=== PATIENT | female | born 1945 | race Caucasian/White ===

== ENCOUNTER 2018-07-24 09:25 | Inpatient (IN) | payer MEDICARE ==
[~2018-07-24] VITALS: Ht 160 cm; Wt 76.2 kg
[~2018-07-24 09:25] MED LIST: ATOR10TA PO; BRIM5DRO2 OP; CYCL5TAB PO; DULO60CA6 PO; ESTR0.5T PO; POLY17PO29 PO; PSYL1CAP4 PO; QUIN40TA PO; QUIN5TAB13 PO; SIMV40TA3 PO; TRAM50TA PO; TRAV5DRO EACHEYE; TRIA1TAB3 PO; ZOLP10TA4 PO
[2018-07-24] MEDS ORDERED: IV NORMAL SALINE 1000ML BAG 1,000 ML IV SCH ×2 (09:31→10:55)
[2018-07-24] MEDS ORDERED: ONDANSETRON PF 4 MG/2 ML VIAL. IV ONE (09:45)
[2018-07-24 10:12] LABS: BASO # 0.1 x10^3/uL (0.0-0.2); BASO % 0 % (0-3); EOS % 0 % (0-3); HEMATOCRIT 38.9 % (36.0-47.0); LYMPH # 1.2 x10^3/uL (1.0-4.8); LYMPH % 3 % (24-48); MEAN CORPUSCULAR HEMOGLOBIN 29 pg (25-35); MEAN CORPUSCULAR HGB CONC 34 g/dL (31-37); MEAN CORPUSCULAR VOLUME 87 fL (79-100); MONO # 1.9 x10^3/uL (0.0-1.1); MONO % 5 % (0-9); NEUT # 36.6 x10^3uL (1.8-7.7); NEUT % 92 % (31-73); PLATELET COUNT 469 x10^3/uL (140-400); RED BLOOD COUNT 4.45 x10^6/uL (3.50-5.40); WHITE BLOOD COUNT 39.7 x10^3/uL (4.0-11.0)
[2018-07-24 10:27] LABS: BILIRUBIN,URINE MODERATE (NEG); CLARITY,URINE CLOUDY; NITRITE,URINE NEGATIVE (NEG); PH,URINE 5.5; PROTEIN,URINE 100 mg/dL (NEG-TRACE)
[2018-07-24 10:29] LABS: AMORPHOUS SEDIMENT,UR PRESENT /HPF; BACTERIA,URINE FEW /HPF (0-FEW); COLOR,URINE AMBER; RBC,URINE OCC /HPF (0-2); SQUAMOUS EPITHELIAL CELL,UR FEW /LPF
[2018-07-24] MEDS ORDERED: IV NORMAL SALINE 1000ML BAG 1,000 ML IV ONE (10:30)
[2018-07-24 10:31] LABS: CALCIUM 9.5 mg/dL (8.5-10.1); CREATININE 1.6 mg/dL (0.6-1.0); GFR 31.7; POTASSIUM 3.1 mmol/L (3.5-5.1)
[2018-07-24 10:42] LABS: ALBUMIN 2.3 g/dL (3.4-5.0); ALBUMIN/GLOBULIN RATIO 0.5 (1.0-1.7); TOTAL BILIRUBIN 0.7 mg/dL (0.2-1.0)
--- NOTE | 2018-07-24 10:49 | PDOC1 ---
History and Physical Date of Admission Date of Admission DATE: 07/24/18 TIME: 10:45 Identification/Chief Complaint Chief Complaint Diarrhea Source Source: Patient History of Present Illness History of Present Illness Ms Iverson is a 73yo F w/ PMHx Arthritis, High Cholesterol, Hypertension, INSOMNIA, SPINA BIFIDA OCCULTA, OSTEOPENIA, prior lumbar laminectomy, chronic back pain who comes in with multiple days of diarrhea, found soiling herself in the ED. She is a poor historian, her sister states this is not her baseline. She was on antibiotics perioperatively for tooth extraction of multiple upper teeth, now is adentulous in her maxilla. She was tachycardic with large leukocytosis 39.7 with left shift, Cr 1.6, K 3.1, lactate 3.5, CK 473 with mild AST and Alk phos elevation. Occult stool positive and sent for c. difficile in ED with large loose watery BM. Was given empiric metronidazole and IV vancomycin by ED. Ct abdomen showed non-specific descending and sigmoid colitis, admitted for further care. Past Medical History Cardiovascular: HTN, Hyperlipidemia Pulmonary: No pertinent hx GI: No pertinent hx Heme/Onc: No pertinent hx Hepatobiliary: No pertinent hx Psych: No pertinent hx Musculoskeletal: low back pain, Osteoarthritis Rheumatologic: No pertinent hx Infectious disease: No pertinent hx ENT: No pertinent hx Renal/: No pertinent hx Endocrine: No pertinent hx Dermatology: No pertinent hx Past Surgical History Past Surgical History: Tonsillectomy, Hysterectomy, Other (Lumbar laminectomy) Current Medications Current Medications Current Medications Sodium Chloride 1,000 ml @ 1,000 mls/hr Q1H IV Last administered on 07/24/18at 10:15; Start 07/24/18 at 09:31; Stop 07/24/18 at 10:30; Status DC Ondansetron HCl (Zofran) 4 mg 1X ONCE IV Last administered on 07/24/18at 10:15; Start 07/24/18 at 09:45; Stop 07/24/18 at 09:46; Status DC Sodium Chloride 1,000 ml @ 1,000 mls/hr 1X ONCE IV ; Start 07/24/18 at 10:30; Stop 07/24/18 at 11:29 Active Scripts Active Reported Cyclobenzaprine Hcl 5 Mg Tablet 1 Tab PO TID Lipitor (Atorvastatin Calcium) 10 Mg Tablet Unknown Dose PO HS Triamterene-Hctz 37.5-25 Mg Tb (Triamterene/Hydrochlorothiazid) 1 Each Tablet 1 Tab PO DAILY Accupril (Quinapril Hcl) 40 Mg Tablet 1 Tab PO DAILY Tramadol Hcl 50 Mg Tablet 2 Tab PO PRN Q6HRS Travatan Z (Travoprost) 5 Ml Drops 1 Drop EACHEYE QHS Zolpidem Tartrate 10 Mg Tablet 1 Tab PO QHS Combigan Eye Drops (Brimonidine Tartrate/Timolol) 5 Ml Drops 5 Ml OP Metamucil Plus Calcium Capsule (Psyllium Husk/Ca Carbonate) 1 Each Capsule 2 Each PO HS Miralax (Polyethylene Glycol 3350) 17 Gm Powd.pack 1 Pkt PO DAILY Cymbalta (Duloxetine Hcl) 60 Mg Capsule.dr 1 Cap PO DAILY Estradiol 0.5 Mg Tablet 0.5 Mg PO Allergies Allergies: Coded Allergies: No Known Drug Allergies (Unverified , 05/27/13) ROS Review of System Unable to obtain 11 point ROS 2/2 confused state. She only c/o LBP Physical Exam General: Alert, Cooperative, mild distress HEENT: Atraumatic, PERRLA, EOMI, Mucous membr. moist/pink Lungs: Clear to auscultation, Normal air movement Heart: S1S2, RRR, no gallops, no murmurs Abdomen: Normal bowel sounds, Soft, No hepatosplenomegaly, No masses, Other (LLQ tender) Rectal Exam: not examined Extremities: No clubbing, No cyanosis, No edema, Normal pulses, No tenderness/swelling Skin: No rashes, No breakdown, No significant lesion Neuro: Normal speech, Strength at 5/5 X4 ext, Normal tone, Sensation intact, Cranial nerves 3-12 NL, Reflexes 2+ Psych/Mental Status: Mood NL Vitals Vitals Vital Signs Date Time Temp Pulse Resp B/P (MAP) Pulse Ox O2 Delivery O2 Flow Rate FiO2 07/24/18 09:40 98.4 104 18 113/55 (74) 96 Room Air 98.4 Labs Labs Laboratory Tests Test 07/24/18 09:45 07/24/18 09:58 Urine Collection Type U cath Urine Color [place] Urine Clarity Cloudy Urine pH 5.5 Urine Specific [place] 1.015 Urine Protein 100 mg/dL (NEG-TRACE) Urine Glucose (UA) Negative mg/dL (NEG) Urine Ketones (Stick) Trace mg/dL (NEG) Urine Blood Moderate (NEG) Urine Nitrite Negative (NEG) Urine Bilirubin Moderate (NEG) Urine Urobilinogen Dipstick 2.0 mg/dL (0.2 mg/dL) Urine Leukocyte Esterase Small (NEG) Urine RBC Occ /HPF (0-2) Urine WBC 1-4 /HPF (0-4) Urine Squamous Epithelial Cells Few /LPF Urine Amorphous Sediment Present /HPF Urine Bacteria Few /HPF (0-FEW) White Blood Count 39.7 x10^3/uL (4.0-11.0) Red Blood Count 4.45 x10^6/uL (3.50-5.40) Hemoglobin 13.0 g/dL (12.0-15.5) Hematocrit 38.9 % (36.0-47.0) Mean Corpuscular Volume 87 fL (79-100) Mean Corpuscular Hemoglobin 29 pg (25-35) Mean Corpuscular Hemoglobin Concent 34 g/dL (31-37) Red Cell Distribution Width 14.0 % (11.5-14.5) Platelet Count 469 x10^3/uL (140-400) Neutrophils (%) (Auto) 92 % (31-73) Lymphocytes (%) (Auto) 3 % (24-48) Monocytes (%) (Auto) 5 % (0-9) Eosinophils (%) (Auto) 0 % (0-3) Basophils (%) (Auto) 0 % (0-3) Neutrophils # (Auto) 36.6 x10^3uL (1.8-7.7) Lymphocytes # (Auto) 1.2 x10^3/uL (1.0-4.8) Monocytes # (Auto) 1.9 x10^3/uL (0.0-1.1) Eosinophils # (Auto) 0.0 x10^3/uL (0.0-0.7) Basophils # (Auto) 0.1 x10^3/uL (0.0-0.2) Prothrombin Time 14.0 SEC (11.7-14.0) Prothromb Time International Ratio 1.1 (0.8-1.1) Sodium Level 138 mmol/L (136-145) Potassium Level 3.1 mmol/L (3.5-5.1) Chloride Level 97 mmol/L (98-107) Carbon Dioxide Level 29 mmol/L (21-32) Anion Gap 12 (6-14) Blood Urea Nitrogen 24 mg/dL (7-20) Creatinine 1.6 mg/dL (0.6-1.0) Estimated GFR (Cockcroft-Gault) 31.7 BUN/Creatinine Ratio 15 (6-20) Glucose Level 165 mg/dL (70-99) Lactic Acid Level 3.5 mmol/L (0.4-2.0) Calcium Level 9.5 mg/dL (8.5-10.1) Troponin I Quantitative < 0.017 ng/mL (0.000-0.055) CI-Kta-T-Type Natriuretic Peptide 1604 pg/mL (0-124) Laboratory Tests Test 07/24/18 09:45 07/24/18 09:58 Urine Collection Type U cath Urine Color [place] Urine Clarity Cloudy Urine pH 5.5 Urine Specific [place] 1.015 Urine Protein 100 mg/dL (NEG-TRACE) Urine Glucose (UA) Negative mg/dL (NEG) Urine Ketones (Stick) Trace mg/dL (NEG) Urine Blood Moderate (NEG) Urine Nitrite Negative (NEG) Urine Bilirubin Moderate (NEG) Urine Urobilinogen Dipstick 2.0 mg/dL (0.2 mg/dL) Urine Leukocyte Esterase Small (NEG) Urine RBC Occ /HPF (0-2) Urine WBC 1-4 /HPF (0-4) Urine Squamous Epithelial Cells Few /LPF Urine Amorphous Sediment Present /HPF Urine Bacteria Few /HPF (0-FEW) White Blood Count 39.7 x10^3/uL (4.0-11.0) Red Blood Count 4.45 x10^6/uL (3.50-5.40) Hemoglobin 13.0 g/dL (12.0-15.5) Hematocrit 38.9 % (36.0-47.0) Mean Corpuscular Volume 87 fL (79-100) Mean Corpuscular Hemoglobin 29 pg (25-35) Mean Corpuscular Hemoglobin Concent 34 g/dL (31-37) Red Cell Distribution Width 14.0 % (11.5-14.5) Platelet Count 469 x10^3/uL (140-400) Neutrophils (%) (Auto) 92 % (31-73) Lymphocytes (%) (Auto) 3 % (24-48) Monocytes (%) (Auto) 5 % (0-9) Eosinophils (%) (Auto) 0 % (0-3) Basophils (%) (Auto) 0 % (0-3) Neutrophils # (Auto) 36.6 x10^3uL (1.8-7.7) Lymphocytes # (Auto) 1.2 x10^3/uL (1.0-4.8) Monocytes # (Auto) 1.9 x10^3/uL (0.0-1.1) Eosinophils # (Auto) 0.0 x10^3/uL (0.0-0.7) Basophils # (Auto) 0.1 x10^3/uL (0.0-0.2) Prothrombin Time 14.0 SEC (11.7-14.0) Prothromb Time International Ratio 1.1 (0.8-1.1) Sodium Level 138 mmol/L (136-145) Potassium Level 3.1 mmol/L (3.5-5.1) Chloride Level 97 mmol/L (98-107) Carbon Dioxide Level 29 mmol/L (21-32) Anion Gap 12 (6-14) Blood Urea Nitrogen 24 mg/dL (7-20) Creatinine 1.6 mg/dL (0.6-1.0) Estimated GFR (Cockcroft-Gault) 31.7 BUN/Creatinine Ratio 15 (6-20) Glucose Level 165 mg/dL (70-99) Lactic Acid Level 3.5 mmol/L (0.4-2.0) Calcium Level 9.5 mg/dL (8.5-10.1) Troponin I Quantitative < 0.017 ng/mL (0.000-0.055) DN-Xcu-X-Type Natriuretic Peptide 1604 pg/mL (0-124) Images Images CT abdomen/pelvis - 1. Findings are compatible with a mild nonspecific colitis of the distal descending colon and sigmoid colon. Likely acute diverticulitis. Otherwise other infectious, inflammatory or ischemic etiology could be considered. 2. Aortic ectasia. Proximal right common iliac artery calcified aneurysm measures 2.5 cm. 3. Degenerative lumbar spondylosis with stenosis. VTE Prophylaxis Ordered VTE Prophylaxis Devices: Yes VTE Pharmacological Prophylaxi: No Assessment/Plan Assessment/Plan A/P: Diarrhea - concerning for colitis on CT, with leukocytosis likely c. difficile, stool sample pending. Will start oral vancomycin Acute encephalopathy - likely toxic from sepsis and metabolic from her lab derangements, will try to avoid sedating meds, treat the cause Sepsis - likely 2/2 colitis, uncertain what the etiology is, but with recent antibiotic exposure and large leukocytosis this is likely c. difficile. Will consult ID and GI, stool samples obtained, early antibiotics already given by ED and fluids for elevated lactate Arthritis - with chronic lower back pain, will avoid NSAIDs with her elevated CR High Cholesterol - will confirm if she is on statin Hypertension - low BP now, hold BP meds INSOMNIA - will hold sleeping meds for her confusion Thrombocytosis - likely reactive due to leukocytosis ZAN - likely vasomotor from diarrhea, will hydrate Hypokalemia - likely 2/2 diarrhea, will replace, check mag level Mild rhabdo - likely from not moving due to diarrhea Lactic acidosis - hydrate, this is likely 2/2 sepsis Occult blood positive - will consult GI, Monitor Hb FEN - Clear liquid diet PPX - SCDs with fecal occult positive, will check for further bleeding FULL CODE Inpatient for sepsis with likely colitis, will be here at least 2 midnights SANDY JONES MD July 24, 2018 10:49
--- NOTE | 2018-07-24 10:55 | PHYS DOC ---
Past Medical History Past Medical History: Arthritis, High Cholesterol, Hypertension, Other Additional Past Medical Histor: INSOMNIA, SPINA BIFIDA OCCULTA, OSTEOPENIA Past Surgical History: Hysterectomy, Tonsillectomy, Other Additional Past Surgical Histo: A&P REPAIR, LUMBAR LAMINECTOMY Alcohol Use: None Drug Use: None Adult General Chief Complaint Chief Complaint: DIARRHEA HPI HPI Patient is a 73 year old female who brought in by EMS because of diarrhea. Patient states she has had nonbloody diarrhea for the last 3 days and usually has one or 2 episodes of nonbloody stool every day. Patient denies nausea and vomiting and abdominal pain and sick contact. Patient treated with antibiotic recently for tooth infection. Patient had 1 episode of diarrhea at arrival to ER because of very foul smelling without blood. Patient complaining of generalized weakness and anorexia and decrease of urine output. Review of Systems Review of Systems Constitutional: Denies fever or chills [] Eyes: Denies change in visual acuity, redness, or eye pain [] HENT: Denies nasal congestion or sore throat [] Respiratory: Denies cough or shortness of breath [] Cardiovascular: No additional information not addressed in HPI [] GI: Denies abdominal pain, nausea, vomiting, bloody stools, reports diarrhea [] : Denies dysuria or hematuria [] Musculoskeletal: Denies back pain or joint pain [] Integument: Denies rash or skin lesions [] Neurologic: Denies headache, focal weakness or sensory changes [] Endocrine: Denies polyuria or polydipsia [] All other systems were reviewed and found to be within normal limits, except as documented in this note. Current Medications Current Medications Current Medications Medications (Trade) Dose Ordered Sig/Mark Start Time Stop Time Status Last Admin Dose Admin Ondansetron HCl (Zofran) 4 mg 1X ONCE 07/24/18 09:45 07/24/18 09:46 DC 07/24/18 10:15 4 MG Sodium Chloride 1,000 ml @ 1,000 mls/hr 1X ONCE 07/24/18 10:30 07/24/18 11:29 DC 07/24/18 10:30 1,000 MLS/HR Allergies Allergies Allergies Coded Allergies Type Severity Reaction Last Updated Verified No Known Drug Allergies 05/27/13 No Physical Exam Physical Exam Constitutional: Well nourished, moderate distress, non-toxic appearance. [] HENT: Normocephalic, atraumatic, oropharynx dry. Eyes: PERRLA, EOMI, conjunctiva normal, no discharge. [] Neck: Normal range of motion, no tenderness, supple, no stridor. [] Cardiovascular:Heart rate regular rhythm, no murmur [] Lungs & Thorax: Bilateral breath sounds clear to auscultation [] Abdomen: Bowel sounds normal, soft, no tenderness, no masses, no pulsatile masses. [] Skin: Warm, dry, no erythema, no rash. [] Back: No tenderness, no CVA tenderness. [] Extremities: No tenderness, no cyanosis, no clubbing, ROM intact, no edema. [] Neurologic: Alert and oriented X 3, normal motor function, normal sensory function, no focal deficits noted. [] Psychologic: Affect normal, judgement normal, mood normal. [] Current Patient Data Vital Signs Vital Signs Date Time Temp Pulse Resp B/P (MAP) Pulse Ox O2 Delivery O2 Flow Rate FiO2 07/24/18 10:15 96 126/59 (81) 93 Room Air 07/24/18 09:40 98.4 18 98.4 Lab Values Laboratory Tests Test 07/24/18 09:45 07/24/18 09:58 Urine Collection Type U cath Urine Color [place] Urine Clarity Cloudy Urine pH 5.5 Urine Specific [place] 1.015 Urine Protein 100 mg/dL (NEG-TRACE) Urine Glucose (UA) Negative mg/dL (NEG) Urine Ketones (Stick) Trace mg/dL (NEG) Urine Blood Moderate (NEG) Urine Nitrite Negative (NEG) Urine Bilirubin Moderate (NEG) Urine Urobilinogen Dipstick 2.0 mg/dL (0.2 mg/dL) Urine Leukocyte Esterase Small (NEG) Urine RBC Occ /HPF (0-2) Urine WBC 1-4 /HPF (0-4) Urine Squamous Epithelial Cells Few /LPF Urine Amorphous Sediment Present /HPF Urine Bacteria Few /HPF (0-FEW) White Blood Count 39.7 x10^3/uL (4.0-11.0) H Red Blood Count 4.45 x10^6/uL (3.50-5.40) Hemoglobin 13.0 g/dL (12.0-15.5) Hematocrit 38.9 % (36.0-47.0) Mean Corpuscular Volume 87 fL (79-100) Mean Corpuscular Hemoglobin 29 pg (25-35) Mean Corpuscular Hemoglobin Concent 34 g/dL (31-37) Red Cell Distribution Width 14.0 % (11.5-14.5) Platelet Count 469 x10^3/uL (140-400) H Neutrophils (%) (Auto) 92 % (31-73) H Lymphocytes (%) (Auto) 3 % (24-48) L Monocytes (%) (Auto) 5 % (0-9) Eosinophils (%) (Auto) 0 % (0-3) Basophils (%) (Auto) 0 % (0-3) Neutrophils # (Auto) 36.6 x10^3uL (1.8-7.7) H Lymphocytes # (Auto) 1.2 x10^3/uL (1.0-4.8) Monocytes # (Auto) 1.9 x10^3/uL (0.0-1.1) H Eosinophils # (Auto) 0.0 x10^3/uL (0.0-0.7) Basophils # (Auto) 0.1 x10^3/uL (0.0-0.2) Segmented Neutrophils % 56 % (35-66) Band Neutrophils % 36 % (0-9) H Lymphocytes % 4 % (24-48) L Monocytes % 3 % (0-10) Metamyelocytes % 1 % (0-0) H Toxic Vacuolation Slight Platelet Estimate Increased (ADEQUATE) Prothrombin Time 14.0 SEC (11.7-14.0) Prothrombin Time INR 1.1 (0.8-1.1) Sodium Level 138 mmol/L (136-145) Potassium Level 3.1 mmol/L (3.5-5.1) L Chloride Level 97 mmol/L (98-107) L Carbon Dioxide Level 29 mmol/L (21-32) Anion Gap 12 (6-14) Blood Urea Nitrogen 24 mg/dL (7-20) H Creatinine 1.6 mg/dL (0.6-1.0) H Estimated GFR (Cockcroft-Gault) 31.7 BUN/Creatinine Ratio 15 (6-20) Glucose Level 165 mg/dL (70-99) H Lactic Acid Level 3.5 mmol/L (0.4-2.0) H Calcium Level 9.5 mg/dL (8.5-10.1) Magnesium Level 2.9 mg/dL (1.8-2.4) H Total Bilirubin 0.7 mg/dL (0.2-1.0) Aspartate Amino Transferase (AST) 39 U/L (15-37) H Alanine Aminotransferase (ALT) 22 U/L (14-59) Alkaline Phosphatase 156 U/L (46-116) H Creatine Kinase 473 U/L (26-192) H Troponin I Quantitative < 0.017 ng/mL (0.000-0.055) AR-Sqb-C-Type Natriuretic Peptide 1604 pg/mL (0-124) H Total Protein 7.0 g/dL (6.4-8.2) Albumin 2.3 g/dL (3.4-5.0) L Albumin/Globulin Ratio 0.5 (1.0-1.7) L Lipase 45 U/L (73-393) L Laboratory Tests 07/24/18 09:58 Laboratory Tests 07/24/18 09:58 EKG EKG [] Radiology/Procedures Radiology/Procedures IMAGING REPORT Signed PATIENT: [place] ROSS ACCOUNT: [id number] : 1945 LOCATION: [address] [place] [address] AGE: 73 SEX: F EXAM STATUS: ADM IN ORD. PHYSICIAN: NOMRA HOBSON MD REASON: diarrhea and abdominal pain PROCEDURE: CT ABD PEL W/ORAL CONTRST ONLY CT ABD PEL W/ORAL CONTRST ONLY Indication: Diarrhea and abdominal pain. Hysterectomy. Spina bifida occulta. Exposure: One or more of the following individualized dose reduction techniques were utilized for this examination: 1. Automated exposure control 2. Adjustment of the mA and/or kV according to patient size 3. Use of iterative reconstruction technique. Comparison: None are available. Technique: No intravenous contrast given. Oral contrast was given. Findings: Evaluation of solid viscera, bowel and vasculature is compromised by the noncontrast technique. Mild linear fibrosis or atelectasis in the lung bases. Coronary calcification. Liver and spleen are not enlarged. Pancreas unremarkable. No evidence of adrenal mass. No evidence of hydronephrosis or urolithiasis. Gallbladder surgically absent. Aorta calcified and tortuous. The infrarenal abdominal aorta measures up to 2.5 cm diameter. 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 No significant lymph node enlargement. No significant small bowel distention. Oral contrast is identified within the proximal small bowel loops. Colonic diverticulosis. There is mild wall thickening of the sigmoid colon and distal descending colon with mild paracolonic fatty stranding. No evidence of pneumoperitoneum no evidence of ascites. Urinary bladder is mildly distended. Degenerative changes of the spine with stenosis. Postsurgical changes of lower spine. Mild spondylolisthesis at L4/L5. Mild degenerative changes at the hips. IMPRESSION: 1. Findings are compatible with a mild nonspecific colitis of the distal descending colon and sigmoid colon. Likely acute diverticulitis. Otherwise other infectious, inflammatory or ischemic etiology could be considered. 2. Aortic ectasia. Proximal right common iliac artery calcified aneurysm measures 2.5 cm. 3. Degenerative lumbar spondylosis with stenosis. Electronically signed by: Johann Duarte MD (07/24/2018 12:49 PM) [facility] DICTATED and SIGNED BY: JOHANN DUARTE MD DATE: 07/24/18 1249 Course & Med Decision Making Course & Med Decision Making Pertinent Labs and Imaging studies reviewed. (See chart for details) Evaluation of patient in ER showed 73-year-old male patient with complaining of episodes of diarrhea and recent antibiotic use. Patient had mild tachycardia without hypertension and fever in ER. Patient treated with IV fluid. Patient had blood count of 39,000 with bandemia. Patient had elevation of lactic acid and IV Flagyl and vancomycin and IV fluid was given. CT of abdomen and pelvis showed colitis or possible diverticulitis.Patient requiring admission for further evaluation and treatment. Discussed with Dr. Cardoso who is in agreement with admission. Discussed findings and plan with patient and family, who acknowledge understanding and agreement. Dragon Disclaimer Dragon Disclaimer This electronic medical record was generated, in whole or in part, using a voice recognition dictation system. Departure Departure Impression: Primary Impression: Sepsis Additional Impressions: Leukocytosis Diarrhea Renal insufficiency Hypokalemia Colitis Diverticulitis Disposition: ADMITTED INPATIENT (at 1048) Admitting Physician: CRISTIN (Dr. Cardoso accepted admission at 1047) Condition: GUARDED Referrals: JULIUS CURRY MD (PCP) Critical Care Time Critical care time was 80 minutes exclusive of procedures. Problem Qualifiers Primary Impression: Sepsis Sepsis type: sepsis due to unspecified organism Qualified Codes: A41.9 - Sepsis, unspecified organism Additional Impressions: Leukocytosis Leukocytosis type: unspecified Qualified Codes: D72.829 - Elevated white blood cell count, unspecified Diarrhea Diarrhea type: unspecified type Qualified Codes: R19.7 - Diarrhea, unspecified NORMA HOBSON MD July 24, 2018 10:55
[2018-07-24] MEDS ORDERED: VANCOMYCIN 1GM IVPB FOR OMNI 250 ML IV ONE (11:00)
[2018-07-24] MEDS ORDERED: IOHEXOL 240 MG/ML 50ML VIAL. PO ONE (12:15)
[2018-07-24] MEDS ORDERED: CONTRAST GIVEN. MC PRN (12:15)
[2018-07-24 12:40] LABS: % BANDS 36 % (0-9); % LYMPHS 4 % (24-48); % METAS 1 % (0-0); % MONOS 3 % (0-10); % SEGS 56 % (35-66); PLT ESTIMATE INCREASED (ADEQUATE); TOXIC VACUOLATION SLIGHT
--- NOTE | 2018-07-24 12:52 | RAD ---
CT ABD PEL W/ORAL CONTRST ONLY Indication: Diarrhea and abdominal pain. Hysterectomy. Spina bifida occulta. Exposure: One or more of the following individualized dose reduction techniques were utilized for this examination: 1. Automated exposure control 2. Adjustment of the mA and/or kV according to patient size 3. Use of iterative reconstruction technique. Comparison: None are available. Technique: No intravenous contrast given. Oral contrast was given. Findings: Evaluation of solid viscera, bowel and vasculature is compromised by the noncontrast technique. Mild linear fibrosis or atelectasis in the lung bases. Coronary calcification. Liver and spleen are not enlarged. Pancreas unremarkable. No evidence of adrenal mass. No evidence of hydronephrosis or urolithiasis. Gallbladder surgically absent. Aorta calcified and tortuous. The infrarenal abdominal aorta measures up to 2.5 cm diameter. 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 No significant lymph node enlargement. No significant small bowel distention. Oral contrast is identified within the proximal small bowel loops. Colonic diverticulosis. There is mild wall thickening of the sigmoid colon and distal descending colon with mild paracolonic fatty stranding. No evidence of pneumoperitoneum no evidence of ascites. Urinary bladder is mildly distended. Degenerative changes of the spine with stenosis. Postsurgical changes of lower spine. Mild spondylolisthesis at L4/L5. Mild degenerative changes at the hips. IMPRESSION: 1. Findings are compatible with a mild nonspecific colitis of the distal descending colon and sigmoid colon. Likely acute diverticulitis. Otherwise other infectious, inflammatory or ischemic etiology could be considered. 2. Aortic ectasia. Proximal right common iliac artery calcified aneurysm measures 2.5 cm. 3. Degenerative lumbar spondylosis with stenosis. Electronically signed by: Johann Duarte MD (07/24/2018 12:49 PM) [facility]
[2018-07-24 13:15] LABS: FECAL OB PT POSITIVE (NEG)
[2018-07-24 15:00] VITALS: BP 132/55
[2018-07-24] MEDS: VANCOMYCIN 125 MG/2.5 ML ORAL SOLUTION. PO SCH ×3 (15:12→21:13)
[2018-07-24] MEDS: POTASSIUM CL 20MEQ D5-0.45NACL 1,000 ML IV SCH ×2 (15:15→21:15)
--- NOTE | 2018-07-24 15:47 | PDOC2 ---
GI CONSULT Reason For Consult: Diarrhea, leukocytosis, concern for C Diff HPI: HPI: 73 y/o female. Much of history from chart and sister. Pt didn't call sister last night like she usually does so she went to check on her this morning - was lethargic and "not making sense." Brought to ER - reports of diarrhea in the ER. Unclear if she has had significant diarrhea at home - sister says she "always has one or the other." Had recent dental extraction for dentures and was given an antibiotic. Has also had some LLQ pain for a couple days. Noted w/ labs abnormalities as below. On CT: mild nonspecific colitis of the distal descending colon and sigmoid colon. Occasional indigestion improved w/ Tums. No n/v or dysphagia. No hematemesis, hematochezia, or melena. Probably has lost a couple pounds. Diet has consisted mostly of soups considering recent dental issues. Says has a good appetite. No previous EGD. Reports normal colonoscopy probably >10 years ago. S/p cholecystectomy. No liver, pancreas, or PUD history. Past notes indicate use of Miralax and Metamucil. Long h/o back problems - on Tramadol and ibuprofen. Sister says she "has a lot of tremors" and they have an appointment with a la rologist next week. PMH: PMH: HTN, HLD, OA, osteoporosis, tremors, spina bifida, depression, DDD, diverticulosis cholecystectomy, back surgery x 3, hysterectomy, tonsillectomy FH: Family History: No pertinent hx Social History: Smoke: 1 pack per day ALCOHOL: none Drugs: None ROS: GEN: +fever +lethargy HEENT: Denies blurred vision, sore throat CV: Denies chest pain RESP: Denies shortness of air, cough GI: Per HPI : Denies hematuria, dysuria ENDO: +weight loss NEURO: +confusion MSK: +back pain SKIN: Denies jaundice, pruritus Vitals: Vitals: Vital Signs Date Time Temp Pulse Resp B/P (MAP) Pulse Ox O2 Delivery O2 Flow Rate FiO2 07/24/18 11:45 92 120/59 (79) 94 Room Air 07/24/18 09:40 98.4 18 98.4 Labs: Labs: Laboratory Tests Test 07/24/18 09:45 07/24/18 09:58 5/31/19 12:53 Urine Collection Type U cath Urine Color [place]ka Urine Clarity Cloudy Urine pH 5.5 Urine Specific [place] 1.015 Urine Protein 100 mg/dL (NEG-TRACE) Urine Glucose (UA) Negative mg/dL (NEG) Urine Ketones (Stick) Trace mg/dL (NEG) Urine Blood Moderate (NEG) Urine Nitrite Negative (NEG) Urine Bilirubin Moderate (NEG) Urine Urobilinogen Dipstick 2.0 mg/dL (0.2 mg/dL) Urine Leukocyte Esterase Small (NEG) Urine RBC Occ /HPF (0-2) Urine WBC 1-4 /HPF (0-4) Urine Squamous Epithelial Cells Few /LPF Urine Amorphous Sediment Present /HPF Urine Bacteria Few /HPF (0-FEW) White Blood Count 39.7 x10^3/uL (4.0-11.0) Red Blood Count 4.45 x10^6/uL (3.50-5.40) Hemoglobin 13.0 g/dL (12.0-15.5) Hematocrit 38.9 % (36.0-47.0) Mean Corpuscular Volume 87 fL (79-100) Mean Corpuscular Hemoglobin 29 pg (25-35) Mean Corpuscular Hemoglobin Concent 34 g/dL (31-37) Red Cell Distribution Width 14.0 % (11.5-14.5) Platelet Count 469 x10^3/uL (140-400) Neutrophils (%) (Auto) 92 % (31-73) Lymphocytes (%) (Auto) 3 % (24-48) Monocytes (%) (Auto) 5 % (0-9) Eosinophils (%) (Auto) 0 % (0-3) Basophils (%) (Auto) 0 % (0-3) Neutrophils # (Auto) 36.6 x10^3uL (1.8-7.7) Lymphocytes # (Auto) 1.2 x10^3/uL (1.0-4.8) Monocytes # (Auto) 1.9 x10^3/uL (0.0-1.1) Eosinophils # (Auto) 0.0 x10^3/uL (0.0-0.7) Basophils # (Auto) 0.1 x10^3/uL (0.0-0.2) Segmented Neutrophils % 56 % (35-66) Band Neutrophils % 36 % (0-9) Lymphocytes % 4 % (24-48) Monocytes % 3 % (0-10) Metamyelocytes % 1 % (0-0) Toxic Vacuolation Slight Platelet Estimate Increased (ADEQUATE) Prothrombin Time 14.0 SEC (11.7-14.0) Prothromb Time International Ratio 1.1 (0.8-1.1) Sodium Level 138 mmol/L (136-145) Potassium Level 3.1 mmol/L (3.5-5.1) Chloride Level 97 mmol/L (98-107) Carbon Dioxide Level 29 mmol/L (21-32) Anion Gap 12 (6-14) Blood Urea Nitrogen 24 mg/dL (7-20) Creatinine 1.6 mg/dL (0.6-1.0) Estimated GFR (Cockcroft-Gault) 31.7 BUN/Creatinine Ratio 15 (6-20) Glucose Level 165 mg/dL (70-99) Lactic Acid Level 3.5 mmol/L (0.4-2.0) Calcium Level 9.5 mg/dL (8.5-10.1) Magnesium Level 2.9 mg/dL (1.8-2.4) Total Bilirubin 0.7 mg/dL (0.2-1.0) Aspartate Amino Transf (AST/SGOT) 39 U/L (15-37) Alanine Aminotransferase (ALT/SGPT) 22 U/L (14-59) Alkaline Phosphatase 156 U/L (46-116) Creatine Kinase 473 U/L (26-192) Troponin I Quantitative < 0.017 ng/mL (0.000-0.055) FO-Aio-Z-Type Natriuretic Peptide 1604 pg/mL (0-124) Total Protein 7.0 g/dL (6.4-8.2) Albumin 2.3 g/dL (3.4-5.0) Albumin/Globulin Ratio 0.5 (1.0-1.7) Lipase 45 U/L (73-393) Stool Occult Blood Positive (NEG) Allergies: Coded Allergies: No Known Drug Allergies (Unverified , 05/27/13) Medications: Current Medications Medications (Trade) Dose Ordered Sig/Mark Route PRN Reason Start Time Stop Time Status Last Admin Dose Admin Sodium Chloride 1,000 ml @ 1,000 mls/hr Q1H IV 5/31/19 09:31 07/24/18 10:30 DC 07/24/18 10:15 Ondansetron HCl (Zofran) 4 mg 1X ONCE IV 07/24/18 09:45 07/24/18 09:46 DC 07/24/18 10:15 Sodium Chloride 1,000 ml @ 1,000 mls/hr 1X ONCE IV 07/24/18 10:30 07/24/18 11:29 DC 07/24/18 10:30 Metronidazole 100 ml @ 100 mls/hr 1X ONCE IV 07/24/18 11:00 07/24/18 11:59 DC 07/24/18 11:45 Vancomycin HCl 250 ml @ 250 mls/hr 1X ONCE IV 07/24/18 11:00 07/24/18 11:59 DC 07/24/18 11:30 Iohexol (Omnipaque 240 Mg/ml) 30 ml 1X ONCE PO 07/24/18 12:15 07/24/18 12:16 DC 07/24/18 12:14 Vancomycin HCl (Vancomycin Oral Solution) 125 mg [id number] PO 07/24/18 14:30 07/24/18 15:12 Potassium Chloride/Dextrose/ Sod Cl 1,000 ml @ 125 mls/hr Q8H IV 07/24/18 14:15 07/24/18 15:15 Imaging: Imaging: CT A/P IMPRESSION: 1. Findings are compatible with a mild nonspecific colitis of the distal descending colon and sigmoid colon. Likely acute diverticulitis. Otherwise other infectious, inflammatory or ischemic etiology could be considered. 2. Aortic ectasia. Proximal right common iliac artery calcified aneurysm measures 2.5 cm. 3. Degenerative lumbar spondylosis with stenosis. PE: GEN: NAD HEENT: Atraumatic, keeps eyes closed LUNGS: CTAB HEART: RRR ABD: quiet BS, soft, ?some distention, LLQ TTP EXTREMITY: No edema SKIN: No rashes, no jaundice NEURO/PSYCH: some confusion A/P: A/P: AMS, diarrhea, LLQ pain Leukocytosis, lactic acidosis, ZAN, elevated CK, +fecal occult Abnormal CT - mild nonspecific colitis of distal descending and sigmoid colon CRC screen - reports normal colonoscopy >10 years ago H/o alternating bowel habits Diverticulosis S/p cholecystectomy NSAID use -- Will review CT w/ Dr. Vazquez. Await C Diff and other cultures. Already on vanco. Unclear significance of +fecal occult w/o reports of bleeding and normal Hgb. AMADA RICHARDSON July 24, 2018 15:47
[2018-07-24] MEDS: ACETAMINOPHEN 325 MG TABLET. PO PRN (16:03)
[2018-07-24 19:00] VITALS: BP 128/50
[2018-07-24] MEDS: LATANOPROST 0.005% OPHTH SOLUTION 2.5ML BOTTLE. OU SCH (21:13)
[2018-07-24] MEDS: ATORVASTATIN CALCIUM 10 MG TABLET. PO SCH (21:13)
[2018-07-24 23:35] VITALS: BP 118/54
[2018-07-25] MEDS: traMADol 50 MG TABLET PO PRN ×4 (01:46→20:58)
[2018-07-25 03:50] VITALS: BP 120/43
[2018-07-25 05:04] LABS: BASO % 0 % (0-3); EOS % 0 % (0-3); HEMATOCRIT 33.6 % (36.0-47.0); HEMOGLOBIN 10.9 g/dL (12.0-15.5); LYMPH # 1.4 x10^3/uL (1.0-4.8); LYMPH % 4 % (24-48); MEAN CORPUSCULAR HEMOGLOBIN 29 pg (25-35); MEAN CORPUSCULAR HGB CONC 33 g/dL (31-37); MEAN CORPUSCULAR VOLUME 88 fL (79-100); MONO # 1.6 x10^3/uL (0.0-1.1); MONO % 4 % (0-9); NEUT # 33.2 x10^3uL (1.8-7.7); NEUT % 92 % (31-73); PLATELET COUNT 376 x10^3/uL (140-400); RED BLOOD COUNT 3.82 x10^6/uL (3.50-5.40); RED CELL DISTRIBUTION WIDTH 14.2 % (11.5-14.5); WHITE BLOOD COUNT 36.2 x10^3/uL (4.0-11.0)
[2018-07-25] MEDS: POTASSIUM CL 20MEQ D5-0.45NACL 1,000 ML IV SCH ×4 (05:36→23:31)
[2018-07-25 06:11] LABS: ALBUMIN 1.8 g/dL (3.4-5.0); ALBUMIN/GLOBULIN RATIO 0.5 (1.0-1.7); CREATININE 1.5 mg/dL (0.6-1.0); GFR 34.1; TOTAL BILIRUBIN 0.4 mg/dL (0.2-1.0); TOTAL PROTEIN 5.1 g/dL (6.4-8.2)
[2018-07-25] MEDS: PIPERACILLIN/TAZOBACTAM 2.25 GM in IV NORMAL SALINE 50ML 50 ML IV SCH ×4 (06:30→23:31)
[2018-07-25 07:00] VITALS: BP 114/36
[2018-07-25] MEDS: DULoxetine HCL 30 MG CAPSULE.DR PO SCH (08:06)
[2018-07-25] MEDS: VANCOMYCIN 125 MG/2.5 ML ORAL SOLUTION. PO SCH (08:10)
--- NOTE | 2018-07-25 10:59 | PDOC ---
[employer] PROGRESS NOTE Chief Complaint Chief Complaint Possible C. 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 chart Vitals Vitals Vital Signs Date Time Temp Pulse Resp B/P (MAP) Pulse Ox O2 Delivery O2 Flow Rate FiO2 07/25/18 09:06 18 Nasal Cannula 2.0 07/25/18 07:00 98.5 80 114/36 (62) 93 98.5 Physical Exam General: mild distress, Other (pleasantly confused) Heart: Regular rate, Normal S1, Normal S2 Lungs: Clear Abdomen: Normal bowel sounds, Soft, No hepatosplenomegaly, No masses, Other (LLQ tender) Extremities: No clubbing, No cyanosis, No edema, Normal pulses, No tenderness/swelling Skin: No rashes, No breakdown, No significant lesion Labs Labs: Laboratory Tests Test 07/24/18 12:53 07/24/18 15:05 07/25/18 03:40 Stool Occult Blood Positive (NEG) Clostridium difficile Toxin B Gene Negative (Negative) Lactic Acid Level 2.2 mmol/L (0.4-2.0) White Blood Count 36.2 x10^3/uL (4.0-11.0) Red Blood Count 3.82 x10^6/uL (3.50-5.40) Hemoglobin 10.9 g/dL (12.0-15.5) Hematocrit 33.6 % (36.0-47.0) Mean Corpuscular Volume 88 fL (79-100) Mean Corpuscular Hemoglobin 29 pg (25-35) Mean Corpuscular Hemoglobin Concent 33 g/dL (31-37) Red Cell Distribution Width 14.2 % (11.5-14.5) Platelet Count 376 x10^3/uL (140-400) Neutrophils (%) (Auto) 92 % (31-73) Lymphocytes (%) (Auto) 4 % (24-48) Monocytes (%) (Auto) 4 % (0-9) Eosinophils (%) (Auto) 0 % (0-3) Basophils (%) (Auto) 0 % (0-3) Neutrophils # (Auto) 33.2 x10^3uL (1.8-7.7) Lymphocytes # (Auto) 1.4 x10^3/uL (1.0-4.8) Monocytes # (Auto) 1.6 x10^3/uL (0.0-1.1) Eosinophils # (Auto) 0.0 x10^3/uL (0.0-0.7) Basophils # (Auto) 0.0 x10^3/uL (0.0-0.2) Sodium Level 141 mmol/L (136-145) Potassium Level 3.0 mmol/L (3.5-5.1) Chloride Level 101 mmol/L (98-107) Carbon Dioxide Level 26 mmol/L (21-32) Anion Gap 14 (6-14) Blood Urea Nitrogen 30 mg/dL (7-20) Creatinine 1.5 mg/dL (0.6-1.0) Estimated GFR (Cockcroft-Gault) 34.1 BUN/Creatinine Ratio 20 (6-20) Glucose Level 143 mg/dL (70-99) Calcium Level 8.0 mg/dL (8.5-10.1) Total Bilirubin 0.4 mg/dL (0.2-1.0) Aspartate Amino Transf (AST/SGOT) 49 U/L (15-37) Alanine Aminotransferase (ALT/SGPT) 22 U/L (14-59) Alkaline Phosphatase 145 U/L (46-116) Total Protein 5.1 g/dL (6.4-8.2) Albumin 1.8 g/dL (3.4-5.0) Albumin/Globulin Ratio 0.5 (1.0-1.7) Review of Systems Review of Systems Complains of weakness Complains of diarrhea Assessment and Plan Assessmemt and Plan Problems Medical Problems: (1) Colitis Status: Acute (2) Diarrhea Status: Acute (3) Diverticulitis Status: Acute (4) Hypokalemia Status: Acute (5) Leukocytosis Status: Acute (6) Renal insufficiency Status: Acute (7) Sepsis Status: Acute A/P: Diarrhea - Acute encephalopathy - likely toxic from sepsis Sepsis - likely 2/2 colitis, Arthritis - High Cholesterol Hypertension - INSOMNIA - will hold sleeping meds for her confusion Thrombocytosis ZAN Hypokalemia Mild rhabdo - Lactic acidosis Occult blood positive Plan Consult ID nephrology and GI IV metronidazole and fluids Home meds but hold antibiotics Frequent labs DVT prophylaxis Full code Comment Review of Relevant I have reviewed the following items grace (where applicable) has been applied. Labs Laboratory Tests Test 07/24/18 09:45 07/24/18 09:58 07/24/18 12:53 07/24/18 15:05 Urine Collection Type U cath Urine Color [place] Urine Clarity Cloudy Urine pH 5.5 Urine Specific [place] 1.015 Urine Protein 100 mg/dL (NEG-TRACE) Urine Glucose (UA) Negative mg/dL (NEG) Urine Ketones (Stick) Trace mg/dL (NEG) Urine Blood Moderate (NEG) Urine Nitrite Negative (NEG) Urine Bilirubin Moderate (NEG) Urine Urobilinogen Dipstick 2.0 mg/dL (0.2 mg/dL) Urine Leukocyte Esterase Small (NEG) Urine RBC Occ /HPF (0-2) Urine WBC 1-4 /HPF (0-4) Urine Squamous Epithelial Cells Few /LPF Urine Amorphous Sediment Present /HPF Urine Bacteria Few /HPF (0-FEW) White Blood Count 39.7 x10^3/uL (4.0-11.0) Red Blood Count 4.45 x10^6/uL (3.50-5.40) Hemoglobin 13.0 g/dL (12.0-15.5) Hematocrit 38.9 % (36.0-47.0) Mean Corpuscular Volume 87 fL (79-100) Mean Corpuscular Hemoglobin 29 pg (25-35) Mean Corpuscular Hemoglobin Concent 34 g/dL (31-37) Red Cell Distribution Width 14.0 % (11.5-14.5) Platelet Count 469 x10^3/uL (140-400) Neutrophils (%) (Auto) 92 % (31-73) Lymphocytes (%) (Auto) 3 % (24-48) Monocytes (%) (Auto) 5 % (0-9) Eosinophils (%) (Auto) 0 % (0-3) Basophils (%) (Auto) 0 % (0-3) Neutrophils # (Auto) 36.6 x10^3uL (1.8-7.7) Lymphocytes # (Auto) 1.2 x10^3/uL (1.0-4.8) Monocytes # (Auto) 1.9 x10^3/uL (0.0-1.1) Eosinophils # (Auto) 0.0 x10^3/uL (0.0-0.7) Basophils # (Auto) 0.1 x10^3/uL (0.0-0.2) Segmented Neutrophils % 56 % (35-66) Band Neutrophils % 36 % (0-9) Lymphocytes % 4 % (24-48) Monocytes % 3 % (0-10) Metamyelocytes % 1 % (0-0) Toxic Vacuolation Slight Platelet Estimate Increased (ADEQUATE) Prothrombin Time 14.0 SEC (11.7-14.0) Prothromb Time International Ratio 1.1 (0.8-1.1) Sodium Level 138 mmol/L (136-145) Potassium Level 3.1 mmol/L (3.5-5.1) Chloride Level 97 mmol/L (98-107) Carbon Dioxide Level 29 mmol/L (21-32) Anion Gap 12 (6-14) Blood Urea Nitrogen 24 mg/dL (7-20) Creatinine 1.6 mg/dL (0.6-1.0) Estimated GFR (Cockcroft-Gault) 31.7 BUN/Creatinine Ratio 15 (6-20) Glucose Level 165 mg/dL (70-99) Lactic Acid Level 3.5 mmol/L (0.4-2.0) 2.2 mmol/L (0.4-2.0) Calcium Level 9.5 mg/dL (8.5-10.1) Magnesium Level 2.9 mg/dL (1.8-2.4) Total Bilirubin 0.7 mg/dL (0.2-1.0) Aspartate Amino Transf (AST/SGOT) 39 U/L (15-37) Alanine Aminotransferase (ALT/SGPT) 22 U/L (14-59) Alkaline Phosphatase 156 U/L (46-116) Creatine Kinase 473 U/L (26-192) Troponin I Quantitative < 0.017 ng/mL (0.000-0.055) LS-Gdj-C-Type Natriuretic Peptide 1604 pg/mL (0-124) Total Protein 7.0 g/dL (6.4-8.2) Albumin 2.3 g/dL (3.4-5.0) Albumin/Globulin Ratio 0.5 (1.0-1.7) Lipase 45 U/L (73-393) Stool Occult Blood Positive (NEG) Clostridium difficile Toxin B Gene Negative (Negative) Test 07/25/18 03:40 White Blood Count 36.2 x10^3/uL (4.0-11.0) Red Blood Count 3.82 x10^6/uL (3.50-5.40) Hemoglobin 10.9 g/dL (12.0-15.5) Hematocrit 33.6 % (36.0-47.0) Mean Corpuscular Volume 88 fL (79-100) Mean Corpuscular Hemoglobin 29 pg (25-35) Mean Corpuscular Hemoglobin Concent 33 g/dL (31-37) Red Cell Distribution Width 14.2 % (11.5-14.5) Platelet Count 376 x10^3/uL (140-400) Neutrophils (%) (Auto) 92 % (31-73) Lymphocytes (%) (Auto) 4 % (24-48) Monocytes (%) (Auto) 4 % (0-9) Eosinophils (%) (Auto) 0 % (0-3) Basophils (%) (Auto) 0 % (0-3) Neutrophils # (Auto) 33.2 x10^3uL (1.8-7.7) Lymphocytes # (Auto) 1.4 x10^3/uL (1.0-4.8) Monocytes # (Auto) 1.6 x10^3/uL (0.0-1.1) Eosinophils # (Auto) 0.0 x10^3/uL (0.0-0.7) Basophils # (Auto) 0.0 x10^3/uL (0.0-0.2) Sodium Level 141 mmol/L (136-145) Potassium Level 3.0 mmol/L (3.5-5.1) Chloride Level 101 mmol/L (98-107) Carbon Dioxide Level 26 mmol/L (21-32) Anion Gap 14 (6-14) Blood Urea Nitrogen 30 mg/dL (7-20) Creatinine 1.5 mg/dL (0.6-1.0) Estimated GFR (Cockcroft-Gault) 34.1 BUN/Creatinine Ratio 20 (6-20) Glucose Level 143 mg/dL (70-99) Calcium Level 8.0 mg/dL (8.5-10.1) Total Bilirubin 0.4 mg/dL (0.2-1.0) Aspartate Amino Transf (AST/SGOT) 49 U/L (15-37) Alanine Aminotransferase (ALT/SGPT) 22 U/L (14-59) Alkaline Phosphatase 145 U/L (46-116) Total Protein 5.1 g/dL (6.4-8.2) Albumin 1.8 g/dL (3.4-5.0) Albumin/Globulin Ratio 0.5 (1.0-1.7) Laboratory Tests Test 07/24/18 12:53 07/24/18 15:05 07/25/18 03:40 Stool Occult Blood Positive (NEG) Clostridium difficile Toxin B Gene Negative (Negative) Lactic Acid Level 2.2 mmol/L (0.4-2.0) White Blood Count 36.2 x10^3/uL (4.0-11.0) Red Blood Count 3.82 x10^6/uL (3.50-5.40) Hemoglobin 10.9 g/dL (12.0-15.5) Hematocrit 33.6 % (36.0-47.0) Mean Corpuscular Volume 88 fL (79-100) Mean Corpuscular Hemoglobin 29 pg (25-35) Mean Corpuscular Hemoglobin Concent 33 g/dL (31-37) Red Cell Distribution Width 14.2 % (11.5-14.5) Platelet Count 376 x10^3/uL (140-400) Neutrophils (%) (Auto) 92 % (31-73) Lymphocytes (%) (Auto) 4 % (24-48) Monocytes (%) (Auto) 4 % (0-9) Eosinophils (%) (Auto) 0 % (0-3) Basophils (%) (Auto) 0 % (0-3) Neutrophils # (Auto) 33.2 x10^3uL (1.8-7.7) Lymphocytes # (Auto) 1.4 x10^3/uL (1.0-4.8) Monocytes # (Auto) 1.6 x10^3/uL (0.0-1.1) Eosinophils # (Auto) 0.0 x10^3/uL (0.0-0.7) Basophils # (Auto) 0.0 x10^3/uL (0.0-0.2) Sodium Level 141 mmol/L (136-145) Potassium Level 3.0 mmol/L (3.5-5.1) Chloride Level 101 mmol/L (98-107) Carbon Dioxide Level 26 mmol/L (21-32) Anion Gap 14 (6-14) Blood Urea Nitrogen 30 mg/dL (7-20) Creatinine 1.5 mg/dL (0.6-1.0) Estimated GFR (Cockcroft-Gault) 34.1 BUN/Creatinine Ratio 20 (6-20) Glucose Level 143 mg/dL (70-99) Calcium Level 8.0 mg/dL (8.5-10.1) Total Bilirubin 0.4 mg/dL (0.2-1.0) Aspartate Amino Transf (AST/SGOT) 49 U/L (15-37) Alanine Aminotransferase (ALT/SGPT) 22 U/L (14-59) Alkaline Phosphatase 145 U/L (46-116) Total Protein 5.1 g/dL (6.4-8.2) Albumin 1.8 g/dL (3.4-5.0) Albumin/Globulin Ratio 0.5 (1.0-1.7) Microbiology 07/24/18 Blood Culture - Preliminary, Resulted NO GROWTH AFTER 1 DAY 07/24/18 Fecal Leukocyte Stain - Final, Complete Medications Current Medications Sodium Chloride 1,000 ml @ 1,000 mls/hr Q1H IV Last administered on 07/24/18at 10:15; Start 07/24/18 at 09:31; Stop 07/24/18 at 10:30; Status DC Ondansetron HCl (Zofran) 4 mg 1X ONCE IV Last administered on 07/24/18at 10:15; Start 07/24/18 at 09:45; Stop 07/24/18 at 09:46; Status DC Sodium Chloride 1,000 ml @ 1,000 mls/hr 1X ONCE IV Last administered on 07/24/18at 10:30; Start 07/24/18 at 10:30; Stop 07/24/18 at 11:29; Status DC Metronidazole 100 ml @ 100 mls/hr 1X ONCE IV Last administered on 07/24/18at 11:45; Start 07/24/18 at 11:00; Stop 07/24/18 at 11:59; Status DC Vancomycin HCl 250 ml @ 250 mls/hr 1X ONCE IV Last administered on 07/24/18at 11:30; Start 07/24/18 at 11:00; Stop 07/24/18 at 11:59; Status DC Sodium Chloride 1,000 ml @ 150 mls/hr Q6H40M IV ; Start 07/24/18 at 10:55; Stop 07/24/18 at 14:13; Status DC Iohexol (Omnipaque 240 Mg/ml) 30 ml 1X ONCE PO Last administered on 07/24/18at 12:14; Start 07/24/18 at 12:15; Stop 07/24/18 at 12:16; Status DC Info (CONTRAST GIVEN -- Rx MONITORING) 1 each PRN DAILY PRN MC SEE COMMENTS; Start 07/24/18 at 12:15; Stop 07/26/18 at 12:14 Vancomycin HCl (Vancomycin Oral Solution) 125 mg [id number] PO Last administered on 07/25/18at 08:10; Start 07/24/18 at 14:30 Potassium Chloride/Dextrose/ Sod Cl 1,000 ml @ 125 mls/hr Q8H IV Last administered on 07/25/18at 05:36; Start 07/24/18 at 14:15 Atorvastatin Calcium (Lipitor) 10 mg HS PO Last administered on 07/24/18at 21:13; Start 07/24/18 at 21:00 Tramadol HCl (Ultram) 100 mg PRN Q6HRS PRN PO PAIN Last administered on 07/25/18at 08:06; Start 07/24/18 at 14:15 Duloxetine HCl (Cymbalta) 60 mg DAILY PO Last administered on 07/25/18at 08:06; Start 07/25/18 at 09:00 Latanoprost (Xalatan) 1 drop QHS OU Last administered on 07/24/18at 21:13; Start 07/24/18 at 21:00 Acetaminophen (Tylenol) 650 mg PRN Q6HRS PRN PO Fever Last administered on 07/24/18 16:03; Start 07/24/18 at 16:00 Piperacillin Sod/ Tazobactam Sod 2.25 gm/Sodium Chloride 50 ml @ 100 mls/hr Q6HRS IV Last administered on 07/25/18at 06:30; Start 07/25/18 at 06:15 Metronidazole 100 ml @ 100 mls/hr Q12HR IV Last administered on 07/25/18at 08:07; Start 07/25/18 at 09:00 Active Scripts Active Reported Cyclobenzaprine Hcl 5 Mg Tablet 1 Tab PO TID Lipitor (Atorvastatin Calcium) 10 Mg Tablet Unknown Dose PO HS Triamterene-Hctz 37.5-25 Mg Tb (Triamterene/Hydrochlorothiazid) 1 Each Tablet 1 Tab PO DAILY Accupril (Quinapril Hcl) 40 Mg Tablet 1 Tab PO DAILY Tramadol Hcl 50 Mg Tablet 2 Tab PO PRN Q6HRS Travatan Z (Travoprost) 5 Ml Drops 1 Drop EACHEYE QHS Zolpidem Tartrate 10 Mg Tablet 1 Tab PO QHS Combigan Eye Drops (Brimonidine Tartrate/Timolol) 5 Ml Drops 5 Ml OP Metamucil Plus Calcium Capsule (Psyllium Husk/Ca Carbonate) 1 Each Capsule 2 Each PO HS Miralax (Polyethylene Glycol 3350) 17 Gm Powd.pack 1 Pkt PO DAILY Cymbalta (Duloxetine Hcl) 60 Mg Capsule.dr 1 Cap PO DAILY Estradiol 0.5 Mg Tablet 0.5 Mg PO Vitals/I & O Vital Sign - Last 24 Hours 07/24/18 07/24/18 07/24/18 07/24/18 11:15 11:45 15:00 17:58 Temp 101.6 101.6 Pulse 94 92 101 Resp 20 B/P (MAP) 144/64 (90) 120/59 (79) 132/55 (80) Pulse Ox 94 94 94 O2 Delivery Room Air Room Air Nasal Cannula Nasal Cannula O2 Flow Rate 2.0 2.0 07/24/18 07/24/18 07/24/18 07/24/18 18:00 19:00 19:30 23:35 Temp 100.5 98.3 99.4 100.5 98.3 99.4 Pulse 86 90 Resp 18 20 B/P (MAP) 128/50 (76) 118/54 (75) Pulse Ox 93 91 O2 Delivery Nasal Cannula Nasal Cannula Nasal Cannula O2 Flow Rate 2.0 2.0 2.0 07/25/18 07/25/18 07/25/18 07/25/18 01:46 03:50 07:00 08:00 Temp 99.0 98.5 99.0 98.5 Pulse 90 80 Resp 16 16 24 B/P (MAP) 120/43 (68) 114/36 (62) Pulse Ox 91 93 93 O2 Delivery Nasal Cannula Nasal Cannula Nasal Cannula Nasal Cannula O2 Flow Rate 2.0 2.0 2.0 2.0 07/25/18 07/25/18 08:06 09:06 Resp 18 18 O2 Delivery Nasal Cannula Nasal Cannula O2 Flow Rate 2.0 2.0 Intake and Output 07/24/18 07/24/18 07/25/18 15:00 23:00 07:00 Intake Total 150 ml 400 ml Balance 150 ml 400 ml URIEL VUONG III DO Jul 25, 2018 10:59
--- NOTE | 2018-07-25 11:21 | NUR ---
C.diff. negative, isolation dc'd. Patient sleeping, will notify her when she wakes. Yancy COREA APRN making rounds to see notified.
[2018-07-25 11:23] VITALS: BP 116/53
--- NOTE | 2018-07-25 11:52 | NUR ---
Addendum: Yancy CONTEH ALFALFA DEHYDRATOR OPERATOR correction previous note.
--- NOTE | 2018-07-25 12:51 | PDOC ---
Infectious Disease Note Vital Sign Vital Signs Vital Signs Date Time Temp Pulse Resp B/P (MAP) Pulse Ox O2 Delivery O2 Flow Rate FiO2 07/25/18 11:23 97.8 92 30 116/53 (74) 96 Nasal Cannula 2.0 97.8 Labs Lab Laboratory Tests Test 07/24/18 12:53 07/24/18 15:05 07/25/18 03:40 Stool Occult Blood Positive (NEG) Clostridium difficile Toxin B Gene Negative (Negative) Lactic Acid Level 2.2 mmol/L (0.4-2.0) White Blood Count 36.2 x10^3/uL (4.0-11.0) Red Blood Count 3.82 x10^6/uL (3.50-5.40) Hemoglobin 10.9 g/dL (12.0-15.5) Hematocrit 33.6 % (36.0-47.0) Mean Corpuscular Volume 88 fL (79-100) Mean Corpuscular Hemoglobin 29 pg (25-35) Mean Corpuscular Hemoglobin Concent 33 g/dL (31-37) Red Cell Distribution Width 14.2 % (11.5-14.5) Platelet Count 376 x10^3/uL (140-400) Neutrophils (%) (Auto) 92 % (31-73) Lymphocytes (%) (Auto) 4 % (24-48) Monocytes (%) (Auto) 4 % (0-9) Eosinophils (%) (Auto) 0 % (0-3) Basophils (%) (Auto) 0 % (0-3) Neutrophils # (Auto) 33.2 x10^3uL (1.8-7.7) Lymphocytes # (Auto) 1.4 x10^3/uL (1.0-4.8) Monocytes # (Auto) 1.6 x10^3/uL (0.0-1.1) Eosinophils # (Auto) 0.0 x10^3/uL (0.0-0.7) Basophils # (Auto) 0.0 x10^3/uL (0.0-0.2) Sodium Level 141 mmol/L (136-145) Potassium Level 3.0 mmol/L (3.5-5.1) Chloride Level 101 mmol/L (98-107) Carbon Dioxide Level 26 mmol/L (21-32) Anion Gap 14 (6-14) Blood Urea Nitrogen 30 mg/dL (7-20) Creatinine 1.5 mg/dL (0.6-1.0) Estimated GFR (Cockcroft-Gault) 34.1 BUN/Creatinine Ratio 20 (6-20) Glucose Level 143 mg/dL (70-99) Calcium Level 8.0 mg/dL (8.5-10.1) Total Bilirubin 0.4 mg/dL (0.2-1.0) Aspartate Amino Transf (AST/SGOT) 49 U/L (15-37) Alanine Aminotransferase (ALT/SGPT) 22 U/L (14-59) Alkaline Phosphatase 145 U/L (46-116) Total Protein 5.1 g/dL (6.4-8.2) Albumin 1.8 g/dL (3.4-5.0) Albumin/Globulin Ratio 0.5 (1.0-1.7) Micro Microbiology 07/24/18 Blood Culture - Preliminary, Resulted NO GROWTH AFTER 1 DAY 07/24/18 Fecal Leukocyte Stain - Final, Complete Objective Assessment Sepsis with fever, leukocytosis, tachycardia Abnormal CT - mild nonspecific colitis of distal descending and sigmoid colon, likely acute diverticulitis Lactic acidosis Encephalopathy, improving ZAN Diarrhea, c. diff PCR neg Recent dental extraction/abx Plan Plan of Care d/c po vanc and Flagyl Continue Zosyn Repeat CK and Lactic in am f/u cultures Monitor WBC/temp Maintain hydration D/w nursing Thank you [id number] D/w sister Monitor ? ischemia. May need repeat imaging. May need vascular/Gen surg eval - clinically better currently Attending Co-Sign Attending Co-Sign The patient was seen and interviewed as well as examined at the bedside. The chart was reviewed. The case was discussed. Agree with the plan of care. TONY HADLEY APRN Jul 25, 2018 12:51 TADEO CHERY MD Jul 25, 2018 18:13
--- NOTE | 2018-07-25 13:26 | PDOC ---
G I PROGRESS NOTE Reason for Follow-up Diarrhea/abd pain Subjective Feeling better Physical Exam Lungs decreased BS CV S1 S2 ABD +BS, soft, mild LLQ tenderness Review of Relevant I have reviewed the following items grace (where applicable) has been applied. Labs Laboratory Tests Test 07/24/18 09:45 07/24/18 09:58 07/24/18 12:53 07/24/18 15:05 Urine Collection Type U cath Urine Color [place] Urine Clarity Cloudy Urine pH 5.5 Urine Specific [place] 1.015 Urine Protein 100 mg/dL (NEG-TRACE) Urine Glucose (UA) Negative mg/dL (NEG) Urine Ketones (Stick) Trace mg/dL (NEG) Urine Blood Moderate (NEG) Urine Nitrite Negative (NEG) Urine Bilirubin Moderate (NEG) Urine Urobilinogen Dipstick 2.0 mg/dL (0.2 mg/dL) Urine Leukocyte Esterase Small (NEG) Urine RBC Occ /HPF (0-2) Urine WBC 1-4 /HPF (0-4) Urine Squamous Epithelial Cells Few /LPF Urine Amorphous Sediment Present /HPF Urine Bacteria Few /HPF (0-FEW) White Blood Count 39.7 x10^3/uL (4.0-11.0) Red Blood Count 4.45 x10^6/uL (3.50-5.40) Hemoglobin 13.0 g/dL (12.0-15.5) Hematocrit 38.9 % (36.0-47.0) Mean Corpuscular Volume 87 fL (79-100) Mean Corpuscular Hemoglobin 29 pg (25-35) Mean Corpuscular Hemoglobin Concent 34 g/dL (31-37) Red Cell Distribution Width 14.0 % (11.5-14.5) Platelet Count 469 x10^3/uL (140-400) Neutrophils (%) (Auto) 92 % (31-73) Lymphocytes (%) (Auto) 3 % (24-48) Monocytes (%) (Auto) 5 % (0-9) Eosinophils (%) (Auto) 0 % (0-3) Basophils (%) (Auto) 0 % (0-3) Neutrophils # (Auto) 36.6 x10^3uL (1.8-7.7) Lymphocytes # (Auto) 1.2 x10^3/uL (1.0-4.8) Monocytes # (Auto) 1.9 x10^3/uL (0.0-1.1) Eosinophils # (Auto) 0.0 x10^3/uL (0.0-0.7) Basophils # (Auto) 0.1 x10^3/uL (0.0-0.2) Segmented Neutrophils % 56 % (35-66) Band Neutrophils % 36 % (0-9) Lymphocytes % 4 % (24-48) Monocytes % 3 % (0-10) Metamyelocytes % 1 % (0-0) Toxic Vacuolation Slight Platelet Estimate Increased (ADEQUATE) Prothrombin Time 14.0 SEC (11.7-14.0) Prothromb Time International Ratio 1.1 (0.8-1.1) Sodium Level 138 mmol/L (136-145) Potassium Level 3.1 mmol/L (3.5-5.1) Chloride Level 97 mmol/L (98-107) Carbon Dioxide Level 29 mmol/L (21-32) Anion Gap 12 (6-14) Blood Urea Nitrogen 24 mg/dL (7-20) Creatinine 1.6 mg/dL (0.6-1.0) Estimated GFR (Cockcroft-Gault) 31.7 BUN/Creatinine Ratio 15 (6-20) Glucose Level 165 mg/dL (70-99) Lactic Acid Level 3.5 mmol/L (0.4-2.0) 2.2 mmol/L (0.4-2.0) Calcium Level 9.5 mg/dL (8.5-10.1) Magnesium Level 2.9 mg/dL (1.8-2.4) Total Bilirubin 0.7 mg/dL (0.2-1.0) Aspartate Amino Transf (AST/SGOT) 39 U/L (15-37) Alanine Aminotransferase (ALT/SGPT) 22 U/L (14-59) Alkaline Phosphatase 156 U/L (46-116) Creatine Kinase 473 U/L (26-192) Troponin I Quantitative < 0.017 ng/mL (0.000-0.055) HZ-Fff-E-Type Natriuretic Peptide 1604 pg/mL (0-124) Total Protein 7.0 g/dL (6.4-8.2) Albumin 2.3 g/dL (3.4-5.0) Albumin/Globulin Ratio 0.5 (1.0-1.7) Lipase 45 U/L (73-393) Stool Occult Blood Positive (NEG) Clostridium difficile Toxin B Gene Negative (Negative) Test 07/25/18 03:40 White Blood Count 36.2 x10^3/uL (4.0-11.0) Red Blood Count 3.82 x10^6/uL (3.50-5.40) Hemoglobin 10.9 g/dL (12.0-15.5) Hematocrit 33.6 % (36.0-47.0) Mean Corpuscular Volume 88 fL (79-100) Mean Corpuscular Hemoglobin 29 pg (25-35) Mean Corpuscular Hemoglobin Concent 33 g/dL (31-37) Red Cell Distribution Width 14.2 % (11.5-14.5) Platelet Count 376 x10^3/uL (140-400) Neutrophils (%) (Auto) 92 % (31-73) Lymphocytes (%) (Auto) 4 % (24-48) Monocytes (%) (Auto) 4 % (0-9) Eosinophils (%) (Auto) 0 % (0-3) Basophils (%) (Auto) 0 % (0-3) Neutrophils # (Auto) 33.2 x10^3uL (1.8-7.7) Lymphocytes # (Auto) 1.4 x10^3/uL (1.0-4.8) Monocytes # (Auto) 1.6 x10^3/uL (0.0-1.1) Eosinophils # (Auto) 0.0 x10^3/uL (0.0-0.7) Basophils # (Auto) 0.0 x10^3/uL (0.0-0.2) Sodium Level 141 mmol/L (136-145) Potassium Level 3.0 mmol/L (3.5-5.1) Chloride Level 101 mmol/L (98-107) Carbon Dioxide Level 26 mmol/L (21-32) Anion Gap 14 (6-14) Blood Urea Nitrogen 30 mg/dL (7-20) Creatinine 1.5 mg/dL (0.6-1.0) Estimated GFR (Cockcroft-Gault) 34.1 BUN/Creatinine Ratio 20 (6-20) Glucose Level 143 mg/dL (70-99) Calcium Level 8.0 mg/dL (8.5-10.1) Total Bilirubin 0.4 mg/dL (0.2-1.0) Aspartate Amino Transf (AST/SGOT) 49 U/L (15-37) Alanine Aminotransferase (ALT/SGPT) 22 U/L (14-59) Alkaline Phosphatase 145 U/L (46-116) Total Protein 5.1 g/dL (6.4-8.2) Albumin 1.8 g/dL (3.4-5.0) Albumin/Globulin Ratio 0.5 (1.0-1.7) Laboratory Tests Test 07/24/18 15:05 07/25/18 03:40 Lactic Acid Level 2.2 mmol/L (0.4-2.0) White Blood Count 36.2 x10^3/uL (4.0-11.0) Red Blood Count 3.82 x10^6/uL (3.50-5.40) Hemoglobin 10.9 g/dL (12.0-15.5) Hematocrit 33.6 % (36.0-47.0) Mean Corpuscular Volume 88 fL (79-100) Mean Corpuscular Hemoglobin 29 pg (25-35) Mean Corpuscular Hemoglobin Concent 33 g/dL (31-37) Red Cell Distribution Width 14.2 % (11.5-14.5) Platelet Count 376 x10^3/uL (140-400) Neutrophils (%) (Auto) 92 % (31-73) Lymphocytes (%) (Auto) 4 % (24-48) Monocytes (%) (Auto) 4 % (0-9) Eosinophils (%) (Auto) 0 % (0-3) Basophils (%) (Auto) 0 % (0-3) Neutrophils # (Auto) 33.2 x10^3uL (1.8-7.7) Lymphocytes # (Auto) 1.4 x10^3/uL (1.0-4.8) Monocytes # (Auto) 1.6 x10^3/uL (0.0-1.1) Eosinophils # (Auto) 0.0 x10^3/uL (0.0-0.7) Basophils # (Auto) 0.0 x10^3/uL (0.0-0.2) Sodium Level 141 mmol/L (136-145) Potassium Level 3.0 mmol/L (3.5-5.1) Chloride Level 101 mmol/L (98-107) Carbon Dioxide Level 26 mmol/L (21-32) Anion Gap 14 (6-14) Blood Urea Nitrogen 30 mg/dL (7-20) Creatinine 1.5 mg/dL (0.6-1.0) Estimated GFR (Cockcroft-Gault) 34.1 BUN/Creatinine Ratio 20 (6-20) Glucose Level 143 mg/dL (70-99) Calcium Level 8.0 mg/dL (8.5-10.1) Total Bilirubin 0.4 mg/dL (0.2-1.0) Aspartate Amino Transf (AST/SGOT) 49 U/L (15-37) Alanine Aminotransferase (ALT/SGPT) 22 U/L (14-59) Alkaline Phosphatase 145 U/L (46-116) Total Protein 5.1 g/dL (6.4-8.2) Albumin 1.8 g/dL (3.4-5.0) Albumin/Globulin Ratio 0.5 (1.0-1.7) Microbiology 07/24/18 Blood Culture - Preliminary, Resulted NO GROWTH AFTER 1 DAY 07/24/18 Fecal Leukocyte Stain - Final, Complete Medications Current Medications Sodium Chloride 1,000 ml @ 1,000 mls/hr Q1H IV Last administered on 07/24/18at 10:15; Start 07/24/18 at 09:31; Stop 07/24/18 at 10:30; Status DC Ondansetron HCl (Zofran) 4 mg 1X ONCE IV Last administered on 07/24/18at 10:15; Start 07/24/18 at 09:45; Stop 07/24/18 at 09:46; Status DC Sodium Chloride 1,000 ml @ 1,000 mls/hr 1X ONCE IV Last administered on 07/24/18at 10:30; Start 07/24/18 at 10:30; Stop 07/24/18 at 11:29; Status DC Metronidazole 100 ml @ 100 mls/hr 1X ONCE IV Last administered on 07/24/18at 11:45; Start 07/24/18 at 11:00; Stop 07/24/18 at 11:59; Status DC Vancomycin HCl 250 ml @ 250 mls/hr 1X ONCE IV Last administered on 07/24/18at 11:30; Start 07/24/18 at 11:00; Stop 07/24/18 at 11:59; Status DC Sodium Chloride 1,000 ml @ 150 mls/hr Q6H40M IV ; Start 07/24/18 at 10:55; Stop 07/24/18 at 14:13; Status DC Iohexol (Omnipaque 240 Mg/ml) 30 ml 1X ONCE PO Last administered on 07/24/18at 12:14; Start 07/24/18 at 12:15; Stop 07/24/18 at 12:16; Status DC Info (CONTRAST GIVEN -- Rx MONITORING) 1 each PRN DAILY PRN MC SEE COMMENTS; Start 07/24/18 at 12:15; Stop 07/26/18 at 12:14 Vancomycin HCl (Vancomycin Oral Solution) 125 mg [id number] PO Last administered on 07/25/18at 08:10; Start 07/24/18 at 14:30; Stop 07/25/18 at 12:38; Status DC Potassium Chloride/Dextrose/ Sod Cl 1,000 ml @ 125 mls/hr Q8H IV Last administered on 07/25/18at 05:36; Start 07/24/18 at 14:15 Atorvastatin Calcium (Lipitor) 10 mg HS PO Last administered on 07/24/18at 21:13; Start 07/24/18 at 21:00 Tramadol HCl (Ultram) 100 mg PRN Q6HRS PRN PO PAIN Last administered on 07/25/18at 08:06; Start 07/24/18 at 14:15 Duloxetine HCl (Cymbalta) 60 mg DAILY PO Last administered on 07/25/18at 08:06; Start 07/25/18 at 09:00 Latanoprost (Xalatan) 1 drop QHS OU Last administered on 07/24/18at 21:13; Start 07/24/18 at 21:00 Acetaminophen (Tylenol) 650 mg PRN Q6HRS PRN PO Fever Last administered on 07/24/18at 16:03; Start 07/24/18 at 16:00 Piperacillin Sod/ Tazobactam Sod 2.25 gm/Sodium Chloride 50 ml @ 100 mls/hr Q6HRS IV Last administered on 07/25/18at 11:40; Start 07/25/18 at 06:15 Metronidazole 100 ml @ 100 mls/hr Q12HR IV Last administered on 07/25/18at 08:07; Start 07/25/18 at 09:00; Stop 07/25/18 at 12:38; Status DC Active Scripts Active Reported Cyclobenzaprine Hcl 5 Mg Tablet 1 Tab PO TID Lipitor (Atorvastatin Calcium) 10 Mg Tablet Unknown Dose PO HS Triamterene-Hctz 37.5-25 Mg Tb (Triamterene/Hydrochlorothiazid) 1 Each Tablet 1 Tab PO DAILY Accupril (Quinapril Hcl) 40 Mg Tablet 1 Tab PO DAILY Tramadol Hcl 50 Mg Tablet 2 Tab PO PRN Q6HRS Travatan Z (Travoprost) 5 Ml Drops 1 Drop EACHEYE QHS Zolpidem Tartrate 10 Mg Tablet 1 Tab PO QHS Combigan Eye Drops (Brimonidine Tartrate/Timolol) 5 Ml Drops 5 Ml OP Metamucil Plus Calcium Capsule (Psyllium Husk/Ca Carbonate) 1 Each Capsule 2 Each PO HS Miralax (Polyethylene Glycol 3350) 17 Gm Powd.pack 1 Pkt PO DAILY Cymbalta (Duloxetine Hcl) 60 Mg Capsule.dr 1 Cap PO DAILY Estradiol 0.5 Mg Tablet 0.5 Mg PO Vitals/I & O Vital Sign - Last 24 Hours 07/24/18 07/24/18 07/24/18 07/24/18 15:00 17:58 18:00 19:00 Temp 101.6 100.5 98.3 101.6 100.5 98.3 Pulse 101 86 Resp 20 18 B/P (MAP) 132/55 (80) 128/50 (76) Pulse Ox 94 93 O2 Delivery Nasal Cannula Nasal Cannula Nasal Cannula O2 Flow Rate 2.0 2.0 2.0 07/24/18 07/24/18 07/25/18 07/25/18 19:30 23:35 01:46 03:50 Temp 99.4 99.0 99.4 99.0 Pulse 90 90 Resp 20 16 16 B/P (MAP) 118/54 (75) 120/43 (68) Pulse Ox 91 91 93 O2 Delivery Nasal Cannula Nasal Cannula Nasal Cannula Nasal Cannula O2 Flow Rate 2.0 2.0 2.0 2.0 07/25/18 07/25/18 07/25/181/19 07:00 08:00 08:06 09:06 Temp 98.5 98.5 Pulse 80 Resp 24 18 18 B/P (MAP) 114/36 (62) Pulse Ox 93 O2 Delivery Nasal Cannula Nasal Cannula Nasal Cannula Nasal Cannula O2 Flow Rate 2.0 2.0 2.0 2.0 07/25/18 11:23 Temp 97.8 97.8 Pulse 92 Resp 30 B/P (MAP) 116/53 (74) Pulse Ox 96 O2 Delivery Nasal Cannula O2 Flow Rate 2.0 Intake and Output 07/24/18 07/24/18 07/25/18 15:00 23:00 07:00 Intake Total 150 ml 400 ml Balance 150 ml 400 ml Problem List Problems Medical Problems: (1) Colitis Status: Acute (2) Diarrhea Status: Acute (3) Diverticulitis Status: Acute (4) Hypokalemia Status: Acute (5) Leukocytosis Status: Acute (6) Renal insufficiency Status: Acute (7) Sepsis Status: Acute Assessment LLQ abd pain- with resolving symptoms, diarrhea with enteritis and/or diverticulitis in differential. CPM ELADIO ROSADO MD Jul 25, 2018 13:26
--- NOTE | 2018-07-25 13:26 | CONS ---
DATE OF CONSULTATION: 07/25/2018 REQUESTING PHYSICIAN: Dr. Cardoso. REASON FOR CONSULTATION: Leukocytosis, diarrhea, concerning for Clostridium difficile. HISTORY OF PRESENT ILLNESS: This patient is a 73-year-old female who about a week or so ago underwent a tooth extraction. She had been on antibiotics twice a day beforehand. Since then, she had developed diarrhea with some incontinence, abdominal pain and bloating. She became confused, prompting the ER visit. On arrival, she was found to have elevated white blood cell count of 39,700 with segs 56%, bands 36% and lactic acid 3.5. Urinalysis is unremarkable for infection and blood cultures are negative so far. A C. diff PCR returned negative. An abdominal/pelvis CT with oral contrast only showed findings compatible with mild nonspecific colitis of the distal descending colon and sigmoid colon, likely acute diverticulitis. She was given a dose of IV vancomycin and metronidazole in the ER and Zosyn and p.o. vancomycin have since been added. PAST MEDICAL HISTORY: Hypertension, hyperlipidemia, osteoarthritis, osteoporosis, tremors, spina bifida, depression, degenerative disk disease, diverticulosis. PAST SURGICAL HISTORY: Cholecystectomy, back surgery x 3, hysterectomy and tonsillectomy. FAMILY HISTORY: Noncontributory. SOCIAL HISTORY: The patient lives at home. She smokes 1 pack of cigarettes per day. ALLERGIES: No known drug allergies. MEDICATIONS: Zosyn, metronidazole, oral vancomycin, one-time dose of vancomycin, Tylenol, Lipitor, Cymbalta, tramadol, Xalatan. REVIEW OF SYSTEMS: The patient says that she is feeling better. She says she realizes that she was confused, but is thinking more clear now. She says her stools are solid and soft. She has been having about one bowel movement a day on average. Her appetite is diminished. She denies nausea or vomiting. She had a fever yesterday. She complains of chronic back pain. Denies shortness of air, cough, or chest discomfort. PHYSICAL EXAMINATION: VITAL SIGNS: Temperature is 97.8, T-max 101.6, blood pressure 116/53, heart rate 92, respiratory rate 30, pulse oximetry 96% on 2 liters oxygen. GENERAL: The patient is resting quietly, arouses easily to name. HEENT: Pupils equally round. Oropharynx pink and moist. NECK: Supple. LUNGS: Clear to auscultation. HEART: S1, S2. ABDOMEN: Obese, mildly distended, soft and tender LLQ with bowel sounds present. EXTREMITIES: No gross edema or cyanosis. SKIN: Warm without generalized rash. NEUROLOGIC: Alert and responding appropriately, oriented to time, place and person. LABORATORY DATA: Today's WBC 36.2 from 39.7 on admission, hemoglobin 10.9, platelets 376,000. Sodium 141, potassium 3.0, creatinine 1.5, BUN 30. Lactic acid 2.2 from 3.5 on admission. Total bilirubin 0.4, AST 49, ALT 22. Troponin less than 0.017, albumin 1.8, lipase 45. BNP 1604. Clostridium difficile PCR on 07/24/2018 negative. Stool occult blood positive. Urinalysis unremarkable for infection. Blood cultures pending. CT abdomen/pelvis per HPI. Stool cultures pending. IMPRESSION: 1. Sepsis present on admission. 2. Abnormal CT showing mild nonspecific colitis of distal descending and sigmoid colon, likely acute diverticulitis. 3. Lactic acidosis. 4. Encephalopathy, improving. 5. Acute kidney injury. 6. Diarrhea with negative Clostridium difficile. 7. Recent dental extraction and antibiotic use. PLAN: Continue the Zosyn. We will stop the oral vancomycin and metronidazole. We will follow up on culture results. Monitor for possible ischemia. She may need repeat imaging and vascular or general surgery evaluation. Clinically she is better. Continue to monitor WBC count and temperature. Maintain hydration, supportive care. Thank you, Dr. Cardoso, for asking us to participate in this patient's care. Should you have further questions or concerns, please call. Patient seen, examined and plan of care implemented by Dr. Taedo Chery. TADEO CHERY MD DR: CHASIDY/cory JOB#: [id number] / [id number] FRANCESCO
[2018-07-25 15:00] VITALS: BP 119/50
--- NOTE | 2018-07-25 16:39 | PDOC2 ---
CONSULT Date of Consult Date of Consult DATE: 07/25/18 TIME: 16:27 Reason for Consult Reason for Consult: IVORY Jessica Source Source: Chart review, Patient History of Present Illness Reason for Visit: Pt is a 73yo C F w/ PMHx Arthritis, Hypertension, prior lumbar laminectomy, chronic back pain who comes in with multiple days of diarrhea. She was on antibiotics perioperatively for tooth extraction of multiple upper teeth, She was tachycardic with leukocytosis 39, Cr 1.6,. Ct abdomen showed non- specific descending and sigmoid colitis She denies any Dx of CKD. Denies any urinary complaints. Denies use of NSAID's, takes tramadol Reports has been on HCTZ for many years, No recent med changes Past Medical History Cardiovascular: HTN, Hyperlipidemia Pulmonary: No pertinent hx GI: No pertinent hx Heme/Onc: No pertinent hx Hepatobiliary: No pertinent hx Psych: No pertinent hx Musculoskeletal: low back pain, Osteoarthritis Rheumatologic: No pertinent hx Infectious disease: No pertinent hx ENT: No pertinent hx Renal/: No pertinent hx Endocrine: No pertinent hx Dermatology: No pertinent hx Past Surgical History Past Surgical History: Tonsillectomy, Hysterectomy, Other (Lumbar laminectomy) Social History 1 pack per day ALCOHOL: none Drugs: None Current Problem List Problem List Problems Medical Problems: (1) Colitis Status: Acute (2) Diarrhea Status: Acute (3) Diverticulitis Status: Acute (4) Hypokalemia Status: Acute (5) Leukocytosis Status: Acute (6) Renal insufficiency Status: Acute (7) Sepsis Status: Acute Current Medications Current Medications Current Medications Sodium Chloride 1,000 ml @ 1,000 mls/hr Q1H IV Last administered on 07/24/18at 10:15; Start 07/24/18 at 09:31; Stop 07/24/18 at 10:30; Status DC Ondansetron HCl (Zofran) 4 mg 1X ONCE IV Last administered on 07/24/18at 10:15; Start 07/24/18 at 09:45; Stop 07/24/18 at 09:46; Status DC Sodium Chloride 1,000 ml @ 1,000 mls/hr 1X ONCE IV Last administered on 07/24/18at 10:30; Start 07/24/18 at 10:30; Stop 07/24/18 at 11:29; Status DC Metronidazole 100 ml @ 100 mls/hr 1X ONCE IV Last administered on 07/24/18at 11:45; Start 07/24/18 at 11:00; Stop 07/24/18 at 11:59; Status DC Vancomycin HCl 250 ml @ 250 mls/hr 1X ONCE IV Last administered on 07/24/18at 11:30; Start 07/24/18 at 11:00; Stop 07/24/18 at 11:59; Status DC Sodium Chloride 1,000 ml @ 150 mls/hr Q6H40M IV ; Start 07/24/18 at 10:55; Stop 07/24/18 at 14:13; Status DC Iohexol (Omnipaque 240 Mg/ml) 30 ml 1X ONCE PO Last administered on 07/24/18at 12:14; Start 07/24/18 at 12:15; Stop 07/24/18 at 12:16; Status DC Info (CONTRAST GIVEN -- Rx MONITORING) 1 each PRN DAILY PRN MC SEE COMMENTS; Start 07/24/18 at 12:15; Stop 07/26/18 at 12:14 Vancomycin HCl (Vancomycin Oral Solution) 125 mg [id number] PO Last administered on 07/25/18 08:10; Start 07/24/18 at 14:30; Stop 07/25/18 at 12:38; Status DC Potassium Chloride/Dextrose/ Sod Cl 1,000 ml @ 125 mls/hr Q8H IV Last administered on 07/25/18at 13:49; Start 07/24/18 at 14:15 Atorvastatin Calcium (Lipitor) 10 mg HS PO Last administered on 07/24/18 21:13; Start 07/24/18 at 21:00 Tramadol HCl (Ultram) 100 mg PRN Q6HRS PRN PO PAIN Last administered on 07/25/18 13:48; Start 07/24/18 at 14:15 Duloxetine HCl (Cymbalta) 60 mg DAILY PO Last administered on 07/25/18 08:06; Start 07/25/18 at 09:00 Latanoprost (Xalatan) 1 drop QHS OU Last administered on 07/24/18 21:13; Start 07/24/18 at 21:00 Acetaminophen (Tylenol) 650 mg PRN Q6HRS PRN PO Fever Last administered on 5/31/19at 16:03; Start 07/24/18 at 16:00 Piperacillin Sod/ Tazobactam Sod 2.25 gm/Sodium Chloride 50 ml @ 100 mls/hr Q6HRS IV Last administered on 07/25/18at 11:40; Start 07/25/18 at 06:15 Metronidazole 100 ml @ 100 mls/hr Q12HR IV Last administered on 07/25/18at 08:07; Start 07/25/18 at 09:00; Stop 07/25/18 at 12:38; Status DC Lactobacillus Rhamnosus (Culturelle) 1 cap BID PO ; Start 07/25/18 at 21:00 Active Scripts Active Reported Cyclobenzaprine Hcl 5 Mg Tablet 1 Tab PO TID Lipitor (Atorvastatin Calcium) 10 Mg Tablet Unknown Dose PO HS Triamterene-Hctz 37.5-25 Mg Tb (Triamterene/Hydrochlorothiazid) 1 Each Tablet 1 Tab PO DAILY Accupril (Quinapril Hcl) 40 Mg Tablet 1 Tab PO DAILY Tramadol Hcl 50 Mg Tablet 2 Tab PO PRN Q6HRS Travatan Z (Travoprost) 5 Ml Drops 1 Drop EACHEYE QHS Zolpidem Tartrate 10 Mg Tablet 1 Tab PO QHS Combigan Eye Drops (Brimonidine Tartrate/Timolol) 5 Ml Drops 5 Ml OP Metamucil Plus Calcium Capsule (Psyllium Husk/Ca Carbonate) 1 Each Capsule 2 Each PO HS Miralax (Polyethylene Glycol 3350) 17 Gm Powd.pack 1 Pkt PO DAILY Cymbalta (Duloxetine Hcl) 60 Mg Capsule. 1 Cap PO DAILY Estradiol 0.5 Mg Tablet 0.5 Mg PO Allergies Allergies: Coded Allergies: No Known Drug Allergies (Unverified , 05/27/13) ROS Review of System Per HPI Physical Exam Physical Exam GENERAL: Sleeping on side, NAD , arouses easily to name. HEENT: OM mildly dry NECK: Supple. LUNGS: Clear to auscultation. HEART: S1, S2. ABDOMEN: Obese, soft and nontender with bowel sounds present. EXTREMITIES: No gross edema SKIN: Warm without generalized rash. NEUROLOGIC: Grossly normal - No Jimenez, No CVA or SP tenderness Vital Signs Vital Signs Date Time Temp Pulse Resp B/P (MAP) Pulse Ox O2 Delivery O2 Flow Rate FiO2 6/1/19 15:00 98.1 80 28 119/50 (73) 95 Nasal Cannula 2.0 98.1 Assessment & Plan ZAN/? CKD - Suspect vasomotor baseline unknown Ct scan- Kidneys and bladder unremarkable IVF, strict I/O ,supportive care Hold Maxzide and NEIDA-I for now Hypokalemia- Takes PO KCL at home per Pt(not listed in Med list in emr) Replace as indicated Sepsis present on admission ID following Abnormal CT showing mild nonspecific colitis of distal descending and sigmoid colon, likely acute diverticulitis. Diarrhea with negative Clostridium difficile Discussed with Pt Labs Labs Laboratory Tests Test 07/24/18 09:45 07/24/18 09:58 07/24/18 12:53 07/24/18 15:05 Urine Collection Type U cath Urine Color [place]ka Urine Clarity Cloudy Urine pH 5.5 Urine Specific [place] 1.015 Urine Protein 100 mg/dL (NEG-TRACE) Urine Glucose (UA) Negative mg/dL (NEG) Urine Ketones (Stick) Trace mg/dL (NEG) Urine Blood Moderate (NEG) Urine Nitrite Negative (NEG) Urine Bilirubin Moderate (NEG) Urine Urobilinogen Dipstick 2.0 mg/dL (0.2 mg/dL) Urine Leukocyte Esterase Small (NEG) Urine RBC Occ /HPF (0-2) Urine WBC 1-4 /HPF (0-4) Urine Squamous Epithelial Cells Few /LPF Urine Amorphous Sediment Present /HPF Urine Bacteria Few /HPF (0-FEW) White Blood Count 39.7 x10^3/uL (4.0-11.0) Red Blood Count 4.45 x10^6/uL (3.50-5.40) Hemoglobin 13.0 g/dL (12.0-15.5) Hematocrit 38.9 % (36.0-47.0) Mean Corpuscular Volume 87 fL (79-100) Mean Corpuscular Hemoglobin 29 pg (25-35) Mean Corpuscular Hemoglobin Concent 34 g/dL (31-37) Red Cell Distribution Width 14.0 % (11.5-14.5) Platelet Count 469 x10^3/uL (140-400) Neutrophils (%) (Auto) 92 % (31-73) Lymphocytes (%) (Auto) 3 % (24-48) Monocytes (%) (Auto) 5 % (0-9) Eosinophils (%) (Auto) 0 % (0-3) Basophils (%) (Auto) 0 % (0-3) Neutrophils # (Auto) 36.6 x10^3uL (1.8-7.7) Lymphocytes # (Auto) 1.2 x10^3/uL (1.0-4.8) Monocytes # (Auto) 1.9 x10^3/uL (0.0-1.1) Eosinophils # (Auto) 0.0 x10^3/uL (0.0-0.7) Basophils # (Auto) 0.1 x10^3/uL (0.0-0.2) Segmented Neutrophils % 56 % (35-66) Band Neutrophils % 36 % (0-9) Lymphocytes % 4 % (24-48) Monocytes % 3 % (0-10) Metamyelocytes % 1 % (0-0) Toxic Vacuolation Slight Platelet Estimate Increased (ADEQUATE) Prothrombin Time 14.0 SEC (11.7-14.0) Prothromb Time International Ratio 1.1 (0.8-1.1) Sodium Level 138 mmol/L (136-145) Potassium Level 3.1 mmol/L (3.5-5.1) Chloride Level 97 mmol/L (98-107) Carbon Dioxide Level 29 mmol/L (21-32) Anion Gap 12 (6-14) Blood Urea Nitrogen 24 mg/dL (7-20) Creatinine 1.6 mg/dL (0.6-1.0) Estimated GFR (Cockcroft-Gault) 31.7 BUN/Creatinine Ratio 15 (6-20) Glucose Level 165 mg/dL (70-99) Lactic Acid Level 3.5 mmol/L (0.4-2.0) 2.2 mmol/L (0.4-2.0) Calcium Level 9.5 mg/dL (8.5-10.1) Magnesium Level 2.9 mg/dL (1.8-2.4) Total Bilirubin 0.7 mg/dL (0.2-1.0) Aspartate Amino Transf (AST/SGOT) 39 U/L (15-37) Alanine Aminotransferase (ALT/SGPT) 22 U/L (14-59) Alkaline Phosphatase 156 U/L (46-116) Creatine Kinase 473 U/L (26-192) Troponin I Quantitative < 0.017 ng/mL (0.000-0.055) DV-Bpb-Q-Type Natriuretic Peptide 1604 pg/mL (0-124) Total Protein 7.0 g/dL (6.4-8.2) Albumin 2.3 g/dL (3.4-5.0) Albumin/Globulin Ratio 0.5 (1.0-1.7) Lipase 45 U/L (73-393) Stool Occult Blood Positive (NEG) Clostridium difficile Toxin B Gene Negative (Negative) Test 07/25/18 03:40 White Blood Count 36.2 x10^3/uL (4.0-11.0) Red Blood Count 3.82 x10^6/uL (3.50-5.40) Hemoglobin 10.9 g/dL (12.0-15.5) Hematocrit 33.6 % (36.0-47.0) Mean Corpuscular Volume 88 fL (79-100) Mean Corpuscular Hemoglobin 29 pg (25-35) Mean Corpuscular Hemoglobin Concent 33 g/dL (31-37) Red Cell Distribution Width 14.2 % (11.5-14.5) Platelet Count 376 x10^3/uL (140-400) Neutrophils (%) (Auto) 92 % (31-73) Lymphocytes (%) (Auto) 4 % (24-48) Monocytes (%) (Auto) 4 % (0-9) Eosinophils (%) (Auto) 0 % (0-3) Basophils (%) (Auto) 0 % (0-3) Neutrophils # (Auto) 33.2 x10^3uL (1.8-7.7) Lymphocytes # (Auto) 1.4 x10^3/uL (1.0-4.8) Monocytes # (Auto) 1.6 x10^3/uL (0.0-1.1) Eosinophils # (Auto) 0.0 x10^3/uL (0.0-0.7) Basophils # (Auto) 0.0 x10^3/uL (0.0-0.2) Sodium Level 141 mmol/L (136-145) Potassium Level 3.0 mmol/L (3.5-5.1) Chloride Level 101 mmol/L (98-107) Carbon Dioxide Level 26 mmol/L (21-32) Anion Gap 14 (6-14) Blood Urea Nitrogen 30 mg/dL (7-20) Creatinine 1.5 mg/dL (0.6-1.0) Estimated GFR (Cockcroft-Gault) 34.1 BUN/Creatinine Ratio 20 (6-20) Glucose Level 143 mg/dL (70-99) Calcium Level 8.0 mg/dL (8.5-10.1) Total Bilirubin 0.4 mg/dL (0.2-1.0) Aspartate Amino Transf (AST/SGOT) 49 U/L (15-37) Alanine Aminotransferase (ALT/SGPT) 22 U/L (14-59) Alkaline Phosphatase 145 U/L (46-116) Total Protein 5.1 g/dL (6.4-8.2) Albumin 1.8 g/dL (3.4-5.0) Albumin/Globulin Ratio 0.5 (1.0-1.7) Laboratory Tests Test 07/25/18 03:40 White Blood Count 36.2 x10^3/uL (4.0-11.0) Red Blood Count 3.82 x10^6/uL (3.50-5.40) Hemoglobin 10.9 g/dL (12.0-15.5) Hematocrit 33.6 % (36.0-47.0) Mean Corpuscular Volume 88 fL (79-100) Mean Corpuscular Hemoglobin 29 pg (25-35) Mean Corpuscular Hemoglobin Concent 33 g/dL (31-37) Red Cell Distribution Width 14.2 % (11.5-14.5) Platelet Count 376 x10^3/uL (140-400) Neutrophils (%) (Auto) 92 % (31-73) Lymphocytes (%) (Auto) 4 % (24-48) Monocytes (%) (Auto) 4 % (0-9) Eosinophils (%) (Auto) 0 % (0-3) Basophils (%) (Auto) 0 % (0-3) Neutrophils # (Auto) 33.2 x10^3uL (1.8-7.7) Lymphocytes # (Auto) 1.4 x10^3/uL (1.0-4.8) Monocytes # (Auto) 1.6 x10^3/uL (0.0-1.1) Eosinophils # (Auto) 0.0 x10^3/uL (0.0-0.7) Basophils # (Auto) 0.0 x10^3/uL (0.0-0.2) Sodium Level 141 mmol/L (136-145) Potassium Level 3.0 mmol/L (3.5-5.1) Chloride Level 101 mmol/L (98-107) Carbon Dioxide Level 26 mmol/L (21-32) Anion Gap 14 (6-14) Blood Urea Nitrogen 30 mg/dL (7-20) Creatinine 1.5 mg/dL (0.6-1.0) Estimated GFR (Cockcroft-Gault) 34.1 BUN/Creatinine Ratio 20 (6-20) Glucose Level 143 mg/dL (70-99) Calcium Level 8.0 mg/dL (8.5-10.1) Total Bilirubin 0.4 mg/dL (0.2-1.0) Aspartate Amino Transf (AST/SGOT) 49 U/L (15-37) Alanine Aminotransferase (ALT/SGPT) 22 U/L (14-59) Alkaline Phosphatase 145 U/L (46-116) Total Protein 5.1 g/dL (6.4-8.2) Albumin 1.8 g/dL (3.4-5.0) Albumin/Globulin Ratio 0.5 (1.0-1.7) Review All relevant outside records, renal labs, imaging studies, telemetry/EKG's were reviewed. Images Images CT scan- Liver and spleen are not enlarged. Pancreas unremarkable. No evidence of adrenal mass. No evidence of hydronephrosis or urolithiasis. KWADWO ALDRICH MD Jul 25, 2018 16:39
[2018-07-25] MEDS: ACETAMINOPHEN 325 MG TABLET. PO PRN (17:46)
[2018-07-25 19:40] VITALS: BP 117/42
[2018-07-25] MEDS: ATORVASTATIN CALCIUM 10 MG TABLET. PO SCH (20:58)
[2018-07-25] MEDS: LACTOBACILLUS RHAMNOSUS GG 1 CAPSULE. PO SCH (20:58)
[2018-07-25] MEDS: LATANOPROST 0.005% OPHTH SOLUTION 2.5ML BOTTLE. OU SCH (21:05)
[2018-07-25 23:55] VITALS: BP 120/58
[2018-07-26 03:30] VITALS: BP 149/59
[2018-07-26] MEDS: traMADol 50 MG TABLET PO PRN ×3 (03:38→22:30)
[2018-07-26] MEDS: PIPERACILLIN/TAZOBACTAM 2.25 GM in IV NORMAL SALINE 50ML 50 ML IV SCH ×3 (05:16→17:18)
[2018-07-26 05:22] LABS: BASO % 0 % (0-3); EOS % 0 % (0-3); HEMATOCRIT 33.1 % (36.0-47.0); HEMOGLOBIN 11.1 g/dL (12.0-15.5); LYMPH # 1.2 x10^3/uL (1.0-4.8); LYMPH % 4 % (24-48); MEAN CORPUSCULAR HEMOGLOBIN 30 pg (25-35); MEAN CORPUSCULAR HGB CONC 34 g/dL (31-37); MEAN CORPUSCULAR VOLUME 88 fL (79-100); MONO # 0.8 x10^3/uL (0.0-1.1); MONO % 3 % (0-9); NEUT % 93 % (31-73); PLATELET COUNT 300 x10^3/uL (140-400); RED BLOOD COUNT 3.78 x10^6/uL (3.50-5.40)
[2018-07-26 06:04] LABS: ALBUMIN 1.6 g/dL (3.4-5.0); ALBUMIN/GLOBULIN RATIO 0.4 (1.0-1.7); CALCIUM 8.6 mg/dL (8.5-10.1); CREATININE 1.8 mg/dL (0.6-1.0); GFR 27.7; TOTAL BILIRUBIN 0.4 mg/dL (0.2-1.0); TOTAL PROTEIN 5.6 g/dL (6.4-8.2)
[2018-07-26 06:07] LABS: POTASSIUM 2.6 mmol/L (3.5-5.1)
[2018-07-26] MEDS ORDERED: POTASSIUM CHLORIDE 20 MEQ TABLET.ER. PO ONE (06:45)
[2018-07-26 07:00] VITALS: BP 134/68
[2018-07-26] MEDS: POTASSIUM CHLORIDE 10MEQ 100 ML IV SCH ×4 (08:02→10:00)
[2018-07-26] MEDS: DULoxetine HCL 30 MG CAPSULE.DR PO SCH (09:08)
[2018-07-26] MEDS: LACTOBACILLUS RHAMNOSUS GG 1 CAPSULE. PO SCH ×2 (09:08→21:25)
--- NOTE | 2018-07-26 09:19 | PDOC ---
SUBJECTIVE ROS Stable OBJECTIVE Vital Signs Vital Signs Date Time Temp Pulse Resp B/P (MAP) Pulse Ox O2 Delivery O2 Flow Rate FiO2 07/26/18 07:00 98.3 94 16 134/68 (90) 97 Nasal Cannula 2.0 98.3 I & 0 Intake and Output 07/26/18 06:59 Intake Total 1670 ml Balance 1670 ml Intake Oral 520 ml IV Total 1150 ml # Voids 10 # Bowel Movements 11 PHYSICAL EXAM Physical Exam GENERAL: NAD HEENT: OM Moist NECK: Supple. LUNGS: Clear to auscultation. HEART: S1, S2. ABDOMEN: Obese, soft and nontender with bowel sounds present. EXTREMITIES: No gross edema SKIN: Warm without generalized rash. NEUROLOGIC: Grossly normal - No Jimenez, No CVA or SP tenderness DIAGNOSIS/ASSESSMENT Assessment & Plan ZAN - ATN baseline unknown Ct scan- Kidneys and bladder unremarkable IVF, strict I/O ,supportive care Holding Maxzide and NEIDA-I for now Hypokalemia- Replace Sepsis present on admission ID following Abnormal CT showing mild nonspecific colitis of distal descending and sigmoid colon, likely acute diverticulitis. Diarrhea with negative Clostridium difficile Discussed with Pt COMMENT/RELEVANT DATA Meds Current Medications Medications (Trade) Dose Ordered Sig/Mark Start Time Stop Time Status Last Admin Dose Admin Acetaminophen (Tylenol) 650 mg PRN Q6HRS PRN 07/24/18 16:00 07/25/18 17:46 650 MG Atorvastatin Calcium (Lipitor) 10 mg HS 07/24/18 21:00 07/25/18 20:58 10 MG Duloxetine HCl (Cymbalta) 60 mg DAILY 07/25/18 09:00 07/26/18 09:08 60 MG Heparin Sodium (Porcine) (Heparin Sodium) 5,000 unit Q8HRS 07/26/18 14:00 Info (CONTRAST GIVEN -- Rx MONITORING) 1 each PRN DAILY PRN 07/24/18 12:15 07/26/18 12:14 Iohexol (Omnipaque 240 Mg/ml) 30 ml 1X ONCE 07/24/18 12:15 07/24/18 12:16 DC 07/24/18 12:14 30 ML Lactobacillus Rhamnosus (Culturelle) 1 cap BID 07/25/18 21:00 07/26/18 09:08 1 CAP Latanoprost (Xalatan) 1 drop QHS 07/24/18 21:00 07/25/18 21:05 1 DROP Metronidazole 100 ml @ 100 mls/hr Q12HR 07/25/18 09:00 07/25/18 12:38 DC 07/25/18 08:07 100 MLS/HR Ondansetron HCl (Zofran) 4 mg 1X ONCE 07/24/18 09:45 07/24/18 09:46 DC 07/24/18 10:15 4 MG Piperacillin Sod/ Tazobactam Sod 2.25 gm/Sodium Chloride 50 ml @ 100 mls/hr Q6HRS 07/25/18 06:15 07/26/18 05:16 100 MLS/HR Potassium Chloride/Dextrose/ Sod Cl 1,000 ml @ 125 mls/hr Q8H 07/24/18 14:15 07/25/18 23:31 125 MLS/HR Potassium Chloride/Water 100 ml @ 100 mls/hr Q1H 07/26/18 07:00 07/26/18 10:59 07/26/18 09:04 100 MLS/HR Potassium Chloride (Klor-Con) 40 meq 1X ONCE 07/26/18 06:45 07/26/18 06:47 DC 07/26/18 08:02 40 MEQ Sodium Chloride 1,000 ml @ 150 mls/hr Q6H40M 07/24/18 10:55 07/24/18 14:13 DC Tramadol HCl (Ultram) 100 mg PRN Q6HRS PRN 07/24/18 14:15 07/26/18 03:38 100 MG Vancomycin HCl (Vancomycin Oral Solution) 125 mg [id number] 07/24/18 14:30 07/25/18 12:38 DC 07/25/18 08:10 125 MG Lab Laboratory Tests Test 07/26/18 04:40 07/26/18 04:45 White Blood Count 30.0 x10^3/uL (4.0-11.0) Red Blood Count 3.78 x10^6/uL (3.50-5.40) Hemoglobin 11.1 g/dL (12.0-15.5) Hematocrit 33.1 % (36.0-47.0) Mean Corpuscular Volume 88 fL (79-100) Mean Corpuscular Hemoglobin 30 pg (25-35) Mean Corpuscular Hemoglobin Concent 34 g/dL (31-37) Red Cell Distribution Width 14.0 % (11.5-14.5) Platelet Count 300 x10^3/uL (140-400) Neutrophils (%) (Auto) 93 % (31-73) Lymphocytes (%) (Auto) 4 % (24-48) Monocytes (%) (Auto) 3 % (0-9) Eosinophils (%) (Auto) 0 % (0-3) Basophils (%) (Auto) 0 % (0-3) Neutrophils # (Auto) 28.0 x10^3uL (1.8-7.7) Lymphocytes # (Auto) 1.2 x10^3/uL (1.0-4.8) Monocytes # (Auto) 0.8 x10^3/uL (0.0-1.1) Eosinophils # (Auto) 0.0 x10^3/uL (0.0-0.7) Basophils # (Auto) 0.0 x10^3/uL (0.0-0.2) Sodium Level 139 mmol/L (136-145) Potassium Level 2.6 mmol/L (3.5-5.1) Chloride Level 100 mmol/L (98-107) Carbon Dioxide Level 27 mmol/L (21-32) Anion Gap 12 (6-14) Blood Urea Nitrogen 28 mg/dL (7-20) Creatinine 1.8 mg/dL (0.6-1.0) Estimated GFR (Cockcroft-Gault) 27.7 BUN/Creatinine Ratio 16 (6-20) Glucose Level 130 mg/dL (70-99) Calcium Level 8.6 mg/dL (8.5-10.1) Total Bilirubin 0.4 mg/dL (0.2-1.0) Aspartate Amino Transf (AST/SGOT) 58 U/L (15-37) Alanine Aminotransferase (ALT/SGPT) 26 U/L (14-59) Alkaline Phosphatase 139 U/L (46-116) Creatine Kinase 353 U/L (26-192) Total Protein 5.6 g/dL (6.4-8.2) Albumin 1.6 g/dL (3.4-5.0) Albumin/Globulin Ratio 0.4 (1.0-1.7) Lactic Acid Level 1.6 mmol/L (0.4-2.0) Magnesium Level 2.5 mg/dL (1.8-2.4) Results All relevant outside records, renal labs, imaging studies, telemetry/EKG's were reviewed. KWADWO ALDRICH MD Jul 26, 2018 09:19
[2018-07-26 11:35] VITALS: BP 146/73
--- NOTE | 2018-07-26 11:36 | PDOC ---
[employer] PROGRESS NOTE Chief Complaint Chief Complaint Colitis Diarrhea - Acute encephalopathy - likely toxic from sepsis Sepsis - likely 2/2 colitis, Arthritis - High Cholesterol Hypertension - INSOMNIA - will hold sleeping meds for her confusion Thrombocytosis ZAN Hypokalemia Mild rhabdo - Lactic acidosis Occult blood positive History of Present Illness History of Present Illness Patient seen and examined She is lying in the bed seems confused On IV metronidazole and fluids Discussed with chief of internal medicine chart Vitals Vitals Vital Signs Date Time Temp Pulse Resp B/P (MAP) Pulse Ox O2 Delivery O2 Flow Rate FiO2 07/26/18 08:00 Nasal Cannula 2.0 07/26/18 07:00 98.3 94 16 134/68 (90) 97 98.3 Physical Exam General: mild distress, Other (pleasantly confused) Heart: Regular rate, Normal S1, Normal S2 Lungs: Clear Abdomen: Normal bowel sounds, Soft, No hepatosplenomegaly, No masses, Other (LLQ tender) Extremities: No clubbing, No cyanosis, No edema, Normal pulses, No tenderness/swelling Skin: No rashes, No breakdown, No significant lesion Labs Labs: Laboratory Tests Test 07/26/18 04:40 07/26/18 04:45 White Blood Count 30.0 x10^3/uL (4.0-11.0) Red Blood Count 3.78 x10^6/uL (3.50-5.40) Hemoglobin 11.1 g/dL (12.0-15.5) Hematocrit 33.1 % (36.0-47.0) Mean Corpuscular Volume 88 fL (79-100) Mean Corpuscular Hemoglobin 30 pg (25-35) Mean Corpuscular Hemoglobin Concent 34 g/dL (31-37) Red Cell Distribution Width 14.0 % (11.5-14.5) Platelet Count 300 x10^3/uL (140-400) Neutrophils (%) (Auto) 93 % (31-73) Lymphocytes (%) (Auto) 4 % (24-48) Monocytes (%) (Auto) 3 % (0-9) Eosinophils (%) (Auto) 0 % (0-3) Basophils (%) (Auto) 0 % (0-3) Neutrophils # (Auto) 28.0 x10^3uL (1.8-7.7) Lymphocytes # (Auto) 1.2 x10^3/uL (1.0-4.8) Monocytes # (Auto) 0.8 x10^3/uL (0.0-1.1) Eosinophils # (Auto) 0.0 x10^3/uL (0.0-0.7) Basophils # (Auto) 0.0 x10^3/uL (0.0-0.2) Sodium Level 139 mmol/L (136-145) Potassium Level 2.6 mmol/L (3.5-5.1) Chloride Level 100 mmol/L (98-107) Carbon Dioxide Level 27 mmol/L (21-32) Anion Gap 12 (6-14) Blood Urea Nitrogen 28 mg/dL (7-20) Creatinine 1.8 mg/dL (0.6-1.0) Estimated GFR (Cockcroft-Gault) 27.7 BUN/Creatinine Ratio 16 (6-20) Glucose Level 130 mg/dL (70-99) Calcium Level 8.6 mg/dL (8.5-10.1) Total Bilirubin 0.4 mg/dL (0.2-1.0) Aspartate Amino Transf (AST/SGOT) 58 U/L (15-37) Alanine Aminotransferase (ALT/SGPT) 26 U/L (14-59) Alkaline Phosphatase 139 U/L (46-116) Creatine Kinase 353 U/L (26-192) Total Protein 5.6 g/dL (6.4-8.2) Albumin 1.6 g/dL (3.4-5.0) Albumin/Globulin Ratio 0.4 (1.0-1.7) Lactic Acid Level 1.6 mmol/L (0.4-2.0) Magnesium Level 2.5 mg/dL (1.8-2.4) Review of Systems Review of Systems Complains of weakness and hunger Assessment and Plan Assessmemt and Plan Problems Medical Problems: (1) Colitis Status: Acute (2) Diarrhea Status: Acute (3) Diverticulitis Status: Acute (4) Hypokalemia Status: Acute (5) Leukocytosis Status: Acute (6) Renal insufficiency Status: Acute Colitis Diarrhea - Acute encephalopathy - likely toxic from sepsis Sepsis - likely 2/2 colitis, Arthritis - High Cholesterol Hypertension - INSOMNIA - will hold sleeping meds for her confusion Thrombocytosis ZAN Hypokalemia Mild rhabdo - Lactic acidosis Occult blood positive Plan ID nephrology and GI all following IV fluids plus minus antibiotics Home meds Frequent labs DVT prophylaxis Full code Appreciate subspecialist input (7) Sepsis Status: Acute Comment Review of Relevant I have reviewed the following items grace (where applicable) has been applied. Labs Laboratory Tests Test 07/24/18 12:53 07/24/18 15:05 07/25/18 03:40 07/26/18 04:40 Stool Occult Blood Positive (NEG) Clostridium difficile Toxin B Gene Negative (Negative) Lactic Acid Level 2.2 mmol/L (0.4-2.0) White Blood Count 36.2 x10^3/uL (4.0-11.0) 30.0 x10^3/uL (4.0-11.0) Red Blood Count 3.82 x10^6/uL (3.50-5.40) 3.78 x10^6/uL (3.50-5.40) Hemoglobin 10.9 g/dL (12.0-15.5) 11.1 g/dL (12.0-15.5) Hematocrit 33.6 % (36.0-47.0) 33.1 % (36.0-47.0) Mean Corpuscular Volume 88 fL (79-100) 88 fL (79-100) Mean Corpuscular Hemoglobin 29 pg (25-35) 30 pg (25-35) Mean Corpuscular Hemoglobin Concent 33 g/dL (31-37) 34 g/dL (31-37) Red Cell Distribution Width 14.2 % (11.5-14.5) 14.0 % (11.5-14.5) Platelet Count 376 x10^3/uL (140-400) 300 x10^3/uL (140-400) Neutrophils (%) (Auto) 92 % (31-73) 93 % (31-73) Lymphocytes (%) (Auto) 4 % (24-48) 4 % (24-48) Monocytes (%) (Auto) 4 % (0-9) 3 % (0-9) Eosinophils (%) (Auto) 0 % (0-3) 0 % (0-3) Basophils (%) (Auto) 0 % (0-3) 0 % (0-3) Neutrophils # (Auto) 33.2 x10^3uL (1.8-7.7) 28.0 x10^3uL (1.8-7.7) Lymphocytes # (Auto) 1.4 x10^3/uL (1.0-4.8) 1.2 x10^3/uL (1.0-4.8) Monocytes # (Auto) 1.6 x10^3/uL (0.0-1.1) 0.8 x10^3/uL (0.0-1.1) Eosinophils # (Auto) 0.0 x10^3/uL (0.0-0.7) 0.0 x10^3/uL (0.0-0.7) Basophils # (Auto) 0.0 x10^3/uL (0.0-0.2) 0.0 x10^3/uL (0.0-0.2) Sodium Level 141 mmol/L (136-145) 139 mmol/L (136-145) Potassium Level 3.0 mmol/L (3.5-5.1) 2.6 mmol/L (3.5-5.1) Chloride Level 101 mmol/L (98-107) 100 mmol/L (98-107) Carbon Dioxide Level 26 mmol/L (21-32) 27 mmol/L (21-32) Anion Gap 14 (6-14) 12 (6-14) Blood Urea Nitrogen 30 mg/dL (7-20) 28 mg/dL (7-20) Creatinine 1.5 mg/dL (0.6-1.0) 1.8 mg/dL (0.6-1.0) Estimated GFR (Cockcroft-Gault) 34.1 27.7 BUN/Creatinine Ratio 20 (6-20) 16 (6-20) Glucose Level 143 mg/dL (70-99) 130 mg/dL (70-99) Calcium Level 8.0 mg/dL (8.5-10.1) 8.6 mg/dL (8.5-10.1) Total Bilirubin 0.4 mg/dL (0.2-1.0) 0.4 mg/dL (0.2-1.0) Aspartate Amino Transf (AST/SGOT) 49 U/L (15-37) 58 U/L (15-37) Alanine Aminotransferase (ALT/SGPT) 22 U/L (14-59) 26 U/L (14-59) Alkaline Phosphatase 145 U/L (46-116) 139 U/L (46-116) Total Protein 5.1 g/dL (6.4-8.2) 5.6 g/dL (6.4-8.2) Albumin 1.8 g/dL (3.4-5.0) 1.6 g/dL (3.4-5.0) Albumin/Globulin Ratio 0.5 (1.0-1.7) 0.4 (1.0-1.7) Creatine Kinase 353 U/L (26-192) Test 07/26/18 04:45 Lactic Acid Level 1.6 mmol/L (0.4-2.0) Magnesium Level 2.5 mg/dL (1.8-2.4) Laboratory Tests Test 07/26/18 04:40 07/26/18 04:45 White Blood Count 30.0 x10^3/uL (4.0-11.0) Red Blood Count 3.78 x10^6/uL (3.50-5.40) Hemoglobin 11.1 g/dL (12.0-15.5) Hematocrit 33.1 % (36.0-47.0) Mean Corpuscular Volume 88 fL (79-100) Mean Corpuscular Hemoglobin 30 pg (25-35) Mean Corpuscular Hemoglobin Concent 34 g/dL (31-37) Red Cell Distribution Width 14.0 % (11.5-14.5) Platelet Count 300 x10^3/uL (140-400) Neutrophils (%) (Auto) 93 % (31-73) Lymphocytes (%) (Auto) 4 % (24-48) Monocytes (%) (Auto) 3 % (0-9) Eosinophils (%) (Auto) 0 % (0-3) Basophils (%) (Auto) 0 % (0-3) Neutrophils # (Auto) 28.0 x10^3uL (1.8-7.7) Lymphocytes # (Auto) 1.2 x10^3/uL (1.0-4.8) Monocytes # (Auto) 0.8 x10^3/uL (0.0-1.1) Eosinophils # (Auto) 0.0 x10^3/uL (0.0-0.7) Basophils # (Auto) 0.0 x10^3/uL (0.0-0.2) Sodium Level 139 mmol/L (136-145) Potassium Level 2.6 mmol/L (3.5-5.1) Chloride Level 100 mmol/L (98-107) Carbon Dioxide Level 27 mmol/L (21-32) Anion Gap 12 (6-14) Blood Urea Nitrogen 28 mg/dL (7-20) Creatinine 1.8 mg/dL (0.6-1.0) Estimated GFR (Cockcroft-Gault) 27.7 BUN/Creatinine Ratio 16 (6-20) Glucose Level 130 mg/dL (70-99) Calcium Level 8.6 mg/dL (8.5-10.1) Total Bilirubin 0.4 mg/dL (0.2-1.0) Aspartate Amino Transf (AST/SGOT) 58 U/L (15-37) Alanine Aminotransferase (ALT/SGPT) 26 U/L (14-59) Alkaline Phosphatase 139 U/L (46-116) Creatine Kinase 353 U/L (26-192) Total Protein 5.6 g/dL (6.4-8.2) Albumin 1.6 g/dL (3.4-5.0) Albumin/Globulin Ratio 0.4 (1.0-1.7) Lactic Acid Level 1.6 mmol/L (0.4-2.0) Magnesium Level 2.5 mg/dL (1.8-2.4) Microbiology 07/24/18 Blood Culture - Preliminary, Resulted NO GROWTH AFTER 1 DAY 07/24/18 Stool Culture - Final, Resulted 07/24/18 Stool Culture Result 1 (HERNAN) - Final, Resulted 07/24/18 Campylobacter Antigen Assay - Preliminary, Resulted 07/24/18 Campylobactor Result 1 - Preliminary, Resulted 07/24/18 Shiga Toxin Test, Resulted Pending 07/24/18 Urine Culture - Final, Complete 07/24/18 Urine Culture Result 1 (HERNAN) - Final, Complete Medications Current Medications Sodium Chloride 1,000 ml @ 1,000 mls/hr Q1H IV Last administered on 07/24/18at 10:15; Start 07/24/18 at 09:31; Stop 07/24/18 at 10:30; Status DC Ondansetron HCl (Zofran) 4 mg 1X ONCE IV Last administered on 07/24/18at 10:15; Start 07/24/18 at 09:45; Stop 07/24/18 at 09:46; Status DC Sodium Chloride 1,000 ml @ 1,000 mls/hr 1X ONCE IV Last administered on at 10:30; Start 07/24/18 at 10:30; Stop 07/24/18 at 11:29; Status DC Metronidazole 100 ml @ 100 mls/hr 1X ONCE IV Last administered on 07/24/18at 11:45; Start 07/24/18 at 11:00; Stop 07/24/18 at 11:59; Status DC Vancomycin HCl 250 ml @ 250 mls/hr 1X ONCE IV Last administered on 07/24/18at 11:30; Start 07/24/18 at 11:00; Stop 07/24/18 at 11:59; Status DC Sodium Chloride 1,000 ml @ 150 mls/hr Q6H40M IV ; Start 07/24/18 at 10:55; Stop 07/24/18 at 14:13; Status DC Iohexol (Omnipaque 240 Mg/ml) 30 ml 1X ONCE PO Last administered on 07/24/18at 12:14; Start 07/24/18 at 12:15; Stop 07/24/18 at 12:16; Status DC Info (CONTRAST GIVEN -- Rx MONITORING) 1 each PRN DAILY PRN MC SEE COMMENTS; Start 07/24/18 at 12:15; Stop 07/26/18 at 12:14 Vancomycin HCl (Vancomycin Oral Solution) 125 mg [id number] PO Last administered on 07/25/18at 08:10; Start 07/24/18 at 14:30; Stop 07/25/18 at 12:38; Status DC Potassium Chloride/Dextrose/ Sod Cl 1,000 ml @ 125 mls/hr Q8H IV Last administered on 07/25/18at 23:31; Start 07/24/18 at 14:15 Atorvastatin Calcium (Lipitor) 10 mg HS PO Last administered on 07/25/18at 20:58; Start 07/24/18 at 21:00 Tramadol HCl (Ultram) 100 mg PRN Q6HRS PRN PO PAIN Last administered on 07/26/18at 03:38; Start 07/24/18 at 14:15 Duloxetine HCl (Cymbalta) 60 mg DAILY PO Last administered on 07/26/18at 09:08; Start 07/25/18 at 09:00 Latanoprost (Xalatan) 1 drop QHS OU Last administered on 07/25/18at 21:05; Start 07/24/18 at 21:00 Acetaminophen (Tylenol) 650 mg PRN Q6HRS PRN PO Fever Last administered on 07/25/18at 17:46; Start 07/24/18 at 16:00 Piperacillin Sod/ Tazobactam Sod 2.25 gm/Sodium Chloride 50 ml @ 100 mls/hr Q6HRS IV Last administered on 07/26/18at 05:16; Start 07/25/18 at 06:15 Metronidazole 100 ml @ 100 mls/hr Q12HR IV Last administered on 07/25/18at 08:07; Start 07/25/18 at 09:00; Stop 07/25/18 at 12:38; Status DC Lactobacillus Rhamnosus (Culturelle) 1 cap BID PO Last administered on 07/26/18at 09:08; Start 07/25/18 at 21:00 Potassium Chloride/Water 100 ml @ 100 mls/hr Q1H IV Last administered on 9at 10:00; Start 07/26/18 at 07:00; Stop 07/26/18 at 10:59; Status DC Potassium Chloride (Klor-Con) 40 meq 1X ONCE PO Last administered on 07/26/18at 08:02; Start 07/26/18 at 06:45; Stop 07/26/18 at 06:47; Status DC Heparin Sodium (Porcine) (Heparin Sodium) 5,000 unit Q8HRS SQ ; Start 07/26/18 at 14:00 Active Scripts Active Reported Cyclobenzaprine Hcl 5 Mg Tablet 1 Tab PO TID Lipitor (Atorvastatin Calcium) 10 Mg Tablet Unknown Dose PO HS Triamterene-Hctz 37.5-25 Mg Tb (Triamterene/Hydrochlorothiazid) 1 Each Tablet 1 Tab PO DAILY Accupril (Quinapril Hcl) 40 Mg Tablet 1 Tab PO DAILY Tramadol Hcl 50 Mg Tablet 2 Tab PO PRN Q6HRS Travatan Z (Travoprost) 5 Ml Drops 1 Drop EACHEYE QHS Zolpidem Tartrate 10 Mg Tablet 1 Tab PO QHS Combigan Eye Drops (Brimonidine Tartrate/Timolol) 5 Ml Drops 5 Ml OP Metamucil Plus Calcium Capsule (Psyllium Husk/Ca Carbonate) 1 Each Capsule 2 Each PO HS Miralax (Polyethylene Glycol 3350) 17 Gm Powd.pack 1 Pkt PO DAILY Cymbalta (Duloxetine Hcl) 60 Mg Capsule.dr 1 Cap PO DAILY Estradiol 0.5 Mg Tablet 0.5 Mg PO Vitals/I & O Vital Sign - Last 24 Hours 07/25/18 07/25/18 07/25/18 07/25/18 13:48 14:55 15:00 19:40 Temp 98.1 98.4 98.1 98.4 Pulse 80 84 Resp 18 18 28 20 B/P (MAP) 119/50 (73) 117/42 (67) Pulse Ox 95 97 O2 Delivery Nasal Cannula Nasal Cannula Nasal Cannula O2 Flow Rate 2.0 2.0 2.0 07/25/18 07/25/18 07/25/18 07/26/18 20:00 20:58 23:55 03:30 Temp 98.3 98.3 98.3 98.3 Pulse 86 85 Resp 20 18 B/P (MAP) 120/58 (78) 149/59 (89) Pulse Ox 97 96 95 O2 Delivery Nasal Cannula Nasal Cannula Nasal Cannula Nasal Cannula O2 Flow Rate 2.0 2.0 2.0 2.0 07/26/18 07/26/18 07/26/18 07/26/18 03:38 04:45 07:00 08:00 Temp 98.3 98.3 Pulse 94 Resp 16 B/P (MAP) 134/68 (90) Pulse Ox 96 96 97 O2 Delivery Nasal Cannula Nasal Cannula Nasal Cannula Nasal Cannula O2 Flow Rate 2.0 2.0 2.0 2.0 Intake and Output 07/25/18 07/25/18 07/26/18 15:00 23:00 07:00 Intake Total 1370 ml 300 ml 0 ml Balance 1370 ml 300 ml 0 ml ZACKERY VUONGL K III DO Jul 26, 2018 11:36
--- NOTE | 2018-07-26 11:41 | PDOC ---
Infectious Disease Note Subjective Subjective Some ongoing LLQ abdominal pain, localized + BM O2 2L Denies N/V/D/F/C/SOA ROS ROS per HPI Vital Sign Vital Signs Vital Signs Date Time Temp Pulse Resp B/P (MAP) Pulse Ox O2 Delivery O2 Flow Rate FiO2 07/26/18 08:00 Nasal Cannula 2.0 07/26/18 07:00 98.3 94 16 134/68 (90) 97 98.3 Physical Exam PHYSICAL EXAM GENERAL: Resting quietly, arouses to name HEENT: Pupils equally round. Oropharynx pink and moist. NECK: Supple. LUNGS: Clear to auscultation. HEART: S1, S2. ABDOMEN: Obese, mildly distended, soft, LLQ tender with bowel sounds present. EXTREMITIES: No gross edema or cyanosis. SKIN: Warm without generalized rash. NEUROLOGIC: Responding appropriately, oriented to time, place and person. Labs Lab Laboratory Tests Test 07/26/18 04:40 07/26/18 04:45 White Blood Count 30.0 x10^3/uL (4.0-11.0) Red Blood Count 3.78 x10^6/uL (3.50-5.40) Hemoglobin 11.1 g/dL (12.0-15.5) Hematocrit 33.1 % (36.0-47.0) Mean Corpuscular Volume 88 fL (79-100) Mean Corpuscular Hemoglobin 30 pg (25-35) Mean Corpuscular Hemoglobin Concent 34 g/dL (31-37) Red Cell Distribution Width 14.0 % (11.5-14.5) Platelet Count 300 x10^3/uL (140-400) Neutrophils (%) (Auto) 93 % (31-73) Lymphocytes (%) (Auto) 4 % (24-48) Monocytes (%) (Auto) 3 % (0-9) Eosinophils (%) (Auto) 0 % (0-3) Basophils (%) (Auto) 0 % (0-3) Neutrophils # (Auto) 28.0 x10^3uL (1.8-7.7) Lymphocytes # (Auto) 1.2 x10^3/uL (1.0-4.8) Monocytes # (Auto) 0.8 x10^3/uL (0.0-1.1) Eosinophils # (Auto) 0.0 x10^3/uL (0.0-0.7) Basophils # (Auto) 0.0 x10^3/uL (0.0-0.2) Sodium Level 139 mmol/L (136-145) Potassium Level 2.6 mmol/L (3.5-5.1) Chloride Level 100 mmol/L (98-107) Carbon Dioxide Level 27 mmol/L (21-32) Anion Gap 12 (6-14) Blood Urea Nitrogen 28 mg/dL (7-20) Creatinine 1.8 mg/dL (0.6-1.0) Estimated GFR (Cockcroft-Gault) 27.7 BUN/Creatinine Ratio 16 (6-20) Glucose Level 130 mg/dL (70-99) Calcium Level 8.6 mg/dL (8.5-10.1) Total Bilirubin 0.4 mg/dL (0.2-1.0) Aspartate Amino Transf (AST/SGOT) 58 U/L (15-37) Alanine Aminotransferase (ALT/SGPT) 26 U/L (14-59) Alkaline Phosphatase 139 U/L (46-116) Creatine Kinase 353 U/L (26-192) Total Protein 5.6 g/dL (6.4-8.2) Albumin 1.6 g/dL (3.4-5.0) Albumin/Globulin Ratio 0.4 (1.0-1.7) Lactic Acid Level 1.6 mmol/L (0.4-2.0) Magnesium Level 2.5 mg/dL (1.8-2.4) Micro Microbiology 07/24/18 Blood Culture - Preliminary, Resulted NO GROWTH AFTER 1 DAY STOOL CULTURE Final Final report STOOL CULT RES 1 Final Comment No Salmonella or Shigella recovered. CAMPY Preliminary Preliminary report CAMPY RES 1 Preliminary Comment No Campylobacter species isolated. Performed at: DA - [facility] [address], [place], [place] [id number] Cushion Cover Inspector: MICHELA Calderon MD, Phone: [phone] SHIGA TOXIN PENDING Objective Assessment Sepsis with fever, leukocytosis, tachycardia, improving Abnormal CT - mild nonspecific colitis of distal descending and sigmoid colon, likely acute diverticulitis; ? ischemia - better with less pain. Hungry today Lactic acidosis, improved Encephalopathy, improving ZAN Diarrhea, c. diff PCR neg 07/24; stool cultures neg so far Recent dental extraction/abx Plan Plan of Care Continue Zosyn Repeat CK 353 Cultures neg so far Monitor WBC/temp Maintain hydration May need repeat imaging. May need vascular/Gen surg eval Attending Co-Sign Attending Co-Sign The patient was seen and interviewed as well as examined at the bedside. The chart was reviewed. The case was discussed. Agree with the plan of care. TONY HADLEY APRN Jul 26, 2018 11:41 TADEO CHERY MD Jul 26, 2018 15:17
--- NOTE | 2018-07-26 12:00 | NUR ---
Per Dr. Malone: Hold 14:00 dose of Heparin; apply SCD's instead; Done--SCD's BLE ON.
[2018-07-26] MEDS: HEPARIN for SUB-Q USE 5,000 UNIT/ML VIAL. SQ SCH ×2 (13:28→22:40)
[2018-07-26] MEDS: POTASSIUM CL 20MEQ D5-0.45NACL 1,000 ML IV SCH ×2 (13:34→22:30)
--- NOTE | 2018-07-26 14:45 | PDOC ---
G I PROGRESS NOTE Reason for Follow-up Diarrhea/llq abd pain Subjective Hungry Physical Exam Lungs clear CV S1 S2 ABD +BS, soft, nontender Review of Relevant I have reviewed the following items grace (where applicable) has been applied. Labs Laboratory Tests Test 07/24/18 15:05 07/25/18 03:40 07/26/18 04:40 07/26/18 04:45 Lactic Acid Level 2.2 mmol/L (0.4-2.0) 1.6 mmol/L (0.4-2.0) White Blood Count 36.2 x10^3/uL (4.0-11.0) 30.0 x10^3/uL (4.0-11.0) Red Blood Count 3.82 x10^6/uL (3.50-5.40) 3.78 x10^6/uL (3.50-5.40) Hemoglobin 10.9 g/dL (12.0-15.5) 11.1 g/dL (12.0-15.5) Hematocrit 33.6 % (36.0-47.0) 33.1 % (36.0-47.0) Mean Corpuscular Volume 88 fL (79-100) 88 fL (79-100) Mean Corpuscular Hemoglobin 29 pg (25-35) 30 pg (25-35) Mean Corpuscular Hemoglobin Concent 33 g/dL (31-37) 34 g/dL (31-37) Red Cell Distribution Width 14.2 % (11.5-14.5) 14.0 % (11.5-14.5) Platelet Count 376 x10^3/uL (140-400) 300 x10^3/uL (140-400) Neutrophils (%) (Auto) 92 % (31-73) 93 % (31-73) Lymphocytes (%) (Auto) 4 % (24-48) 4 % (24-48) Monocytes (%) (Auto) 4 % (0-9) 3 % (0-9) Eosinophils (%) (Auto) 0 % (0-3) 0 % (0-3) Basophils (%) (Auto) 0 % (0-3) 0 % (0-3) Neutrophils # (Auto) 33.2 x10^3uL (1.8-7.7) 28.0 x10^3uL (1.8-7.7) Lymphocytes # (Auto) 1.4 x10^3/uL (1.0-4.8) 1.2 x10^3/uL (1.0-4.8) Monocytes # (Auto) 1.6 x10^3/uL (0.0-1.1) 0.8 x10^3/uL (0.0-1.1) Eosinophils # (Auto) 0.0 x10^3/uL (0.0-0.7) 0.0 x10^3/uL (0.0-0.7) Basophils # (Auto) 0.0 x10^3/uL (0.0-0.2) 0.0 x10^3/uL (0.0-0.2) Sodium Level 141 mmol/L (136-145) 139 mmol/L (136-145) Potassium Level 3.0 mmol/L (3.5-5.1) 2.6 mmol/L (3.5-5.1) Chloride Level 101 mmol/L (98-107) 100 mmol/L (98-107) Carbon Dioxide Level 26 mmol/L (21-32) 27 mmol/L (21-32) Anion Gap 14 (6-14) 12 (6-14) Blood Urea Nitrogen 30 mg/dL (7-20) 28 mg/dL (7-20) Creatinine 1.5 mg/dL (0.6-1.0) 1.8 mg/dL (0.6-1.0) Estimated GFR (Cockcroft-Gault) 34.1 27.7 BUN/Creatinine Ratio 20 (6-20) 16 (6-20) Glucose Level 143 mg/dL (70-99) 130 mg/dL (70-99) Calcium Level 8.0 mg/dL (8.5-10.1) 8.6 mg/dL (8.5-10.1) Total Bilirubin 0.4 mg/dL (0.2-1.0) 0.4 mg/dL (0.2-1.0) Aspartate Amino Transf (AST/SGOT) 49 U/L (15-37) 58 U/L (15-37) Alanine Aminotransferase (ALT/SGPT) 22 U/L (14-59) 26 U/L (14-59) Alkaline Phosphatase 145 U/L (46-116) 139 U/L (46-116) Total Protein 5.1 g/dL (6.4-8.2) 5.6 g/dL (6.4-8.2) Albumin 1.8 g/dL (3.4-5.0) 1.6 g/dL (3.4-5.0) Albumin/Globulin Ratio 0.5 (1.0-1.7) 0.4 (1.0-1.7) Creatine Kinase 353 U/L (26-192) Magnesium Level 2.5 mg/dL (1.8-2.4) Laboratory Tests Test 07/26/18 04:40 07/26/18 04:45 White Blood Count 30.0 x10^3/uL (4.0-11.0) Red Blood Count 3.78 x10^6/uL (3.50-5.40) Hemoglobin 11.1 g/dL (12.0-15.5) Hematocrit 33.1 % (36.0-47.0) Mean Corpuscular Volume 88 fL (79-100) Mean Corpuscular Hemoglobin 30 pg (25-35) Mean Corpuscular Hemoglobin Concent 34 g/dL (31-37) Red Cell Distribution Width 14.0 % (11.5-14.5) Platelet Count 300 x10^3/uL (140-400) Neutrophils (%) (Auto) 93 % (31-73) Lymphocytes (%) (Auto) 4 % (24-48) Monocytes (%) (Auto) 3 % (0-9) Eosinophils (%) (Auto) 0 % (0-3) Basophils (%) (Auto) 0 % (0-3) Neutrophils # (Auto) 28.0 x10^3uL (1.8-7.7) Lymphocytes # (Auto) 1.2 x10^3/uL (1.0-4.8) Monocytes # (Auto) 0.8 x10^3/uL (0.0-1.1) Eosinophils # (Auto) 0.0 x10^3/uL (0.0-0.7) Basophils # (Auto) 0.0 x10^3/uL (0.0-0.2) Sodium Level 139 mmol/L (136-145) Potassium Level 2.6 mmol/L (3.5-5.1) Chloride Level 100 mmol/L (98-107) Carbon Dioxide Level 27 mmol/L (21-32) Anion Gap 12 (6-14) Blood Urea Nitrogen 28 mg/dL (7-20) Creatinine 1.8 mg/dL (0.6-1.0) Estimated GFR (Cockcroft-Gault) 27.7 BUN/Creatinine Ratio 16 (6-20) Glucose Level 130 mg/dL (70-99) Calcium Level 8.6 mg/dL (8.5-10.1) Total Bilirubin 0.4 mg/dL (0.2-1.0) Aspartate Amino Transf (AST/SGOT) 58 U/L (15-37) Alanine Aminotransferase (ALT/SGPT) 26 U/L (14-59) Alkaline Phosphatase 139 U/L (46-116) Creatine Kinase 353 U/L (26-192) Total Protein 5.6 g/dL (6.4-8.2) Albumin 1.6 g/dL (3.4-5.0) Albumin/Globulin Ratio 0.4 (1.0-1.7) Lactic Acid Level 1.6 mmol/L (0.4-2.0) Magnesium Level 2.5 mg/dL (1.8-2.4) Microbiology 07/24/18 Blood Culture - Preliminary, Resulted NO GROWTH AFTER 1 DAY 07/24/18 Stool Culture - Final, Resulted 07/24/18 Stool Culture Result 1 (HERNAN) - Final, Resulted 07/24/18 Campylobacter Antigen Assay - Preliminary, Resulted 07/24/18 Campylobactor Result 1 - Preliminary, Resulted 07/24/18 Shiga Toxin Test, Resulted Pending 07/24/18 Urine Culture - Final, Complete 07/24/18 Urine Culture Result 1 (HERNAN) - Final, Complete Medications Current Medications Sodium Chloride 1,000 ml @ 1,000 mls/hr Q1H IV Last administered on 07/24/18at 10:15; Start 07/24/18 at 09:31; Stop 07/24/18 at 10:30; Status DC Ondansetron HCl (Zofran) 4 mg 1X ONCE IV Last administered on 07/24/18at 10:15; Start 07/24/18 at 09:45; Stop 07/24/18 at 09:46; Status DC Sodium Chloride 1,000 ml @ 1,000 mls/hr 1X ONCE IV Last administered on 07/24/18at 10:30; Start 07/24/18 at 10:30; Stop 07/24/18 at 11:29; Status DC Metronidazole 100 ml @ 100 mls/hr 1X ONCE IV Last administered on 07/24/18at 11:45; Start 07/24/18 at 11:00; Stop 07/24/18 at 11:59; Status DC Vancomycin HCl 250 ml @ 250 mls/hr 1X ONCE IV Last administered on 07/24/18at 11:30; Start 07/24/18 at 11:00; Stop 07/24/18 at 11:59; Status DC Sodium Chloride 1,000 ml @ 150 mls/hr Q6H40M IV ; Start 07/24/18 at 10:55; Stop 07/24/18 at 14:13; Status DC Iohexol (Omnipaque 240 Mg/ml) 30 ml 1X ONCE PO Last administered on 07/24/18at 12:14; Start 07/24/18 at 12:15; Stop 07/24/18 at 12:16; Status DC Info (CONTRAST GIVEN -- Rx MONITORING) 1 each PRN DAILY PRN MC SEE COMMENTS; Start 07/24/18 at 12:15; Stop 07/26/18 at 12:14; Status DC Vancomycin HCl (Vancomycin Oral Solution) 125 mg [id number] PO Last administered on 07/25/18at 08:10; Start 07/24/18 at 14:30; Stop 07/25/18 at 12:38; Status DC Potassium Chloride/Dextrose/ Sod Cl 1,000 ml @ 125 mls/hr Q8H IV Last administered on 07/26/18at 13:34; Start 07/24/18 at 14:15 Atorvastatin Calcium (Lipitor) 10 mg HS PO Last administered on 07/25/18at 20:58; Start 07/24/18 at 21:00 Tramadol HCl (Ultram) 100 mg PRN Q6HRS PRN PO PAIN Last administered on 07/26/18at 03:38; Start 07/24/18 at 14:15 Duloxetine HCl (Cymbalta) 60 mg DAILY PO Last administered on 07/26/18at 09:08; Start 07/25/18 at 09:00 Latanoprost (Xalatan) 1 drop QHS OU Last administered on 07/25/18at 21:05; Start 07/24/18 at 21:00 Acetaminophen (Tylenol) 650 mg PRN Q6HRS PRN PO Fever Last administered on 07/25/18at 17:46; Start 07/24/18 at 16:00 Piperacillin Sod/ Tazobactam Sod 2.25 gm/Sodium Chloride 50 ml @ 100 mls/hr Q6HRS IV Last administered on 07/26/18at 12:19; Start 07/25/18 at 06:15 Metronidazole 100 ml @ 100 mls/hr Q12HR IV Last administered on 07/25/18at 08:07; Start 07/25/18 at 09:00; Stop 07/25/18 at 12:38; Status DC Lactobacillus Rhamnosus (Culturelle) 1 cap BID PO Last administered on 07/26/18at 09:08; Start 07/25/18 at 21:00 Potassium Chloride/Water 100 ml @ 100 mls/hr Q1H IV Last administered on 07/26/18at 10:00; Start 07/26/18 at 07:00; Stop 07/26/18 at 10:59; Status DC Potassium Chloride (Klor-Con) 40 meq 1X ONCE PO Last administered on 07/26/18at 08:02; Start 07/26/18 at 06:45; Stop 07/26/18 at 06:47; Status DC Heparin Sodium (Porcine) (Heparin Sodium) 5,000 unit Q8HRS SQ ; Start 07/26/18 at 14:00 Active Scripts Active Reported Cyclobenzaprine Hcl 5 Mg Tablet 1 Tab PO TID Lipitor (Atorvastatin Calcium) 10 Mg Tablet Unknown Dose PO HS Triamterene-Hctz 37.5-25 Mg Tb (Triamterene/Hydrochlorothiazid) 1 Each Tablet 1 Tab PO DAILY Accupril (Quinapril Hcl) 40 Mg Tablet 1 Tab PO DAILY Tramadol Hcl 50 Mg Tablet 2 Tab PO PRN Q6HRS Travatan Z (Travoprost) 5 Ml Drops 1 Drop EACHEYE QHS Zolpidem Tartrate 10 Mg Tablet 1 Tab PO QHS Combigan Eye Drops (Brimonidine Tartrate/Timolol) 5 Ml Drops 5 Ml OP Metamucil Plus Calcium Capsule (Psyllium Husk/Ca Carbonate) 1 Each Capsule 2 Each PO HS Miralax (Polyethylene Glycol 3350) 17 Gm Powd.pack 1 Pkt PO DAILY Cymbalta (Duloxetine Hcl) 60 Mg Capsule.dr 1 Cap PO DAILY Estradiol 0.5 Mg Tablet 0.5 Mg PO Vitals/I & O Vital Sign - Last 24 Hours 07/25/18 07/25/18 07/25/18 07/25/18 14:55 15:00 19:40 20:00 Temp 98.1 98.4 98.1 98.4 Pulse 80 84 Resp 18 28 20 B/P (MAP) 119/50 (73) 117/42 (67) Pulse Ox 95 97 O2 Delivery Nasal Cannula Nasal Cannula Nasal Cannula O2 Flow Rate 2.0 2.0 2.0 07/25/18 07/25/18 07/26/18 07/26/18 20:58 23:55 03:30 03:38 Temp 98.3 98.3 98.3 98.3 Pulse 86 85 Resp 20 18 B/P (MAP) 120/58 (78) 149/59 (89) Pulse Ox 97 96 95 96 O2 Delivery Nasal Cannula Nasal Cannula Nasal Cannula Nasal Cannula O2 Flow Rate 2.0 2.0 2.0 2.0 07/26/18 07/26/18 07/26/18 07/26/18 04:45 07:00 08:00 11:35 Temp 98.3 98.0 98.3 98.0 Pulse 94 92 Resp 16 18 B/P (MAP) 134/68 (90) 146/73 (97) Pulse Ox 96 97 96 O2 Delivery Nasal Cannula Nasal Cannula Nasal Cannula Nasal Cannula O2 Flow Rate 2.0 2.0 2.0 2.0 Intake and Output 07/25/18 07/25/18 07/26/18 15:00 23:00 07:00 Intake Total 1370 ml 300 ml 0 ml Balance 1370 ml 300 ml 0 ml Problem List Problems Medical Problems: (1) Colitis Status: Acute (2) Diarrhea Status: Acute (3) Diverticulitis Status: Acute (4) Hypokalemia Status: Acute (5) Leukocytosis Status: Acute (6) Renal insufficiency Status: Acute (7) Sepsis Status: Acute Assessment LLQ abd pain- with colitis, improving, cpm PROPECK,ELADIO S MD Jul 26, 2018 14:45
[2018-07-26 15:40] VITALS: BP 157/75
[2018-07-26 19:50] VITALS: BP 141/61
[2018-07-26] MEDS: LATANOPROST 0.005% OPHTH SOLUTION 2.5ML BOTTLE. OU SCH (21:00)
[2018-07-26] MEDS: ATORVASTATIN CALCIUM 10 MG TABLET. PO SCH (21:25)
[2018-07-26 23:05] VITALS: BP 122/55
[2018-07-27] MEDS: PIPERACILLIN/TAZOBACTAM 2.25 GM in IV NORMAL SALINE 50ML 50 ML IV SCH ×4 (00:08→17:29)
[2018-07-27 03:24] LABS: BASO % 0 % (0-3); EOS % 0 % (0-3); HEMATOCRIT 33.7 % (36.0-47.0); LYMPH # 1.3 x10^3/uL (1.0-4.8); LYMPH % 6 % (24-48); MEAN CORPUSCULAR HEMOGLOBIN 29 pg (25-35); MEAN CORPUSCULAR HGB CONC 33 g/dL (31-37); MEAN CORPUSCULAR VOLUME 88 fL (79-100); MONO # 0.8 x10^3/uL (0.0-1.1); MONO % 4 % (0-9); NEUT # 21.3 x10^3uL (1.8-7.7); NEUT % 91 % (31-73); PLATELET COUNT 350 x10^3/uL (140-400); RED BLOOD COUNT 3.86 x10^6/uL (3.50-5.40); RED CELL DISTRIBUTION WIDTH 14.3 % (11.5-14.5); WHITE BLOOD COUNT 23.5 x10^3/uL (4.0-11.0)
[2018-07-27 03:47] VITALS: BP 150/78
[2018-07-27 04:12] LABS: ALBUMIN 1.5 g/dL (3.4-5.0); ALBUMIN/GLOBULIN RATIO 0.4 (1.0-1.7); CALCIUM 8.7 mg/dL (8.5-10.1); CREATININE 2.1 mg/dL (0.6-1.0); GFR 23.2; POTASSIUM 3.1 mmol/L (3.5-5.1); TOTAL BILIRUBIN 0.3 mg/dL (0.2-1.0); TOTAL PROTEIN 5.4 g/dL (6.4-8.2)
[2018-07-27] MEDS: POTASSIUM CL 20MEQ D5-0.45NACL 1,000 ML IV SCH ×2 (06:18→14:15)
[2018-07-27] MEDS: traMADol 50 MG TABLET PO PRN ×3 (06:23→21:17)
[2018-07-27] MEDS: HEPARIN for SUB-Q USE 5,000 UNIT/ML VIAL. SQ SCH ×3 (06:28→21:19)
[2018-07-27 07:00] VITALS: BP 139/58
[2018-07-27] MEDS: DULoxetine HCL 30 MG CAPSULE.DR PO SCH (08:37)
[2018-07-27] MEDS: LACTOBACILLUS RHAMNOSUS GG 1 CAPSULE. PO SCH ×2 (08:37→21:15)
--- NOTE | 2018-07-27 09:37 | PDOC ---
Infectious Disease Note Subjective Subjective improving LLQ abdominal pain, localized + BM O2 2L Denies N/V/D/F/C/SOA Hungry ROS ROS o/w neg Vital Sign Vital Signs Vital Signs Date Time Temp Pulse Resp B/P (MAP) Pulse Ox O2 Delivery O2 Flow Rate FiO2 07/27/18 07:00 98.6 83 18 139/58 (85) 98 Nasal Cannula 2.0 98.6 Physical Exam PHYSICAL EXAM GENERAL: Sitting on side of bed. Alert and coop HEENT: Pupils equally round. Oropharynx pink and moist.- thrush NECK: Supple. LUNGS: Clear to auscultation. HEART: S1, S2. ABDOMEN: Obese, mildly distended, soft, LLQ tenderness has improved with bowel sounds present. EXTREMITIES: No gross edema or cyanosis. SKIN: Warm without generalized rash. NEUROLOGIC: Responding appropriately, oriented to time, place and person. Labs Lab Laboratory Tests Test 07/27/18 02:50 White Blood Count 23.5 x10^3/uL (4.0-11.0) Red Blood Count 3.86 x10^6/uL (3.50-5.40) Hemoglobin 11.0 g/dL (12.0-15.5) Hematocrit 33.7 % (36.0-47.0) Mean Corpuscular Volume 88 fL (79-100) Mean Corpuscular Hemoglobin 29 pg (25-35) Mean Corpuscular Hemoglobin Concent 33 g/dL (31-37) Red Cell Distribution Width 14.3 % (11.5-14.5) Platelet Count 350 x10^3/uL (140-400) Neutrophils (%) (Auto) 91 % (31-73) Lymphocytes (%) (Auto) 6 % (24-48) Monocytes (%) (Auto) 4 % (0-9) Eosinophils (%) (Auto) 0 % (0-3) Basophils (%) (Auto) 0 % (0-3) Neutrophils # (Auto) 21.3 x10^3uL (1.8-7.7) Lymphocytes # (Auto) 1.3 x10^3/uL (1.0-4.8) Monocytes # (Auto) 0.8 x10^3/uL (0.0-1.1) Eosinophils # (Auto) 0.0 x10^3/uL (0.0-0.7) Basophils # (Auto) 0.0 x10^3/uL (0.0-0.2) Sodium Level 140 mmol/L (136-145) Potassium Level 3.1 mmol/L (3.5-5.1) Chloride Level 103 mmol/L (98-107) Carbon Dioxide Level 26 mmol/L (21-32) Anion Gap 11 (6-14) Blood Urea Nitrogen 25 mg/dL (7-20) Creatinine 2.1 mg/dL (0.6-1.0) Estimated GFR (Cockcroft-Gault) 23.2 BUN/Creatinine Ratio 12 (6-20) Glucose Level 111 mg/dL (70-99) Calcium Level 8.7 mg/dL (8.5-10.1) Total Bilirubin 0.3 mg/dL (0.2-1.0) Aspartate Amino Transf (AST/SGOT) 66 U/L (15-37) Alanine Aminotransferase (ALT/SGPT) 35 U/L (14-59) Alkaline Phosphatase 138 U/L (46-116) Total Protein 5.4 g/dL (6.4-8.2) Albumin 1.5 g/dL (3.4-5.0) Albumin/Globulin Ratio 0.4 (1.0-1.7) Micro Microbiology 07/24/18 Blood Culture - Preliminary, Resulted NO GROWTH AFTER 2 DAYS 07/24/18 Stool Culture - Final, Resulted 07/24/18 Stool Culture Result 1 (HERNAN) - Final, Resulted 07/24/18 Campylobacter Antigen Assay - Preliminary, Resulted 07/24/18 Campylobactor Result 1 - Preliminary, Resulted 07/24/18 Shiga Toxin Test, Resulted Pending 07/24/18 Urine Culture - Final, Complete 07/24/18 Urine Culture Result 1 (HERNAN) - Final, Complete Objective Assessment Sepsis with fever, leukocytosis - better, tachycardia, improving Abnormal CT - mild nonspecific colitis of distal descending and sigmoid colon, likely acute diverticulitis; ? ischemia - better with less pain. Hungry today Lactic acidosis, improved Encephalopathy, improving ZAN- worse today - ? previous dehydration Diarrhea, c. diff PCR neg 07/24; stool cultures neg so far Recent dental extraction/abx Plan Plan of Care Continue Zosyn F/u labs in am Mycelex/Flucon times one Cultures neg so far Monitor WBC/temp Maintain hydration May need repeat imaging. TADEO CHERY MD Jul 27, 2018 09:36
[2018-07-27] MEDS ORDERED: FLUCONAZOLE 100 MG TABLET. PO ONE (10:00)
--- NOTE | 2018-07-27 10:42 | PDOC ---
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 Oropharynx pink and moist.- thrush NECK: Supple. LUNGS: Clear to auscultation. HEART: S1, S2. ABDOMEN: Obese, mildly distended, soft, LLQ tenderness has improved with bowel sounds present. EXTREMITIES: No gross edema or cyanosis. SKIN: Warm without generalized rash. NEUROLOGIC: Responding appropriately, oriented to time, place and person. General: mild distress, Other (pleasantly confused) Heart: Regular rate, Normal S1, Normal S2 Lungs: Clear Abdomen: Normal bowel sounds, Soft, No hepatosplenomegaly, No masses, Other (LLQ tender) Extremities: No clubbing, No cyanosis, No edema, Normal pulses, No tenderness/swelling Skin: No rashes, No breakdown, No significant lesion Labs Labs: Laboratory Tests Test 07/27/18 02:50 White Blood Count 23.5 x10^3/uL (4.0-11.0) Red Blood Count 3.86 x10^6/uL (3.50-5.40) Hemoglobin 11.0 g/dL (12.0-15.5) Hematocrit 33.7 % (36.0-47.0) Mean Corpuscular Volume 88 fL (79-100) Mean Corpuscular Hemoglobin 29 pg (25-35) Mean Corpuscular Hemoglobin Concent 33 g/dL (31-37) Red Cell Distribution Width 14.3 % (11.5-14.5) Platelet Count 350 x10^3/uL (140-400) Neutrophils (%) (Auto) 91 % (31-73) Lymphocytes (%) (Auto) 6 % (24-48) Monocytes (%) (Auto) 4 % (0-9) Eosinophils (%) (Auto) 0 % (0-3) Basophils (%) (Auto) 0 % (0-3) Neutrophils # (Auto) 21.3 x10^3uL (1.8-7.7) Lymphocytes # (Auto) 1.3 x10^3/uL (1.0-4.8) Monocytes # (Auto) 0.8 x10^3/uL (0.0-1.1) Eosinophils # (Auto) 0.0 x10^3/uL (0.0-0.7) Basophils # (Auto) 0.0 x10^3/uL (0.0-0.2) Sodium Level 140 mmol/L (136-145) Potassium Level 3.1 mmol/L (3.5-5.1) Chloride Level 103 mmol/L (98-107) Carbon Dioxide Level 26 mmol/L (21-32) Anion Gap 11 (6-14) Blood Urea Nitrogen 25 mg/dL (7-20) Creatinine 2.1 mg/dL (0.6-1.0) Estimated GFR (Cockcroft-Gault) 23.2 BUN/Creatinine Ratio 12 (6-20) Glucose Level 111 mg/dL (70-99) Calcium Level 8.7 mg/dL (8.5-10.1) Total Bilirubin 0.3 mg/dL (0.2-1.0) Aspartate Amino Transf (AST/SGOT) 66 U/L (15-37) Alanine Aminotransferase (ALT/SGPT) 35 U/L (14-59) Alkaline Phosphatase 138 U/L (46-116) Total Protein 5.4 g/dL (6.4-8.2) Albumin 1.5 g/dL (3.4-5.0) Albumin/Globulin Ratio 0.4 (1.0-1.7) Assessment and Plan Assessmemt and Plan Problems Medical Problems: (1) Colitis Status: Acute (2) Diarrhea Status: Acute (3) Diverticulitis Status: Acute Diarrhea - Acute encephalopathy - likely toxic from sepsis Sepsis - likely 2/2 colitis, Arthritis - High Cholesterol Hypertension - INSOMNIA - will hold sleeping meds for her confusion Thrombocytosis ZAN Hypokalemia Mild rhabdo - Lactic acidosis Occult blood positive Plan ID nephrology and GI all following IV fluids plus minus antibiotics Home meds Frequent labs DVT prophylaxis Full code Appreciate subspecialist input Comment Review of Relevant I have reviewed the following items grace (where applicable) has been applied. Labs Laboratory Tests Test 07/26/18 04:40 07/26/18 04:45 07/27/18 02:50 White Blood Count 30.0 x10^3/uL (4.0-11.0) 23.5 x10^3/uL (4.0-11.0) Red Blood Count 3.78 x10^6/uL (3.50-5.40) 3.86 x10^6/uL (3.50-5.40) Hemoglobin 11.1 g/dL (12.0-15.5) 11.0 g/dL (12.0-15.5) Hematocrit 33.1 % (36.0-47.0) 33.7 % (36.0-47.0) Mean Corpuscular Volume 88 fL (79-100) 88 fL (79-100) Mean Corpuscular Hemoglobin 30 pg (25-35) 29 pg (25-35) Mean Corpuscular Hemoglobin Concent 34 g/dL (31-37) 33 g/dL (31-37) Red Cell Distribution Width 14.0 % (11.5-14.5) 14.3 % (11.5-14.5) Platelet Count 300 x10^3/uL (140-400) 350 x10^3/uL (140-400) Neutrophils (%) (Auto) 93 % (31-73) 91 % (31-73) Lymphocytes (%) (Auto) 4 % (24-48) 6 % (24-48) Monocytes (%) (Auto) 3 % (0-9) 4 % (0-9) Eosinophils (%) (Auto) 0 % (0-3) 0 % (0-3) Basophils (%) (Auto) 0 % (0-3) 0 % (0-3) Neutrophils # (Auto) 28.0 x10^3uL (1.8-7.7) 21.3 x10^3uL (1.8-7.7) Lymphocytes # (Auto) 1.2 x10^3/uL (1.0-4.8) 1.3 x10^3/uL (1.0-4.8) Monocytes # (Auto) 0.8 x10^3/uL (0.0-1.1) 0.8 x10^3/uL (0.0-1.1) Eosinophils # (Auto) 0.0 x10^3/uL (0.0-0.7) 0.0 x10^3/uL (0.0-0.7) Basophils # (Auto) 0.0 x10^3/uL (0.0-0.2) 0.0 x10^3/uL (0.0-0.2) Sodium Level 139 mmol/L (136-145) 140 mmol/L (136-145) Potassium Level 2.6 mmol/L (3.5-5.1) 3.1 mmol/L (3.5-5.1) Chloride Level 100 mmol/L (98-107) 103 mmol/L (98-107) Carbon Dioxide Level 27 mmol/L (21-32) 26 mmol/L (21-32) Anion Gap 12 (6-14) 11 (6-14) Blood Urea Nitrogen 28 mg/dL (7-20) 25 mg/dL (7-20) Creatinine 1.8 mg/dL (0.6-1.0) 2.1 mg/dL (0.6-1.0) Estimated GFR (Cockcroft-Gault) 27.7 23.2 BUN/Creatinine Ratio 16 (6-20) 12 (6-20) Glucose Level 130 mg/dL (70-99) 111 mg/dL (70-99) Calcium Level 8.6 mg/dL (8.5-10.1) 8.7 mg/dL (8.5-10.1) Total Bilirubin 0.4 mg/dL (0.2-1.0) 0.3 mg/dL (0.2-1.0) Aspartate Amino Transf (AST/SGOT) 58 U/L (15-37) 66 U/L (15-37) Alanine Aminotransferase (ALT/SGPT) 26 U/L (14-59) 35 U/L (14-59) Alkaline Phosphatase 139 U/L (46-116) 138 U/L (46-116) Creatine Kinase 353 U/L (26-192) Total Protein 5.6 g/dL (6.4-8.2) 5.4 g/dL (6.4-8.2) Albumin 1.6 g/dL (3.4-5.0) 1.5 g/dL (3.4-5.0) Albumin/Globulin Ratio 0.4 (1.0-1.7) 0.4 (1.0-1.7) Lactic Acid Level 1.6 mmol/L (0.4-2.0) Magnesium Level 2.5 mg/dL (1.8-2.4) Laboratory Tests Test 07/27/18 02:50 White Blood Count 23.5 x10^3/uL (4.0-11.0) Red Blood Count 3.86 x10^6/uL (3.50-5.40) Hemoglobin 11.0 g/dL (12.0-15.5) Hematocrit 33.7 % (36.0-47.0) Mean Corpuscular Volume 88 fL (79-100) Mean Corpuscular Hemoglobin 29 pg (25-35) Mean Corpuscular Hemoglobin Concent 33 g/dL (31-37) Red Cell Distribution Width 14.3 % (11.5-14.5) Platelet Count 350 x10^3/uL (140-400) Neutrophils (%) (Auto) 91 % (31-73) Lymphocytes (%) (Auto) 6 % (24-48) Monocytes (%) (Auto) 4 % (0-9) Eosinophils (%) (Auto) 0 % (0-3) Basophils (%) (Auto) 0 % (0-3) Neutrophils # (Auto) 21.3 x10^3uL (1.8-7.7) Lymphocytes # (Auto) 1.3 x10^3/uL (1.0-4.8) Monocytes # (Auto) 0.8 x10^3/uL (0.0-1.1) Eosinophils # (Auto) 0.0 x10^3/uL (0.0-0.7) Basophils # (Auto) 0.0 x10^3/uL (0.0-0.2) Sodium Level 140 mmol/L (136-145) Potassium Level 3.1 mmol/L (3.5-5.1) Chloride Level 103 mmol/L (98-107) Carbon Dioxide Level 26 mmol/L (21-32) Anion Gap 11 (6-14) Blood Urea Nitrogen 25 mg/dL (7-20) Creatinine 2.1 mg/dL (0.6-1.0) Estimated GFR (Cockcroft-Gault) 23.2 BUN/Creatinine Ratio 12 (6-20) Glucose Level 111 mg/dL (70-99) Calcium Level 8.7 mg/dL (8.5-10.1) Total Bilirubin 0.3 mg/dL (0.2-1.0) Aspartate Amino Transf (AST/SGOT) 66 U/L (15-37) Alanine Aminotransferase (ALT/SGPT) 35 U/L (14-59) Alkaline Phosphatase 138 U/L (46-116) Total Protein 5.4 g/dL (6.4-8.2) Albumin 1.5 g/dL (3.4-5.0) Albumin/Globulin Ratio 0.4 (1.0-1.7) Microbiology 07/24/18 Blood Culture - Preliminary, Resulted NO GROWTH AFTER 2 DAYS 07/24/18 Stool Culture - Final, Resulted 07/24/18 Stool Culture Result 1 (HERNAN) - Final, Resulted 07/24/18 Campylobacter Antigen Assay - Preliminary, Resulted 07/24/18 Campylobactor Result 1 - Preliminary, Resulted 07/24/18 Shiga Toxin Test, Resulted Pending 07/24/18 Urine Culture - Final, Complete 07/24/18 Urine Culture Result 1 (HERNAN) - Final, Complete Medications Current Medications Sodium Chloride 1,000 ml @ 1,000 mls/hr Q1H IV Last administered on 07/24/18at 10:15; Start 07/24/18 at 09:31; Stop 07/24/18 at 10:30; Status DC Ondansetron HCl (Zofran) 4 mg 1X ONCE IV Last administered on 07/24/18at 10:15; Start 07/24/18 at 09:45; Stop 07/24/18 at 09:46; Status DC Sodium Chloride 1,000 ml @ 1,000 mls/hr 1X ONCE IV Last administered on 07/24/18at 10:30; Start 07/24/18 at 10:30; Stop 07/24/18 at 11:29; Status DC Metronidazole 100 ml @ 100 mls/hr 1X ONCE IV Last administered on 07/24/18at 11:45; Start 07/24/18 at 11:00; Stop 07/24/18 at 11:59; Status DC Vancomycin HCl 250 ml @ 250 mls/hr 1X ONCE IV Last administered on 07/24/18at 11:30; Start 07/24/18 at 11:00; Stop 07/24/18 at 11:59; Status DC Sodium Chloride 1,000 ml @ 150 mls/hr Q6H40M IV ; Start 07/24/18 at 10:55; Stop 07/24/18 at 14:13; Status DC Iohexol (Omnipaque 240 Mg/ml) 30 ml 1X ONCE PO Last administered on 07/24/18at 12:14; Start 07/24/18 at 12:15; Stop 07/24/18 at 12:16; Status DC Info (CONTRAST GIVEN -- Rx MONITORING) 1 each PRN DAILY PRN MC SEE COMMENTS; Start 07/24/18 at 12:15; Stop 07/26/18 at 12:14; Status DC Vancomycin HCl (Vancomycin Oral Solution) 125 mg [id number] PO Last administered on 07/25/18at 08:10; Start 07/24/18 at 14:30; Stop 07/25/18 at 12:38; Status DC Potassium Chloride/Dextrose/ Sod Cl 1,000 ml @ 125 mls/hr Q8H IV Last administered on 07/27/18at 06:18; Start 07/24/18 at 14:15 Atorvastatin Calcium (Lipitor) 10 mg HS PO Last administered on 07/26/18at 21:25; Start 07/24/18 at 21:00 Tramadol HCl (Ultram) 100 mg PRN Q6HRS PRN PO PAIN Last administered on 07/27/18at 06:23; Start 07/24/18 at 14:15 Duloxetine HCl (Cymbalta) 60 mg DAILY PO Last administered on 07/27/18at 08:37; Start 07/25/18 at 09:00 Latanoprost (Xalatan) 1 drop QHS OU Last administered on 07/25/18at 21:05; Start 07/24/18 at 21:00 Acetaminophen (Tylenol) 650 mg PRN Q6HRS PRN PO Fever Last administered on 07/25/18at 17:46; Start 07/24/18 at 16:00 Piperacillin Sod/ Tazobactam Sod 2.25 gm/Sodium Chloride 50 ml @ 100 mls/hr Q6HRS IV Last administered on 07/27/18at 06:17; Start 07/25/18 at 06:15 Metronidazole 100 ml @ 100 mls/hr Q12HR IV Last administered on 07/25/18at 08:07; Start 07/25/18 at 09:00; Stop 07/25/18 at 12:38; Status DC Lactobacillus Rhamnosus (Culturelle) 1 cap BID PO Last administered on 07/27/18at 08:37; Start 07/25/18 at 21:00 Potassium Chloride/Water 100 ml @ 100 mls/hr Q1H IV Last administered on 07/26/18at 10:00; Start 07/26/18 at 07:00; Stop 07/26/18 at 10:59; Status DC Potassium Chloride (Klor-Con) 40 meq 1X ONCE PO Last administered on 07/26/18at 08:02; Start 07/26/18 at 06:45; Stop 07/26/18 at 06:47; Status DC Heparin Sodium (Porcine) (Heparin Sodium) 5,000 unit Q8HRS SQ Last administered on 07/27/18at 06:28; Start 07/26/18 at 14:00 Clotrimazole (Mycelex) 10 mg 5XDAY MM ; Start 07/27/18 at 10:00 Fluconazole (Diflucan) 200 mg ONCE ONCE PO ; Start 07/27/18 at 10:00; Stop 07/27/18 at 10:01; Status DC Active Scripts Active Reported Cyclobenzaprine Hcl 5 Mg Tablet 1 Tab PO TID Lipitor (Atorvastatin Calcium) 10 Mg Tablet Unknown Dose PO HS Triamterene-Hctz 37.5-25 Mg Tb (Triamterene/Hydrochlorothiazid) 1 Each Tablet 1 Tab PO DAILY Accupril (Quinapril Hcl) 40 Mg Tablet 1 Tab PO DAILY Tramadol Hcl 50 Mg Tablet 2 Tab PO PRN Q6HRS Travatan Z (Travoprost) 5 Ml Drops 1 Drop EACHEYE QHS Zolpidem Tartrate 10 Mg Tablet 1 Tab PO QHS Combigan Eye Drops (Brimonidine Tartrate/Timolol) 5 Ml Drops 5 Ml OP Metamucil Plus Calcium Capsule (Psyllium Husk/Ca Carbonate) 1 Each Capsule 2 Each PO HS Miralax (Polyethylene Glycol 3350) 17 Gm Powd.pack 1 Pkt PO DAILY Cymbalta (Duloxetine Hcl) 60 Mg Capsule.dr 1 Cap PO DAILY Estradiol 0.5 Mg Tablet 0.5 Mg PO Vitals/I & O Vital Sign - Last 24 Hours 07/26/18 07/26/18 07/26/18 07/26/18 11:35 15:40 19:50 20:30 Temp 98.0 98.3 98.2 98.0 98.3 98.2 Pulse 92 91 86 Resp 18 18 18 B/P (MAP) 146/73 (97) 157/75 (102) 141/61 (87) Pulse Ox 96 96 98 O2 Delivery Nasal Cannula Nasal Cannula Nasal Cannula Nasal Cannula O2 Flow Rate 2.0 2.0 2.0 2.0 07/26/18 07/26/18 07/26/18 07/27/18 22:30 23:05 23:30 03:47 Temp 98.1 98.1 98.1 98.1 Pulse 91 93 Resp 16 18 20 B/P (MAP) 122/55 (77) 150/78 (102) Pulse Ox 92 92 94 O2 Delivery Nasal Cannula Nasal Cannula Nasal Cannula O2 Flow Rate 2.0 2.0 07/27/18 07/27/18 07/27/18 07/27/18 06:23 07:00 07:23 08:00 Temp 98.6 98.6 Pulse 83 Resp 18 17 B/P (MAP) 139/58 (85) Pulse Ox 94 98 O2 Delivery Nasal Cannula Nasal Cannula Nasal Cannula Nasal Cannula O2 Flow Rate 2.0 2.0 2.0 2.0 Intake and Output 0 07/26/18 07/26/18 07/27/18 14:59 22:59 06:59 Intake Total 120 ml 270 ml 250 ml Balance 120 ml 270 ml 250 ml URIEL VUONG III DO Jul 27, 2018 10:42
--- NOTE | 2018-07-27 10:58 | NUR ---
SW following for discharge planning. Discussed with RN, pt is from home alone. PT/OT ordered, SW will continue to follow for discharge recommendations.
[2018-07-27 11:09] VITALS: BP 115/61
--- NOTE | 2018-07-27 11:27 | PDOC ---
Subjective: Subjective: "A little" diarrhea. Tolerating clears, would like applesauce. LLQ pain persists. Objective: Objective: No significant diarrhea per RN. Per chart - 9 stools charted 07/27. Vital Signs: Vital Signs Date Time Temp Pulse Resp B/P (MAP) Pulse Ox O2 Delivery O2 Flow Rate FiO2 07/27/18 11:09 97.4 61 18 115/61 (79) 99 Nasal Cannula 2.0 97.4 Labs: Laboratory Tests Test 07/27/18 02:50 White Blood Count 23.5 x10^3/uL Red Blood Count 3.86 x10^6/uL Hemoglobin 11.0 g/dL Hematocrit 33.7 % Mean Corpuscular Volume 88 fL Mean Corpuscular Hemoglobin 29 pg Mean Corpuscular Hemoglobin Concent 33 g/dL Red Cell Distribution Width 14.3 % Platelet Count 350 x10^3/uL Neutrophils (%) (Auto) 91 % Lymphocytes (%) (Auto) 6 % Monocytes (%) (Auto) 4 % Eosinophils (%) (Auto) 0 % Basophils (%) (Auto) 0 % Neutrophils # (Auto) 21.3 x10^3uL Lymphocytes # (Auto) 1.3 x10^3/uL Monocytes # (Auto) 0.8 x10^3/uL Eosinophils # (Auto) 0.0 x10^3/uL Basophils # (Auto) 0.0 x10^3/uL Sodium Level 140 mmol/L Potassium Level 3.1 mmol/L Chloride Level 103 mmol/L Carbon Dioxide Level 26 mmol/L Anion Gap 11 Blood Urea Nitrogen 25 mg/dL Creatinine 2.1 mg/dL Estimated GFR (Cockcroft-Gault) 23.2 BUN/Creatinine Ratio 12 Glucose Level 111 mg/dL Calcium Level 8.7 mg/dL Total Bilirubin 0.3 mg/dL Aspartate Amino Transf (AST/SGOT) 66 U/L Alanine Aminotransferase (ALT/SGPT) 35 U/L Alkaline Phosphatase 138 U/L Total Protein 5.4 g/dL Albumin 1.5 g/dL Albumin/Globulin Ratio 0.4 STOOL CULTURE Final Final report STOOL CULT RES 1 Final Comment No Salmonella or Shigella recovered. CAMPY Preliminary Preliminary report CAMPY RES 1 Preliminary Comment No Campylobacter species isolated. Performed at: - [facility] [address], [place], [place] [id number] Bridge Carpenter: MICHELA Calderon MD, Phone: [phone] SHIGA TOXIN PENDING FECAL WBC,GRAM STAIN Final WBCS NONE PRESENT URINE CULTURE Final Final report URINE CULTURE RES 1 Final No growth BLOOD CULTURE Preliminary NO GROWTH AFTER 3 DAYS PE: GEN: NAD, was asleep LUNGS: NC HEART: RRR ABD: BS+, soft, LLQ discomfort NEURO/PSYCH: A & O x 3 A/P: LLQ pain, diarrhea, abnormal CT - ?diverticulitis, C Diff neg Leukocytosis (better), ZAN (worse), hypokalemia (better) Mild anemia (stable), +fecal occult w/o obvious bleeding Elevated Alk Phos (improved), mildly elevated AST -- Try full liquids. AMADA RICHARDSON Jul 27, 2018 11:27
--- NOTE | 2018-07-27 11:32 | PDOC ---
SUBJECTIVE ROS Stable OBJECTIVE Vital Signs Vital Signs Date Time Temp Pulse Resp B/P (MAP) Pulse Ox O2 Delivery O2 Flow Rate FiO2 07/27/18 11:09 97.4 61 18 115/61 (79) 99 Nasal Cannula 2.0 97.4 I & 0 Intake and Output 07/27/18 07:00 Intake Total 640 ml Balance 640 ml Intake Oral 640 ml # Voids 5 # Bowel Movements 9 PHYSICAL EXAM Physical Exam GENERAL: NAD HEENT: OM Moist NECK: Supple. LUNGS: Clear to auscultation. HEART: S1, S2. ABDOMEN: Obese, soft and nontender with bowel sounds present. EXTREMITIES: No gross edema SKIN: Warm without generalized rash. NEUROLOGIC: Grossly normal - No Jimenez, No CVA or SP tenderness DIAGNOSIS/ASSESSMENT Assessment & Plan ZAN - ATN baseline unknown Ct scan- Kidneys and bladder unremarkable IVF, Urine Not recorded Holding Maxzide and NEIDA-I for now Hypokalemia- Replace Sepsis present on admission ID following Abnormal CT showing mild nonspecific colitis of distal descending and sigmoid colon, likely acute diverticulitis. Diarrhea with negative Clostridium difficile Discussed with Pt and RN COMMENT/RELEVANT DATA Meds Current Medications Medications (Trade) Dose Ordered Sig/Mark Start Time Stop Time Status Last Admin Dose Admin Acetaminophen (Tylenol) 650 mg PRN Q6HRS PRN 07/24/18 16:00 07/25/18 17:46 650 MG Atorvastatin Calcium (Lipitor) 10 mg HS 07/24/18 21:00 07/26/18 21:25 10 MG Clotrimazole (Mycelex) 10 mg 5XDAY 07/27/18 10:00 Duloxetine HCl (Cymbalta) 60 mg DAILY 07/25/18 09:00 07/27/18 08:37 60 MG Fluconazole (Diflucan) 200 mg ONCE ONCE 07/27/18 10:00 07/27/18 10:01 DC Heparin Sodium (Porcine) (Heparin Sodium) 5,000 unit Q8HRS 07/26/18 14:00 07/27/18 06:28 5,000 UNIT Info (CONTRAST GIVEN -- Rx MONITORING) 1 each PRN DAILY PRN 07/24/18 12:15 07/26/18 12:14 DC Iohexol (Omnipaque 240 Mg/ml) 30 ml 1X ONCE 07/24/18 12:15 07/24/18 12:16 DC 07/24/18 12:14 30 ML Lactobacillus Rhamnosus (Culturelle) 1 cap BID 07/25/18 21:00 07/27/18 08:37 1 CAP Latanoprost (Xalatan) 1 drop QHS 07/24/18 21:00 07/25/18 21:05 1 DROP Metronidazole 100 ml @ 100 mls/hr Q12HR 07/25/18 09:00 07/25/18 12:38 DC 07/25/18 08:07 100 MLS/HR Ondansetron HCl (Zofran) 4 mg 1X ONCE 07/24/18 09:45 07/24/18 09:46 DC 07/24/18 10:15 4 MG Piperacillin Sod/ Tazobactam Sod 2.25 gm/Sodium Chloride 50 ml @ 100 mls/hr Q6HRS 07/25/18 06:15 07/27/18 06:17 100 MLS/HR Potassium Chloride/Dextrose/ Sod Cl 1,000 ml @ 125 mls/hr Q8H 07/24/18 14:15 07/27/18 06:18 125 MLS/HR Potassium Chloride/Water 100 ml @ 100 mls/hr Q1H 07/26/18 07:00 07/26/18 10:59 DC 07/26/18 10:00 100 MLS/HR Potassium Chloride (Klor-Con) 40 meq 1X ONCE 07/26/18 06:45 07/26/18 06:47 DC 07/26/18 08:02 40 MEQ Sodium Chloride 1,000 ml @ 150 mls/hr Q6H40M 07/24/18 10:55 07/24/18 14:13 DC Tramadol HCl (Ultram) 100 mg PRN Q6HRS PRN 07/24/18 14:15 07/27/18 06:23 100 MG Vancomycin HCl (Vancomycin Oral Solution) 125 mg [id number] 07/24/18 14:30 07/25/18 12:38 DC 07/25/18 08:10 125 MG Lab Laboratory Tests Test 07/27/18 02:50 White Blood Count 23.5 x10^3/uL (4.0-11.0) Red Blood Count 3.86 x10^6/uL (3.50-5.40) Hemoglobin 11.0 g/dL (12.0-15.5) Hematocrit 33.7 % (36.0-47.0) Mean Corpuscular Volume 88 fL (79-100) Mean Corpuscular Hemoglobin 29 pg (25-35) Mean Corpuscular Hemoglobin Concent 33 g/dL (31-37) Red Cell Distribution Width 14.3 % (11.5-14.5) Platelet Count 350 x10^3/uL (140-400) Neutrophils (%) (Auto) 91 % (31-73) Lymphocytes (%) (Auto) 6 % (24-48) Monocytes (%) (Auto) 4 % (0-9) Eosinophils (%) (Auto) 0 % (0-3) Basophils (%) (Auto) 0 % (0-3) Neutrophils # (Auto) 21.3 x10^3uL (1.8-7.7) Lymphocytes # (Auto) 1.3 x10^3/uL (1.0-4.8) Monocytes # (Auto) 0.8 x10^3/uL (0.0-1.1) Eosinophils # (Auto) 0.0 x10^3/uL (0.0-0.7) Basophils # (Auto) 0.0 x10^3/uL (0.0-0.2) Sodium Level 140 mmol/L (136-145) Potassium Level 3.1 mmol/L (3.5-5.1) Chloride Level 103 mmol/L (98-107) Carbon Dioxide Level 26 mmol/L (21-32) Anion Gap 11 (6-14) Blood Urea Nitrogen 25 mg/dL (7-20) Creatinine 2.1 mg/dL (0.6-1.0) Estimated GFR (Cockcroft-Gault) 23.2 BUN/Creatinine Ratio 12 (6-20) Glucose Level 111 mg/dL (70-99) Calcium Level 8.7 mg/dL (8.5-10.1) Total Bilirubin 0.3 mg/dL (0.2-1.0) Aspartate Amino Transf (AST/SGOT) 66 U/L (15-37) Alanine Aminotransferase (ALT/SGPT) 35 U/L (14-59) Alkaline Phosphatase 138 U/L (46-116) Total Protein 5.4 g/dL (6.4-8.2) Albumin 1.5 g/dL (3.4-5.0) Albumin/Globulin Ratio 0.4 (1.0-1.7) Results All relevant outside records, renal labs, imaging studies, telemetry/EKG's were reviewed. KWADWO ALDRICH MD Jul 27, 2018 11:32
[2018-07-27] MEDS: CLOTRIMAZOLE 10 MG TROCHE. MM SCH ×4 (12:42→21:17)
[2018-07-27] MEDS: POTASSIUM CHLORIDE 10 MEQ TABLET.ER. PO SCH ×2 (12:46→21:16)
[2018-07-27 15:00] VITALS: BP 152/75
--- NOTE | 2018-07-27 16:23 | NUR ---
SW met with pt to discuss PT/OT recommendation of SNU, pt in agreement and would like referral sent to [facility]. SW faxed referral to [facility]. RN anticipates discharge mid to late week this week.
[2018-07-27 19:35] VITALS: BP 129/66
[2018-07-27] MEDS: ATORVASTATIN CALCIUM 10 MG TABLET. PO SCH (21:16)
[2018-07-27] MEDS: LATANOPROST 0.005% OPHTH SOLUTION 2.5ML BOTTLE. OU SCH (21:18)
[2018-07-27 23:58] VITALS: BP 124/45
[2018-07-28] MEDS: POTASSIUM CL 20MEQ D5-0.45NACL 1,000 ML IV SCH ×4 (00:24→22:15)
[2018-07-28] MEDS: PIPERACILLIN/TAZOBACTAM 2.25 GM in IV NORMAL SALINE 50ML 50 ML IV SCH ×4 (00:24→17:03)
[2018-07-28 03:41] VITALS: BP 136/66
[2018-07-28] MEDS: traMADol 50 MG TABLET PO PRN ×3 (04:10→18:42)
[2018-07-28 04:18] LABS: BASO % 0 % (0-3); EOS # 0.1 x10^3/uL (0.0-0.7); EOS % 0 % (0-3); HEMATOCRIT 30.6 % (36.0-47.0); HEMOGLOBIN 10.1 g/dL (12.0-15.5); LYMPH # 1.7 x10^3/uL (1.0-4.8); LYMPH % 9 % (24-48); MEAN CORPUSCULAR HEMOGLOBIN 29 pg (25-35); MEAN CORPUSCULAR HGB CONC 33 g/dL (31-37); MEAN CORPUSCULAR VOLUME 88 fL (79-100); MONO % 5 % (0-9); NEUT # 16.1 x10^3uL (1.8-7.7); NEUT % 85 % (31-73); PLATELET COUNT 342 x10^3/uL (140-400); RED BLOOD COUNT 3.49 x10^6/uL (3.50-5.40); RED CELL DISTRIBUTION WIDTH 14.3 % (11.5-14.5); WHITE BLOOD COUNT 18.9 x10^3/uL (4.0-11.0)
[2018-07-28 04:42] LABS: CALCIUM 8.4 mg/dL (8.5-10.1); CREATININE 2.1 mg/dL (0.6-1.0); GFR 23.2; POTASSIUM 3.2 mmol/L (3.5-5.1)
[2018-07-28] MEDS: CLOTRIMAZOLE 10 MG TROCHE. MM SCH ×5 (06:32→21:50)
[2018-07-28] MEDS: HEPARIN for SUB-Q USE 5,000 UNIT/ML VIAL. SQ SCH ×3 (06:33→21:59)
[2018-07-28 07:39] VITALS: BP 148/66
--- NOTE | 2018-07-28 08:45 | PDOC ---
Infectious Disease Note Subjective Subjective Tolerating diet advance improving LLQ abdominal pain, localized + BM O2 2L Denies N/V/D/F/C/SOA ROS ROS o/w neg Vital Sign Vital Signs Vital Signs Date Time Temp Pulse Resp B/P (MAP) Pulse Ox O2 Delivery O2 Flow Rate FiO2 07/28/18 07:39 98.2 75 18 148/66 (93) 95 Nasal Cannula 2.0 98.2 Physical Exam PHYSICAL EXAM GENERAL: Sitting up in bed - looks better HEENT: Pupils equally round. Oropharynx pink and moist.- thrush - better NECK: Supple. LUNGS: Clear to auscultation. HEART: S1, S2. ABDOMEN: Obese, mildly- mod distended, soft, LLQ tenderness has improved with bowel sounds present. EXTREMITIES: No gross edema or cyanosis. SKIN: Warm without generalized rash. NEUROLOGIC: Responding appropriately, oriented to time, place and person. Labs Lab Laboratory Tests Test 07/28/18 03:40 White Blood Count 18.9 x10^3/uL (4.0-11.0) Red Blood Count 3.49 x10^6/uL (3.50-5.40) Hemoglobin 10.1 g/dL (12.0-15.5) Hematocrit 30.6 % (36.0-47.0) Mean Corpuscular Volume 88 fL (79-100) Mean Corpuscular Hemoglobin 29 pg (25-35) Mean Corpuscular Hemoglobin Concent 33 g/dL (31-37) Red Cell Distribution Width 14.3 % (11.5-14.5) Platelet Count 342 x10^3/uL (140-400) Neutrophils (%) (Auto) 85 % (31-73) Lymphocytes (%) (Auto) 9 % (24-48) Monocytes (%) (Auto) 5 % (0-9) Eosinophils (%) (Auto) 0 % (0-3) Basophils (%) (Auto) 0 % (0-3) Neutrophils # (Auto) 16.1 x10^3uL (1.8-7.7) Lymphocytes # (Auto) 1.7 x10^3/uL (1.0-4.8) Monocytes # (Auto) 1.0 x10^3/uL (0.0-1.1) Eosinophils # (Auto) 0.1 x10^3/uL (0.0-0.7) Basophils # (Auto) 0.0 x10^3/uL (0.0-0.2) Sodium Level 140 mmol/L (136-145) Potassium Level 3.2 mmol/L (3.5-5.1) Chloride Level 105 mmol/L (98-107) Carbon Dioxide Level 26 mmol/L (21-32) Anion Gap 9 (6-14) Blood Urea Nitrogen 18 mg/dL (7-20) Creatinine 2.1 mg/dL (0.6-1.0) Estimated GFR (Cockcroft-Gault) 23.2 Glucose Level 101 mg/dL (70-99) Calcium Level 8.4 mg/dL (8.5-10.1) Micro Microbiology 07/24/18 Blood Culture - Preliminary, Resulted NO GROWTH AFTER 2 DAYS 07/24/18 Stool Culture - Final, Resulted 07/24/18 Stool Culture Result 1 (HERNAN) - Final, Resulted 07/24/18 Campylobacter Antigen Assay - Preliminary, Resulted 07/24/18 Campylobactor Result 1 - Preliminary, Resulted 07/24/18 Shiga Toxin Test, Resulted Pending 07/24/18 Urine Culture - Final, Complete 07/24/18 Urine Culture Result 1 (HERNAN) - Final, Complete Objective Assessment Sepsis with fever, leukocytosis - better, tachycardia, improving Abnormal CT - mild nonspecific colitis of distal descending and sigmoid colon, likely acute diverticulitis; ? ischemia - better with less pain. Lactic acidosis, improved Encephalopathy, improving ZAN- worse stable Diarrhea, c. diff PCR neg 07/24; stool cultures neg so far Recent dental extraction/abx Plan Plan of Care Continue Zosyn F/u labs in am Mycelex/Flucon times one Monitor WBC/temp Maintain hydration May need repeat imaging. TADEO CHERY MD Jul 28, 2018 08:45
[2018-07-28] MEDS: LACTOBACILLUS RHAMNOSUS GG 1 CAPSULE. PO SCH ×2 (08:47→21:50)
[2018-07-28] MEDS: DULoxetine HCL 30 MG CAPSULE.DR PO SCH (08:47)
[2018-07-28] MEDS: POTASSIUM CHLORIDE 10 MEQ TABLET.ER. PO SCH ×2 (08:49→21:50)
--- NOTE | 2018-07-28 09:25 | PDOC ---
Subjective: Subjective: Hasn't eaten breakfast yet. Says she's going to get a catheter because she can't make it to the toilet to urinate. Less abd pain. Has stooled "a lot." Objective: Objective: D/w RN yesterday afternoon - at that time she had a normal formed stool. 4 stools charted today. Vital Signs: Vital Signs Date Time Temp Pulse Resp B/P (MAP) Pulse Ox O2 Delivery O2 Flow Rate FiO2 07/28/18 07:39 98.2 75 18 148/66 (93) 95 Nasal Cannula 2.0 98.2 Labs: Laboratory Tests Test 07/28/18 03:40 White Blood Count 18.9 x10^3/uL Red Blood Count 3.49 x10^6/uL Hemoglobin 10.1 g/dL Hematocrit 30.6 % Mean Corpuscular Volume 88 fL Mean Corpuscular Hemoglobin 29 pg Mean Corpuscular Hemoglobin Concent 33 g/dL Red Cell Distribution Width 14.3 % Platelet Count 342 x10^3/uL Neutrophils (%) (Auto) 85 % Lymphocytes (%) (Auto) 9 % Monocytes (%) (Auto) 5 % Eosinophils (%) (Auto) 0 % Basophils (%) (Auto) 0 % Neutrophils # (Auto) 16.1 x10^3uL Lymphocytes # (Auto) 1.7 x10^3/uL Monocytes # (Auto) 1.0 x10^3/uL Eosinophils # (Auto) 0.1 x10^3/uL Basophils # (Auto) 0.0 x10^3/uL Sodium Level 140 mmol/L Potassium Level 3.2 mmol/L Chloride Level 105 mmol/L Carbon Dioxide Level 26 mmol/L Anion Gap 9 Blood Urea Nitrogen 18 mg/dL Creatinine 2.1 mg/dL Estimated GFR (Cockcroft-Gault) 23.2 Glucose Level 101 mg/dL Calcium Level 8.4 mg/dL PE: GEN: NAD LUNGS: NC HEART: RRR ABD: quiet BS, ?more distended, less LLQ discomfort NEURO/PSYCH: A & O 3 though a little fuzzy today A/P: LLQ pain, abnormal CT - ?diverticulitis Leukocytosis (better), ZAN (Cr 2.1 - was 1.6 on admit) Normocytic anemia, +fecal occult -- Less tender today - ?advance diet. GINA-BRANINE,AMADA PA Jul 28, 2018 09:25
--- NOTE | 2018-07-28 10:39 | SNU/HH DC ---
DISCHARGE ORDERS DISCHARGE INFORMATION: FINAL DIAGNOSIS Problems Medical Problems: (1) Colitis Status: Acute (2) Diarrhea Status: Acute (3) Diverticulitis Status: Acute (4) Hypokalemia Status: Acute (5) Leukocytosis Status: Acute (6) Renal insufficiency Status: Acute (7) Sepsis Status: Acute CONDITION ON DISCHARGE: Stable CODE STATUS: Code Status: Full [facility]: SNF STAY <30 DAYS: Yes HOSPICE: HOSPICE: No HOSPICE EVAL & TREAT: No LTAC: ADMIT TO LTAC: No POST DISCHARGE ORDERS: ACTIVITY ORDERS: Bedrest today TREATMENT/EQUIPMENT ORDERS: Physical Therapy For: Evalulation/Treatment Occupational Therapy For: Evaluation/Treatment Speech Language Pathology For: Evaluation/Treatment DISCHARGE MEDICATIONS: Home Meds Reported Medications Cyclobenzaprine Hcl (CYCLOBENZAPRINE HCL) 5 Mg Tablet, 1 TAB PO TID, #30 TAB 12/14/14 Atorvastatin Calcium (LIPITOR) 10 Mg Tablet, PO HS for FOR CHOLESTEROL, #30 TAB 0 Refills 12/14/14 Triamterene/Hydrochlorothiazid (TRIAMTERENE-HCTZ 37.5-25 MG TB) 1 Each Tablet, 1 TAB PO DAILY, #30 TAB 5 Refills 06/01/14 Quinapril Hcl (ACCUPRIL) 40 Mg Tablet, 1 TAB PO DAILY, #30 TAB 5 Refills 06/01/14 Tramadol Hcl (TRAMADOL HCL) 50 Mg Tablet, 2 TAB PO PRN Q6HRS, #30 TAB 06/01/14 Travoprost (TRAVATAN Z) 5 Ml Drops, 1 DROP EACHEYE QHS, #2.5 ML 2 Refills 06/01/14 Zolpidem Tartrate (ZOLPIDEM TARTRATE) 10 Mg Tablet, 1 TAB PO QHS, #30 TAB 2 Refills 06/01/14 Brimonidine Tartrate/Timolol (COMBIGAN EYE DROPS) 5 Ml Drops, 5 ML OP 06/01/14 Psyllium Husk/Ca Carbonate (METAMUCIL PLUS CALCIUM CAPSULE) 1 Each Capsule, 2 EACH PO HS 06/01/14 Polyethylene Glycol 3350 (MIRALAX) 17 Gm Powd.pack, 1 PKT PO DAILY, PKT 06/01/14 Duloxetine Hcl (CYMBALTA) 60 Mg Capsule.dr, 1 CAP PO DAILY, #90 CAP 3 Refills 06/01/14 Estradiol (ESTRADIOL) 0.5 Mg Tablet, 0.5 MG PO 05/27/13 URIEL VUONG III DO Jul 28, 2018 10:39
--- NOTE | 2018-07-28 10:41 | PDOC ---
[facility] PROGRESS NOTE Chief Complaint Chief Complaint Colitis Diarrhea - Acute encephalopathy - likely toxic from sepsis Sepsis - likely 2/2 colitis, Arthritis - High Cholesterol Hypertension - INSOMNIA - will hold sleeping meds for her confusion Thrombocytosis ZAN Hypokalemia Mild rhabdo - Lactic acidosis Occult blood positive History of Present Illness History of Present Illness Patient seen and examined She is lying in the bed and is still quite weak On IV metronidazole and fluids Discussed with RN Discussed with case management She is now been [facility] we plan to discharge later today Review chart Vitals Vitals Vital Signs Date Time Temp Pulse Resp B/P (MAP) Pulse Ox O2 Delivery O2 Flow Rate FiO2 07/28/18 07:39 98.2 75 18 148/66 (93) 95 Nasal Cannula 2.0 98.2 Physical Exam Physical Exam GENERAL: Very weak HEENT: Pupils equally round. Oropharynx pink and moist.- thrush - better NECK: Supple. LUNGS: Clear to auscultation. HEART: S1, S2. ABDOMEN: Obese, mildly- mod distended, soft, LLQ tenderness has improved with bowel sounds present. EXTREMITIES: No gross edema or cyanosis. SKIN: Warm without generalized rash. NEUROLOGIC: Responding appropriately, oriented to time, place and person. General: mild distress, Other (pleasantly confused) Heart: Regular rate, Normal S1, Normal S2 Lungs: Clear Abdomen: Normal bowel sounds, Soft, No hepatosplenomegaly, No masses, Other (LLQ tender) Extremities: No clubbing, No cyanosis, No edema, Normal pulses, No tenderness/swelling Skin: No rashes, No breakdown, No significant lesion Labs Labs: Laboratory Tests Test 07/28/18 03:40 White Blood Count 18.9 x10^3/uL (4.0-11.0) Red Blood Count 3.49 x10^6/uL (3.50-5.40) Hemoglobin 10.1 g/dL (12.0-15.5) Hematocrit 30.6 % (36.0-47.0) Mean Corpuscular Volume 88 fL (79-100) Mean Corpuscular Hemoglobin 29 pg (25-35) Mean Corpuscular Hemoglobin Concent 33 g/dL (31-37) Red Cell Distribution Width 14.3 % (11.5-14.5) Platelet Count 342 x10^3/uL (140-400) Neutrophils (%) (Auto) 85 % (31-73) Lymphocytes (%) (Auto) 9 % (24-48) Monocytes (%) (Auto) 5 % (0-9) Eosinophils (%) (Auto) 0 % (0-3) Basophils (%) (Auto) 0 % (0-3) Neutrophils # (Auto) 16.1 x10^3uL (1.8-7.7) Lymphocytes # (Auto) 1.7 x10^3/uL (1.0-4.8) Monocytes # (Auto) 1.0 x10^3/uL (0.0-1.1) Eosinophils # (Auto) 0.1 x10^3/uL (0.0-0.7) Basophils # (Auto) 0.0 x10^3/uL (0.0-0.2) Sodium Level 140 mmol/L (136-145) Potassium Level 3.2 mmol/L (3.5-5.1) Chloride Level 105 mmol/L (98-107) Carbon Dioxide Level 26 mmol/L (21-32) Anion Gap 9 (6-14) Blood Urea Nitrogen 18 mg/dL (7-20) Creatinine 2.1 mg/dL (0.6-1.0) Estimated GFR (Cockcroft-Gault) 23.2 Glucose Level 101 mg/dL (70-99) Calcium Level 8.4 mg/dL (8.5-10.1) Assessment and Plan Assessmemt and Plan Problems Medical Problems: (1) Colitis Status: Acute (2) Diarrhea Status: Acute (3) Diverticulitis Status: Acute (4) Hypokalemia Status: Acute (5) Leukocytosis Status: Acute (6) Renal insufficiency Status: Acute (7) Sepsis Status: Acute Colitis Diarrhea - Acute encephalopathy - likely toxic from sepsis Sepsis - likely 2/2 colitis, Arthritis - High Cholesterol Hypertension - INSOMNIA - will hold sleeping meds for her confusion Thrombocytosis ZAN Hypokalemia Mild rhabdo - Lactic acidosis Occult blood positive Plan Discharge to senior living today see discharge dictation Comment Review of Relevant I have reviewed the following items grace (where applicable) has been applied. Labs Laboratory Tests Test 07/27/18 02:50 07/28/18 03:40 White Blood Count 23.5 x10^3/uL (4.0-11.0) 18.9 x10^3/uL (4.0-11.0) Red Blood Count 3.86 x10^6/uL (3.50-5.40) 3.49 x10^6/uL (3.50-5.40) Hemoglobin 11.0 g/dL (12.0-15.5) 10.1 g/dL (12.0-15.5) Hematocrit 33.7 % (36.0-47.0) 30.6 % (36.0-47.0) Mean Corpuscular Volume 88 fL (79-100) 88 fL (79-100) Mean Corpuscular Hemoglobin 29 pg (25-35) 29 pg (25-35) Mean Corpuscular Hemoglobin Concent 33 g/dL (31-37) 33 g/dL (31-37) Red Cell Distribution Width 14.3 % (11.5-14.5) 14.3 % (11.5-14.5) Platelet Count 350 x10^3/uL (140-400) 342 x10^3/uL (140-400) Neutrophils (%) (Auto) 91 % (31-73) 85 % (31-73) Lymphocytes (%) (Auto) 6 % (24-48) 9 % (24-48) Monocytes (%) (Auto) 4 % (0-9) 5 % (0-9) Eosinophils (%) (Auto) 0 % (0-3) 0 % (0-3) Basophils (%) (Auto) 0 % (0-3) 0 % (0-3) Neutrophils # (Auto) 21.3 x10^3uL (1.8-7.7) 16.1 x10^3uL (1.8-7.7) Lymphocytes # (Auto) 1.3 x10^3/uL (1.0-4.8) 1.7 x10^3/uL (1.0-4.8) Monocytes # (Auto) 0.8 x10^3/uL (0.0-1.1) 1.0 x10^3/uL (0.0-1.1) Eosinophils # (Auto) 0.0 x10^3/uL (0.0-0.7) 0.1 x10^3/uL (0.0-0.7) Basophils # (Auto) 0.0 x10^3/uL (0.0-0.2) 0.0 x10^3/uL (0.0-0.2) Sodium Level 140 mmol/L (136-145) 140 mmol/L (136-145) Potassium Level 3.1 mmol/L (3.5-5.1) 3.2 mmol/L (3.5-5.1) Chloride Level 103 mmol/L (98-107) 105 mmol/L (98-107) Carbon Dioxide Level 26 mmol/L (21-32) 26 mmol/L (21-32) Anion Gap 11 (6-14) 9 (6-14) Blood Urea Nitrogen 25 mg/dL (7-20) 18 mg/dL (7-20) Creatinine 2.1 mg/dL (0.6-1.0) 2.1 mg/dL (0.6-1.0) Estimated GFR (Cockcroft-Gault) 23.2 23.2 BUN/Creatinine Ratio 12 (6-20) Glucose Level 111 mg/dL (70-99) 101 mg/dL (70-99) Calcium Level 8.7 mg/dL (8.5-10.1) 8.4 mg/dL (8.5-10.1) Total Bilirubin 0.3 mg/dL (0.2-1.0) Aspartate Amino Transf (AST/SGOT) 66 U/L (15-37) Alanine Aminotransferase (ALT/SGPT) 35 U/L (14-59) Alkaline Phosphatase 138 U/L (46-116) Total Protein 5.4 g/dL (6.4-8.2) Albumin 1.5 g/dL (3.4-5.0) Albumin/Globulin Ratio 0.4 (1.0-1.7) Laboratory Tests Test 07/28/18 03:40 White Blood Count 18.9 x10^3/uL (4.0-11.0) Red Blood Count 3.49 x10^6/uL (3.50-5.40) Hemoglobin 10.1 g/dL (12.0-15.5) Hematocrit 30.6 % (36.0-47.0) Mean Corpuscular Volume 88 fL (79-100) Mean Corpuscular Hemoglobin 29 pg (25-35) Mean Corpuscular Hemoglobin Concent 33 g/dL (31-37) Red Cell Distribution Width 14.3 % (11.5-14.5) Platelet Count 342 x10^3/uL (140-400) Neutrophils (%) (Auto) 85 % (31-73) Lymphocytes (%) (Auto) 9 % (24-48) Monocytes (%) (Auto) 5 % (0-9) Eosinophils (%) (Auto) 0 % (0-3) Basophils (%) (Auto) 0 % (0-3) Neutrophils # (Auto) 16.1 x10^3uL (1.8-7.7) Lymphocytes # (Auto) 1.7 x10^3/uL (1.0-4.8) Monocytes # (Auto) 1.0 x10^3/uL (0.0-1.1) Eosinophils # (Auto) 0.1 x10^3/uL (0.0-0.7) Basophils # (Auto) 0.0 x10^3/uL (0.0-0.2) Sodium Level 140 mmol/L (136-145) Potassium Level 3.2 mmol/L (3.5-5.1) Chloride Level 105 mmol/L (98-107) Carbon Dioxide Level 26 mmol/L (21-32) Anion Gap 9 (6-14) Blood Urea Nitrogen 18 mg/dL (7-20) Creatinine 2.1 mg/dL (0.6-1.0) Estimated GFR (Cockcroft-Gault) 23.2 Glucose Level 101 mg/dL (70-99) Calcium Level 8.4 mg/dL (8.5-10.1) Microbiology 07/24/18 Blood Culture - Preliminary, Resulted NO GROWTH AFTER 3 DAYS 07/24/18 Stool Culture - Final, Resulted 07/24/18 Stool Culture Result 1 (HERNAN) - Final, Resulted 07/24/18 Campylobacter Antigen Assay - Preliminary, Resulted 07/24/18 Campylobactor Result 1 - Preliminary, Resulted 07/24/18 Shiga Toxin Test - Final, Resulted 07/24/18 Urine Culture - Final, Complete 07/24/18 Urine Culture Result 1 (HERNAN) - Final, Complete Medications Current Medications Sodium Chloride 1,000 ml @ 1,000 mls/hr Q1H IV Last administered on 07/24/18at 10:15; Start 07/24/18 at 09:31; Stop 07/24/18 at 10:30; Status DC Ondansetron HCl (Zofran) 4 mg 1X ONCE IV Last administered on 07/24/18at 10:15; Start 07/24/18 at 09:45; Stop 07/24/18 at 09:46; Status DC Sodium Chloride 1,000 ml @ 1,000 mls/hr 1X ONCE IV Last administered on 07/24/18at 10:30; Start 07/24/18 at 10:30; Stop 07/24/18 at 11:29; Status DC Metronidazole 100 ml @ 100 mls/hr 1X ONCE IV Last administered on 07/24/18at 11:45; Start 07/24/18 at 11:00; Stop 07/24/18 at 11:59; Status DC Vancomycin HCl 250 ml @ 250 mls/hr 1X ONCE IV Last administered on 07/24/18 11:30; Start 07/24/18 at 11:00; Stop 07/24/18 at 11:59; Status DC Sodium Chloride 1,000 ml @ 150 mls/hr Q6H40M IV ; Start 07/24/18 at 10:55; Stop 07/24/18 at 14:13; Status DC Iohexol (Omnipaque 240 Mg/ml) 30 ml 1X ONCE PO Last administered on 07/24/18at 12:14; Start 07/24/18 at 12:15; Stop 07/24/18 at 12:16; Status DC Info (CONTRAST GIVEN -- Rx MONITORING) 1 each PRN DAILY PRN MC SEE COMMENTS; Start 07/24/18 at 12:15; Stop 07/26/18 at 12:14; Status DC Vancomycin HCl (Vancomycin Oral Solution) 125 mg [id number] PO Last administered on 07/25/18at 08:10; Start 07/24/18 at 14:30; Stop 07/25/18 at 12:38; Status DC Potassium Chloride/Dextrose/ Sod Cl 1,000 ml @ 125 mls/hr Q8H IV Last administered on 07/28/18at 08:46; Start 07/24/18 at 14:15 Atorvastatin Calcium (Lipitor) 10 mg HS PO Last administered on 07/27/18at 21:16; Start 07/24/18 at 21:00 Tramadol HCl (Ultram) 100 mg PRN Q6HRS PRN PO PAIN Last administered on 07/28/18 04:10; Start 07/24/18 at 14:15 Duloxetine HCl (Cymbalta) 60 mg DAILY PO Last administered on 07/28/18 08:47; Start 07/25/18 at 09:00 Latanoprost (Xalatan) 1 drop QHS OU Last administered on 07/27/18 21:18; Start 07/24/18 at 21:00 Acetaminophen (Tylenol) 650 mg PRN Q6HRS PRN PO Fever Last administered on 07/25/18 17:46; Start 07/24/18 at 16:00 Piperacillin Sod/ Tazobactam Sod 2.25 gm/Sodium Chloride 50 ml @ 100 mls/hr Q6HRS IV Last administered on 07/28/18 06:34; Start 07/25/18 at 06:15 Metronidazole 100 ml @ 100 mls/hr Q12HR IV Last administered on 07/25/18 08:07; Start 07/25/18 at 09:00; Stop 07/25/18 at 12:38; Status DC Lactobacillus Rhamnosus (Culturelle) 1 cap BID PO Last administered on 07/28/18 08:47; Start 07/25/18 at 21:00 Potassium Chloride/Water 100 ml @ 100 mls/hr Q1H IV Last administered on 07/26/18 10:00; Start 07/26/18 at 07:00; Stop 07/26/18 at 10:59; Status DC Potassium Chloride (Klor-Con) 40 meq 1X ONCE PO Last administered on 07/26/18 08:02; Start 07/26/18 at 06:45; Stop 07/26/18 at 06:47; Status DC Heparin Sodium (Porcine) (Heparin Sodium) 5,000 unit Q8HRS SQ Last administered on 07/28/18 06:33; Start 07/26/18 at 14:00 Clotrimazole (Mycelex) 10 mg 5XDAY MM Last administered on 07/28/18 08:47; Start 07/27/18 at 10:00 Fluconazole (Diflucan) 200 mg ONCE ONCE PO Last administered on 07/27/18 12:43; Start 07/27/18 at 10:00; Stop 07/27/18 at 10:01; Status DC Potassium Chloride (Klor-Con) 10 meq BID PO Last administered on 07/28/18at 08:49; Start 07/27/18 at 12:00 Active Scripts Active Reported Cyclobenzaprine Hcl 5 Mg Tablet 1 Tab PO TID Lipitor (Atorvastatin Calcium) 10 Mg Tablet Unknown Dose PO HS Triamterene-Hctz 37.5-25 Mg Tb (Triamterene/Hydrochlorothiazid) 1 Each Tablet 1 Tab PO DAILY Accupril (Quinapril Hcl) 40 Mg Tablet 1 Tab PO DAILY Tramadol Hcl 50 Mg Tablet 2 Tab PO PRN Q6HRS Travatan Z (Travoprost) 5 Ml Drops 1 Drop EACHEYE QHS Zolpidem Tartrate 10 Mg Tablet 1 Tab PO QHS Combigan Eye Drops (Brimonidine Tartrate/Timolol) 5 Ml Drops 5 Ml OP Metamucil Plus Calcium Capsule (Psyllium Husk/Ca Carbonate) 1 Each Capsule 2 Each PO HS Miralax (Polyethylene Glycol 3350) 17 Gm Powd.pack 1 Pkt PO DAILY Cymbalta (Duloxetine Hcl) 60 Mg Capsule.dr 1 Cap PO DAILY Estradiol 0.5 Mg Tablet 0.5 Mg PO Vitals/I & O Vital Sign - Last 24 Hours 07/27/18 07/27/18 07/27/18 07/27/18 11:09 12:46 13:46 15:00 Temp 97.4 98.8 97.4 98.8 Pulse 61 92 Resp 18 18 18 20 B/P (MAP) 115/61 (79) 152/75 (100) Pulse Ox 99 99 O2 Delivery Nasal Cannula Nasal Cannula Nasal Cannula O2 Flow Rate 2.0 2.0 2.0 07/27/18 07/27/18 07/27/18 07/27/18 19:35 20:06 21:17 23:58 Temp 98.5 98.6 98.5 98.6 Pulse 67 95 Resp 16 16 B/P (MAP) 129/66 (87) 124/45 (71) Pulse Ox 94 99 O2 Delivery Nasal Cannula Nasal Cannula Nasal Cannula Nasal Cannula O2 Flow Rate 2.0 2.0 2.0 2.0 07/28/18 07/28/18 07/28/18 07/28/18 03:41 04:10 05:11 07:39 Temp 98.4 98.2 98.4 98.2 Pulse 84 75 Resp 16 18 B/P (MAP) 136/66 (89) 148/66 (93) Pulse Ox 94 95 O2 Delivery Nasal Cannula Nasal Cannula Nasal Cannula Nasal Cannula O2 Flow Rate 2.0 2.0 2.0 2.0 Intake and Output 07/27/18 07/27/18 07/28/18 15:00 23:00 07:00 Intake Total 250 ml 100 ml Output Total 200 ml Balance 250 ml 100 ml -200 ml URIEL VUONG III DO Jul 28, 2018 10:41
--- NOTE | 2018-07-28 10:43 | PDOC3 ---
[facility]-Dis[facility] Summary Date of Admission: Date of Admission: July 24, 2018 Date of Discharge: Date of Discharge: Jul 28, 2018 Admission Diagnosis: Admitting Diagnosis: Colitis Diarrhea - Acute encephalopathy - likely toxic from sepsis Sepsis - likely 2/2 colitis, Arthritis - High Cholesterol Hypertension - INSOMNIA - will hold sleeping meds for her confusion Thrombocytosis ZAN Hypokalemia Mild rhabdo - Lactic acidosis Occult blood positive Discharge Diagnosis: Discharge Diagnosis: Resolving colitis Colitis Diarrhea - Acute encephalopathy - likely toxic from sepsis Sepsis - likely 2/2 colitis, Arthritis - High Cholesterol Hypertension - INSOMNIA - will hold sleeping meds for her confusion Thrombocytosis ZAN Hypokalemia Mild rhabdo - Lactic acidosis Occult blood positive Consults: Consults: GI and infectious disease Procedures: Procedures: None Hospital Course: Hospital Course: Patient is a pleasant elderly female who presented with diarrhea She was very weak we consult GI and infectious disease C. difficile testing was negative Her diarrhea seemed to resolve nicely but she is extremely weak and debilitated I saw her and examined her this morning her heart tones were normal her lungs were clear abdomen soft we plan to discharge [facility] correction Activity: Activity: Resume previous activity Diet: Diet: Soft Medications: Home Meds Reported Medications Cyclobenzaprine Hcl (CYCLOBENZAPRINE HCL) 5 Mg Tablet, 1 TAB PO TID, #30 TAB 12/14/14 Atorvastatin Calcium (LIPITOR) 10 Mg Tablet, PO HS for FOR CHOLESTEROL, #30 TAB 0 Refills 12/14/14 Triamterene/Hydrochlorothiazid (TRIAMTERENE-HCTZ 37.5-25 MG TB) 1 Each Tablet, 1 TAB PO DAILY, #30 TAB 5 Refills 06/01/14 Quinapril Hcl (ACCUPRIL) 40 Mg Tablet, 1 TAB PO DAILY, #30 TAB 5 Refills 06/01/14 Tramadol Hcl (TRAMADOL HCL) 50 Mg Tablet, 2 TAB PO PRN Q6HRS, #30 TAB 06/01/14 Travoprost (TRAVATAN Z) 5 Ml Drops, 1 DROP EACHEYE QHS, #2.5 ML 2 Refills 06/01/14 Zolpidem Tartrate (ZOLPIDEM TARTRATE) 10 Mg Tablet, 1 TAB PO QHS, #30 TAB 2 Refills 06/01/14 Brimonidine Tartrate/Timolol (COMBIGAN EYE DROPS) 5 Ml Drops, 5 ML OP 06/01/14 Psyllium Husk/Ca Carbonate (METAMUCIL PLUS CALCIUM CAPSULE) 1 Each Capsule, 2 EACH PO HS 06/01/14 Polyethylene Glycol 3350 (MIRALAX) 17 Gm Powd.pack, 1 PKT PO DAILY, PKT 06/01/14 Duloxetine Hcl (CYMBALTA) 60 Mg Capsule.dr, 1 CAP PO DAILY, #90 CAP 3 Refills 06/01/14 Estradiol (ESTRADIOL) 0.5 Mg Tablet, 0.5 MG PO 05/27/13 Scheduled Atorvastatin Calcium (Lipitor), Unknown Dose PO HS, (Reported) Cyclobenzaprine Hcl (Cyclobenzaprine Hcl), 1 TAB PO TID, (Reported) Duloxetine Hcl (Cymbalta), 1 CAP PO DAILY, (Reported) Polyethylene Glycol 3350 (Miralax), 1 PKT PO DAILY, (Reported) Psyllium Husk/Ca Carbonate (Metamucil Plus Calcium Capsule), 2 EACH PO HS, (Reported) Quinapril Hcl (Accupril), 1 TAB PO DAILY, (Reported) Tramadol Hcl (Tramadol Hcl), 2 TAB PO PRN Q6HRS, (Reported) Travoprost (Travatan Z), 1 DROP EACHEYE QHS, (Reported) Triamterene/Hydrochlorothiazid (Triamterene-Hctz 37.5-25 Mg Tb), 1 TAB PO DAILY, (Reported) Zolpidem Tartrate (Zolpidem Tartrate), 1 TAB PO QHS, (Reported) Miscellaneous Medications Brimonidine Tartrate/Timolol (Combigan Eye Drops), 5 ML OP, (Reported) Estradiol (Estradiol), 0.5 MG PO, (Reported) Total Time: Total Time: 33 minutes URIEL VUONG III DO Jul 28, 2018 10:43
[2018-07-28 11:03] VITALS: BP 183/86
--- NOTE | 2018-07-28 11:03 | NUR ---
This RN paged Dr. Diaz to confirm that he is ready for patient to discharge to SNF. stated patient cannot discharge today, but will be ready for discharge possibly or Friday. Dr. Malone notified. Will continue to monitor.
--- NOTE | 2018-07-28 11:10 | NUR ---
RACHEL following pt. Pt has been accepted at [facility] and facility will have a bed available upon dc. Discussed with RN.
--- NOTE | 2018-07-28 11:42 | PDOC ---
SUBJECTIVE ROS Sitting up in chair better today OBJECTIVE Vital Signs Vital Signs Date Time Temp Pulse Resp B/P (MAP) Pulse Ox O2 Delivery O2 Flow Rate FiO2 07/28/18 11:03 99.0 96 20 183/86 (118) 98 Nasal Cannula 2.0 99.0 I & 0 Intake and Output 07/28/18 07:00 Intake Total 350 ml Output Total 200 ml Balance 150 ml Intake Oral 350 ml Output Urine Total 200 ml # Voids 9 # Bowel Movements 4 PHYSICAL EXAM Physical Exam GENERAL: NAD HEENT: OM Moist NECK: Supple. LUNGS: Clear to auscultation. HEART: S1, S2. ABDOMEN: Obese, soft and nontender with bowel sounds present. EXTREMITIES: No gross edema SKIN: Warm without generalized rash. NEUROLOGIC: Grossly normal - No Jimenez, No CVA or SP tenderness DIAGNOSIS/ASSESSMENT Assessment & Plan ZAN - ATN baseline unknown , appears to have Plateaued Ct scan- Kidneys and bladder unremarkable Holding Maxzide and NEIDA-I Monitor, Supportive care Hypokalemia- On scheduled PO replacement Sepsis present on admission ID following Abnormal CT showing mild nonspecific colitis of distal descending and sigmoid colon, likely acute diverticulitis. Diarrhea with negative Clostridium difficile COMMENT/RELEVANT DATA Meds Current Medications Medications (Trade) Dose Ordered Sig/Mark Start Time Stop Time Status Last Admin Dose Admin Acetaminophen (Tylenol) 650 mg PRN Q6HRS PRN 07/24/18 16:00 07/25/18 17:46 650 MG Atorvastatin Calcium (Lipitor) 10 mg HS 07/24/18 21:00 07/27/18 21:16 10 MG Clotrimazole (Mycelex) 10 mg 5XDAY 07/27/18 10:00 07/28/18 08:47 10 MG Duloxetine HCl (Cymbalta) 60 mg DAILY 07/25/18 09:00 07/28/18 08:47 60 MG Fluconazole (Diflucan) 200 mg ONCE ONCE 07/27/18 10:00 07/27/18 10:01 DC 07/27/18 12:43 200 MG Heparin Sodium (Porcine) (Heparin Sodium) 5,000 unit Q8HRS 07/26/18 14:00 07/28/18 06:33 5,000 UNIT Info (CONTRAST GIVEN -- Rx MONITORING) 1 each PRN DAILY PRN 07/24/18 12:15 07/26/18 12:14 DC Iohexol (Omnipaque 240 Mg/ml) 30 ml 1X ONCE 07/24/18 12:15 07/24/18 12:16 DC 07/24/18 12:14 30 ML Lactobacillus Rhamnosus (Culturelle) 1 cap BID 07/25/18 21:00 07/28/18 08:47 1 CAP Latanoprost (Xalatan) 1 drop QHS 07/24/18 21:00 07/27/18 21:18 1 DROP Metronidazole 100 ml @ 100 mls/hr Q12HR 07/25/18 09:00 07/25/18 12:38 DC 07/25/18 08:07 100 MLS/HR Ondansetron HCl (Zofran) 4 mg 1X ONCE 07/24/18 09:45 07/24/18 09:46 DC 07/24/18 10:15 4 MG Piperacillin Sod/ Tazobactam Sod 2.25 gm/Sodium Chloride 50 ml @ 100 mls/hr Q6HRS 07/25/18 06:15 07/28/18 06:34 100 MLS/HR Potassium Chloride/Dextrose/ Sod Cl 1,000 ml @ 125 mls/hr Q8H 07/24/18 14:15 07/28/18 08:46 125 MLS/HR Potassium Chloride/Water 100 ml @ 100 mls/hr Q1H 07/26/18 07:00 07/26/18 10:59 DC 07/26/18 10:00 100 MLS/HR Potassium Chloride (Klor-Con) 10 meq BID 07/27/18 12:00 07/28/18 08:49 10 MEQ Sodium Chloride 1,000 ml @ 150 mls/hr [id number] 07/24/18 10:55 07/24/18 14:13 DC Tramadol HCl (Ultram) 100 mg PRN Q6HRS PRN 07/24/18 14:15 07/28/18 04:10 100 MG Vancomycin HCl (Vancomycin Oral Solution) 125 mg [id number] 07/24/18 14:30 07/25/18 12:38 DC 07/25/18 08:10 125 MG Lab Laboratory Tests Test 07/28/18 03:40 White Blood Count 18.9 x10^3/uL (4.0-11.0) Red Blood Count 3.49 x10^6/uL (3.50-5.40) Hemoglobin 10.1 g/dL (12.0-15.5) Hematocrit 30.6 % (36.0-47.0) Mean Corpuscular Volume 88 fL (79-100) Mean Corpuscular Hemoglobin 29 pg (25-35) Mean Corpuscular Hemoglobin Concent 33 g/dL (31-37) Red Cell Distribution Width 14.3 % (11.5-14.5) Platelet Count 342 x10^3/uL (140-400) Neutrophils (%) (Auto) 85 % (31-73) Lymphocytes (%) (Auto) 9 % (24-48) Monocytes (%) (Auto) 5 % (0-9) Eosinophils (%) (Auto) 0 % (0-3) Basophils (%) (Auto) 0 % (0-3) Neutrophils # (Auto) 16.1 x10^3uL (1.8-7.7) Lymphocytes # (Auto) 1.7 x10^3/uL (1.0-4.8) Monocytes # (Auto) 1.0 x10^3/uL (0.0-1.1) Eosinophils # (Auto) 0.1 x10^3/uL (0.0-0.7) Basophils # (Auto) 0.0 x10^3/uL (0.0-0.2) Sodium Level 140 mmol/L (136-145) Potassium Level 3.2 mmol/L (3.5-5.1) Chloride Level 105 mmol/L (98-107) Carbon Dioxide Level 26 mmol/L (21-32) Anion Gap 9 (6-14) Blood Urea Nitrogen 18 mg/dL (7-20) Creatinine 2.1 mg/dL (0.6-1.0) Estimated GFR (Cockcroft-Gault) 23.2 Glucose Level 101 mg/dL (70-99) Calcium Level 8.4 mg/dL (8.5-10.1) Results All relevant outside records, renal labs, imaging studies, telemetry/EKG's were reviewed. KWADWO ALDRICH MD Jul 28, 2018 11:42
[2018-07-28 15:23] VITALS: BP 155/76
--- NOTE | 2018-07-28 15:58 | NUR ---
SW following pt. Pt completed AD form and is provided with Original/copies to take home. A copy placed on pt's chart. Pt's sister also in room and agreeable with dc plans to [facility].
[2018-07-28 19:38] VITALS: BP 162/77
[2018-07-28] MEDS: LATANOPROST 0.005% OPHTH SOLUTION 2.5ML BOTTLE. OU SCH (21:00)
[2018-07-28] MEDS: ATORVASTATIN CALCIUM 10 MG TABLET. PO SCH (21:50)
[2018-07-28 23:05] VITALS: BP 138/75
[2018-07-29 03:57] VITALS: BP 143/76
[2018-07-29] MEDS: CLOTRIMAZOLE 10 MG TROCHE. MM SCH ×5 (06:00→21:34)
[2018-07-29] MEDS: HEPARIN for SUB-Q USE 5,000 UNIT/ML VIAL. SQ SCH ×3 (06:00→21:35)
[2018-07-29] MEDS: PIPERACILLIN/TAZOBACTAM 2.25 GM in IV NORMAL SALINE 50ML 50 ML IV SCH ×3 (06:16)
[2018-07-29] MEDS: POTASSIUM CL 20MEQ D5-0.45NACL 1,000 ML IV SCH ×3 (06:16→16:40)
[2018-07-29 07:00] VITALS: BP 144/67
--- NOTE | 2018-07-29 09:04 | PDOC ---
Infectious Disease Note Subjective Subjective Tolerating diet advance still on fulls Still weak but some better improving LLQ abdominal pain, localized - better + BM O2 2L Denies N/V/D/F/C/SOA Vital Sign Vital Signs Vital Signs Date Time Temp Pulse Resp B/P (MAP) Pulse Ox O2 Delivery O2 Flow Rate FiO2 07/29/18 07:00 98.1 89 18 144/67 (92) 95 Nasal Cannula 2.0 98.1 Physical Exam PHYSICAL EXAM GENERAL: NAD , not toxic. better HEENT: Pupils equally round. Oropharynx pink and moist.- thrush - better NECK: Supple. LUNGS: Clear to auscultation. HEART: S1, S2. ABDOMEN: Obese, mildly- mod distended, soft, LLQ tenderness has improved with bowel sounds present.- still some discomfort EXTREMITIES: No gross edema or cyanosis. SKIN: Warm without generalized rash. NEUROLOGIC: Responding appropriately, oriented to time, place and person. Labs Micro Microbiology 07/24/18 Blood Culture - Preliminary, Resulted NO GROWTH AFTER 2 DAYS 07/24/18 Stool Culture - Final, Resulted 07/24/18 Stool Culture Result 1 (HERANN) - Final, Resulted 07/24/18 Campylobacter Antigen Assay - Preliminary, Resulted 07/24/18 Campylobactor Result 1 - Preliminary, Resulted 07/24/18 Shiga Toxin Test, Resulted Pending 07/24/18 Urine Culture - Final, Complete 07/24/18 Urine Culture Result 1 (HERNAN) - Final, Complete Objective Assessment Thrush is better Sepsis with fever, leukocytosis - better, tachycardia, improving Abnormal CT - mild nonspecific colitis of distal descending and sigmoid colon, likely acute diverticulitis; ? ischemia - better with less pain. Lactic acidosis, improved Encephalopathy, improving ZAN- - stable Diarrhea, c. diff PCR neg 07/24; stool cultures neg so far Recent dental extraction/abx Plan Plan of Care Discontinue Zosyn begin Augmentin Would consider Renal eval F/u labs in am Mycelex/Flucon times one Diet still advancing Maintain hydration May need repeat imaging. TADEO CHERY MD Jul 29, 2018 09:04
[2018-07-29] MEDS: DULoxetine HCL 30 MG CAPSULE.DR PO SCH (09:06)
[2018-07-29] MEDS: POTASSIUM CHLORIDE 10 MEQ TABLET.ER. PO SCH ×2 (09:06→20:09)
[2018-07-29] MEDS: traMADol 50 MG TABLET PO PRN ×3 (09:06→22:59)
[2018-07-29] MEDS: LACTOBACILLUS RHAMNOSUS GG 1 CAPSULE. PO SCH ×2 (09:06→20:08)
--- NOTE | 2018-07-29 10:38 | NUR ---
RACHEL faxed updates to [facility]. Discussed with RN and advancing diet today but pt is switched to PO abx. Will continue to follow.
--- NOTE | 2018-07-29 10:45 | PDOC ---
Objective: Objective: Reviewed w/ RN - diarrhea x 3 today, asking to eat more, changed to PO atbx. Vital Signs: Vital Signs Date Time Temp Pulse Resp B/P (MAP) Pulse Ox O2 Delivery O2 Flow Rate FiO2 07/29/18 08:00 Nasal Cannula 2.0 07/29/18 07:00 98.1 89 18 144/67 (92) 95 98.1 Labs: BLOOD CULTURE Final NO GROWTH AFTER 5 DAYS PE: GEN: NAD - on commode, therapy present A/P: ?diverticulitis, diarrhea Leukocytosis (better), ZAN Normocytic anemia, +fecal occult -- Okay to advance to GI soft. Monitor on PO atbx. Plan for outpt colonoscopy. Will return when off commode and done w/ therapy. AMADA RICHARDSON Jul 29, 2018 10:45
[2018-07-29 11:00] VITALS: BP 154/78
[2018-07-29] MEDS: AMOXICILLIN/K CLAV 500/125MG TABLET. PO SCH ×2 (11:06→20:08)
--- NOTE | 2018-07-29 11:07 | PDOC ---
SUBJECTIVE ROS Stable OBJECTIVE Vital Signs Vital Signs Date Time Temp Pulse Resp B/P (MAP) Pulse Ox O2 Delivery O2 Flow Rate FiO2 07/29/18 08:00 Nasal Cannula 2.0 07/29/18 07:00 98.1 89 18 144/67 (92) 95 98.1 I & 0 Intake and Output 07/29/18 07:00 Intake Total 1440 ml Balance 1440 ml Intake Oral 1440 ml # Voids 7 PHYSICAL EXAM Physical Exam GENERAL: NAD HEENT: OM Moist NECK: Supple. LUNGS: Clear to auscultation. HEART: S1, S2. ABDOMEN: Obese, soft and nontender with bowel sounds present. EXTREMITIES: No gross edema SKIN: Warm without generalized rash. NEUROLOGIC: Grossly normal - No Jimenez, No CVA or SP tenderness DIAGNOSIS/ASSESSMENT Assessment & Plan ZAN - ATN baseline unknown , appears to have Plateaued No labs done this am, Ordered will follow Ct scan- Kidneys and bladder unremarkable Holding Maxzide and NEIDA-I Monitor, Supportive care Hypokalemia- Labs Ordered Sepsis present on admission ID following Abnormal CT showing mild nonspecific colitis of distal descending and sigmoid colon, likely acute diverticulitis. Diarrhea with negative Clostridium difficile COMMENT/RELEVANT DATA Meds Current Medications Medications (Trade) Dose Ordered Sig/Mark Start Time Stop Time Status Last Admin Dose Admin Acetaminophen (Tylenol) 650 mg PRN Q6HRS PRN 07/24/18 16:00 07/25/18 17:46 650 MG Amoxicillin/ Clavulanate Potassium (Augmentin 500/ 125mg) 1 tab BID 07/29/18 09:45 Atorvastatin Calcium (Lipitor) 10 mg HS 07/24/18 21:00 07/28/18 21:50 10 MG Clotrimazole (Mycelex) 10 mg 5XDAY 07/27/18 10:00 07/29/18 09:06 10 MG Duloxetine HCl (Cymbalta) 60 mg DAILY 07/25/18 09:00 07/29/18 09:06 60 MG Fluconazole (Diflucan) 200 mg ONCE ONCE 07/27/18 10:00 07/27/18 10:01 DC 07/27/18 12:43 200 MG Heparin Sodium (Porcine) (Heparin Sodium) 5,000 unit Q8HRS 07/26/18 14:00 07/29/18 06:00 5,000 UNIT Info (CONTRAST GIVEN -- Rx MONITORING) 1 each PRN DAILY PRN 07/24/18 12:15 07/26/18 12:14 DC Iohexol (Omnipaque 240 Mg/ml) 30 ml 1X ONCE 07/24/18 12:15 07/24/18 12:16 DC 07/24/18 12:14 30 ML Lactobacillus Rhamnosus (Culturelle) 1 cap BID 07/25/18 21:00 07/29/18 09:06 1 CAP Latanoprost (Xalatan) 1 drop QHS 07/24/18 21:00 07/28/18 21:00 1 DROP Metronidazole 100 ml @ 100 mls/hr Q12HR 07/25/18 09:00 07/25/18 12:38 DC 07/25/18 08:07 100 MLS/HR Ondansetron HCl (Zofran) 4 mg 1X ONCE 07/24/18 09:45 07/24/18 09:46 DC 07/24/18 10:15 4 MG Piperacillin Sod/ Tazobactam Sod 2.25 gm/Sodium Chloride 50 ml @ 100 mls/hr Q6HRS 07/25/18 06:15 07/29/18 09:43 DC 07/29/18 06:16 100 MLS/HR Potassium Chloride/Dextrose/ Sod Cl 1,000 ml @ 125 mls/hr Q8H 07/24/18 14:15 07/29/18 06:16 125 MLS/HR Potassium Chloride/Water 100 ml @ 100 mls/hr Q1H 07/26/18 07:00 07/26/18 10:59 DC 07/26/18 10:00 100 MLS/HR Potassium Chloride (Klor-Con) 10 meq BID 07/27/18 12:00 07/29/18 09:06 10 MEQ Sodium Chloride 1,000 ml @ 150 mls/hr Q6H40M 07/24/18 10:55 07/24/18 14:13 DC Tramadol HCl (Ultram) 100 mg PRN Q6HRS PRN 07/24/18 14:15 07/29/18 09:06 100 MG Vancomycin HCl (Vancomycin Oral Solution) 125 mg [id number] 07/24/18 14:30 07/25/18 12:38 DC 07/25/18 08:10 125 MG Results All relevant outside records, renal labs, imaging studies, telemetry/EKG's were reviewed. KWADWO ALDRICH MD Jul 29, 2018 11:07
[2018-07-29 11:51] LABS: CALCIUM 8.6 mg/dL (8.5-10.1); CREATININE 2.1 mg/dL (0.6-1.0); GFR 23.2; POTASSIUM 3.4 mmol/L (3.5-5.1)
--- NOTE | 2018-07-29 12:37 | PDOC ---
[employer] PROGRESS NOTE Chief Complaint Chief Complaint Colitis Diarrhea - Acute encephalopathy - likely toxic from sepsis Sepsis - likely 2/2 colitis, Arthritis - High Cholesterol Hypertension - INSOMNIA - will hold sleeping meds for her confusion Thrombocytosis ZAN Hypokalemia Mild rhabdo - Lactic acidosis Occult blood positive History of Present Illness History of Present Illness Patient seen and examined She is lying in the bed and is still quite weak Notes reviewed Discussed with RN Vitals Vitals Vital Signs Date Time Temp Pulse Resp B/P (MAP) Pulse Ox O2 Delivery O2 Flow Rate FiO2 07/29/18 11:00 98.9 84 18 154/78 (103) 97 Nasal Cannula 1.0 98.9 Physical Exam Physical Exam GENERAL: NAD , not toxic. better HEENT: Pupils equally round. Oropharynx pink and moist.- thrush - better NECK: Supple. LUNGS: Clear to auscultation. HEART: S1, S2. ABDOMEN: Obese, mildly- mod distended, soft, LLQ tenderness has improved with bowel sounds present.- still some discomfort EXTREMITIES: No gross edema or cyanosis. SKIN: Warm without generalized rash. NEUROLOGIC: Responding appropriately, oriented to time, place and person. General: mild distress, Other (pleasantly confused) Heart: Regular rate, Normal S1, Normal S2 Lungs: Clear Abdomen: Normal bowel sounds, Soft, No hepatosplenomegaly, No masses, Other (LLQ tender) Extremities: No clubbing, No cyanosis, No edema, Normal pulses, No tenderness/swelling Skin: No rashes, No breakdown, No significant lesion Labs Labs: Laboratory Tests Test 07/29/18 11:15 Sodium Level 139 mmol/L (136-145) Potassium Level 3.4 mmol/L (3.5-5.1) Chloride Level 104 mmol/L (98-107) Carbon Dioxide Level 24 mmol/L (21-32) Anion Gap 11 (6-14) Blood Urea Nitrogen 16 mg/dL (7-20) Creatinine 2.1 mg/dL (0.6-1.0) Estimated GFR (Cockcroft-Gault) 23.2 Glucose Level 130 mg/dL (70-99) Calcium Level 8.6 mg/dL (8.5-10.1) Assessment and Plan Assessmemt and Plan Problems Medical Problems: (1) Colitis Status: Acute (2) Diarrhea Status: Acute (3) Diverticulitis Status: Acute (4) Hypokalemia Status: Acute (5) Leukocytosis Status: Acute (6) Renal insufficiency Colitis Diarrhea - Acute encephalopathy - likely toxic from sepsis Sepsis - likely 2/2 colitis, Arthritis - High Cholesterol Hypertension - INSOMNIA - will hold sleeping meds for her confusion Thrombocytosis ZAN Hypokalemia Mild rhabdo - Lactic acidosis Occult blood positive Thrush Sepsis with fever, leukocytosis - better, tachycardia, improving Abnormal CT - mild nonspecific colitis of distal descending and sigmoid colon, likely acute diverticulitis; ? ischemia - better with less pain. Lactic acidosis, improved Encephalopathy, improving AZN- - stable Diarrhea, c. diff PCR neg 07/24; stool cultures neg so far Recent dental extraction/abx Plan Plan of Care Antibiotics per infectious disease they have recommended discontinuing Zosyn beginning Augmentin I agree Nephrology following F/u labs in am Mycelex/Flucon times one Diet still advancing Maintain hydration DVT prophylaxis Full code Home meds Hope to discharge to the longterm unit at [facility] tomorrow (7) Sepsis Status: Acute Comment Review of Relevant I have reviewed the following items grace (where applicable) has been applied. Labs Laboratory Tests Test 07/28/18 03:40 07/29/18 11:15 White Blood Count 18.9 x10^3/uL (4.0-11.0) Red Blood Count 3.49 x10^6/uL (3.50-5.40) Hemoglobin 10.1 g/dL (12.0-15.5) Hematocrit 30.6 % (36.0-47.0) Mean Corpuscular Volume 88 fL (79-100) Mean Corpuscular Hemoglobin 29 pg (25-35) Mean Corpuscular Hemoglobin Concent 33 g/dL (31-37) Red Cell Distribution Width 14.3 % (11.5-14.5) Platelet Count 342 x10^3/uL (140-400) Neutrophils (%) (Auto) 85 % (31-73) Lymphocytes (%) (Auto) 9 % (24-48) Monocytes (%) (Auto) 5 % (0-9) Eosinophils (%) (Auto) 0 % (0-3) Basophils (%) (Auto) 0 % (0-3) Neutrophils # (Auto) 16.1 x10^3uL (1.8-7.7) Lymphocytes # (Auto) 1.7 x10^3/uL (1.0-4.8) Monocytes # (Auto) 1.0 x10^3/uL (0.0-1.1) Eosinophils # (Auto) 0.1 x10^3/uL (0.0-0.7) Basophils # (Auto) 0.0 x10^3/uL (0.0-0.2) Sodium Level 140 mmol/L (136-145) 139 mmol/L (136-145) Potassium Level 3.2 mmol/L (3.5-5.1) 3.4 mmol/L (3.5-5.1) Chloride Level 105 mmol/L (98-107) 104 mmol/L (98-107) Carbon Dioxide Level 26 mmol/L (21-32) 24 mmol/L (21-32) Anion Gap 9 (6-14) 11 (6-14) Blood Urea Nitrogen 18 mg/dL (7-20) 16 mg/dL (7-20) Creatinine 2.1 mg/dL (0.6-1.0) 2.1 mg/dL (0.6-1.0) Estimated GFR (Cockcroft-Gault) 23.2 23.2 Glucose Level 101 mg/dL (70-99) 130 mg/dL (70-99) Calcium Level 8.4 mg/dL (8.5-10.1) 8.6 mg/dL (8.5-10.1) Laboratory Tests Test 07/29/18 11:15 Sodium Level 139 mmol/L (136-145) Potassium Level 3.4 mmol/L (3.5-5.1) Chloride Level 104 mmol/L (98-107) Carbon Dioxide Level 24 mmol/L (21-32) Anion Gap 11 (6-14) Blood Urea Nitrogen 16 mg/dL (7-20) Creatinine 2.1 mg/dL (0.6-1.0) Estimated GFR (Cockcroft-Gault) 23.2 Glucose Level 130 mg/dL (70-99) Calcium Level 8.6 mg/dL (8.5-10.1) Microbiology 07/24/18 Blood Culture - Preliminary, Resulted NO GROWTH AFTER 4 DAYS 07/24/18 Stool Culture - Final, Complete 07/24/18 Stool Culture Result 1 (HERNAN) - Final, Complete 07/24/18 Campylobacter Antigen Assay - Final, Complete 07/24/18 Campylobactor Result 1 - Final, Complete 07/24/18 Shiga Toxin Test - Final, Complete 07/24/18 Urine Culture - Final, Complete 07/24/18 Urine Culture Result 1 (HERNAN) - Final, Complete Medications Current Medications Sodium Chloride 1,000 ml @ 1,000 mls/hr Q1H IV Last administered on 07/24/18at 10:15; Start 07/24/18 at 09:31; Stop 07/24/18 at 10:30; Status DC Ondansetron HCl (Zofran) 4 mg 1X ONCE IV Last administered on 07/24/18at 10:15; Start 07/24/18 at 09:45; Stop 07/24/18 at 09:46; Status DC Sodium Chloride 1,000 ml @ 1,000 mls/hr 1X ONCE IV Last administered on 07/24/18at 10:30; Start 07/24/18 at 10:30; Stop 07/24/18 at 11:29; Status DC Metronidazole 100 ml @ 100 mls/hr 1X ONCE IV Last administered on 07/24/18at 11:45; Start 07/24/18 at 11:00; Stop 07/24/18 at 11:59; Status DC Vancomycin HCl 250 ml @ 250 mls/hr 1X ONCE IV Last administered on 07/24/18at 11:30; Start 07/24/18 at 11:00; Stop 07/24/18 at 11:59; Status DC Sodium Chloride 1,000 ml @ 150 mls/hr Q6H40M IV ; Start 07/24/18 at 10:55; Stop 07/24/18 at 14:13; Status DC Iohexol (Omnipaque 240 Mg/ml) 30 ml 1X ONCE PO Last administered on 07/24/18at 12:14; Start 07/24/18 at 12:15; Stop 07/24/18 at 12:16; Status DC Info (CONTRAST GIVEN -- Rx MONITORING) 1 each PRN DAILY PRN MC SEE COMMENTS; Start 07/24/18 at 12:15; Stop 07/26/18 at 12:14; Status DC Vancomycin HCl (Vancomycin Oral Solution) 125 mg [id number] PO Last administered on 07/25/18at 08:10; Start 07/24/18 at 14:30; Stop 07/25/18 at 12:38; Status DC Potassium Chloride/Dextrose/ Sod Cl 1,000 ml @ 125 mls/hr Q8H IV Last administered on 07/29/18 06:16; Start 07/24/18 at 14:15 Atorvastatin Calcium (Lipitor) 10 mg HS PO Last administered on 07/28/18 21:50; Start 07/24/18 at 21:00 Tramadol HCl (Ultram) 100 mg PRN Q6HRS PRN PO PAIN Last administered on 07/29/18 09:06; Start 07/24/18 at 14:15 Duloxetine HCl (Cymbalta) 60 mg DAILY PO Last administered on 07/29/18 09:06; Start 07/25/18 at 09:00 Latanoprost (Xalatan) 1 drop QHS OU Last administered on 07/28/18 21:00; Start 07/24/18 at 21:00 Acetaminophen (Tylenol) 650 mg PRN Q6HRS PRN PO Fever Last administered on 07/25/18at 17:46; Start 07/24/18 at 16:00 Piperacillin Sod/ Tazobactam Sod 2.25 gm/Sodium Chloride 50 ml @ 100 mls/hr Q6HRS IV Last administered on 07/29/18 06:16; Start 07/25/18 at 06:15; Stop 07/29/18 at 09:43; Status DC Metronidazole 100 ml @ 100 mls/hr Q12HR IV Last administered on 07/25/18at 08:07; Start 07/25/18 at 09:00; Stop 07/25/18 at 12:38; Status DC Lactobacillus Rhamnosus (Culturelle) 1 cap BID PO Last administered on 07/29/18 09:06; Start 07/25/18 at 21:00 Potassium Chloride/Water 100 ml @ 100 mls/hr Q1H IV Last administered on 07/26/18at 10:00; Start 07/26/18 at 07:00; Stop 07/26/18 at 10:59; Status DC Potassium Chloride (Klor-Con) 40 meq 1X ONCE PO Last administered on 07/26/18 08:02; Start 07/26/18 at 06:45; Stop 07/26/18 at 06:47; Status DC Heparin Sodium (Porcine) (Heparin Sodium) 5,000 unit Q8HRS SQ Last administered on 07/29/18at 06:00; Start 07/26/18 at 14:00 Clotrimazole (Mycelex) 10 mg 5XDAY MM Last administered on 07/29/18at 09:06; Start 07/27/18 at 10:00 Fluconazole (Diflucan) 200 mg ONCE ONCE PO Last administered on 07/27/18at 12:43; Start 07/27/18 at 10:00; Stop 07/27/18 at 10:01; Status DC Potassium Chloride (Klor-Con) 10 meq BID PO Last administered on 07/29/18at 09:06; Start 07/27/18 at 12:00 Amoxicillin/ Clavulanate Potassium (Augmentin 500/ 125mg) 1 tab BID PO Last administered on 07/29/18at 11:06; Start 07/29/18 at 09:45 Active Scripts Active Reported Cyclobenzaprine Hcl 5 Mg Tablet 1 Tab PO TID Lipitor (Atorvastatin Calcium) 10 Mg Tablet Unknown Dose PO HS Triamterene-Hctz 37.5-25 Mg Tb (Triamterene/Hydrochlorothiazid) 1 Each Tablet 1 Tab PO DAILY Accupril (Quinapril Hcl) 40 Mg Tablet 1 Tab PO DAILY Tramadol Hcl 50 Mg Tablet 2 Tab PO PRN Q6HRS Travatan Z (Travoprost) 5 Ml Drops 1 Drop EACHEYE QHS Zolpidem Tartrate 10 Mg Tablet 1 Tab PO QHS Combigan Eye Drops (Brimonidine Tartrate/Timolol) 5 Ml Drops 5 Ml OP Metamucil Plus Calcium Capsule (Psyllium Husk/Ca Carbonate) 1 Each Capsule 2 Each PO HS Miralax (Polyethylene Glycol 3350) 17 Gm Powd.pack 1 Pkt PO DAILY Cymbalta (Duloxetine Hcl) 60 Mg Capsule.dr 1 Cap PO DAILY Estradiol 0.5 Mg Tablet 0.5 Mg PO Vitals/I & O Vital Sign - Last 24 Hours 07/28/18 07/28/18 07/28/18 07/28/18 15:23 19:38 19:42 20:00 Temp 98.3 98.8 98.3 98.8 Pulse 92 85 Resp 18 20 20 B/P (MAP) 155/76 (102) 162/77 (105) Pulse Ox 97 97 97 O2 Delivery Nasal Cannula Room Air Nasal Cannula Nasal Cannula O2 Flow Rate 2.0 2.0 2.0 2.0 07/28/18 07/29/18 07/29/18 07/29/18 23:05 03:57 07:00 08:00 Temp 98.1 98.0 98.1 98.1 98.0 98.1 Pulse 87 87 89 Resp 18 18 18 B/P (MAP) 138/75 (96) 143/76 (98) 144/67 (92) Pulse Ox 97 97 95 O2 Delivery Nasal Cannula Nasal Cannula Nasal Cannula Nasal Cannula O2 Flow Rate 2.0 2.0 2.0 2.0 07/29/18 11:00 Temp 98.9 98.9 Pulse 84 Resp 18 B/P (MAP) 154/78 (103) Pulse Ox 97 O2 Delivery Nasal Cannula O2 Flow Rate 1.0 Intake and Output 07/28/18 07/28/18 07/29/18 15:00 23:00 07:00 Intake Total 640 ml 800 ml Balance 640 ml 800 ml URIEL VUONG III DO Jul 29, 2018 12:36
[2018-07-29 15:00] VITALS: BP 176/87
[2018-07-29 19:15] VITALS: BP 160/60
[2018-07-29] MEDS: ATORVASTATIN CALCIUM 10 MG TABLET. PO SCH (20:09)
[2018-07-29] MEDS: LATANOPROST 0.005% OPHTH SOLUTION 2.5ML BOTTLE. OU SCH (20:09)
[2018-07-29 23:38] VITALS: BP 173/80
[2018-07-30] MEDS: POTASSIUM CL 20MEQ D5-0.45NACL 1,000 ML IV SCH ×2 (01:49→10:14)
[2018-07-30 03:40] VITALS: BP 124/70
[2018-07-30 05:19] LABS: BASO % 0 % (0-3); EOS # 0.1 x10^3/uL (0.0-0.7); EOS % 1 % (0-3); HEMATOCRIT 31.9 % (36.0-47.0); HEMOGLOBIN 10.6 g/dL (12.0-15.5); LYMPH # 1.6 x10^3/uL (1.0-4.8); LYMPH % 13 % (24-48); MEAN CORPUSCULAR HEMOGLOBIN 29 pg (25-35); MEAN CORPUSCULAR HGB CONC 33 g/dL (31-37); MEAN CORPUSCULAR VOLUME 88 fL (79-100); MONO # 1.2 x10^3/uL (0.0-1.1); MONO % 9 % (0-9); NEUT % 77 % (31-73); PLATELET COUNT 344 x10^3/uL (140-400); RED BLOOD COUNT 3.63 x10^6/uL (3.50-5.40); RED CELL DISTRIBUTION WIDTH 14.7 % (11.5-14.5); WHITE BLOOD COUNT 12.9 x10^3/uL (4.0-11.0)
[2018-07-30 05:53] LABS: CALCIUM 8.6 mg/dL (8.5-10.1); GFR 24.5; POTASSIUM 3.5 mmol/L (3.5-5.1)
[2018-07-30] MEDS: CLOTRIMAZOLE 10 MG TROCHE. MM SCH ×2 (06:00→10:03)
[2018-07-30] MEDS: HEPARIN for SUB-Q USE 5,000 UNIT/ML VIAL. SQ SCH (06:00)
[2018-07-30 07:20] VITALS: BP 161/70
[2018-07-30] MEDS ORDERED: ONDANSETRON ODT 4 MG TAB.RAPDIS. PO PRN (09:15)
[2018-07-30] MEDS: DULoxetine HCL 30 MG CAPSULE.DR PO SCH (10:02)
[2018-07-30] MEDS: LACTOBACILLUS RHAMNOSUS GG 1 CAPSULE. PO SCH (10:02)
[2018-07-30] MEDS: AMOXICILLIN/K CLAV 500/125MG TABLET. PO SCH (10:02)
[2018-07-30] MEDS: POTASSIUM CHLORIDE 10 MEQ TABLET.ER. PO SCH (10:02)
[2018-07-30] MEDS: traMADol 50 MG TABLET PO PRN (10:03)
--- NOTE | 2018-07-30 10:10 | PDOC ---
Infectious Disease Note Subjective Subjective Tolerating diet advance still on fulls Weakness better No LLQ abdominal pain Chronic back pain. Normally sleeps on stomach and unable to here + BM O2 2L Denies N/V/D/F/C/SOA ROS ROS o/w neg Vital Sign Vital Signs Vital Signs Date Time Temp Pulse Resp B/P (MAP) Pulse Ox O2 Delivery O2 Flow Rate FiO2 07/30/18 10:03 97 Nasal Cannula 2.0 07/30/18 07:20 97.2 83 18 161/70 (100) 97.2 Physical Exam PHYSICAL EXAM GENERAL: NAD , not toxic. better - sitting on side of bed HEENT: Pupils equally round. Oropharynx pink and moist.- thrush - better NECK: Supple. LUNGS: Clear to auscultation. HEART: S1, S2. ABDOMEN: Obese, mildly- mod distended, soft, LLQ tenderness has resolved bowel sounds present.- still some discomfort BACK: no erythema/warmth/fluctuance EXTREMITIES: No gross edema or cyanosis. SKIN: Warm without generalized rash. NEUROLOGIC: Responding appropriately, oriented to time, place and person. Labs Lab Laboratory Tests Test 07/29/18 11:15 07/30/18 04:15 Sodium Level 139 mmol/L (136-145) 140 mmol/L (136-145) Potassium Level 3.4 mmol/L (3.5-5.1) 3.5 mmol/L (3.5-5.1) Chloride Level 104 mmol/L (98-107) 105 mmol/L (98-107) Carbon Dioxide Level 24 mmol/L (21-32) 25 mmol/L (21-32) Anion Gap 11 (6-14) 10 (6-14) Blood Urea Nitrogen 16 mg/dL (7-20) 16 mg/dL (7-20) Creatinine 2.1 mg/dL (0.6-1.0) 2.0 mg/dL (0.6-1.0) Estimated GFR (Cockcroft-Gault) 23.2 24.5 Glucose Level 130 mg/dL (70-99) 111 mg/dL (70-99) Calcium Level 8.6 mg/dL (8.5-10.1) 8.6 mg/dL (8.5-10.1) White Blood Count 12.9 x10^3/uL (4.0-11.0) Red Blood Count 3.63 x10^6/uL (3.50-5.40) Hemoglobin 10.6 g/dL (12.0-15.5) Hematocrit 31.9 % (36.0-47.0) Mean Corpuscular Volume 88 fL (79-100) Mean Corpuscular Hemoglobin 29 pg (25-35) Mean Corpuscular Hemoglobin Concent 33 g/dL (31-37) Red Cell Distribution Width 14.7 % (11.5-14.5) Platelet Count 344 x10^3/uL (140-400) Neutrophils (%) (Auto) 77 % (31-73) Lymphocytes (%) (Auto) 13 % (24-48) Monocytes (%) (Auto) 9 % (0-9) Eosinophils (%) (Auto) 1 % (0-3) Basophils (%) (Auto) 0 % (0-3) Neutrophils # (Auto) 10.0 x10^3uL (1.8-7.7) Lymphocytes # (Auto) 1.6 x10^3/uL (1.0-4.8) Monocytes # (Auto) 1.2 x10^3/uL (0.0-1.1) Eosinophils # (Auto) 0.1 x10^3/uL (0.0-0.7) Basophils # (Auto) 0.0 x10^3/uL (0.0-0.2) Micro Microbiology 07/24/18 Blood Culture - Preliminary, Resulted NO GROWTH AFTER 2 DAYS 07/24/18 Stool Culture - Final, Resulted 07/24/18 Stool Culture Result 1 (HERNAN) - Final, Resulted 07/24/18 Campylobacter Antigen Assay - Preliminary, Resulted 07/24/18 Campylobactor Result 1 - Preliminary, Resulted 07/24/18 Shiga Toxin Test, Resulted Pending 07/24/18 Urine Culture - Final, Complete 07/24/18 Urine Culture Result 1 (HERNAN) - Final, Complete Objective Assessment Thrush is better Sepsis with fever, leukocytosis - better, tachycardia, improving Abnormal CT - mild nonspecific colitis of distal descending and sigmoid colon, likely acute diverticulitis; ? ischemia - better with less pain. Lactic acidosis, improved Encephalopathy, improving ZAN- - stable Diarrhea, c. diff PCR neg 07/24; stool cultures neg so far Recent dental extraction/abx Plan Plan of Care Discontinued Zosyn 07/29 and began Augmentin 07/29 would treat through 08/03 for Diverticular disease Mycelex to complete course D/w sister D/w ANMOL Rinaldi ID to sign off TADEO CHERY MD Jul 30, 2018 10:10
--- NOTE | 2018-07-30 11:08 | PDOC ---
Subjective: Subjective: Pt seen earlier this morning - RN and Dr. Diaz present. Chronic back pain - had some nausea w/ this today so didn't eat breakfast. LLQ pain is better, no stools today. Sister also present and says bowel pattern alternates. Objective: Vital Signs: Vital Signs Date Time Temp Pulse Resp B/P (MAP) Pulse Ox O2 Delivery O2 Flow Rate FiO2 07/30/18 10:03 97 Nasal Cannula 2.0 07/30/18 07:20 97.2 83 18 161/70 (100) 97.2 Labs: Laboratory Tests Test 07/29/18 11:15 07/30/18 04:15 Sodium Level 139 mmol/L 140 mmol/L Potassium Level 3.4 mmol/L 3.5 mmol/L Chloride Level 104 mmol/L 105 mmol/L Carbon Dioxide Level 24 mmol/L 25 mmol/L Anion Gap 11 10 Blood Urea Nitrogen 16 mg/dL 16 mg/dL Creatinine 2.1 mg/dL 2.0 mg/dL Estimated GFR (Cockcroft-Gault) 23.2 24.5 Glucose Level 130 mg/dL 111 mg/dL Calcium Level 8.6 mg/dL 8.6 mg/dL White Blood Count 12.9 x10^3/uL Red Blood Count 3.63 x10^6/uL Hemoglobin 10.6 g/dL Hematocrit 31.9 % Mean Corpuscular Volume 88 fL Mean Corpuscular Hemoglobin 29 pg Mean Corpuscular Hemoglobin Concent 33 g/dL Red Cell Distribution Width 14.7 % Platelet Count 344 x10^3/uL Neutrophils (%) (Auto) 77 % Lymphocytes (%) (Auto) 13 % Monocytes (%) (Auto) 9 % Eosinophils (%) (Auto) 1 % Basophils (%) (Auto) 0 % Neutrophils # (Auto) 10.0 x10^3uL Lymphocytes # (Auto) 1.6 x10^3/uL Monocytes # (Auto) 1.2 x10^3/uL Eosinophils # (Auto) 0.1 x10^3/uL Basophils # (Auto) 0.0 x10^3/uL BLOOD CULTURE Final NO GROWTH AFTER 5 DAYS PE: GEN: NAD LUNGS: NC HEART: RRR ABD: NABS, S/ND/NT NEURO/PSYCH: a little fuzzy? A/P: Probable diverticulitis Alternating bowel habits Leukocytosis (better), ZAN (same) Normocytic anemia, +fecal occult Chronic back pain - w/ nausea this morning -- Improving an don PO atbx. DC per primary/ID. Follow-up for outpt colonoscopy. AMADA RICHARDSON Jul 30, 2018 11:08
[2018-07-30 11:12] VITALS: BP 135/79
--- NOTE | 2018-07-30 11:53 | PDOC ---
SUBJECTIVE ROS Chronic back pain - had some nausea w/ this today so didn't eat breakfast, eating lunch, No complaints OBJECTIVE Vital Signs Vital Signs Date Time Temp Pulse Resp B/P (MAP) Pulse Ox O2 Delivery O2 Flow Rate FiO2 07/30/18 11:12 97.5 90 20 135/79 (97) 97 Room Air 97.5 07/30/18 10:03 2.0 I & 0 Intake and Output 07/30/18 07:00 Intake Total 750 ml Output Total 1750 ml Balance -1000 ml Intake Oral 750 ml Output Urine Total 1750 ml # Voids 2 PHYSICAL EXAM Physical Exam GENERAL: NAD HEENT: OM Moist NECK: Supple. LUNGS: Clear to auscultation. HEART: S1, S2. ABDOMEN: Obese, soft and nontender with bowel sounds present. EXTREMITIES: No gross edema SKIN: Warm without generalized rash. NEUROLOGIC: Grossly normal - No Jimenez, No CVA or SP tenderness DIAGNOSIS/ASSESSMENT Assessment & Plan ZAN - ATN baseline unknown , stable with slow improvement Ct scan- Kidneys and bladder unremarkable Holding Maxzide and NEIDA-I Hypokalemia- Labs Ordered Sepsis present on admission ID following Abnormal CT showing mild nonspecific colitis of distal descending and sigmoid colon, likely acute diverticulitis. Diarrhea with negative Clostridium difficile Dc per Primary Follow up BMP with PCP in 1week Schedule Tiffany for renal follow up with us as OP next available (Routine in 1-2 Months) COMMENT/RELEVANT DATA Meds Current Medications Medications (Trade) Dose Ordered Sig/Mark Start Time Stop Time Status Last Admin Dose Admin Acetaminophen (Tylenol) 650 mg PRN Q6HRS PRN 07/24/18 16:00 07/25/18 17:46 650 MG Amoxicillin/ Clavulanate Potassium (Augmentin 500/ 125mg) 1 tab BID 07/29/18 09:45 07/30/18 10:02 1 TAB Atorvastatin Calcium (Lipitor) 10 mg HS 07/24/18 21:00 07/29/18 20:09 10 MG Clotrimazole (Mycelex) 10 mg 5XDAY 07/27/18 10:00 07/30/18 10:03 10 MG Duloxetine HCl (Cymbalta) 60 mg DAILY 07/25/18 09:00 07/30/18 10:02 60 MG Fluconazole (Diflucan) 200 mg ONCE ONCE 07/27/18 10:00 07/27/18 10:01 DC 07/27/18 12:43 200 MG Heparin Sodium (Porcine) (Heparin Sodium) 5,000 unit Q8HRS 07/26/18 14:00 07/29/18 21:35 5,000 UNIT Info (CONTRAST GIVEN -- Rx MONITORING) 1 each PRN DAILY PRN 07/24/18 12:15 07/26/18 12:14 DC Iohexol (Omnipaque 240 Mg/ml) 30 ml 1X ONCE 07/24/18 12:15 07/24/18 12:16 DC 07/24/18 12:14 30 ML Lactobacillus Rhamnosus (Culturelle) 1 cap BID 07/25/18 21:00 07/30/18 10:02 1 CAP Latanoprost (Xalatan) 1 drop QHS 07/24/18 21:00 07/29/18 20:09 1 DROP Metronidazole 100 ml @ 100 mls/hr Q12HR 07/25/18 09:00 07/25/18 12:38 DC 07/25/18 08:07 100 MLS/HR Ondansetron HCl (Zofran Odt) 4 mg PRN Q6HRS PRN 07/30/18 09:15 07/30/18 10:03 4 MG Ondansetron HCl (Zofran) 4 mg 1X ONCE 07/24/18 09:45 07/24/18 09:46 DC 07/24/18 10:15 4 MG Piperacillin Sod/ Tazobactam Sod 2.25 gm/Sodium Chloride 50 ml @ 100 mls/hr Q6HRS 07/25/18 06:15 07/29/18 09:43 DC 07/29/18 06:16 100 MLS/HR Potassium Chloride/Dextrose/ Sod Cl 1,000 ml @ 125 mls/hr Q8H 07/24/18 14:15 07/30/18 10:14 125 MLS/HR Potassium Chloride/Water 100 ml @ 100 mls/hr Q1H 07/26/18 07:00 07/26/18 10:59 DC 07/26/18 10:00 100 MLS/HR Potassium Chloride (Klor-Con) 10 meq BID 07/27/18 12:00 07/30/18 10:02 10 MEQ Sodium Chloride 1,000 ml @ 150 mls/hr Q6H40M 07/24/18 10:55 07/24/18 14:13 DC Tramadol HCl (Ultram) 100 mg PRN Q6HRS PRN 07/24/18 14:15 07/30/18 10:03 100 MG Vancomycin HCl (Vancomycin Oral Solution) 125 mg [id number] 07/24/18 14:30 07/25/18 12:38 DC 07/25/18 08:10 125 MG Lab Laboratory Tests Test 07/30/18 04:15 White Blood Count 12.9 x10^3/uL (4.0-11.0) Red Blood Count 3.63 x10^6/uL (3.50-5.40) Hemoglobin 10.6 g/dL (12.0-15.5) Hematocrit 31.9 % (36.0-47.0) Mean Corpuscular Volume 88 fL (79-100) Mean Corpuscular Hemoglobin 29 pg (25-35) Mean Corpuscular Hemoglobin Concent 33 g/dL (31-37) Red Cell Distribution Width 14.7 % (11.5-14.5) Platelet Count 344 x10^3/uL (140-400) Neutrophils (%) (Auto) 77 % (31-73) Lymphocytes (%) (Auto) 13 % (24-48) Monocytes (%) (Auto) 9 % (0-9) Eosinophils (%) (Auto) 1 % (0-3) Basophils (%) (Auto) 0 % (0-3) Neutrophils # (Auto) 10.0 x10^3uL (1.8-7.7) Lymphocytes # (Auto) 1.6 x10^3/uL (1.0-4.8) Monocytes # (Auto) 1.2 x10^3/uL (0.0-1.1) Eosinophils # (Auto) 0.1 x10^3/uL (0.0-0.7) Basophils # (Auto) 0.0 x10^3/uL (0.0-0.2) Sodium Level 140 mmol/L (136-145) Potassium Level 3.5 mmol/L (3.5-5.1) Chloride Level 105 mmol/L (98-107) Carbon Dioxide Level 25 mmol/L (21-32) Anion Gap 10 (6-14) Blood Urea Nitrogen 16 mg/dL (7-20) Creatinine 2.0 mg/dL (0.6-1.0) Estimated GFR (Cockcroft-Gault) 24.5 Glucose Level 111 mg/dL (70-99) Calcium Level 8.6 mg/dL (8.5-10.1) Results All relevant outside records, renal labs, imaging studies, telemetry/EKG's were reviewed. KWADWO ALDRICH MD Jul 30, 2018 11:53
--- NOTE | 2018-07-30 14:00 | NUR ---
Patient discharged to group home facility. Report called to RN at [facility]. Discharge instuctions and medications discussed with RN. Transport here to get patient. All belongings with patient. Discharge packet given to [facility] [employer] intermediary. Patient assisted out in wheelchair at this time.
--- NOTE | 2018-07-30 20:40 | DS ---
DATE OF DISCHARGE: 07/30/2018 ADMISSION DIAGNOSES: Diarrhea and metabolic encephalopathy and weakness. DISCHARGE DIAGNOSES: Resolving colitis, resolving weakness, resolving metabolic encephalopathy. CONSULTS: GI. PROCEDURES: None. HOSPITAL COURSE: The patient is a pleasant 73-year-old female who presented with profound weakness and mental status change and has some diarrhea. She was admitted. We consulted GI. It is felt she probably had colitis. We have been treating her with some antibiotics and fluids today. She finally seems to have . She was sitting on the edge of the bed when I saw her this morning. PHYSICAL EXAMINATION: HEART: Tones were normal. LUNGS: Clear. ABDOMEN: Soft. EXTREMITIES: Trace edema. We plan to discharge to skilled. DISPOSITION: prison. ACTIVITY: As tolerated. DIET: Low sodium. MEDICATIONS: Please see the MRAD. TOTAL TIME: 34 minutes. URIEL VUONG DO DR: SHERRELL/cory JOB#: [id number] / [id number]
== END 2018-07-30 13:00 | DRG 871 ==
LOC: ER 09:25 → 6 SOUTH 10:38
PROVIDERS: ADMIT Internal Medicine; ATTEND Internal Medicine
DX: A41.9 Sepsis, unspecified organism (principal); G92 Toxic encephalopathy; K57.92 Diverticulitis of intestine, part unspecified, without perforation or abscess without bleeding; E87.2 Acidosis; N17.9 Acute kidney failure, unspecified; E87.6 Hypokalemia; E78.00 Pure hypercholesterolemia, unspecified; M19.90 Unspecified osteoarthritis, unspecified site; G47.00 Insomnia, unspecified; M81.0 Age-related osteoporosis without current pathological fracture; E78.5 Hyperlipidemia, unspecified; G89.29 Other chronic pain; F17.210 Nicotine dependence, cigarettes, uncomplicated; I10 Essential (primary) hypertension; F32.9 Major depressive disorder, single episode, unspecified; D64.9 Anemia, unspecified; B37.9 Candidiasis, unspecified; M47.816 Spondylosis without myelopathy or radiculopathy, lumbar region; K04.7 Periapical abscess without sinus; I77.819 Aortic ectasia, unspecified site; Z90.710 Acquired absence of both cervix and uterus; Q76.0 Spina bifida occulta; Z90.49 Acquired absence of other specified parts of digestive tract
CPT/HCPCS: 36415; 74176; 80048; 80053; 81001; 82274; 82550; 83605; 83690; 83735; 83880; 84484; 85007; 85025; 85610; 87040; 87045; 87086; 87205; 87493; 96374; 99292; J1644; J2405; J2543; J3370; J3480; J3490; J7030; Q0162; Q9966; 97116; 97535; 99291-25

== ENCOUNTER 2018-10-06 13:34 | Inpatient (IN) | payer MEDICARE ==
[~2018-10-06] VITALS: Ht 160 cm; Wt 76.2 kg
--- NOTE | 2018-10-06 13:59 | PHYS DOC ---
Past Medical History Past Medical History: Arthritis, High Cholesterol, Hypertension, Other Additional Past Medical Histor: INSOMNIA, SPINA BIFIDA OCCULTA, OSTEOPENIA Past Surgical History: Hysterectomy, Tonsillectomy, Other Additional Past Surgical Histo: A&P REPAIR, LUMBAR LAMINECTOMY Alcohol Use: None Drug Use: None Adult General HPI HPI Patient is a 73 year old female presents with shortness of breath and dizziness been ongoing for month. The patient states that when EMS came to pick her up that her blood pressure was down in the 80s after she stood up. The patient states this usually gets more dizzy with positional changes. States that she has chronic pain rates her pain as 8 out of 10 in severity and sharp. The patient states this is a good day for her pain figueroa. The patient is not using oxygen at home however she is on 3 L when I visited her in the room. Review of Systems Review of Systems Constitutional: Denies fever or chills. Reports dizziness. Eyes: Denies change in visual acuity, redness, or eye pain [] HENT: Denies nasal congestion or sore throat [] Respiratory: Reports shortness of breath. Denies cough. Cardiovascular: No additional information not addressed in HPI [] GI: Denies abdominal pain, nausea, vomiting, bloody stools or diarrhea [] : Denies dysuria or hematuria [] Musculoskeletal: Denies back pain or joint pain [] Integument: Denies rash or skin lesions [] Neurologic: Denies headache, focal weakness or sensory changes [] Endocrine: Denies polyuria or polydipsia [] Complete systems were reviewed and found to be within normal limits, except as documented in this note. Current Medications Current Medications Current Medications Medications (Trade) Dose Ordered Sig/Mark Start Time Stop Time Status Last Admin Dose Admin Acetaminophen/ Codeine Phosphate (Tylenol #3) 1 tab PRN Q6HRS PRN 10/06/18 17:00 Atorvastatin Calcium (Lipitor) 10 mg HS 10/06/18 21:00 Cyclobenzaprine HCl (Flexeril) 5 mg TID 10/06/18 21:00 Duloxetine HCl (Cymbalta) 60 mg DAILY 10/07/18 09:00 Guaifenesin (Robitussin Dm) 10 ml PRN Q6HRS PRN 10/06/18 17:00 Info (CONTRAST GIVEN -- Rx MONITORING) 1 each PRN DAILY PRN 10/06/18 14:30 10/08/18 14:29 Iohexol (Omnipaque 350 Mg/ml) 100 ml 1X ONCE 10/06/18 14:30 10/06/18 14:31 DC 10/06/18 16:15 100 ML Latanoprost (Xalatan) 1 drop QHS 10/06/18 21:00 Lisinopril (Prinivil) 40 mg DAILY 10/07/18 09:00 Morphine Sulfate (Morphine Sulfate) 1 mg PRN Q2HR PRN 10/06/18 17:00 Nicotine (Nicoderm Cq 21mg) 1 patch PRN DAILY PRN 10/06/18 17:00 Ondansetron HCl (Zofran) 4 mg PRN Q8HRS PRN 10/06/18 16:45 10/07/18 16:44 Piperacillin Sod/ Tazobactam Sod (Zosyn Per Pharmacy) 1 each PRN DAILY PRN 10/06/18 17:00 Piperacillin Sod/ Tazobactam Sod 3.375 gm/Sodium Chloride 50 ml @ 100 mls/hr Q6HRS 10/07/18 00:00 Polyethylene Glycol (miraLAX PACKET) 17 gm DAILY 10/07/18 09:00 Potassium Chloride (Klor-Con) 40 meq 1X ONCE 10/06/18 17:00 10/06/18 17:01 DC Psyllium Hydrophilic Mucilloid (Metamucil Fiber Packet) 1 pkt QHS 10/06/18 21:00 Sodium Chloride 1,000 ml @ 1,000 mls/hr 1X ONCE 10/06/18 18:00 10/06/18 18:59 Temazepam (Restoril) 7.5 mg PRN QHS PRN 10/06/18 17:00 Tramadol HCl (Ultram) 100 mg PRN Q6HRS PRN 10/06/18 17:00 Triamterene/HCTZ (Maxzide 37.5/ 25mg) 1 tab DAILY 10/07/18 09:00 Vancomycin HCl (Vanco Per Pharmacy) 1 each PRN DAILY PRN 10/06/18 17:00 10/06/18 18:07 1 EACH Vancomycin HCl (Vancomycin Trough Level) 1 each 1X ONCE 10/08/18 17:30 10/08/18 17:31 Vancomycin HCl 1.25 gm/Sodium Chloride 250 ml @ 167 mls/hr Q24H 10/07/18 18:00 Vancomycin HCl 1.75 gm/Sodium Chloride 500 ml @ 250 mls/hr 1X ONCE 10/06/18 15:45 10/06/18 17:44 DC 10/06/18 17:30 250 MLS/HR Zolpidem Tartrate (Ambien) 5 mg PRN QHS PRN 10/06/18 21:00 Allergies Allergies Allergies Coded Allergies Type Severity Reaction Last Updated Verified No Known Drug Allergies 05/27/13 No Physical Exam Physical Exam Constitutional: Well developed, well nourished, no acute distress, non-toxic appearance. [] HENT: Normocephalic, atraumatic, bilateral external ears normal, oropharynx moist, no oral exudates, nose normal. [] Eyes: PERRLA, EOMI, conjunctiva normal, no discharge. [] Neck: Normal range of motion, no tenderness, supple, no stridor. [] Cardiovascular:Heart rate regular rhythm but tachycardic, no murmur [] Lungs & Thorax: Breath sounds clear to auscultation on the right, diminished on the left side. Abdomen: Bowel sounds normal, soft, no tenderness, no masses, no pulsatile masses. [] Skin: Warm, dry, no erythema, no rash. [] Back: No tenderness, no CVA tenderness. [] Extremities: No tenderness, no cyanosis, no clubbing, ROM intact, no edema. [] Neurologic: Alert and oriented X 3, normal motor function, normal sensory function, no focal deficits noted. [] Psychologic: Affect normal, judgement normal, mood normal. [] Current Patient Data Vital Signs Vital Signs Date Time Temp Pulse Resp B/P (MAP) Pulse Ox O2 Delivery O2 Flow Rate FiO2 10/06/18 16:31 16 94 Room Air Lab Values Laboratory Tests Test 10/06/18 14:00 10/06/18 15:30 10/06/18 16:25 White Blood Count 29.0 x10^3/uL (4.0-11.0) H Red Blood Count 3.31 x10^6/uL (3.50-5.40) L Hemoglobin 9.8 g/dL (12.0-15.5) L Hematocrit 29.3 % (36.0-47.0) L Mean Corpuscular Volume 89 fL (79-100) Mean Corpuscular Hemoglobin 30 pg (25-35) Mean Corpuscular Hemoglobin Concent 34 g/dL (31-37) Red Cell Distribution Width 16.2 % (11.5-14.5) H Platelet Count 681 x10^3/uL (140-400) H Neutrophils (%) (Auto) 90 % (31-73) H Lymphocytes (%) (Auto) 7 % (24-48) L Monocytes (%) (Auto) 3 % (0-9) Eosinophils (%) (Auto) 0 % (0-3) Basophils (%) (Auto) 0 % (0-3) Neutrophils # (Auto) 26.1 x10^3/uL (1.8-7.7) H Lymphocytes # (Auto) 2.0 x10^3/uL (1.0-4.8) Monocytes # (Auto) 0.8 x10^3/uL (0.0-1.1) Eosinophils # (Auto) 0.0 x10^3/uL (0.0-0.7) Basophils # (Auto) 0.1 x10^3/uL (0.0-0.2) Segmented Neutrophils % 84 % (35-66) H Band Neutrophils % 6 % (0-9) Lymphocytes % 8 % (24-48) L Monocytes % 2 % (0-10) Platelet Estimate Increased (ADEQUATE) Prothrombin Time 13.2 SEC (11.7-14.0) Prothrombin Time INR 1.0 (0.8-1.1) Activated Partial Thromboplast Time 33 SEC (24-38) Sodium Level 133 mmol/L (136-145) L Potassium Level 3.3 mmol/L (3.5-5.1) L Chloride Level 96 mmol/L (98-107) L Carbon Dioxide Level 27 mmol/L (21-32) Anion Gap 10 (6-14) Blood Urea Nitrogen 11 mg/dL (7-20) Creatinine 0.9 mg/dL (0.6-1.0) Estimated GFR (Cockcroft-Gault) 61.5 BUN/Creatinine Ratio 12 (6-20) Glucose Level 143 mg/dL (70-99) H Calcium Level 9.0 mg/dL (8.5-10.1) Total Bilirubin 0.3 mg/dL (0.2-1.0) Aspartate Amino Transferase (AST) 13 U/L (15-37) L Alanine Aminotransferase (ALT) 13 U/L (14-59) L Alkaline Phosphatase 147 U/L (46-116) H Troponin I Quantitative < 0.017 ng/mL (0.000-0.055) Total Protein 6.9 g/dL (6.4-8.2) Albumin 2.1 g/dL (3.4-5.0) L Albumin/Globulin Ratio 0.4 (1.0-1.7) L Urine Collection Type Unknown Urine Color Yellow Urine Clarity Clear Urine pH 6.5 Urine Specific Swisher 1.020 Urine Protein Negative mg/dL (NEG-TRACE) Urine Glucose (UA) Negative mg/dL (NEG) Urine Ketones (Stick) Negative mg/dL (NEG) Urine Blood Negative (NEG) Urine Nitrite Negative (NEG) Urine Bilirubin Negative (NEG) Urine Urobilinogen Dipstick 0.2 mg/dL (0.2 mg/dL) Urine Leukocyte Esterase Negative (NEG) Urine RBC 0 /HPF (0-2) Urine WBC 0 /HPF (0-4) Urine Squamous Epithelial Cells Many /LPF Urine Bacteria Moderate /HPF (0-FEW) Erythrocyte Sedimentation Rate 83 (0-25) H Lactic Acid Level 2.1 mmol/L (0.4-2.0) H Laboratory Tests 10/06/18 14:00 Laboratory Tests 10/06/18 14:00 EKG EKG EKG interpreted by Dr. Hinkle Sinus tachycardia with rate of 109, no stemi.[] Radiology/Procedures Radiology/Procedures [][facility] [address] [place] [address] IMAGING REPORT Signed PATIENT: MONTANA ROSS ACCOUNT: [id number] : 1945 LOCATION: ER AGE: 73 SEX: F EXAM STATUS: REG ER ORD. PHYSICIAN: OMAR CALABRESE APRN REASON: sob, tachycardic PROCEDURE: CT ANGIOGRAPHY CHEST CT ANGIOGRAPHY CHEST INDICATION: Dyspnea, tachycardia. Comparison: None. TECHNIQUE: Following the uneventful administration of intravenous contrast, 100 mL Omnipaque 350, axial CT sections were obtained through the lungs and upper abdomen. Coronal MIP images and coronal and sagittal multiplanar reconstructions were also obtained. PQRS compliance statement: One or more of the following individualized dose reduction techniques were utilized for this examination: 1. Automated exposure control 2. Adjustment of the mA and/or kV according to patient size 3. Use of iterative reconstruction technique FINDINGS: Lungs and Airways: Asymmetric elevation of the left hemidiaphragm. Left upper lobe atelectasis with dense consolidation and slight hypoenhancement relative to right lower lobe relaxation atelectasis. Poorly defined obstructing mass in the left mainstem bronchus approximately 3.7 cm from the dilip. There is aeration of the left lower lobe, and minimal aeration of the lingula. Pleura: Small left pleural effusion. Heart and Mediastinum: Shift of the mediastinum to the left hemithorax. Mediastinal lymphadenopathy, for example enlarged prevascular lymph node measuring 1.0 cm (series 3 image 40) and enlarged subcarinal lymphadenopathy measuring 1.4 x 2.9 cm. Conspicuous but not pathologically enlarged by CT criteria right upper paratracheal lymph node measuring 0.8 cm (series 3 image 14). Difficulty to evaluate for left hilar lymphadenopathy due to dense consolidation encasing the left hilar bronchovascular structures. No evidence of pulmonary thromboembolic disease. Atherosclerosis of the thoracic aorta. Coronary artery atherosclerotic disease. Normal cardiac size. No pericardial effusion. The visualized thyroid is normal in size and attenuation Abdomen: Cholecystectomy. Bones and Soft Tissues: Degenerative changes of the spine. IMPRESSION: 1. No evidence of pulmonary thromboembolic disease. 2. There is an obstructing lesion in the left main stem bronchus with resulting left upper lobe atelectasis, likely endobronchial tumor/primary lung cancer. The margins of the suspected tumor are not well visualized due to dense consolidation of the left upper lobe which encases left hilar bronchovascular structures, and it is unclear if the suspected tumor extends beyond the bronchus into the left upper lobe or if it invades the mediastinum. 3. Dense consolidation of the left upper lobe demonstrates slight hypoenhancement relative to normal atelectatic lung, which may represent postobstructive infection. 4. Subcarinal and ipsilateral mediastinal lymphadenopathy, which could be reactive or represent metastatic disease. Few conspicuous but not pathologically enlarged contralateral mediastinal lymph nodes, attention on follow-up imaging. 5. Small left pleural effusion, which could be reactive or malignant. Findings were discussed with Dr. Calabrese at 3:15 PM on 10/06/2018 FOR INTERNAL CODING PURPOSES RESULT CODE: (C) Electronically signed by: Ricardo Hodgson MD (10/06/2018 3:37 PM) [facility] Course & Med Decision Making Course & Med Decision Making Pertinent Labs and Imaging studies reviewed. (See chart for details) 500 Ml of NS given on EMS. Will give 1 L of fluids, ekg, labs, will get CT of chest to rule out blood clot. Talked to radiologist who states that the CT of chest shows Obstructive Mass vs. Obstructive Pneumonia. Will go ahead and treat with zosyn and vanc. WBC is 29,000. Will order an additional 1 L to meet 30 Ml/kg qualifications. Discussed with Dr. Landeros who will admit to hospital ([id number]). Dragon Disclaimer Dragon Disclaimer This electronic medical record was generated, in whole or in part, using a voice recognition dictation system. Departure Departure Impression: Primary Impression: Leukocytosis Additional Impression: Mass in chest Disposition: ADMITTED INPATIENT Admitting Physician: HIMS Condition: STABLE Referrals: JULIUS CURRY MD (PCP) Problem Qualifiers Primary Impression: Leukocytosis Leukocytosis type: unspecified Qualified Codes: D72.829 - Elevated white blood cell count, unspecified OMAR CALABRESE APRN Oct 06, 2018 13:59
[2018-10-06] MEDS ORDERED: IV NORMAL SALINE 1000ML BAG 1,000 ML IV ONE ×2 (14:00→18:00)
[2018-10-06] MEDS ORDERED: ONDANSETRON PF 4 MG/2 ML VIAL. IV ONE (14:00)
[2018-10-06 14:10] LABS: BASO # 0.1 x10^3/uL (0.0-0.2); BASO % 0 % (0-3); EOS % 0 % (0-3); HEMATOCRIT 29.3 % (36.0-47.0); HEMOGLOBIN 9.8 g/dL (12.0-15.5); LYMPH % 7 % (24-48); MEAN CORPUSCULAR HEMOGLOBIN 30 pg (25-35); MEAN CORPUSCULAR HGB CONC 34 g/dL (31-37); MEAN CORPUSCULAR VOLUME 89 fL (79-100); MONO # 0.8 x10^3/uL (0.0-1.1); MONO % 3 % (0-9); NEUT # 26.1 x10^3/uL (1.8-7.7); NEUT % 90 % (31-73); PLATELET COUNT 681 x10^3/uL (140-400); RED BLOOD COUNT 3.31 x10^6/uL (3.50-5.40); RED CELL DISTRIBUTION WIDTH 16.2 % (11.5-14.5)
[2018-10-06 14:18] LABS: PROTHROMBIN TIME PATIENT 13.2 SEC (11.7-14.0)
[2018-10-06 14:22] LABS: CREATININE 0.9 mg/dL (0.6-1.0); GFR 61.5; POTASSIUM 3.3 mmol/L (3.5-5.1)
[2018-10-06 14:30] LABS: ALBUMIN 2.1 g/dL (3.4-5.0); ALBUMIN/GLOBULIN RATIO 0.4 (1.0-1.7); TOTAL BILIRUBIN 0.3 mg/dL (0.2-1.0); TOTAL PROTEIN 6.9 g/dL (6.4-8.2)
[2018-10-06] MEDS ORDERED: IOHEXOL 350 MG/ML 100 ML VIAL. IV ONE (14:30)
[2018-10-06] MEDS ORDERED: CONTRAST GIVEN. MC PRN (14:30)
[2018-10-06 15:03] LABS: % BANDS 6 % (0-9); % LYMPHS 8 % (24-48); % MONOS 2 % (0-10); % SEGS 84 % (35-66); PLT ESTIMATE INCREASED (ADEQUATE)
--- NOTE | 2018-10-06 15:40 | RAD ---
CT ANGIOGRAPHY CHEST INDICATION: Dyspnea, tachycardia. Comparison: None. TECHNIQUE: Following the uneventful administration of intravenous contrast, 100 mL Omnipaque 350, axial CT sections were obtained through the lungs and upper abdomen. Coronal MIP images and coronal and sagittal multiplanar reconstructions were also obtained. PQRS compliance statement: One or more of the following individualized dose reduction techniques were utilized for this examination: 1. Automated exposure control 2. Adjustment of the mA and/or kV according to patient size 3. Use of iterative reconstruction technique FINDINGS: Lungs and Airways: Asymmetric elevation of the left hemidiaphragm. Left upper lobe atelectasis with dense consolidation and slight hypoenhancement relative to right lower lobe relaxation atelectasis. Poorly defined obstructing mass in the left mainstem bronchus approximately 3.7 cm from the dilip. There is aeration of the left lower lobe, and minimal aeration of the lingula. Pleura: Small left pleural effusion. Heart and Mediastinum: Shift of the mediastinum to the left hemithorax. Mediastinal lymphadenopathy, for example enlarged prevascular lymph node measuring 1.0 cm (series 3 image 40) and enlarged subcarinal lymphadenopathy measuring 1.4 x 2.9 cm. Conspicuous but not pathologically enlarged by CT criteria right upper paratracheal lymph node measuring 0.8 cm (series 3 image 14). Difficulty to evaluate for left hilar lymphadenopathy due to dense consolidation encasing the left hilar bronchovascular structures. No evidence of pulmonary thromboembolic disease. Atherosclerosis of the thoracic aorta. Coronary artery atherosclerotic disease. Normal cardiac size. No pericardial effusion. The visualized thyroid is normal in size and attenuation Abdomen: Cholecystectomy. Bones and Soft Tissues: Degenerative changes of the spine. IMPRESSION: 1. No evidence of pulmonary thromboembolic disease. 2. There is an obstructing lesion in the left main stem bronchus with resulting left upper lobe atelectasis, likely endobronchial tumor/primary lung cancer. The margins of the suspected tumor are not well visualized due to dense consolidation of the left upper lobe which encases left hilar bronchovascular structures, and it is unclear if the suspected tumor extends beyond the bronchus into the left upper lobe or if it invades the mediastinum. 3. Dense consolidation of the left upper lobe demonstrates slight hypoenhancement relative to normal atelectatic lung, which may represent postobstructive infection. 4. Subcarinal and ipsilateral mediastinal lymphadenopathy, which could be reactive or represent metastatic disease. Few conspicuous but not pathologically enlarged contralateral mediastinal lymph nodes, attention on follow-up imaging. 5. Small left pleural effusion, which could be reactive or malignant. Findings were discussed with Dr. Meehan at 3:15 PM on 10/06/2018 FOR INTERNAL CODING PURPOSES RESULT CODE: (C) Electronically signed by: Ricardo Hodgson MD (10/06/2018 3:37 PM) [id number]
[2018-10-06 15:41] LABS: BILIRUBIN,URINE NEGATIVE (NEG); CLARITY,URINE CLEAR; COLOR,URINE YELLOW; NITRITE,URINE NEGATIVE (NEG); PH,URINE 6.5; PROTEIN,URINE NEGATIVE (NEG-TRACE); UROBILINOGEN,URINE 0.2 mg/dL (0.2 mg/dL)
[2018-10-06] MEDS ORDERED: VANCOMYCIN 1.75 GM in IV NORMAL SALINE 500ML BAG 500 ML IV ONE (15:45)
[2018-10-06] MEDS ORDERED: PIPERACILLIN/TAZOBACTAM 3.375 GM in IV NORMAL SALINE 50ML 50 ML IV ONE (15:45)
[2018-10-06 15:49] LABS: RBC,URINE 0 /HPF (0-2); SQUAMOUS EPITHELIAL CELL,UR MANY /LPF
[2018-10-06 15:50] LABS: BACTERIA,URINE MODERATE /HPF (0-FEW); WBC,URINE 0 /HPF (0-4)
[2018-10-06] MEDS ORDERED: MORPHINE SULFATE 4 MG/ML VIAL. IV ONE (16:15)
[2018-10-06] MEDS ORDERED: MORPHINE SULFATE 2 MG/ML VIAL. IV PRN (16:45)
[2018-10-06] MEDS ORDERED: ONDANSETRON PF 4 MG/2 ML VIAL. IV PRN (16:45)
[2018-10-06] MEDS ORDERED: POTASSIUM CHLORIDE 20 MEQ TABLET.ER. PO ONE (17:00)
[2018-10-06] MEDS ORDERED: PIP/TAZO PER PHARMACY MC PRN (17:00)
[2018-10-06] MEDS ORDERED: NICOTINE 21MG PATCH. TD PRN ×2 (17:00→19:45)
[2018-10-06] MEDS ORDERED: guaiFENesin DM 200MG/20MG 10 ML SYRUP PO PRN (17:00)
[2018-10-06] MEDS: VANCOMYCIN PER PHARMACY MC PRN (18:04)
--- NOTE | 2018-10-06 18:07 | NUR ---
Pharmacy Vancomycin Dosing Note S: Consulted to monitor and dose vancomycin started 10/06/18. O: MONTANA ROSS is a 73 year old F with Pneumonia, . Other Antibiotics: ZOSYN LABS: Last BUN: 11 Last Creatinine: 0.9 Creatinine Clearance: 49 mL/min Last WBC: 29.0 Vancomycin Dosing: Dosing Weight: Actual Target Trough: 10-20 A: Based on: VANCO dosing guidelines P: 1. Begin Vancomycin 1750mg LOAD dose, then 1250 mg IV q24h 2. Follow up Trough level on 10/08/18 at 1730 3. Pharmacy will continue to monitor, follow and adjust therapy as needed. ADILSON MOSQUEDA RP, 10/06/18 [id number]
--- NOTE | 2018-10-06 19:03 | PDOC1 ---
History and Physical Date of Admission Date of Admission DATE: 10/06/18 TIME: 18:58 Identification/Chief Complaint Chief Complaint SOA Source Source: Caregiver, Chart review, Patient History of Present Illness History of Present Illness Pleasant 73 white female, smoker a pack a day since age 18, quit jan 2018 or Feb 2018, soa few weeks, no fever, no sick contacts, [facility] [place]. CT signif for: 1. No evidence of pulmonary thromboembolic disease. 2. There is an obstructing lesion in the left main stem bronchus with resulting left upper lobe atelectasis, likely endobronchial tumor/primary lung cancer. The margins of the suspected tumor are not well visualized due to dense consolidation of the left upper lobe which encases left hilar bronchovascular structures, and it is unclear if the suspected tumor extends beyond the bronchus into the left upper lobe or if it invades the mediastinum. 3. Dense consolidation of the left upper lobe demonstrates slight hypoenhancement relative to normal atelectatic lung, which may represent postobstructive infection. 4. Subcarinal and ipsilateral mediastinal lymphadenopathy, which could be reactive or represent metastatic disease. Few conspicuous but not pathologically enlarged contralateral mediastinal lymph nodes, attention on follow-up imaging. 5. Small left pleural effusion, which could be reactive or malignant. I d/w her findings and plan, will treat with abx, if infectious size should shrink, if not then malignancy is high in difftl, Agree with heme onc consult, will also involve pulmo She is non toxic appearing Past Medical History Cardiovascular: HTN, Hyperlipidemia Pulmonary: No pertinent hx GI: No pertinent hx Heme/Onc: No pertinent hx Hepatobiliary: No pertinent hx Psych: No pertinent hx Musculoskeletal: low back pain, Osteoarthritis Rheumatologic: No pertinent hx Infectious disease: No pertinent hx Renal/: No pertinent hx Endocrine: No pertinent hx Past Surgical History Past Surgical History: Tonsillectomy, Hysterectomy, Other Family History Family History: Family History Unknown Social History Smoke: Quit ALCOHOL: none Drugs: None Current Problem List Problem List Problems Medical Problems: (1) Leukocytosis Status: Acute (2) Mass in chest Status: Acute Current Medications Current Medications Current Medications Sodium Chloride 1,000 ml @ 1,000 mls/hr 1X ONCE IV Last administered on 10/06/18at 14:09; Start 10/06/18 at 14:00; Stop 10/06/18 at 14:59; Status DC Ondansetron HCl (Zofran) 4 mg 1X ONCE IV Last administered on 10/06/18at 14:09; Start 10/06/18 at 14:00; Stop 10/06/18 at 14:01; Status DC Iohexol (Omnipaque 350 Mg/ml) 100 ml 1X ONCE IV Last administered on 10/06/18at 16:15; Start 10/06/18 at 14:30; Stop 10/06/18 at 14:31; Status DC Info (CONTRAST GIVEN -- Rx MONITORING) 1 each PRN DAILY PRN MC SEE COMMENTS; Start 10/06/18 at 14:30; Stop 10/08/18 at 14:29 Vancomycin HCl 1.75 gm/Sodium Chloride 500 ml @ 250 mls/hr 1X ONCE IV Last administered on 10/06/18at 17:30; Start 10/06/18 at 15:45; Stop 10/06/18 at 17:44; Status DC Piperacillin Sod/ Tazobactam Sod 3.375 gm/Sodium Chloride 50 ml @ 100 mls/hr 1X ONCE IV Last administered on 10/06/18at 16:39; Start 10/06/18 at 15:45; Stop 10/06/18 at 16:14; Status DC Morphine Sulfate (Morphine Sulfate) 4 mg 1X ONCE IV Last administered on 10/06/18at 16:31; Start 10/06/18 at 16:15; Stop 10/06/18 at 16:16; Status DC Ondansetron HCl (Zofran) 4 mg PRN Q8HRS PRN IV NAUSEA/VOMITING; Start 10/06/18 at 16:45; Stop 10/07/18 at 16:44 Morphine Sulfate (Morphine Sulfate) 2 mg PRN Q2HR PRN IV PAIN; Start 10/06/18 at 16:45; Stop 10/06/18 at 16:49; Status DC Vancomycin HCl (Vanco Per Pharmacy) 1 each PRN DAILY PRN MC SEE COMMENTS Last administered on 10/06/18at 18:07; Start 10/06/18 at 17:00 Piperacillin Sod/ Tazobactam Sod (Zosyn Per Pharmacy) 1 each PRN DAILY PRN MC SEE COMMENTS; Start 10/06/18 at 17:00 Nicotine (Nicoderm Cq 21mg) 1 patch PRN DAILY PRN TD SMOKING CESSATION; Start 10/06/18 at 17:00 Sodium Chloride 1,000 ml @ 100 mls/hr Q10H IV ; Start 10/06/18 at 17:00 Acetaminophen/ Codeine Phosphate (Tylenol #3) 1 tab PRN Q6HRS PRN PO PAIN; Start 10/06/18 at 17:00 Guaifenesin (Robitussin Dm) 10 ml PRN Q6HRS PRN PO COUGH; Start 10/06/18 at 17:00 Temazepam (Restoril) 7.5 mg PRN QHS PRN PO INSOMNIA; Start 10/06/18 at 17:00 Morphine Sulfate (Morphine Sulfate) 1 mg PRN Q2HR PRN IV PAIN; Start 10/06/18 at 17:00 Potassium Chloride (Klor-Con) 40 meq 1X ONCE PO Last administered on 10/06/18at 18:25; Start 10/06/18 at 17:00; Stop 10/06/18 at 17:01; Status DC Atorvastatin Calcium (Lipitor) 10 mg HS PO ; Start 10/06/18 at 21:00 Polyethylene Glycol (miraLAX PACKET) 17 gm DAILY PO ; Start 10/07/18 at 09:00 Tramadol HCl (Ultram) 100 mg PRN Q6HRS PRN PO PAIN; Start 10/06/18 at 17:00 Triamterene/HCTZ (Maxzide 37.5/ 25mg) 1 tab DAILY PO ; Start 10/07/18 at 09:00 Cyclobenzaprine HCl (Flexeril) 5 mg TID PO ; Start 10/06/18 at 21:00 Duloxetine HCl (Cymbalta) 60 mg DAILY PO ; Start 10/07/18 at 09:00 Psyllium Hydrophilic Mucilloid (Metamucil Fiber Packet) 1 pkt QHS PO ; Start 10/06/18 at 21:00 Zolpidem Tartrate (Ambien) 5 mg QHS PO ; Start 10/06/18 at 21:00 Lisinopril (Prinivil) 40 mg DAILY PO ; Start 10/07/18 at 09:00 Latanoprost (Xalatan) 1 drop QHS OU ; Start 10/06/18 at 21:00 Zolpidem Tartrate (Ambien) 5 mg PRN QHS PRN PO CONTINUED INSOMNIA; Start 10/06/18 at 21:00 Sodium Chloride 1,000 ml @ 1,000 mls/hr 1X ONCE IV Last administered on 10/06/18at 18:25; Start 10/06/18 at 18:00; Stop 10/06/18 at 18:59 Vancomycin HCl 1.25 gm/Sodium Chloride 250 ml @ 167 mls/hr Q24H IV ; Start 10/07/18 at 18:00 Vancomycin HCl (Vancomycin Trough Level) 1 each 1X ONCE MC ; Start 10/08/18 at 17:30; Stop 10/08/18 at 17:31 Piperacillin Sod/ Tazobactam Sod 3.375 gm/Sodium Chloride 50 ml @ 100 mls/hr Q6HRS IV ; Start 10/07/18 at 00:00 Active Scripts Active Reported Cyclobenzaprine Hcl 5 Mg Tablet 1 Tab PO TID Lipitor (Atorvastatin Calcium) 10 Mg Tablet Unknown Dose PO HS Triamterene-Hctz 37.5-25 Mg Tb (Triamterene/Hydrochlorothiazid) 1 Each Tablet 1 Tab PO DAILY Accupril (Quinapril Hcl) 40 Mg Tablet 1 Tab PO DAILY Tramadol Hcl 50 Mg Tablet 2 Tab PO PRN Q6HRS Travatan Z (Travoprost) 5 Ml Drops 1 Drop EACHEYE QHS Zolpidem Tartrate 10 Mg Tablet 1 Tab PO QHS Combigan Eye Drops (Brimonidine Tartrate/Timolol) 5 Ml Drops 5 Ml OP Metamucil Plus Calcium Capsule (Psyllium Husk/Ca Carbonate) 1 Each Capsule 2 Each PO HS Miralax (Polyethylene Glycol 3350) 17 Gm Powd.pack 1 Pkt PO DAILY Cymbalta (Duloxetine Hcl) 60 Mg Capsule. 1 Cap PO DAILY Estradiol 0.5 Mg Tablet 0.5 Mg PO Allergies Allergies: Coded Allergies: No Known Drug Allergies (Unverified , 05/27/13) ROS Review of System neg 14 pt aside from HPI, reviewed with her - denies hemoptysis, weight loss Fam hx breast CA -sister Physical Exam General: Alert, Oriented X3, Cooperative, No acute distress HEENT: Atraumatic, PERRLA, EOMI, Mucous membr. moist/pink Lungs: Normal air movement, Other (SCE< left BS diminished, some duillness) Heart: S1S2, RRR, no thrills, no rubs, no gallops, no murmurs Cardiovascular: S1, S2 Breasts: Normal, Rt breast nml w/o mass, Lt breast nml w/o mass, Nipples normal Abdomen: Normal bowel sounds, Soft, No tenderness, No hepatosplenomegaly, No masses Rectal Exam: not examined PELVIC: Nml ext genitalia Extremities: No clubbing, No cyanosis, No edema, Normal pulses, No tenderness/swelling Skin: No rashes, No breakdown, No significant lesion Neuro: Normal gait, Normal speech, Strength at 5/5 X4 ext, Normal tone, Sensation intact, Cranial nerves 3-12 NL, Reflexes 2+ Psych/Mental Status: Mental status NL, Mood NL Vitals Vitals Vital Signs Date Time Temp Pulse Resp B/P (MAP) Pulse Ox O2 Delivery O2 Flow Rate FiO2 10/06/18 16:31 16 94 Room Air Labs Labs Laboratory Tests Test 10/06/18 14:00 10/06/18 15:30 10/06/18 16:25 White Blood Count 29.0 x10^3/uL (4.0-11.0) Red Blood Count 3.31 x10^6/uL (3.50-5.40) Hemoglobin 9.8 g/dL (12.0-15.5) Hematocrit 29.3 % (36.0-47.0) Mean Corpuscular Volume 89 fL (79-100) Mean Corpuscular Hemoglobin 30 pg (25-35) Mean Corpuscular Hemoglobin Concent 34 g/dL (31-37) Red Cell Distribution Width 16.2 % (11.5-14.5) Platelet Count 681 x10^3/uL (140-400) Neutrophils (%) (Auto) 90 % (31-73) Lymphocytes (%) (Auto) 7 % (24-48) Monocytes (%) (Auto) 3 % (0-9) Eosinophils (%) (Auto) 0 % (0-3) Basophils (%) (Auto) 0 % (0-3) Neutrophils # (Auto) 26.1 x10^3/uL (1.8-7.7) Lymphocytes # (Auto) 2.0 x10^3/uL (1.0-4.8) Monocytes # (Auto) 0.8 x10^3/uL (0.0-1.1) Eosinophils # (Auto) 0.0 x10^3/uL (0.0-0.7) Basophils # (Auto) 0.1 x10^3/uL (0.0-0.2) Segmented Neutrophils % 84 % (35-66) Band Neutrophils % 6 % (0-9) Lymphocytes % 8 % (24-48) Monocytes % 2 % (0-10) Platelet Estimate Increased (ADEQUATE) Prothrombin Time 13.2 SEC (11.7-14.0) Prothromb Time International Ratio 1.0 (0.8-1.1) Activated Partial Thromboplast Time 33 SEC (24-38) Sodium Level 133 mmol/L (136-145) Potassium Level 3.3 mmol/L (3.5-5.1) Chloride Level 96 mmol/L (98-107) Carbon Dioxide Level 27 mmol/L (21-32) Anion Gap 10 (6-14) Blood Urea Nitrogen 11 mg/dL (7-20) Creatinine 0.9 mg/dL (0.6-1.0) Estimated GFR (Cockcroft-Gault) 61.5 BUN/Creatinine Ratio 12 (6-20) Glucose Level 143 mg/dL (70-99) Calcium Level 9.0 mg/dL (8.5-10.1) Total Bilirubin 0.3 mg/dL (0.2-1.0) Aspartate Amino Transf (AST/SGOT) 13 U/L (15-37) Alanine Aminotransferase (ALT/SGPT) 13 U/L (14-59) Alkaline Phosphatase 147 U/L (46-116) Troponin I Quantitative < 0.017 ng/mL (0.000-0.055) Total Protein 6.9 g/dL (6.4-8.2) Albumin 2.1 g/dL (3.4-5.0) Albumin/Globulin Ratio 0.4 (1.0-1.7) Urine Collection Type Unknown Urine Color Yellow Urine Clarity Clear Urine pH 6.5 Urine Specific Hudson 1.020 Urine Protein Negative mg/dL (NEG-TRACE) Urine Glucose (UA) Negative mg/dL (NEG) Urine Ketones (Stick) Negative mg/dL (NEG) Urine Blood Negative (NEG) Urine Nitrite Negative (NEG) Urine Bilirubin Negative (NEG) Urine Urobilinogen Dipstick 0.2 mg/dL (0.2 mg/dL) Urine Leukocyte Esterase Negative (NEG) Urine RBC 0 /HPF (0-2) Urine WBC 0 /HPF (0-4) Urine Squamous Epithelial Cells Many /LPF Urine Bacteria Moderate /HPF (0-FEW) Erythrocyte Sedimentation Rate 83 (0-25) Lactic Acid Level 2.1 mmol/L (0.4-2.0) Laboratory Tests Test 10/06/18 14:00 10/06/18 15:30 10/06/18 16:25 White Blood Count 29.0 x10^3/uL (4.0-11.0) Red Blood Count 3.31 x10^6/uL (3.50-5.40) Hemoglobin 9.8 g/dL (12.0-15.5) Hematocrit 29.3 % (36.0-47.0) Mean Corpuscular Volume 89 fL (79-100) Mean Corpuscular Hemoglobin 30 pg (25-35) Mean Corpuscular Hemoglobin Concent 34 g/dL (31-37) Red Cell Distribution Width 16.2 % (11.5-14.5) Platelet Count 681 x10^3/uL (140-400) Neutrophils (%) (Auto) 90 % (31-73) Lymphocytes (%) (Auto) 7 % (24-48) Monocytes (%) (Auto) 3 % (0-9) Eosinophils (%) (Auto) 0 % (0-3) Basophils (%) (Auto) 0 % (0-3) Neutrophils # (Auto) 26.1 x10^3/uL (1.8-7.7) Lymphocytes # (Auto) 2.0 x10^3/uL (1.0-4.8) Monocytes # (Auto) 0.8 x10^3/uL (0.0-1.1) Eosinophils # (Auto) 0.0 x10^3/uL (0.0-0.7) Basophils # (Auto) 0.1 x10^3/uL (0.0-0.2) Segmented Neutrophils % 84 % (35-66) Band Neutrophils % 6 % (0-9) Lymphocytes % 8 % (24-48) Monocytes % 2 % (0-10) Platelet Estimate Increased (ADEQUATE) Prothrombin Time 13.2 SEC (11.7-14.0) Prothromb Time International Ratio 1.0 (0.8-1.1) Activated Partial Thromboplast Time 33 SEC (24-38) Sodium Level 133 mmol/L (136-145) Potassium Level 3.3 mmol/L (3.5-5.1) Chloride Level 96 mmol/L (98-107) Carbon Dioxide Level 27 mmol/L (21-32) Anion Gap 10 (6-14) Blood Urea Nitrogen 11 mg/dL (7-20) Creatinine 0.9 mg/dL (0.6-1.0) Estimated GFR (Cockcroft-Gault) 61.5 BUN/Creatinine Ratio 12 (6-20) Glucose Level 143 mg/dL (70-99) Calcium Level 9.0 mg/dL (8.5-10.1) Total Bilirubin 0.3 mg/dL (0.2-1.0) Aspartate Amino Transf (AST/SGOT) 13 U/L (15-37) Alanine Aminotransferase (ALT/SGPT) 13 U/L (14-59) Alkaline Phosphatase 147 U/L (46-116) Troponin I Quantitative < 0.017 ng/mL (0.000-0.055) Total Protein 6.9 g/dL (6.4-8.2) Albumin 2.1 g/dL (3.4-5.0) Albumin/Globulin Ratio 0.4 (1.0-1.7) Urine Collection Type Unknown Urine Color Yellow Urine Clarity Clear Urine pH 6.5 Urine Specific Hudson 1.020 Urine Protein Negative mg/dL (NEG-TRACE) Urine Glucose (UA) Negative mg/dL (NEG) Urine Ketones (Stick) Negative mg/dL (NEG) Urine Blood Negative (NEG) Urine Nitrite Negative (NEG) Urine Bilirubin Negative (NEG) Urine Urobilinogen Dipstick 0.2 mg/dL (0.2 mg/dL) Urine Leukocyte Esterase Negative (NEG) Urine RBC 0 /HPF (0-2) Urine WBC 0 /HPF (0-4) Urine Squamous Epithelial Cells Many /LPF Urine Bacteria Moderate /HPF (0-FEW) Erythrocyte Sedimentation Rate 83 (0-25) Lactic Acid Level 2.1 mmol/L (0.4-2.0) VTE Prophylaxis Ordered VTE Prophylaxis Devices: Yes VTE Pharmacological Prophylaxi: Yes Assessment/Plan Assessment/Plan LEft main bronchus obstructing lesion, difftls include infectious vs malignancy Atelectasis vs dense PNA JASMEET Small left pleural effusion, which could be reactive or malignant. Ipsilateral reactive LNs Smoker since age 18 (quit jan 2018 or Feb 2018) PLAN: 2MN Treat as infectious for the time being Tele bed VAnc zosyn Pulmo and heme onc Ok to eat I have reconciled home meds If infectious, interval imaging should show dec in size, BUT Then again she has very strong risk factors and VEY signif smoking hx Seen at ER JUAN ALVARADO MD Oct 06, 2018 19:03
[2018-10-06 19:30] VITALS: BP 114/64
[2018-10-06] MEDS: PSYLLIUM HUSK (SUGAR FREE) 1 PKT PACKET PO SCH (20:37)
[2018-10-06] MEDS: IV NORMAL SALINE 1000ML BAG 1,000 ML IV SCH (20:52)
[2018-10-06] MEDS: LATANOPROST 0.005% OPHTH SOLUTION 2.5ML BOTTLE. OU SCH (20:52)
[2018-10-06] MEDS: ZOLPIDEM 5 MG TABLET. PO SCH (20:53)
[2018-10-06] MEDS: CYCLOBENZAPRINE 10 MG TABLET. PO SCH (20:53)
[2018-10-06] MEDS: ATORVASTATIN CALCIUM 10 MG TABLET. PO SCH (20:53)
[2018-10-06] MEDS: traMADol 50 MG TABLET PO PRN (20:54)
[2018-10-06] MEDS ORDERED: ZOLPIDEM 5 MG TABLET. PO PRN (21:00)
[2018-10-06] MEDS ORDERED: ACET500T68 PO (23:03)
[2018-10-06] MEDS ORDERED: IPRA0.2S5 NEB (23:03)
[2018-10-06] MEDS ORDERED: LOPE2CAP88 PO (23:03)
[2018-10-06 23:09] VITALS: BP 100/56
[2018-10-06] MEDS: PIPERACILLIN/TAZOBACTAM 3.375 GM in IV NORMAL SALINE 50ML 50 ML IV SCH (23:26)
[2018-10-07] MEDS: IV NORMAL SALINE 1000ML BAG 1,000 ML IV SCH ×2 (03:00→11:32)
[2018-10-07 03:41] VITALS: BP 93/53
[2018-10-07] MEDS: PIPERACILLIN/TAZOBACTAM 3.375 GM in IV NORMAL SALINE 50ML 50 ML IV SCH ×3 (06:02→18:05)
[2018-10-07] MEDS: traMADol 50 MG TABLET PO PRN ×2 (06:42→13:14)
[2018-10-07 07:00] VITALS: BP 103/57
[2018-10-07 09:02] LABS: BASO % 0 % (0-3); EOS % 0 % (0-3); HEMATOCRIT 25.6 % (36.0-47.0); HEMOGLOBIN 8.6 g/dL (12.0-15.5); LYMPH # 2.6 x10^3/uL (1.0-4.8); LYMPH % 15 % (24-48); MEAN CORPUSCULAR HEMOGLOBIN 30 pg (25-35); MEAN CORPUSCULAR HGB CONC 33 g/dL (31-37); MEAN CORPUSCULAR VOLUME 89 fL (79-100); MONO # 0.9 x10^3/uL (0.0-1.1); MONO % 5 % (0-9); NEUT # 13.7 x10^3/uL (1.8-7.7); NEUT % 79 % (31-73); PLATELET COUNT 583 x10^3/uL (140-400); RED BLOOD COUNT 2.88 x10^6/uL (3.50-5.40); RED CELL DISTRIBUTION WIDTH 16.1 % (11.5-14.5); WHITE BLOOD COUNT 17.3 x10^3/uL (4.0-11.0)
[2018-10-07 09:25] LABS: CALCIUM 8.6 mg/dL (8.5-10.1); CREATININE 0.8 mg/dL (0.6-1.0); GFR 70.5; POTASSIUM 3.8 mmol/L (3.5-5.1)
[2018-10-07] MEDS ORDERED: POLYETHYLENE GLYCOL 3350 17 GM PACKET. PO PRN (09:45)
[2018-10-07] MEDS ORDERED: DOCUSATE SODIUM 100 MG CAPSULE. PO PRN (09:45)
--- NOTE | 2018-10-07 09:52 | PDOC ---
PROGRESS NOTES History of Present Illness History of Present Illness Assessment/Plan Assessment/Plan LEft main bronchus obstructing lesion, difftls include infectious vs malignancy Atelectasis vs dense PNA JASMEET Small left pleural effusion, which could be reactive or malignant. Ipsilateral reactive LNs Smoker since age 18 (quit jan 2018 or Feb 2018) PLAN: 2MN Treat as infectious for the time being Tele bed VAnc zosyn Pulmo and heme onc Ok to eat I have reconciled home meds If infectious, interval imaging should show dec in size, obstructing lesion in the left main stem bronchus with resulting left upper lobe atelectasis, likely endobronchial tumor/primary lung cancer. The margins of the suspected tumor are not well visualized due to dense consolidation of the left upper lobe which encases left hilar bronchovascular structures, and it is unclear if the suspected tumor extends beyond the bronchus into the left upper lobe or if it invades the mediastinum. Dense consolidation of the left upper lobe demonstrates slight hypoenhancement relative to normal atelectatic lung, which may represent postobstructive infection. Subcarinal and ipsilateral mediastinal lymphadenopathy, which could be reactive or represent metastatic disease. Few conspicuous but not pathologically enlarged contralateral mediastinal lymph nodes, attention on follow-up imaging. Small left pleural effusion, which could be reactive or malignant. 39 MIN PT EXAM. CHART REVIEW, > 50% OF TIME SPENT WITH EXAM, CHART REVIEW, PT CARE COORDINATION Vitals Vitals Vital Signs Date Time Temp Pulse Resp B/P (MAP) Pulse Ox O2 Delivery O2 Flow Rate FiO2 10/07/18 07:00 98.5 104 18 103/57 (72) 97 Nasal Cannula 2.0 98.5 Physical Exam General: Alert, Oriented X3, Cooperative, No acute distress Lungs: Clear Abdomen: Normal bowel sounds, Soft, No tenderness, No hepatosplenomegaly, No masses Extremities: No clubbing, No cyanosis, No edema, Normal pulses, No tenderness/swelling Skin: No rashes, No breakdown, No significant lesion Labs LABS CT ANGIOGRAPHY CHEST INDICATION: Dyspnea, tachycardia. Comparison: None. TECHNIQUE: Following the uneventful administration of intravenous contrast, 100 mL Omnipaque 350, axial CT sections were obtained through the lungs and upper abdomen. Coronal MIP images and coronal and sagittal multiplanar reconstructions were also obtained. PQRS compliance statement: One or more of the following individualized dose reduction techniques were utilized for this examination: 1. Automated exposure control 2. Adjustment of the mA and/or kV according to patient size 3. Use of iterative reconstruction technique FINDINGS: Lungs and Airways: Asymmetric elevation of the left hemidiaphragm. Left upper lobe atelectasis with dense consolidation and slight hypoenhancement relative to right lower lobe relaxation atelectasis. Poorly defined obstructing mass in the left mainstem bronchus approximately 3.7 cm from the dilip. There is aeration of the left lower lobe, and minimal aeration of the lingula. Pleura: Small left pleural effusion. Heart and Mediastinum: Shift of the mediastinum to the left hemithorax. Mediastinal lymphadenopathy, for example enlarged prevascular lymph node measuring 1.0 cm (series 3 image 40) and enlarged subcarinal lymphadenopathy measuring 1.4 x 2.9 cm. Conspicuous but not pathologically enlarged by CT criteria right upper paratracheal lymph node measuring 0.8 cm (series 3 image 14). Difficulty to evaluate for left hilar lymphadenopathy due to dense consolidation encasing the left hilar bronchovascular structures. No evidence of pulmonary thromboembolic disease. Atherosclerosis of the thoracic aorta. Coronary artery atherosclerotic disease. Normal cardiac size. No pericardial effusion. The visualized thyroid is normal in size and attenuation Abdomen: Cholecystectomy. Bones and Soft Tissues: Degenerative changes of the spine. IMPRESSION: 1. No evidence of pulmonary thromboembolic disease. 2. There is an obstructing lesion in the left main stem bronchus with resulting left upper lobe atelectasis, likely endobronchial tumor/primary lung cancer. The margins of the suspected tumor are not well visualized due to dense consolidation of the left upper lobe which encases left hilar bronchovascular structures, and it is unclear if the suspected tumor extends beyond the bronchus into the left upper lobe or if it invades the mediastinum. 3. Dense consolidation of the left upper lobe demonstrates slight hypoenhancement relative to normal atelectatic lung, which may represent postobstructive infection. 4. Subcarinal and ipsilateral mediastinal lymphadenopathy, which could be reactive or represent metastatic disease. Few conspicuous but not pathologically enlarged contralateral mediastinal lymph nodes, attention on follow-up imaging. 5. Small left pleural effusion, which could be reactive or malignant. Findings were discussed with Dr. Meehan at 3:15 PM on 10/06/2018 FOR INTERNAL CODING PURPOSES RESULT CODE: (C) Electronically signed by: Ricardo Hodgson MD (10/06/2018 3:37 PM) [id number] Laboratory Tests Test 10/06/18 14:00 10/06/18 15:30 10/06/18 16:25 10/06/18 20:15 White Blood Count 29.0 x10^3/uL (4.0-11.0) Red Blood Count 3.31 x10^6/uL (3.50-5.40) Hemoglobin 9.8 g/dL (12.0-15.5) Hematocrit 29.3 % (36.0-47.0) Mean Corpuscular Volume 89 fL (79-100) Mean Corpuscular Hemoglobin 30 pg (25-35) Mean Corpuscular Hemoglobin Concent 34 g/dL (31-37) Red Cell Distribution Width 16.2 % (11.5-14.5) Platelet Count 681 x10^3/uL (140-400) Neutrophils (%) (Auto) 90 % (31-73) Lymphocytes (%) (Auto) 7 % (24-48) Monocytes (%) (Auto) 3 % (0-9) Eosinophils (%) (Auto) 0 % (0-3) Basophils (%) (Auto) 0 % (0-3) Neutrophils # (Auto) 26.1 x10^3/uL (1.8-7.7) Lymphocytes # (Auto) 2.0 x10^3/uL (1.0-4.8) Monocytes # (Auto) 0.8 x10^3/uL (0.0-1.1) Eosinophils # (Auto) 0.0 x10^3/uL (0.0-0.7) Basophils # (Auto) 0.1 x10^3/uL (0.0-0.2) Segmented Neutrophils % 84 % (35-66) Band Neutrophils % 6 % (0-9) Lymphocytes % 8 % (24-48) Monocytes % 2 % (0-10) Platelet Estimate Increased (ADEQUATE) Prothrombin Time 13.2 SEC (11.7-14.0) Prothromb Time International Ratio 1.0 (0.8-1.1) Activated Partial Thromboplast Time 33 SEC (24-38) Sodium Level 133 mmol/L (136-145) Potassium Level 3.3 mmol/L (3.5-5.1) Chloride Level 96 mmol/L (98-107) Carbon Dioxide Level 27 mmol/L (21-32) Anion Gap 10 (6-14) Blood Urea Nitrogen 11 mg/dL (7-20) Creatinine 0.9 mg/dL (0.6-1.0) Estimated GFR (Cockcroft-Gault) 61.5 BUN/Creatinine Ratio 12 (6-20) Glucose Level 143 mg/dL (70-99) Calcium Level 9.0 mg/dL (8.5-10.1) Total Bilirubin 0.3 mg/dL (0.2-1.0) Aspartate Amino Transf (AST/SGOT) 13 U/L (15-37) Alanine Aminotransferase (ALT/SGPT) 13 U/L (14-59) Alkaline Phosphatase 147 U/L (46-116) Troponin I Quantitative < 0.017 ng/mL (0.000-0.055) Total Protein 6.9 g/dL (6.4-8.2) Albumin 2.1 g/dL (3.4-5.0) Albumin/Globulin Ratio 0.4 (1.0-1.7) Urine Collection Type Unknown Urine Color Yellow Urine Clarity Clear Urine pH 6.5 Urine Specific [place] 1.020 Urine Protein Negative mg/dL (NEG-TRACE) Urine Glucose (UA) Negative mg/dL (NEG) Urine Ketones (Stick) Negative mg/dL (NEG) Urine Blood Negative (NEG) Urine Nitrite Negative (NEG) Urine Bilirubin Negative (NEG) Urine Urobilinogen Dipstick 0.2 mg/dL (0.2 mg/dL) Urine Leukocyte Esterase Negative (NEG) Urine RBC 0 /HPF (0-2) Urine WBC 0 /HPF (0-4) Urine Squamous Epithelial Cells Many /LPF Urine Bacteria Moderate /HPF (0-FEW) Erythrocyte Sedimentation Rate 83 (0-25) Lactic Acid Level 2.1 mmol/L (0.4-2.0) 0.8 mmol/L (0.4-2.0) Test 10/07/18 07:50 White Blood Count 17.3 x10^3/uL (4.0-11.0) Red Blood Count 2.98 x10^6/uL (3.50-5.70) Hemoglobin 8.6 g/dL (12.0-15.5) Hematocrit 25.6 % (36.0-47.0) Mean Corpuscular Volume 89 fL (79-100) Mean Corpuscular Hemoglobin 30 pg (25-35) Mean Corpuscular Hemoglobin Concent 33 g/dL (31-37) Red Cell Distribution Width 16.1 % (11.5-14.5) Platelet Count 583 x10^3/uL (140-400) Neutrophils (%) (Auto) 79 % (31-73) Lymphocytes (%) (Auto) 15 % (24-48) Monocytes (%) (Auto) 5 % (0-9) Eosinophils (%) (Auto) 0 % (0-3) Basophils (%) (Auto) 0 % (0-3) Neutrophils # (Auto) 13.7 x10^3/uL (1.8-7.7) Lymphocytes # (Auto) 2.6 x10^3/uL (1.0-4.8) Monocytes # (Auto) 0.9 x10^3/uL (0.0-1.1) Eosinophils # (Auto) 0.0 x10^3/uL (0.0-0.7) Basophils # (Auto) 0.0 x10^3/uL (0.0-0.2) Absolute Reticulocyte Count 0.071 x10^6/uL (0.020-0.120) Percent Reticulocyte Count 2.4 % (0.5-2.3) Immature Reticulocyte Fraction 0.48 (0.20-0.60) Sodium Level 137 mmol/L (136-145) Potassium Level 3.8 mmol/L (3.5-5.1) Chloride Level 102 mmol/L (98-107) Carbon Dioxide Level 26 mmol/L (21-32) Anion Gap 9 (6-14) Blood Urea Nitrogen 9 mg/dL (7-20) Creatinine 0.8 mg/dL (0.6-1.0) Estimated GFR (Cockcroft-Gault) 70.5 Glucose Level 93 mg/dL (70-99) Calcium Level 8.6 mg/dL (8.5-10.1) Iron Level 28 ug/dL (50-170) Total Iron Binding Capacity 177 ug/dL (250-450) Iron Saturation 16 % (15-34) Vitamin B12 Level 451 pg/mL (247-911) Assessment and Plan Assessmemt and Plan Problems Medical Problems: (1) Leukocytosis Status: Acute (2) Mass in chest Status: Acute Comment Review of Relevant I have reviewed the following items grace (where applicable) has been applied. Labs Laboratory Tests Test 10/06/18 14:00 10/06/18 15:30 10/06/18 16:25 10/06/18 20:15 White Blood Count 29.0 x10^3/uL (4.0-11.0) Red Blood Count 3.31 x10^6/uL (3.50-5.40) Hemoglobin 9.8 g/dL (12.0-15.5) Hematocrit 29.3 % (36.0-47.0) Mean Corpuscular Volume 89 fL (79-100) Mean Corpuscular Hemoglobin 30 pg (25-35) Mean Corpuscular Hemoglobin Concent 34 g/dL (31-37) Red Cell Distribution Width 16.2 % (11.5-14.5) Platelet Count 681 x10^3/uL (140-400) Neutrophils (%) (Auto) 90 % (31-73) Lymphocytes (%) (Auto) 7 % (24-48) Monocytes (%) (Auto) 3 % (0-9) Eosinophils (%) (Auto) 0 % (0-3) Basophils (%) (Auto) 0 % (0-3) Neutrophils # (Auto) 26.1 x10^3/uL (1.8-7.7) Lymphocytes # (Auto) 2.0 x10^3/uL (1.0-4.8) Monocytes # (Auto) 0.8 x10^3/uL (0.0-1.1) Eosinophils # (Auto) 0.0 x10^3/uL (0.0-0.7) Basophils # (Auto) 0.1 x10^3/uL (0.0-0.2) Segmented Neutrophils % 84 % (35-66) Band Neutrophils % 6 % (0-9) Lymphocytes % 8 % (24-48) Monocytes % 2 % (0-10) Platelet Estimate Increased (ADEQUATE) Prothrombin Time 13.2 SEC (11.7-14.0) Prothromb Time International Ratio 1.0 (0.8-1.1) Activated Partial Thromboplast Time 33 SEC (24-38) Sodium Level 133 mmol/L (136-145) Potassium Level 3.3 mmol/L (3.5-5.1) Chloride Level 96 mmol/L (98-107) Carbon Dioxide Level 27 mmol/L (21-32) Anion Gap 10 (6-14) Blood Urea Nitrogen 11 mg/dL (7-20) Creatinine 0.9 mg/dL (0.6-1.0) Estimated GFR (Cockcroft-Gault) 61.5 BUN/Creatinine Ratio 12 (6-20) Glucose Level 143 mg/dL (70-99) Calcium Level 9.0 mg/dL (8.5-10.1) Total Bilirubin 0.3 mg/dL (0.2-1.0) Aspartate Amino Transf (AST/SGOT) 13 U/L (15-37) Alanine Aminotransferase (ALT/SGPT) 13 U/L (14-59) Alkaline Phosphatase 147 U/L (46-116) Troponin I Quantitative < 0.017 ng/mL (0.000-0.055) Total Protein 6.9 g/dL (6.4-8.2) Albumin 2.1 g/dL (3.4-5.0) Albumin/Globulin Ratio 0.4 (1.0-1.7) Urine Collection Type Unknown Urine Color Yellow Urine Clarity Clear Urine pH 6.5 Urine Specific [place] 1.020 Urine Protein Negative mg/dL (NEG-TRACE) Urine Glucose (UA) Negative mg/dL (NEG) Urine Ketones (Stick) Negative mg/dL (NEG) Urine Blood Negative (NEG) Urine Nitrite Negative (NEG) Urine Bilirubin Negative (NEG) Urine Urobilinogen Dipstick 0.2 mg/dL (0.2 mg/dL) Urine Leukocyte Esterase Negative (NEG) Urine RBC 0 /HPF (0-2) Urine WBC 0 /HPF (0-4) Urine Squamous Epithelial Cells Many /LPF Urine Bacteria Moderate /HPF (0-FEW) Erythrocyte Sedimentation Rate 83 (0-25) Lactic Acid Level 2.1 mmol/L (0.4-2.0) 0.8 mmol/L (0.4-2.0) Test 10/07/18 07:50 White Blood Count 17.3 x10^3/uL (4.0-11.0) Red Blood Count 2.98 x10^6/uL (3.50-5.70) Hemoglobin 8.6 g/dL (12.0-15.5) Hematocrit 25.6 % (36.0-47.0) Mean Corpuscular Volume 89 fL (79-100) Mean Corpuscular Hemoglobin 30 pg (25-35) Mean Corpuscular Hemoglobin Concent 33 g/dL (31-37) Red Cell Distribution Width 16.1 % (11.5-14.5) Platelet Count 583 x10^3/uL (140-400) Neutrophils (%) (Auto) 79 % (31-73) Lymphocytes (%) (Auto) 15 % (24-48) Monocytes (%) (Auto) 5 % (0-9) Eosinophils (%) (Auto) 0 % (0-3) Basophils (%) (Auto) 0 % (0-3) Neutrophils # (Auto) 13.7 x10^3/uL (1.8-7.7) Lymphocytes # (Auto) 2.6 x10^3/uL (1.0-4.8) Monocytes # (Auto) 0.9 x10^3/uL (0.0-1.1) Eosinophils # (Auto) 0.0 x10^3/uL (0.0-0.7) Basophils # (Auto) 0.0 x10^3/uL (0.0-0.2) Absolute Reticulocyte Count 0.071 x10^6/uL (0.020-0.120) Percent Reticulocyte Count 2.4 % (0.5-2.3) Immature Reticulocyte Fraction 0.48 (0.20-0.60) Sodium Level 137 mmol/L (136-145) Potassium Level 3.8 mmol/L (3.5-5.1) Chloride Level 102 mmol/L (98-107) Carbon Dioxide Level 26 mmol/L (21-32) Anion Gap 9 (6-14) Blood Urea Nitrogen 9 mg/dL (7-20) Creatinine 0.8 mg/dL (0.6-1.0) Estimated GFR (Cockcroft-Gault) 70.5 Glucose Level 93 mg/dL (70-99) Calcium Level 8.6 mg/dL (8.5-10.1) Iron Level 28 ug/dL (50-170) Total Iron Binding Capacity 177 ug/dL (250-450) Iron Saturation 16 % (15-34) Vitamin B12 Level 451 pg/mL (247-911) Laboratory Tests Test 10/06/18 14:00 10/06/18 15:30 10/06/18 16:25 10/06/18 20:15 White Blood Count 29.0 x10^3/uL (4.0-11.0) Red Blood Count 3.31 x10^6/uL (3.50-5.40) Hemoglobin 9.8 g/dL (12.0-15.5) Hematocrit 29.3 % (36.0-47.0) Mean Corpuscular Volume 89 fL (79-100) Mean Corpuscular Hemoglobin 30 pg (25-35) Mean Corpuscular Hemoglobin Concent 34 g/dL (31-37) Red Cell Distribution Width 16.2 % (11.5-14.5) Platelet Count 681 x10^3/uL (140-400) Neutrophils (%) (Auto) 90 % (31-73) Lymphocytes (%) (Auto) 7 % (24-48) Monocytes (%) (Auto) 3 % (0-9) Eosinophils (%) (Auto) 0 % (0-3) Basophils (%) (Auto) 0 % (0-3) Neutrophils # (Auto) 26.1 x10^3/uL (1.8-7.7) Lymphocytes # (Auto) 2.0 x10^3/uL (1.0-4.8) Monocytes # (Auto) 0.8 x10^3/uL (0.0-1.1) Eosinophils # (Auto) 0.0 x10^3/uL (0.0-0.7) Basophils # (Auto) 0.1 x10^3/uL (0.0-0.2) Segmented Neutrophils % 84 % (35-66) Band Neutrophils % 6 % (0-9) Lymphocytes % 8 % (24-48) Monocytes % 2 % (0-10) Platelet Estimate Increased (ADEQUATE) Prothrombin Time 13.2 SEC (11.7-14.0) Prothromb Time International Ratio 1.0 (0.8-1.1) Activated Partial Thromboplast Time 33 SEC (24-38) Sodium Level 133 mmol/L (136-145) Potassium Level 3.3 mmol/L (3.5-5.1) Chloride Level 96 mmol/L (98-107) Carbon Dioxide Level 27 mmol/L (21-32) Anion Gap 10 (6-14) Blood Urea Nitrogen 11 mg/dL (7-20) Creatinine 0.9 mg/dL (0.6-1.0) Estimated GFR (Cockcroft-Gault) 61.5 BUN/Creatinine Ratio 12 (6-20) Glucose Level 143 mg/dL (70-99) Calcium Level 9.0 mg/dL (8.5-10.1) Total Bilirubin 0.3 mg/dL (0.2-1.0) Aspartate Amino Transf (AST/SGOT) 13 U/L (15-37) Alanine Aminotransferase (ALT/SGPT) 13 U/L (14-59) Alkaline Phosphatase 147 U/L (46-116) Troponin I Quantitative < 0.017 ng/mL (0.000-0.055) Total Protein 6.9 g/dL (6.4-8.2) Albumin 2.1 g/dL (3.4-5.0) Albumin/Globulin Ratio 0.4 (1.0-1.7) Urine Collection Type Unknown Urine Color Yellow Urine Clarity Clear Urine pH 6.5 Urine Specific [place] 1.020 Urine Protein Negative mg/dL (NEG-TRACE) Urine Glucose (UA) Negative mg/dL (NEG) Urine Ketones (Stick) Negative mg/dL (NEG) Urine Blood Negative (NEG) Urine Nitrite Negative (NEG) Urine Bilirubin Negative (NEG) Urine Urobilinogen Dipstick 0.2 mg/dL (0.2 mg/dL) Urine Leukocyte Esterase Negative (NEG) Urine RBC 0 /HPF (0-2) Urine WBC 0 /HPF (0-4) Urine Squamous Epithelial Cells Many /LPF Urine Bacteria Moderate /HPF (0-FEW) Erythrocyte Sedimentation Rate 83 (0-25) Lactic Acid Level 2.1 mmol/L (0.4-2.0) 0.8 mmol/L (0.4-2.0) Test 10/07/18 07:50 White Blood Count 17.3 x10^3/uL (4.0-11.0) Red Blood Count 2.98 x10^6/uL (3.50-5.70) Hemoglobin 8.6 g/dL (12.0-15.5) Hematocrit 25.6 % (36.0-47.0) Mean Corpuscular Volume 89 fL (79-100) Mean Corpuscular Hemoglobin 30 pg (25-35) Mean Corpuscular Hemoglobin Concent 33 g/dL (31-37) Red Cell Distribution Width 16.1 % (11.5-14.5) Platelet Count 583 x10^3/uL (140-400) Neutrophils (%) (Auto) 79 % (31-73) Lymphocytes (%) (Auto) 15 % (24-48) Monocytes (%) (Auto) 5 % (0-9) Eosinophils (%) (Auto) 0 % (0-3) Basophils (%) (Auto) 0 % (0-3) Neutrophils # (Auto) 13.7 x10^3/uL (1.8-7.7) Lymphocytes # (Auto) 2.6 x10^3/uL (1.0-4.8) Monocytes # (Auto) 0.9 x10^3/uL (0.0-1.1) Eosinophils # (Auto) 0.0 x10^3/uL (0.0-0.7) Basophils # (Auto) 0.0 x10^3/uL (0.0-0.2) Absolute Reticulocyte Count 0.071 x10^6/uL (0.020-0.120) Percent Reticulocyte Count 2.4 % (0.5-2.3) Immature Reticulocyte Fraction 0.48 (0.20-0.60) Sodium Level 137 mmol/L (136-145) Potassium Level 3.8 mmol/L (3.5-5.1) Chloride Level 102 mmol/L (98-107) Carbon Dioxide Level 26 mmol/L (21-32) Anion Gap 9 (6-14) Blood Urea Nitrogen 9 mg/dL (7-20) Creatinine 0.8 mg/dL (0.6-1.0) Estimated GFR (Cockcroft-Gault) 70.5 Glucose Level 93 mg/dL (70-99) Calcium Level 8.6 mg/dL (8.5-10.1) Iron Level 28 ug/dL (50-170) Total Iron Binding Capacity 177 ug/dL (250-450) Iron Saturation 16 % (15-34) Vitamin B12 Level 451 pg/mL (247-911) Medications Current Medications Sodium Chloride 1,000 ml @ 1,000 mls/hr 1X ONCE IV Last administered on 10/06/18at 14:09; Start 10/06/18 at 14:00; Stop 10/06/18 at 14:59; Status DC Ondansetron HCl (Zofran) 4 mg 1X ONCE IV Last administered on 10/06/18at 14:09; Start 10/06/18 at 14:00; Stop 10/06/18 at 14:01; Status DC Iohexol (Omnipaque 350 Mg/ml) 100 ml 1X ONCE IV Last administered on 10/06/18at 16:15; Start 10/06/18 at 14:30; Stop 10/06/18 at 14:31; Status DC Info (CONTRAST GIVEN -- Rx MONITORING) 1 each PRN DAILY PRN MC SEE COMMENTS; Start 10/06/18 at 14:30; Stop 10/08/18 at 14:29 Vancomycin HCl 1.75 gm/Sodium Chloride 500 ml @ 250 mls/hr 1X ONCE IV Last administered on 10/06/18at 17:30; Start 10/06/18 at 15:45; Stop 10/06/18 at 17:44; Status DC Piperacillin Sod/ Tazobactam Sod 3.375 gm/Sodium Chloride 50 ml @ 100 mls/hr 1X ONCE IV Last administered on 10/06/18at 16:39; Start 10/06/18 at 15:45; Stop 10/06/18 at 16:14; Status DC Morphine Sulfate (Morphine Sulfate) 4 mg 1X ONCE IV Last administered on 10/06/18at 16:31; Start 10/06/18 at 16:15; Stop 10/06/18 at 16:16; Status DC Ondansetron HCl (Zofran) 4 mg PRN Q8HRS PRN IV NAUSEA/VOMITING; Start 10/06/18 at 16:45; Stop 10/07/18 at 16:44 Morphine Sulfate (Morphine Sulfate) 2 mg PRN Q2HR PRN IV PAIN; Start 10/06/18 at 16:45; Stop 10/06/18 at 16:49; Status DC Vancomycin HCl (Vanco Per Pharmacy) 1 each PRN DAILY PRN MC SEE COMMENTS Last administered on 10/06/18at 18:07; Start 10/06/18 at 17:00 Piperacillin Sod/ Tazobactam Sod (Zosyn Per Pharmacy) 1 each PRN DAILY PRN MC SEE COMMENTS; Start 10/06/18 at 17:00 Nicotine (Nicoderm Cq 21mg) 1 patch PRN DAILY PRN TD SMOKING CESSATION; Start 10/06/18 at 17:00 Sodium Chloride 1,000 ml @ 100 mls/hr Q10H IV Last administered on 10/06/18at 20:54; Start 10/06/18 at 17:00 Acetaminophen/ Codeine Phosphate (Tylenol #3) 1 tab PRN Q6HRS PRN PO PAIN; Start 10/06/18 at 17:00 Guaifenesin (Robitussin Dm) 10 ml PRN Q6HRS PRN PO COUGH; Start 10/06/18 at 17:00 Temazepam (Restoril) 7.5 mg PRN QHS PRN PO INSOMNIA; Start 10/06/18 at 17:00 Morphine Sulfate (Morphine Sulfate) 1 mg PRN Q2HR PRN IV PAIN; Start 10/06/18 at 17:00 Potassium Chloride (Klor-Con) 40 meq 1X ONCE PO Last administered on 10/06/18at 18:25; Start 10/06/18 at 17:00; Stop 10/06/18 at 17:01; Status DC Atorvastatin Calcium (Lipitor) 10 mg HS PO Last administered on 10/06/18at 20:54; Start 10/06/18 at 21:00 Polyethylene Glycol (miraLAX PACKET) 17 gm DAILY PO ; Start 10/07/18 at 09:00 Tramadol HCl (Ultram) 100 mg PRN Q6HRS PRN PO PAIN Last administered on 10/07/18at 06:42; Start 10/06/18 at 17:00 Triamterene/HCTZ (Maxzide 37.5/ 25mg) 1 tab DAILY PO ; Start 10/07/18 at 09:00 Cyclobenzaprine HCl (Flexeril) 5 mg TID PO Last administered on 10/06/18at 20:54; Start 10/06/18 at 21:00 Duloxetine HCl (Cymbalta) 60 mg DAILY PO ; Start 10/07/18 at 09:00 Psyllium Hydrophilic Mucilloid (Metamucil Fiber Packet) 1 pkt QHS PO ; Start 10/06/18 at 21:00 Zolpidem Tartrate (Ambien) 5 mg QHS PO Last administered on 10/06/18at 20:54; Start 10/06/18 at 21:00 Lisinopril (Prinivil) 40 mg DAILY PO ; Start 10/07/18 at 09:00 Latanoprost (Xalatan) 1 drop QHS OU Last administered on 10/06/18at 20:54; Start 10/06/18 at 21:00 Zolpidem Tartrate (Ambien) 5 mg PRN QHS PRN PO CONTINUED INSOMNIA; Start 10/06/18 at 21:00 Sodium Chloride 1,000 ml @ 1,000 mls/hr 1X ONCE IV Last administered on 10/06/18at 18:25; Start 10/06/18 at 18:00; Stop 10/06/18 at 18:59; Status DC Vancomycin HCl 1.25 gm/Sodium Chloride 250 ml @ 167 mls/hr Q24H IV ; Start 10/07/18 at 18:00 Vancomycin HCl (Vancomycin Trough Level) 1 each 1X ONCE MC ; Start 10/08/18 at 17:30; Stop 10/08/18 at 17:31 Piperacillin Sod/ Tazobactam Sod 3.375 gm/Sodium Chloride 50 ml @ 100 mls/hr Q6HRS IV Last administered on 10/07/18at 06:02; Start 10/07/18 at 00:00 Nicotine (Nicoderm Cq 21mg) 1 patch PRN DAILY PRN TD SMOKING CESSATION; Start 10/06/18 at 19:45; Status UNV Docusate Sodium (Colace) 100 mg PRN DAILY PRN PO CONSTIPATION; Start 10/07/18 at 09:45; Status UNV Polyethylene Glycol (miraLAX PACKET) 17 gm PRN DAILY PRN PO CONSTIPATION; Start 10/07/18 at 09:45; Status UNV Active Scripts Active Reported Ipratropium [place] 0.2 Mg/1 Ml Solution 1 Vial NEB Q4HRS PRN Imodium A-D (Loperamide HCl) 2 Mg Capsule 2 Mg PO Q12HR PRN Acetaminophen 500 Mg Tablet 2 Tab PO TID PRN PRN Cyclobenzaprine Hcl 5 Mg Tablet 1 Tab PO TID Lipitor (Atorvastatin Calcium) 10 Mg Tablet Unknown Dose PO HS Triamterene-Hctz 37.5-25 Mg Tb (Triamterene/Hydrochlorothiazid) 1 Each Tablet 1 Tab PO DAILY Accupril (Quinapril Hcl) 40 Mg Tablet 1 Tab PO DAILY Tramadol Hcl 50 Mg Tablet 2 Tab PO PRN Q6HRS Travatan Z (Travoprost) 5 Ml Drops 1 Drop EACHEYE QHS Zolpidem Tartrate 10 Mg Tablet 1 Tab PO QHS Metamucil Plus Calcium Capsule (Psyllium Husk/Ca Carbonate) 1 Each Capsule 2 Each PO HS Cymbalta (Duloxetine Hcl) 60 Mg Capsule.dr 1 Cap PO DAILY Estradiol 0.5 Mg Tablet 0.5 Mg PO Vitals/I & O Vital Sign - Last 24 Hours 10/06/18 10/06/18 10/06/18 10/06/18 13:34 14:00 15:00 16:00 Temp 98.3 98.3 Pulse 110 106 113 112 Resp 18 18 18 18 B/P (MAP) 122/63 (82) 115/60 (78) 130/60 (83) 118/62 (80) Pulse Ox 95 97 97 96 O2 Delivery Nasal Cannula Nasal Cannula Nasal Cannula Nasal Cannula O2 Flow Rate 2.0 2.0 2.0 2.0 10/06/18 10/06/18 10/06/18 10/06/18 16:31 17:00 17:30 18:00 Pulse 106 108 106 Resp 16 18 18 18 B/P (MAP) 131/63 (85) 113/64 (80) 117/56 (76) Pulse Ox 94 99 95 96 O2 Delivery Room Air Nasal Cannula Nasal Cannula Nasal Cannula O2 Flow Rate 2.0 2.0 2.0 10/06/18 10/06/18 10/06/18 10/06/18 19:00 19:30 20:00 20:54 Temp 98.2 98.2 Pulse 106 101 Resp 18 20 18 B/P (MAP) 135/61 (85) 114/64 (81) Pulse Ox 96 97 97 O2 Delivery Nasal Cannula Nasal Cannula Nasal Cannula O2 Flow Rate 2.0 2.0 2.0 2.0 10/06/18 10/06/18 10/07/18 10/07/18 22:10 23:09 03:41 06:42 Temp 98.2 98.7 98.2 98.7 Pulse 99 103 Resp 16 20 16 16 B/P (MAP) 100/56 (71) 93/53 (66) Pulse Ox 97 98 95 95 O2 Delivery Nasal Cannula Nasal Cannula Nasal Cannula O2 Flow Rate 2.0 2.0 2.0 2.0 10/07/18 07:00 Temp 98.5 98.5 Pulse 104 Resp 18 B/P (MAP) 103/57 (72) Pulse Ox 97 O2 Delivery Nasal Cannula O2 Flow Rate 2.0 VANDANA MOSLEY MD Oct 07, 2018 09:52
--- NOTE | 2018-10-07 09:53 | PDOC2 ---
CONSULT Date of Consult Date of Consult DATE: 10/07/18 TIME: 09:45 Reason for consultation: Lung mass Consult: Hematology oncology, Dr. Elaine Townsend History of present illness: She is a 73-year-old female who is admitted with a chest mass, she has some chest pain, at the left lower chest, extending to the right lower chest and around to the back, it is acute, has been here for several days, she's not sure how many, it is associated with some dyspnea and constipat ion, she is improved with 2 L of nasal cannula oxygen, pain pills have helped somewhat as well, and unfortunately she is noted to have a left endobronchial lesion with consolidation and possible mediastinal invasion and small left effusion, she has had sputum production this morning, low-grade fevers, and is being treated for possible pneumonia. Pulmonary has been consulted. She tells me she had pneumonia in June as well when she was admitted for diverticulitis. Past medical history: Pneumonia Hypertension Diverticulitis Lung mass Back pain chronic Depression Tobacco abuse Spina bifida occulta poss COPD Past surgical history: Tonsillectomy Hysterectomy Back surgery times four as an adult for spina bifida occulta Allergies: No known drug allergies Medications: See attached list Social history: Lives at the [facility], tobacco abuse with one pack per day since 18 years old until June 2018 Family history: Sister with breast cancer Review of systems: Urination slower than usual, pneumonia back in June, low-grade fever, sputum production, memory loss, weight loss, phlegm, chest pain, trouble breathing, constipation, occasional nausea, chronic back pain, and chronic right greater than left edema related to spina bifida, otherwise 10 point review of systems negative Physical exam: Vitals reviewed Gen.: Elderly female resting in bed in no acute distress HEENT: mucous membranes moist, head normocephalic atraumatic Neck: Supple, no lymphadenopathy Lymph nodes: No palpable lymphadenopathy neck or axilla Lungs: Breathing comfortably on 2 L nasal cannula without respiratory distress Abdomen: Soft, nontender, nondistended Extremities: No cyanosis, does have chronic mild bilateral lower extremity edema right greater than left, her usual Skin: No obvious rashes or skin breakdown Neuro: Alert and oriented �3 though slow to answer questions Psych: Pleasant mood and affect Lab reviewed: White count 29,000, hemoglobin 9.8, platelet 681, MCV of 89 Lactate decreased to 0.8 Creatinine 0.9 Coag's normal Troponin negative ESR 83 ALT and AST low, normal T bili, alkaline phosphatase slightly increased at 147 Rads reviewed: CTA with no PE, left upper lobe endobronchial lesion?, consolidation, mediastinal lymphadenopathy ipsilateral, small left effusion Case discussed with: Patient, records reviewed in [facility], including labs and radiology, please see notes for summary details. Assessment and Plan: She is a 73-year-old female with left endobronchial lesion and consolidation being treated for infection with concern for malignancy with heavy smoking in the past. Lung consolidation, elevated white count, sputum production, low-grade fever, being treated with antibiotics for pneumonia Concern for lung cancer: Pulmonary has been consulted, question bronchoscopy for biopsy? We'll follow-up after path obtained Constipation: Added Colace and MiraLAX when necessary Prophylaxis: Would recommend Lovenox prophylaxis after procedures done Anemia and thrombocytosis: We'll check iron labs and anemia labs Disposition: After continued clinical improvement Thank you kindly for this consultation, I will return on Friday morning but I am available in the interim for questions as needed. Past Medical History Cardiovascular: HTN, Hyperlipidemia Pulmonary: No pertinent hx GI: No pertinent hx Heme/Onc: No pertinent hx Hepatobiliary: No pertinent hx Psych: No pertinent hx Musculoskeletal: low back pain, Osteoarthritis Rheumatologic: No pertinent hx Infectious disease: No pertinent hx Renal/: No pertinent hx Endocrine: No pertinent hx Past Surgical History Past Surgical History: Tonsillectomy, Hysterectomy, Other Family History Family History: Family History Unknown Social History Quit ALCOHOL: none Drugs: None Current Problem List Problem List Problems Medical Problems: (1) Leukocytosis Status: Acute (2) Mass in chest Status: Acute Current Medications Current Medications Current Medications Sodium Chloride 1,000 ml @ 1,000 mls/hr 1X ONCE IV Last administered on 10/06/18at 14:09; Start 10/06/18 at 14:00; Stop 10/06/18 at 14:59; Status DC Ondansetron HCl (Zofran) 4 mg 1X ONCE IV Last administered on 10/06/18at 14:09; Start 10/06/18 at 14:00; Stop 10/06/18 at 14:01; Status DC Iohexol (Omnipaque 350 Mg/ml) 100 ml 1X ONCE IV Last administered on 10/06/18at 16:15; Start 10/06/18 at 14:30; Stop 10/06/18 at 14:31; Status DC Info (CONTRAST GIVEN -- Rx MONITORING) 1 each PRN DAILY PRN MC SEE COMMENTS; Start 10/06/18 at 14:30; Stop 10/08/18 at 14:29 Vancomycin HCl 1.75 gm/Sodium Chloride 500 ml @ 250 mls/hr 1X ONCE IV Last administered on 10/06/18at 17:30; Start 10/06/18 at 15:45; Stop 10/06/18 at 17:44; Status DC Piperacillin Sod/ Tazobactam Sod 3.375 gm/Sodium Chloride 50 ml @ 100 mls/hr 1X ONCE IV Last administered on 10/06/18at 16:39; Start 10/06/18 at 15:45; Stop 10/06/18 at 16:14; Status DC Morphine Sulfate (Morphine Sulfate) 4 mg 1X ONCE IV Last administered on 10/06/18at 16:31; Start 10/06/18 at 16:15; Stop 10/06/18 at 16:16; Status DC Ondansetron HCl (Zofran) 4 mg PRN Q8HRS PRN IV NAUSEA/VOMITING; Start 10/06/18 at 16:45; Stop 10/07/18 at 16:44 Morphine Sulfate (Morphine Sulfate) 2 mg PRN Q2HR PRN IV PAIN; Start 10/06/18 at 16:45; Stop 10/06/18 at 16:49; Status DC Vancomycin HCl (Vanco Per Pharmacy) 1 each PRN DAILY PRN MC SEE COMMENTS Last administered on 10/06/18at 18:07; Start 10/06/18 at 17:00 Piperacillin Sod/ Tazobactam Sod (Zosyn Per Pharmacy) 1 each PRN DAILY PRN MC SEE COMMENTS; Start 10/06/18 at 17:00 Nicotine (Nicoderm Cq 21mg) 1 patch PRN DAILY PRN TD SMOKING CESSATION; Start 10/06/18 at 17:00 Sodium Chloride 1,000 ml @ 100 mls/hr Q10H IV Last administered on 10/06/18at 20:54; Start 10/06/18 at 17:00 Acetaminophen/ Codeine Phosphate (Tylenol #3) 1 tab PRN Q6HRS PRN PO PAIN; Start 10/06/18 at 17:00 Guaifenesin (Robitussin Dm) 10 ml PRN Q6HRS PRN PO COUGH; Start 10/06/18 at 17:00 Temazepam (Restoril) 7.5 mg PRN QHS PRN PO INSOMNIA; Start 10/06/18 at 17:00 Morphine Sulfate (Morphine Sulfate) 1 mg PRN Q2HR PRN IV PAIN; Start 10/06/18 at 17:00 Potassium Chloride (Klor-Con) 40 meq 1X ONCE PO Last administered on 10/06/18at 18:25; Start 10/06/18 at 17:00; Stop 10/06/18 at 17:01; Status DC Atorvastatin Calcium (Lipitor) 10 mg HS PO Last administered on 10/06/18at 20:54; Start 10/06/18 at 21:00 Polyethylene Glycol (miraLAX PACKET) 17 gm DAILY PO ; Start 10/07/18 at 09:00 Tramadol HCl (Ultram) 100 mg PRN Q6HRS PRN PO PAIN Last administered on 10/07/18at 06:42; Start 10/06/18 at 17:00 Triamterene/HCTZ (Maxzide 37.5/ 25mg) 1 tab DAILY PO ; Start 10/07/18 at 09:00 Cyclobenzaprine HCl (Flexeril) 5 mg TID PO Last administered on 10/06/18at 20:54; Start 10/06/18 at 21:00 Duloxetine HCl (Cymbalta) 60 mg DAILY PO ; Start 10/07/18 at 09:00 Psyllium Hydrophilic Mucilloid (Metamucil Fiber Packet) 1 pkt QHS PO ; Start 10/06/18 at 21:00 Zolpidem Tartrate (Ambien) 5 mg QHS PO Last administered on 10/06/18at 20:54; Start 10/06/18 at 21:00 Lisinopril (Prinivil) 40 mg DAILY PO ; Start 10/07/18 at 09:00 Latanoprost (Xalatan) 1 drop QHS OU Last administered on 10/06/18at 20:54; Sta rt 10/06/18 at 21:00 Zolpidem Tartrate (Ambien) 5 mg PRN QHS PRN PO CONTINUED INSOMNIA; Start 10/06/18 at 21:00 Sodium Chloride 1,000 ml @ 1,000 mls/hr 1X ONCE IV Last administered on 10/06/18at 18:25; Start 10/06/18 at 18:00; Stop 10/06/18 at 18:59; Status DC Vancomycin HCl 1.25 gm/Sodium Chloride 250 ml @ 167 mls/hr Q24H IV ; Start 10/07/18 at 18:00 Vancomycin HCl (Vancomycin Trough Level) 1 each 1X ONCE MC ; Start 10/08/18 at 17:30; Stop 10/08/18 at 17:31 Piperacillin Sod/ Tazobactam Sod 3.375 gm/Sodium Chloride 50 ml @ 100 mls/hr Q6HRS IV Last administered on 10/07/18at 06:02; Start 10/07/18 at 00:00 Nicotine (Nicoderm Cq 21mg) 1 patch PRN DAILY PRN TD SMOKING CESSATION; Start 10/06/18 at 19:45; Status UNV Active Scripts Active Reported Ipratropium [place] 0.2 Mg/1 Ml Solution 1 Vial NEB Q4HRS PRN Imodium A-D (Loperamide HCl) 2 Mg Capsule 2 Mg PO Q12HR PRN Acetaminophen 500 Mg Tablet 2 Tab PO TID PRN PRN Cyclobenzaprine Hcl 5 Mg Tablet 1 Tab PO TID Lipitor (Atorvastatin Calcium) 10 Mg Tablet Unknown Dose PO HS Triamterene-Hctz 37.5-25 Mg Tb (Triamterene/Hydrochlorothiazid) 1 Each Tablet 1 Tab PO DAILY Accupril (Quinapril Hcl) 40 Mg Tablet 1 Tab PO DAILY Tramadol Hcl 50 Mg Tablet 2 Tab PO PRN Q6HRS Travatan Z (Travoprost) 5 Ml Drops 1 Drop EACHEYE QHS Zolpidem Tartrate 10 Mg Tablet 1 Tab PO QHS Metamucil Plus Calcium Capsule (Psyllium Husk/Ca Carbonate) 1 Each Capsule 2 Each PO HS Cymbalta (Duloxetine Hcl) 60 Mg Capsule.dr 1 Cap PO DAILY Estradiol 0.5 Mg Tablet 0.5 Mg PO Allergies Allergies: Coded Allergies: No Known Drug Allergies (Unverified , 05/27/13) Vitals VITALS Vital Signs Date Time Temp Pulse Resp B/P (MAP) Pulse Ox O2 Delivery O2 Flow Rate FiO2 10/07/18 07:00 98.5 104 18 103/57 (72) 97 Nasal Cannula 2.0 98.5 Labs Labs Laboratory Tests Test 10/06/18 14:00 10/06/18 15:30 10/06/18 16:25 10/06/18 20:15 White Blood Count 29.0 x10^3/uL (4.0-11.0) Red Blood Count 3.31 x10^6/uL (3.50-5.40) Hemoglobin 9.8 g/dL (12.0-15.5) Hematocrit 29.3 % (36.0-47.0) Mean Corpuscular Volume 89 fL (79-100) Mean Corpuscular Hemoglobin 30 pg (25-35) Mean Corpuscular Hemoglobin Concent 34 g/dL (31-37) Red Cell Distribution Width 16.2 % (11.5-14.5) Platelet Count 681 x10^3/uL (140-400) Neutrophils (%) (Auto) 90 % (31-73) Lymphocytes (%) (Auto) 7 % (24-48) Monocytes (%) (Auto) 3 % (0-9) Eosinophils (%) (Auto) 0 % (0-3) Basophils (%) (Auto) 0 % (0-3) Neutrophils # (Auto) 26.1 x10^3/uL (1.8-7.7) Lymphocytes # (Auto) 2.0 x10^3/uL (1.0-4.8) Monocytes # (Auto) 0.8 x10^3/uL (0.0-1.1) Eosinophils # (Auto) 0.0 x10^3/uL (0.0-0.7) Basophils # (Auto) 0.1 x10^3/uL (0.0-0.2) Segmented Neutrophils % 84 % (35-66) Band Neutrophils % 6 % (0-9) Lymphocytes % 8 % (24-48) Monocytes % 2 % (0-10) Platelet Estimate Increased (ADEQUATE) Prothrombin Time 13.2 SEC (11.7-14.0) Prothromb Time International Ratio 1.0 (0.8-1.1) Activated Partial Thromboplast Time 33 SEC (24-38) Sodium Level 133 mmol/L (136-145) Potassium Level 3.3 mmol/L (3.5-5.1) Chloride Level 96 mmol/L (98-107) Carbon Dioxide Level 27 mmol/L (21-32) Anion Gap 10 (6-14) Blood Urea Nitrogen 11 mg/dL (7-20) Creatinine 0.9 mg/dL (0.6-1.0) Estimated GFR (Cockcroft-Gault) 61.5 BUN/Creatinine Ratio 12 (6-20) Glucose Level 143 mg/dL (70-99) Calcium Level 9.0 mg/dL (8.5-10.1) Total Bilirubin 0.3 mg/dL (0.2-1.0) Aspartate Amino Transf (AST/SGOT) 13 U/L (15-37) Alanine Aminotransferase (ALT/SGPT) 13 U/L (14-59) Alkaline Phosphatase 147 U/L (46-116) Troponin I Quantitative < 0.017 ng/mL (0.000-0.055) Total Protein 6.9 g/dL (6.4-8.2) Albumin 2.1 g/dL (3.4-5.0) Albumin/Globulin Ratio 0.4 (1.0-1.7) Urine Collection Type Unknown Urine Color Yellow Urine Clarity Clear Urine pH 6.5 Urine Specific [place] 1.020 Urine Protein Negative mg/dL (NEG-TRACE) Urine Glucose (UA) Negative mg/dL (NEG) Urine Ketones (Stick) Negative mg/dL (NEG) Urine Blood Negative (NEG) Urine Nitrite Negative (NEG) Urine Bilirubin Negative (NEG) Urine Urobilinogen Dipstick 0.2 mg/dL (0.2 mg/dL) Urine Leukocyte Esterase Negative (NEG) Urine RBC 0 /HPF (0-2) Urine WBC 0 /HPF (0-4) Urine Squamous Epithelial Cells Many /LPF Urine Bacteria Moderate /HPF (0-FEW) Erythrocyte Sedimentation Rate 83 (0-25) Lactic Acid Level 2.1 mmol/L (0.4-2.0) 0.8 mmol/L (0.4-2.0) Test 10/07/18 07:50 White Blood Count 17.3 x10^3/uL (4.0-11.0) Red Blood Count 2.98 x10^6/uL (3.50-5.70) Hemoglobin 8.6 g/dL (12.0-15.5) Hematocrit 25.6 % (36.0-47.0) Mean Corpuscular Volume 89 fL (79-100) Mean Corpuscular Hemoglobin 30 pg (25-35) Mean Corpuscular Hemoglobin Concent 33 g/dL (31-37) Red Cell Distribution Width 16.1 % (11.5-14.5) Platelet Count 583 x10^3/uL (140-400) Neutrophils (%) (Auto) 79 % (31-73) Lymphocytes (%) (Auto) 15 % (24-48) Monocytes (%) (Auto) 5 % (0-9) Eosinophils (%) (Auto) 0 % (0-3) Basophils (%) (Auto) 0 % (0-3) Neutrophils # (Auto) 13.7 x10^3/uL (1.8-7.7) Lymphocytes # (Auto) 2.6 x10^3/uL (1.0-4.8) Monocytes # (Auto) 0.9 x10^3/uL (0.0-1.1) Eosinophils # (Auto) 0.0 x10^3/uL (0.0-0.7) Basophils # (Auto) 0.0 x10^3/uL (0.0-0.2) Absolute Reticulocyte Count 0.071 x10^6/uL (0.020-0.120) Percent Reticulocyte Count 2.4 % (0.5-2.3) Immature Reticulocyte Fraction 0.48 (0.20-0.60) Sodium Level 137 mmol/L (136-145) Potassium Level 3.8 mmol/L (3.5-5.1) Chloride Level 102 mmol/L (98-107) Carbon Dioxide Level 26 mmol/L (21-32) Anion Gap 9 (6-14) Blood Urea Nitrogen 9 mg/dL (7-20) Creatinine 0.8 mg/dL (0.6-1.0) Estimated GFR (Cockcroft-Gault) 70.5 Glucose Level 93 mg/dL (70-99) Calcium Level 8.6 mg/dL (8.5-10.1) Iron Level 28 ug/dL (50-170) Total Iron Binding Capacity 177 ug/dL (250-450) Iron Saturation 16 % (15-34) Laboratory Tests Test 10/06/18 14:00 8/13/19 15:30 10/06/18 16:25 10/06/18 20:15 White Blood Count 29.0 x10^3/uL (4.0-11.0) Red Blood Count 3.31 x10^6/uL (3.50-5.40) Hemoglobin 9.8 g/dL (12.0-15.5) Hematocrit 29.3 % (36.0-47.0) Mean Corpuscular Volume 89 fL (79-100) Mean Corpuscular Hemoglobin 30 pg (25-35) Mean Corpuscular Hemoglobin Concent 34 g/dL (31-37) Red Cell Distribution Width 16.2 % (11.5-14.5) Platelet Count 681 x10^3/uL (140-400) Neutrophils (%) (Auto) 90 % (31-73) Lymphocytes (%) (Auto) 7 % (24-48) Monocytes (%) (Auto) 3 % (0-9) Eosinophils (%) (Auto) 0 % (0-3) Basophils (%) (Auto) 0 % (0-3) Neutrophils # (Auto) 26.1 x10^3/uL (1.8-7.7) Lymphocytes # (Auto) 2.0 x10^3/uL (1.0-4.8) Monocytes # (Auto) 0.8 x10^3/uL (0.0-1.1) Eosinophils # (Auto) 0.0 x10^3/uL (0.0-0.7) Basophils # (Auto) 0.1 x10^3/uL (0.0-0.2) Segmented Neutrophils % 84 % (35-66) Band Neutrophils % 6 % (0-9) Lymphocytes % 8 % (24-48) Monocytes % 2 % (0-10) Platelet Estimate Increased (ADEQUATE) Prothrombin Time 13.2 SEC (11.7-14.0) Prothromb Time International Ratio 1.0 (0.8-1.1) Activated Partial Thromboplast Time 33 SEC (24-38) Sodium Level 133 mmol/L (136-145) Potassium Level 3.3 mmol/L (3.5-5.1) Chloride Level 96 mmol/L (98-107) Carbon Dioxide Level 27 mmol/L (21-32) Anion Gap 10 (6-14) Blood Urea Nitrogen 11 mg/dL (7-20) Creatinine 0.9 mg/dL (0.6-1.0) Estimated GFR (Cockcroft-Gault) 61.5 BUN/Creatinine Ratio 12 (6-20) Glucose Level 143 mg/dL (70-99) Calcium Level 9.0 mg/dL (8.5-10.1) Total Bilirubin 0.3 mg/dL (0.2-1.0) Aspartate Amino Transf (AST/SGOT) 13 U/L (15-37) Alanine Aminotransferase (ALT/SGPT) 13 U/L (14-59) Alkaline Phosphatase 147 U/L (46-116) Troponin I Quantitative < 0.017 ng/mL (0.000-0.055) Total Protein 6.9 g/dL (6.4-8.2) Albumin 2.1 g/dL (3.4-5.0) Albumin/Globulin Ratio 0.4 (1.0-1.7) Urine Collection Type Unknown Urine Color Yellow Urine Clarity Clear Urine pH 6.5 Urine Specific [place] 1.020 Urine Protein Negative mg/dL (NEG-TRACE) Urine Glucose (UA) Negative mg/dL (NEG) Urine Ketones (Stick) Negative mg/dL (NEG) Urine Blood Negative (NEG) Urine Nitrite Negative (NEG) Urine Bilirubin Negative (NEG) Urine Urobilinogen Dipstick 0.2 mg/dL (0.2 mg/dL) Urine Leukocyte Esterase Negative (NEG) Urine RBC 0 /HPF (0-2) Urine WBC 0 /HPF (0-4) Urine Squamous Epithelial Cells Many /LPF Urine Bacteria Moderate /HPF (0-FEW) Erythrocyte Sedimentation Rate 83 (0-25) Lactic Acid Level 2.1 mmol/L (0.4-2.0) 0.8 mmol/L (0.4-2.0) Test 10/07/18 07:50 White Blood Count 17.3 x10^3/uL (4.0-11.0) Red Blood Count 2.98 x10^6/uL (3.50-5.70) Hemoglobin 8.6 g/dL (12.0-15.5) Hematocrit 25.6 % (36.0-47.0) Mean Corpuscular Volume 89 fL (79-100) Mean Corpuscular Hemoglobin 30 pg (25-35) Mean Corpuscular Hemoglobin Concent 33 g/dL (31-37) Red Cell Distribution Width 16.1 % (11.5-14.5) Platelet Count 583 x10^3/uL (140-400) Neutrophils (%) (Auto) 79 % (31-73) Lymphocytes (%) (Auto) 15 % (24-48) Monocytes (%) (Auto) 5 % (0-9) Eosinophils (%) (Auto) 0 % (0-3) Basophils (%) (Auto) 0 % (0-3) Neutrophils # (Auto) 13.7 x10^3/uL (1.8-7.7) Lymphocytes # (Auto) 2.6 x10^3/uL (1.0-4.8) Monocytes # (Auto) 0.9 x10^3/uL (0.0-1.1) Eosinophils # (Auto) 0.0 x10^3/uL (0.0-0.7) Basophils # (Auto) 0.0 x10^3/uL (0.0-0.2) Absolute Reticulocyte Count 0.071 x10^6/uL (0.020-0.120) Percent Reticulocyte Count 2.4 % (0.5-2.3) Immature Reticulocyte Fraction 0.48 (0.20-0.60) Sodium Level 137 mmol/L (136-145) Potassium Level 3.8 mmol/L (3.5-5.1) Chloride Level 102 mmol/L (98-107) Carbon Dioxide Level 26 mmol/L (21-32) Anion Gap 9 (6-14) Blood Urea Nitrogen 9 mg/dL (7-20) Creatinine 0.8 mg/dL (0.6-1.0) Estimated GFR (Cockcroft-Gault) 70.5 Glucose Level 93 mg/dL (70-99) Calcium Level 8.6 mg/dL (8.5-10.1) Iron Level 28 ug/dL (50-170) Total Iron Binding Capacity 177 ug/dL (250-450) Iron Saturation 16 % (15-34) ELAINE TOWNSEND MD Oct 07, 2018 09:53
[2018-10-07 11:00] VITALS: BP 104/59
[2018-10-07] MEDS: LISINOPRIL 20 MG TABLET PO SCH (11:33)
[2018-10-07] MEDS: TRIAMTERENE/HCTZ 37.5/25MG TABLET. PO SCH (11:33)
[2018-10-07] MEDS: DULoxetine HCL 30 MG CAPSULE.DR PO SCH (11:33)
[2018-10-07] MEDS: CYCLOBENZAPRINE 10 MG TABLET. PO SCH ×3 (11:34→22:23)
[2018-10-07] MEDS: POLYETHYLENE GLYCOL 3350 17 GM PACKET. PO SCH (11:35)
[2018-10-07] MEDS: VANCOMYCIN PER PHARMACY MC PRN (12:57)
--- NOTE | 2018-10-07 14:53 | NUR ---
SW following pt for dc planning. Chart reviewed and discussed with RN. Pt lives at [facility], phone: , fax: [phone]. Oncology following. PT/OT pending. SW will continue to follow pt.
[2018-10-07 15:00] VITALS: BP 130/54
--- NOTE | 2018-10-07 17:42 | PDOC ---
PULMONARY PROGRESS NOTES Vitals Vital Signs Date Time Temp Pulse Resp B/P (MAP) Pulse Ox O2 Delivery O2 Flow Rate FiO2 10/07/18 15:00 98.8 111 18 130/54 (79) 93 Nasal Cannula 2.0 98.8 Lungs: Clear Cardiovascular: S1, S2 Labs Laboratory Tests Test 10/06/18 14:00 10/06/18 15:30 10/06/18 16:25 10/06/18 20:15 White Blood Count 29.0 x10^3/uL (4.0-11.0) Red Blood Count 3.31 x10^6/uL (3.50-5.40) Hemoglobin 9.8 g/dL (12.0-15.5) Hematocrit 29.3 % (36.0-47.0) Mean Corpuscular Volume 89 fL (79-100) Mean Corpuscular Hemoglobin 30 pg (25-35) Mean Corpuscular Hemoglobin Concent 34 g/dL (31-37) Red Cell Distribution Width 16.2 % (11.5-14.5) Platelet Count 681 x10^3/uL (140-400) Neutrophils (%) (Auto) 90 % (31-73) Lymphocytes (%) (Auto) 7 % (24-48) Monocytes (%) (Auto) 3 % (0-9) Eosinophils (%) (Auto) 0 % (0-3) Basophils (%) (Auto) 0 % (0-3) Neutrophils # (Auto) 26.1 x10^3/uL (1.8-7.7) Lymphocytes # (Auto) 2.0 x10^3/uL (1.0-4.8) Monocytes # (Auto) 0.8 x10^3/uL (0.0-1.1) Eosinophils # (Auto) 0.0 x10^3/uL (0.0-0.7) Basophils # (Auto) 0.1 x10^3/uL (0.0-0.2) Segmented Neutrophils % 84 % (35-66) Band Neutrophils % 6 % (0-9) Lymphocytes % 8 % (24-48) Monocytes % 2 % (0-10) Platelet Estimate Increased (ADEQUATE) Prothrombin Time 13.2 SEC (11.7-14.0) Prothromb Time International Ratio 1.0 (0.8-1.1) Activated Partial Thromboplast Time 33 SEC (24-38) Sodium Level 133 mmol/L (136-145) Potassium Level 3.3 mmol/L (3.5-5.1) Chloride Level 96 mmol/L (98-107) Carbon Dioxide Level 27 mmol/L (21-32) Anion Gap 10 (6-14) Blood Urea Nitrogen 11 mg/dL (7-20) Creatinine 0.9 mg/dL (0.6-1.0) Estimated GFR (Cockcroft-Gault) 61.5 BUN/Creatinine Ratio 12 (6-20) Glucose Level 143 mg/dL (70-99) Calcium Level 9.0 mg/dL (8.5-10.1) Total Bilirubin 0.3 mg/dL (0.2-1.0) Aspartate Amino Transf (AST/SGOT) 13 U/L (15-37) Alanine Aminotransferase (ALT/SGPT) 13 U/L (14-59) Alkaline Phosphatase 147 U/L (46-116) Troponin I Quantitative < 0.017 ng/mL (0.000-0.055) Total Protein 6.9 g/dL (6.4-8.2) Albumin 2.1 g/dL (3.4-5.0) Albumin/Globulin Ratio 0.4 (1.0-1.7) Urine Collection Type Unknown Urine Color Yellow Urine Clarity Clear Urine pH 6.5 Urine Specific [place] 1.020 Urine Protein Negative mg/dL (NEG-TRACE) Urine Glucose (UA) Negative mg/dL (NEG) Urine Ketones (Stick) Negative mg/dL (NEG) Urine Blood Negative (NEG) Urine Nitrite Negative (NEG) Urine Bilirubin Negative (NEG) Urine Urobilinogen Dipstick 0.2 mg/dL (0.2 mg/dL) Urine Leukocyte Esterase Negative (NEG) Urine RBC 0 /HPF (0-2) Urine WBC 0 /HPF (0-4) Urine Squamous Epithelial Cells Many /LPF Urine Bacteria Moderate /HPF (0-FEW) Erythrocyte Sedimentation Rate 83 (0-25) Lactic Acid Level 2.1 mmol/L (0.4-2.0) 0.8 mmol/L (0.4-2.0) Test 10/07/18 07:50 White Blood Count 17.3 x10^3/uL (4.0-11.0) Red Blood Count 2.98 x10^6/uL (3.50-5.70) Hemoglobin 8.6 g/dL (12.0-15.5) Hematocrit 25.6 % (36.0-47.0) Mean Corpuscular Volume 89 fL (79-100) Mean Corpuscular Hemoglobin 30 pg (25-35) Mean Corpuscular Hemoglobin Concent 33 g/dL (31-37) Red Cell Distribution Width 16.1 % (11.5-14.5) Platelet Count 583 x10^3/uL (140-400) Neutrophils (%) (Auto) 79 % (31-73) Lymphocytes (%) (Auto) 15 % (24-48) Monocytes (%) (Auto) 5 % (0-9) Eosinophils (%) (Auto) 0 % (0-3) Basophils (%) (Auto) 0 % (0-3) Neutrophils # (Auto) 13.7 x10^3/uL (1.8-7.7) Lymphocytes # (Auto) 2.6 x10^3/uL (1.0-4.8) Monocytes # (Auto) 0.9 x10^3/uL (0.0-1.1) Eosinophils # (Auto) 0.0 x10^3/uL (0.0-0.7) Basophils # (Auto) 0.0 x10^3/uL (0.0-0.2) Absolute Reticulocyte Count 0.071 x10^6/uL (0.020-0.120) Percent Reticulocyte Count 2.4 % (0.5-2.3) Immature Reticulocyte Fraction 0.48 (0.20-0.60) Sodium Level 137 mmol/L (136-145) Potassium Level 3.8 mmol/L (3.5-5.1) Chloride Level 102 mmol/L (98-107) Carbon Dioxide Level 26 mmol/L (21-32) Anion Gap 9 (6-14) Blood Urea Nitrogen 9 mg/dL (7-20) Creatinine 0.8 mg/dL (0.6-1.0) Estimated GFR (Cockcroft-Gault) 70.5 Glucose Level 93 mg/dL (70-99) Calcium Level 8.6 mg/dL (8.5-10.1) Iron Level 28 ug/dL (50-170) Total Iron Binding Capacity 177 ug/dL (250-450) Iron Saturation 16 % (15-34) Ferritin 547 ng/mL (8-252) Vitamin B12 Level 451 pg/mL (247-911) Thyroid Stimulating Hormone (TSH) 1.031 uIU/mL (0.358-3.74) Laboratory Tests Test 10/06/18 20:15 10/07/18 07:50 Lactic Acid Level 0.8 mmol/L (0.4-2.0) White Blood Count 17.3 x10^3/uL (4.0-11.0) Red Blood Count 2.98 x10^6/uL (3.50-5.70) Hemoglobin 8.6 g/dL (12.0-15.5) Hematocrit 25.6 % (36.0-47.0) Mean Corpuscular Volume 89 fL (79-100) Mean Corpuscular Hemoglobin 30 pg (25-35) Mean Corpuscular Hemoglobin Concent 33 g/dL (31-37) Red Cell Distribution Width 16.1 % (11.5-14.5) Platelet Count 583 x10^3/uL (140-400) Neutrophils (%) (Auto) 79 % (31-73) Lymphocytes (%) (Auto) 15 % (24-48) Monocytes (%) (Auto) 5 % (0-9) Eosinophils (%) (Auto) 0 % (0-3) Basophils (%) (Auto) 0 % (0-3) Neutrophils # (Auto) 13.7 x10^3/uL (1.8-7.7) Lymphocytes # (Auto) 2.6 x10^3/uL (1.0-4.8) Monocytes # (Auto) 0.9 x10^3/uL (0.0-1.1) Eosinophils # (Auto) 0.0 x10^3/uL (0.0-0.7) Basophils # (Auto) 0.0 x10^3/uL (0.0-0.2) Absolute Reticulocyte Count 0.071 x10^6/uL (0.020-0.120) Percent Reticulocyte Count 2.4 % (0.5-2.3) Immature Reticulocyte Fraction 0.48 (0.20-0.60) Sodium Level 137 mmol/L (136-145) Potassium Level 3.8 mmol/L (3.5-5.1) Chloride Level 102 mmol/L (98-107) Carbon Dioxide Level 26 mmol/L (21-32) Anion Gap 9 (6-14) Blood Urea Nitrogen 9 mg/dL (7-20) Creatinine 0.8 mg/dL (0.6-1.0) Estimated GFR (Cockcroft-Gault) 70.5 Glucose Level 93 mg/dL (70-99) Calcium Level 8.6 mg/dL (8.5-10.1) Iron Level 28 ug/dL (50-170) Total Iron Binding Capacity 177 ug/dL (250-450) Iron Saturation 16 % (15-34) Ferritin 547 ng/mL (8-252) Vitamin B12 Level 451 pg/mL (247-911) Thyroid Stimulating Hormone (TSH) 1.031 uIU/mL (0.358-3.74) Medications Active Scripts Medications Dose Route/Sig Max Daily Dose Days Date Category Ipratropium [place] 0.2 Mg/1 Ml Solution 1 Vial NEB Q4HRS PRN 10/06/18 Reported Imodium A-D (Loperamide HCl) 2 Mg Capsule 2 Mg PO Q12HR PRN 10/06/18 Reported Acetaminophen 500 Mg Tablet 2 Tab PO TID PRN PRN 10/06/18 Reported Cyclobenzaprine Hcl 5 Mg Tablet 1 Tab PO TID 12/14/14 Reported Lipitor (Atorvastatin Calcium) 10 Mg Tablet Unknown Dose PO HS 12/14/14 Reported Triamterene-Hctz 37.5-25 Mg Tb (Triamterene/Hydrochlorothiazid) 1 Each Tablet 1 Tab PO DAILY 06/01/14 Reported Accupril (Quinapril Hcl) 40 Mg Tablet 1 Tab PO DAILY 06/01/14 Reported Tramadol Hcl 50 Mg Tablet 2 Tab PO PRN Q6HRS 06/01/14 Reported Travatan Z (Travoprost) 5 Ml Drops 1 Drop EACHEYE QHS 06/01/14 Reported Zolpidem Tartrate 10 Mg Tablet 1 Tab PO QHS 06/01/14 Reported Metamucil Plus Calcium Capsule (Psyllium Husk/Ca Carbonate) 1 Each Capsule 2 Each PO HS 06/01/14 Reported Cymbalta (Duloxetine Hcl) 60 Mg Capsule.dr 1 Cap PO DAILY 06/01/14 Reported Estradiol 0.5 Mg Tablet 0.5 Mg PO 05/27/13 Reported Impression . LUNG MASS BRONCH IN AM THANKS HEVER FORREST MD Oct 07, 2018 17:42
[2018-10-07] MEDS ORDERED: VANCOMYCIN 1.25 GM in IV NORMAL SALINE 250ML 250 ML IV SCH (18:00)
[2018-10-07] MEDS: ACETAMINOPHEN/CODEINE 300/30MG TABLET. PO PRN (18:05)
[2018-10-07 19:45] VITALS: BP 107/52
[2018-10-07] MEDS: ZOLPIDEM 5 MG TABLET. PO SCH (21:00)
[2018-10-07] MEDS: ATORVASTATIN CALCIUM 10 MG TABLET. PO SCH (21:04)
[2018-10-07] MEDS: LACTOBACILLUS RHAMNOSUS GG 1 CAPSULE. PO SCH (21:04)
[2018-10-07] MEDS: PSYLLIUM HUSK (SUGAR FREE) 1 PKT PACKET PO SCH (21:04)
[2018-10-07] MEDS: LATANOPROST 0.005% OPHTH SOLUTION 2.5ML BOTTLE. OU SCH (22:23)
[2018-10-07] MEDS: TEMAZEPAM 7.5 MG CAPSULE PO PRN (22:23)
[2018-10-07 23:02] VITALS: BP 91/49
[2018-10-08] MEDS: PIPERACILLIN/TAZOBACTAM 3.375 GM in IV NORMAL SALINE 50ML 50 ML IV SCH ×4 (00:05→17:48)
[2018-10-08] MEDS: IV NORMAL SALINE 1000ML BAG 1,000 ML IV SCH ×3 (01:10→20:19)
[2018-10-08 03:44] VITALS: BP 126/59
[2018-10-08 04:56] LABS: BASO # 0.1 x10^3/uL (0.0-0.2); BASO % 0 % (0-3); EOS # 0.1 x10^3/uL (0.0-0.7); EOS % 0 % (0-3); HEMATOCRIT 23.9 % (36.0-47.0); LYMPH # 2.9 x10^3/uL (1.0-4.8); LYMPH % 19 % (24-48); MEAN CORPUSCULAR HEMOGLOBIN 30 pg (25-35); MEAN CORPUSCULAR HGB CONC 34 g/dL (31-37); MEAN CORPUSCULAR VOLUME 89 fL (79-100); MONO # 0.8 x10^3/uL (0.0-1.1); MONO % 5 % (0-9); NEUT # 11.5 x10^3/uL (1.8-7.7); NEUT % 75 % (31-73); PLATELET COUNT 514 x10^3/uL (140-400); RED BLOOD COUNT 2.69 x10^6/uL (3.50-5.40); RED CELL DISTRIBUTION WIDTH 16.5 % (11.5-14.5); WHITE BLOOD COUNT 15.3 x10^3/uL (4.0-11.0)
[2018-10-08 05:32] LABS: ALBUMIN 1.6 g/dL (3.4-5.0); ALBUMIN/GLOBULIN RATIO 0.4 (1.0-1.7); CALCIUM 8.2 mg/dL (8.5-10.1); CREATININE 0.8 mg/dL (0.6-1.0); GFR 70.5; POTASSIUM 3.9 mmol/L (3.5-5.1); TOTAL BILIRUBIN 0.3 mg/dL (0.2-1.0); TOTAL PROTEIN 5.4 g/dL (6.4-8.2)
[2018-10-08] MEDS: MORPHINE SULFATE 2 MG/ML VIAL. IV PRN ×3 (06:20→15:56)
--- NOTE | 2018-10-08 06:27 | CONS ---
DATE OF CONSULTATION: 10/07/2018 ATTENDING PHYSICIAN: Catia Landeros MD REASON FOR CONSULTATION: The patient seen in pulmonary consultation at the request of Dr. Landeros for abnormal CT chest. HISTORY OF PRESENT ILLNESS: The patient is a 73-year-old that presented with shortness of breath and dizziness ongoing for approximately a month. She resides at an assisted living. She was having some difficulty with getting up. She had low blood pressure. She was more dizzy than usual. She also has some chronic pain. She was evaluated in the Emergency Room, underwent a CT angiogram. There was no evidence of pulmonary embolism. There was a large lung mass on the left side obstructing the left mainstem. It was extending into the mediastinum hilar region. There was a dense consolidation of the left upper lobe. There was subcarinal ipsilateral lymphadenopathy. I was asked to see her in consultation. PAST MEDICAL HISTORY: Remarkable for hypertension, diverticulitis, chronic back pain, depression, tobacco use, COPD. PAST SURGICAL HISTORY: She has had previous hysterectomy, back surgery. ALLERGIES: No known drug allergies. SOCIAL HISTORY: She lives at [facility]. Smoked for 1 pack a day for 17 years, quit in 06/2018. FAMILY HISTORY: No family history of lung cancer. There is family history of breast cancer. REVIEW OF SYSTEMS: As indicated above, otherwise a 10-point system was reviewed and negative. CURRENT MEDICATIONS: List was reviewed. ALLERGIES: No known drug allergies. PHYSICAL EXAMINATION: VITAL SIGNS: Stable. O2 saturation was greater than 92%. HEENT: Eyes, the sclerae were nonicteric. NECK: Jugular venous distention was not elevated. No lymphadenopathy. CHEST: Full expansion. LUNGS: Diminished breath sounds in the left. No wheezes. CARDIOVASCULAR: Regular rate and rhythm with S1, S2, no S3. ABDOMEN: Soft, nontender, nondistended. EXTREMITIES: No clubbing, cyanosis or edema. NEUROLOGIC: The patient was awake, alert, following commands. A detailed neuro exam was not performed. LABORATORY DATA: White count was elevated. Hemoglobin and hematocrit were noted. INR was 1.0. Electrolytes were noted. CT angiogram was reviewed as indicated above. IMPRESSION: 1. Left lung mass obstructing the left main stem bronchus. 2. Left upper lobe consolidation. 3. Subcarinal ipsilateral mediastinal lymphadenopathy. 4. Small left-sided effusion. 5. Chronic obstructive pulmonary disease. 6. Acute exacerbation of chronic obstructive pulmonary disease. 7. Postobstructive pneumonia. 8. Other comorbidities as listed above. PLAN: We will proceed with diagnostic bronchoscopy. I have reviewed the risks, benefits, and alternatives with the patient, she has consented. I am concerned that we may be dealing with a primary lung cancer. For now, continue current antibiotics. I will make further recommendations depending on the bronchoscopic evaluations and findings. HEVER FORREST MD DR: BENJAMIN/cory JOB#: [id number] / [id number]
[2018-10-08 07:47] VITALS: BP 113/58
[2018-10-08] MEDS: DULoxetine HCL 30 MG CAPSULE.DR PO SCH (09:00)
[2018-10-08] MEDS: LISINOPRIL 20 MG TABLET PO SCH (09:00)
[2018-10-08] MEDS: POLYETHYLENE GLYCOL 3350 17 GM PACKET. PO SCH (09:00)
[2018-10-08] MEDS: LACTOBACILLUS RHAMNOSUS GG 1 CAPSULE. PO SCH ×2 (09:00→20:20)
[2018-10-08] MEDS: TRIAMTERENE/HCTZ 37.5/25MG TABLET. PO SCH (09:00)
[2018-10-08] MEDS: CYCLOBENZAPRINE 10 MG TABLET. PO SCH ×3 (09:00→20:20)
--- NOTE | 2018-10-08 09:11 | NUR ---
Spoke with PAPER GRADER who reports that pt having difficulty with mobility and ADLs. Pt would benefit from PT/OT assessment to maximize functional indep and ensure safe discharge dispoistion. Please write PT/OT eval and treat orders if you agree. Addendum: 10/08/18 at 0912 by ANAND ALVAREZ PT Amended: Links added.
[2018-10-08] MEDS ORDERED: LIDOCAINE 2% VISCOUS 100 ML BOTTLE. MM PRN (09:15)
[2018-10-08] MEDS ORDERED: LIDOCAINE 1% Multi-Dose 20 ML VIAL. INJ PRN (09:15)
[2018-10-08] MEDS ORDERED: LIDOCAINE 4% TOPICAL 50 ML SOLUTION. MM PRN (09:15)
[2018-10-08] MEDS ORDERED: EPINEPHrine 1 MG/ML VIAL INJ PRN (09:15)
[2018-10-08] MEDS ORDERED: LIDOCAINE 4% TOPICAL 50 ML SOLUTION. ONE (09:23)
[2018-10-08] MEDS ORDERED: LIDOCAINE 1% Multi-Dose 20 ML VIAL. ONE (09:23)
[2018-10-08] MEDS ORDERED: EPINEPHrine 1 MG/ML VIAL ONE (09:23)
[2018-10-08] MEDS ORDERED: LIDOCAINE 2% VISCOUS 100 ML BOTTLE. ONE (09:23)
[2018-10-08] MEDS ORDERED: ALBUTEROL SULFATE 2.5 MG/3 ML NEBU. NEB ONE (09:30)
--- NOTE | 2018-10-08 10:36 | PDOC ---
Infectious Disease Note Vital Sign Vital Signs Vital Signs Date Time Temp Pulse Resp B/P (MAP) Pulse Ox O2 Delivery O2 Flow Rate FiO2 10/08/18 09:49 101 113/58 10/08/18 07:47 99.1 16 98 Nasal Cannula 2.0 99.1 Labs Lab Laboratory Tests Test 10/08/18 04:40 White Blood Count 15.3 x10^3/uL (4.0-11.0) Red Blood Count 2.69 x10^6/uL (3.50-5.40) Hemoglobin 8.0 g/dL (12.0-15.5) Hematocrit 23.9 % (36.0-47.0) Mean Corpuscular Volume 89 fL (79-100) Mean Corpuscular Hemoglobin 30 pg (25-35) Mean Corpuscular Hemoglobin Concent 34 g/dL (31-37) Red Cell Distribution Width 16.5 % (11.5-14.5) Platelet Count 514 x10^3/uL (140-400) Neutrophils (%) (Auto) 75 % (31-73) Lymphocytes (%) (Auto) 19 % (24-48) Monocytes (%) (Auto) 5 % (0-9) Eosinophils (%) (Auto) 0 % (0-3) Basophils (%) (Auto) 0 % (0-3) Neutrophils # (Auto) 11.5 x10^3/uL (1.8-7.7) Lymphocytes # (Auto) 2.9 x10^3/uL (1.0-4.8) Monocytes # (Auto) 0.8 x10^3/uL (0.0-1.1) Eosinophils # (Auto) 0.1 x10^3/uL (0.0-0.7) Basophils # (Auto) 0.1 x10^3/uL (0.0-0.2) Sodium Level 139 mmol/L (136-145) Potassium Level 3.9 mmol/L (3.5-5.1) Chloride Level 105 mmol/L (98-107) Carbon Dioxide Level 27 mmol/L (21-32) Anion Gap 7 (6-14) Blood Urea Nitrogen 6 mg/dL (7-20) Creatinine 0.8 mg/dL (0.6-1.0) Estimated GFR (Cockcroft-Gault) 70.5 BUN/Creatinine Ratio 8 (6-20) Glucose Level 93 mg/dL (70-99) Calcium Level 8.2 mg/dL (8.5-10.1) Total Bilirubin 0.3 mg/dL (0.2-1.0) Aspartate Amino Transf (AST/SGOT) 13 U/L (15-37) Alanine Aminotransferase (ALT/SGPT) 10 U/L (14-59) Alkaline Phosphatase 116 U/L (46-116) Total Protein 5.4 g/dL (6.4-8.2) Albumin 1.6 g/dL (3.4-5.0) Albumin/Globulin Ratio 0.4 (1.0-1.7) Micro Microbiology 10/06/18 Blood Culture - Preliminary, Resulted NO GROWTH AFTER 1 DAY Objective Assessment Post obstructive pneumonia Low grade fever Leukocytosis Suspected lung tumor COPD HTN Plan Plan of Care Continue zosyn d/c vanc bronch and culture and biopsy today supportive care MARYA SHARMA MD Oct 08, 2018 10:36
--- NOTE | 2018-10-08 11:04 | CONS ---
DATE OF CONSULTATION: 10/08/2018 REQUESTING PHYSICIAN: Dr. Key. REASON FOR CONSULTATION: Pneumonia. HISTORY OF PRESENT ILLNESS: This is a 73-year-old female who has a long history of heavy smoking, who came in with shortness of breath, dizziness. Denied any coughing up anything out. Denied any fever, nausea, vomiting, diarrhea, chest pain, abdominal pain, headache or visual symptoms. The patient was found to have a postobstructive pneumonia with possible endobronchial mass. She is started on vancomycin and Zosyn and planned to have bronchoscopy and biopsy today. The patient denies any other complaints. PAST MEDICAL HISTORY: Positive for COPD, hyperlipidemia, hypertension, spina bifida, chronic back problem, lumbar laminectomy, AP repair done. SOCIAL HISTORY: Positive for smoking until this May that she quit. Negative for drug use or alcohol use. ALLERGIES: No known drug allergies. CURRENT MEDICATIONS: Reviewed. REVIEW OF SYSTEMS: As per HPI, all other systems reviewed are negative. PHYSICAL EXAMINATION: GENERAL: Alert and oriented female, not in distress. VITAL SIGNS: Stable. T-max 99.1. HEENT: NAD. NECK: Supple, no JVP, no lymphadenopathy. LUNGS: Clear. HEART: S1, S2 regular. ABDOMEN: Benign. EXTREMITIES: No edema, cyanosis. SKIN: Unremarkable. NEUROLOGIC: Alert, awake and appropriate. No focal neurologic deficit. LABORATORY DATA: White count is 15.3, platelets are 514,000. BUN and creatinine is normal. Liver functions are normal. Albumin is 1.6. Urinalysis is unremarkable. Blood culture is negative. Chest CT showed obstructive pneumonia and possible endobronchial mass. IMPRESSION: 1. Postobstructive pneumonia, rule out malignancy. 2. Leukocytosis. 3. Low-grade fever. 4. Chronic obstructive pulmonary disease. 5. Hypertension. RECOMMENDATIONS: Continue Zosyn. We will discontinue vancomycin. Supportive care. Bronchoscopic biopsy and cultures are pending. We will continue to follow. Thank you very much, Dr. Key, for giving me the opportunity to participate in this patient's care. MARYA SHARMA MD DR: CARMINA/cory JOB#: [id number] / [id number]
[2018-10-08 11:16] VITALS: BP 122/59
--- NOTE | 2018-10-08 11:32 | PDOC ---
PULMONARY PROGRESS NOTES Subjective PT WITH NO NEW COMPLAINS NO CHEST PAIN Vitals Vital Signs Date Time Temp Pulse Resp B/P (MAP) Pulse Ox O2 Delivery O2 Flow Rate FiO2 10/08/18 11:16 99.4 110 18 122/59 (80) 98 Nasal Cannula 2.0 99.4 ROS: No Nausea, No Chest Pain, No Abdominal Pain, No Increase Cough Lungs: Crackles Cardiovascular: S1, S2 Abdomen: Soft, Non-tender Neuro Exam: Alert Extremities: No Edema Skin: Warm Labs Laboratory Tests Test 10/06/18 14:00 10/06/18 15:30 10/06/18 16:25 10/06/18 20:15 White Blood Count 29.0 x10^3/uL (4.0-11.0) Red Blood Count 3.31 x10^6/uL (3.50-5.40) Hemoglobin 9.8 g/dL (12.0-15.5) Hematocrit 29.3 % (36.0-47.0) Mean Corpuscular Volume 89 fL (79-100) Mean Corpuscular Hemoglobin 30 pg (25-35) Mean Corpuscular Hemoglobin Concent 34 g/dL (31-37) Red Cell Distribution Width 16.2 % (11.5-14.5) Platelet Count 681 x10^3/uL (140-400) Neutrophils (%) (Auto) 90 % (31-73) Lymphocytes (%) (Auto) 7 % (24-48) Monocytes (%) (Auto) 3 % (0-9) Eosinophils (%) (Auto) 0 % (0-3) Basophils (%) (Auto) 0 % (0-3) Neutrophils # (Auto) 26.1 x10^3/uL (1.8-7.7) Lymphocytes # (Auto) 2.0 x10^3/uL (1.0-4.8) Monocytes # (Auto) 0.8 x10^3/uL (0.0-1.1) Eosinophils # (Auto) 0.0 x10^3/uL (0.0-0.7) Basophils # (Auto) 0.1 x10^3/uL (0.0-0.2) Segmented Neutrophils % 84 % (35-66) Band Neutrophils % 6 % (0-9) Lymphocytes % 8 % (24-48) Monocytes % 2 % (0-10) Platelet Estimate Increased (ADEQUATE) Prothrombin Time 13.2 SEC (11.7-14.0) Prothromb Time International Ratio 1.0 (0.8-1.1) Activated Partial Thromboplast Time 33 SEC (24-38) Sodium Level 133 mmol/L (136-145) Potassium Level 3.3 mmol/L (3.5-5.1) Chloride Level 96 mmol/L (98-107) Carbon Dioxide Level 27 mmol/L (21-32) Anion Gap 10 (6-14) Blood Urea Nitrogen 11 mg/dL (7-20) Creatinine 0.9 mg/dL (0.6-1.0) Estimated GFR (Cockcroft-Gault) 61.5 BUN/Creatinine Ratio 12 (6-20) Glucose Level 143 mg/dL (70-99) Calcium Level 9.0 mg/dL (8.5-10.1) Total Bilirubin 0.3 mg/dL (0.2-1.0) Aspartate Amino Transf (AST/SGOT) 13 U/L (15-37) Alanine Aminotransferase (ALT/SGPT) 13 U/L (14-59) Alkaline Phosphatase 147 U/L (46-116) Troponin I Quantitative < 0.017 ng/mL (0.000-0.055) Total Protein 6.9 g/dL (6.4-8.2) Albumin 2.1 g/dL (3.4-5.0) Albumin/Globulin Ratio 0.4 (1.0-1.7) Urine Collection Type Unknown Urine Color Yellow Urine Clarity Clear Urine pH 6.5 Urine Specific [place] 1.020 Urine Protein Negative mg/dL (NEG-TRACE) Urine Glucose (UA) Negative mg/dL (NEG) Urine Ketones (Stick) Negative mg/dL (NEG) Urine Blood Negative (NEG) Urine Nitrite Negative (NEG) Urine Bilirubin Negative (NEG) Urine Urobilinogen Dipstick 0.2 mg/dL (0.2 mg/dL) Urine Leukocyte Esterase Negative (NEG) Urine RBC 0 /HPF (0-2) Urine WBC 0 /HPF (0-4) Urine Squamous Epithelial Cells Many /LPF Urine Bacteria Moderate /HPF (0-FEW) Erythrocyte Sedimentation Rate 83 (0-25) Lactic Acid Level 2.1 mmol/L (0.4-2.0) 0.8 mmol/L (0.4-2.0) Test 10/07/18 07:50 10/08/18 04:40 White Blood Count 17.3 x10^3/uL (4.0-11.0) 15.3 x10^3/uL (4.0-11.0) Red Blood Count 2.98 x10^6/uL (3.50-5.70) 2.69 x10^6/uL (3.50-5.40) Hemoglobin 8.6 g/dL (12.0-15.5) 8.0 g/dL (12.0-15.5) Hematocrit 25.6 % (36.0-47.0) 23.9 % (36.0-47.0) Mean Corpuscular Volume 89 fL (79-100) 89 fL (79-100) Mean Corpuscular Hemoglobin 30 pg (25-35) 30 pg (25-35) Mean Corpuscular Hemoglobin Concent 33 g/dL (31-37) 34 g/dL (31-37) Red Cell Distribution Width 16.1 % (11.5-14.5) 16.5 % (11.5-14.5) Platelet Count 583 x10^3/uL (140-400) 514 x10^3/uL (140-400) Neutrophils (%) (Auto) 79 % (31-73) 75 % (31-73) Lymphocytes (%) (Auto) 15 % (24-48) 19 % (24-48) Monocytes (%) (Auto) 5 % (0-9) 5 % (0-9) Eosinophils (%) (Auto) 0 % (0-3) 0 % (0-3) Basophils (%) (Auto) 0 % (0-3) 0 % (0-3) Neutrophils # (Auto) 13.7 x10^3/uL (1.8-7.7) 11.5 x10^3/uL (1.8-7.7) Lymphocytes # (Auto) 2.6 x10^3/uL (1.0-4.8) 2.9 x10^3/uL (1.0-4.8) Monocytes # (Auto) 0.9 x10^3/uL (0.0-1.1) 0.8 x10^3/uL (0.0-1.1) Eosinophils # (Auto) 0.0 x10^3/uL (0.0-0.7) 0.1 x10^3/uL (0.0-0.7) Basophils # (Auto) 0.0 x10^3/uL (0.0-0.2) 0.1 x10^3/uL (0.0-0.2) Absolute Reticulocyte Count 0.071 x10^6/uL (0.020-0.120) Percent Reticulocyte Count 2.4 % (0.5-2.3) Immature Reticulocyte Fraction 0.48 (0.20-0.60) Sodium Level 137 mmol/L (136-145) 139 mmol/L (136-145) Potassium Level 3.8 mmol/L (3.5-5.1) 3.9 mmol/L (3.5-5.1) Chloride Level 102 mmol/L (98-107) 105 mmol/L (98-107) Carbon Dioxide Level 26 mmol/L (21-32) 27 mmol/L (21-32) Anion Gap 9 (6-14) 7 (6-14) Blood Urea Nitrogen 9 mg/dL (7-20) 6 mg/dL (7-20) Creatinine 0.8 mg/dL (0.6-1.0) 0.8 mg/dL (0.6-1.0) Estimated GFR (Cockcroft-Gault) 70.5 70.5 Glucose Level 93 mg/dL (70-99) 93 mg/dL (70-99) Calcium Level 8.6 mg/dL (8.5-10.1) 8.2 mg/dL (8.5-10.1) Iron Level 28 ug/dL (50-170) Total Iron Binding Capacity 177 ug/dL (250-450) Iron Saturation 16 % (15-34) Ferritin 547 ng/mL (8-252) Vitamin B12 Level 451 pg/mL (247-911) Thyroid Stimulating Hormone (TSH) 1.031 uIU/mL (0.358-3.74) BUN/Creatinine Ratio 8 (6-20) Total Bilirubin 0.3 mg/dL (0.2-1.0) Aspartate Amino Transf (AST/SGOT) 13 U/L (15-37) Alanine Aminotransferase (ALT/SGPT) 10 U/L (14-59) Alkaline Phosphatase 116 U/L (46-116) Total Protein 5.4 g/dL (6.4-8.2) Albumin 1.6 g/dL (3.4-5.0) Albumin/Globulin Ratio 0.4 (1.0-1.7) Laboratory Tests Test 10/08/18 04:40 White Blood Count 15.3 x10^3/uL (4.0-11.0) Red Blood Count 2.69 x10^6/uL (3.50-5.40) Hemoglobin 8.0 g/dL (12.0-15.5) Hematocrit 23.9 % (36.0-47.0) Mean Corpuscular Volume 89 fL (79-100) Mean Corpuscular Hemoglobin 30 pg (25-35) Mean Corpuscular Hemoglobin Concent 34 g/dL (31-37) Red Cell Distribution Width 16.5 % (11.5-14.5) Platelet Count 514 x10^3/uL (140-400) Neutrophils (%) (Auto) 75 % (31-73) Lymphocytes (%) (Auto) 19 % (24-48) Monocytes (%) (Auto) 5 % (0-9) Eosinophils (%) (Auto) 0 % (0-3) Basophils (%) (Auto) 0 % (0-3) Neutrophils # (Auto) 11.5 x10^3/uL (1.8-7.7) Lymphocytes # (Auto) 2.9 x10^3/uL (1.0-4.8) Monocytes # (Auto) 0.8 x10^3/uL (0.0-1.1) Eosinophils # (Auto) 0.1 x10^3/uL (0.0-0.7) Basophils # (Auto) 0.1 x10^3/uL (0.0-0.2) Sodium Level 139 mmol/L (136-145) Potassium Level 3.9 mmol/L (3.5-5.1) Chloride Level 105 mmol/L (98-107) Carbon Dioxide Level 27 mmol/L (21-32) Anion Gap 7 (6-14) Blood Urea Nitrogen 6 mg/dL (7-20) Creatinine 0.8 mg/dL (0.6-1.0) Estimated GFR (Cockcroft-Gault) 70.5 BUN/Creatinine Ratio 8 (6-20) Glucose Level 93 mg/dL (70-99) Calcium Level 8.2 mg/dL (8.5-10.1) Total Bilirubin 0.3 mg/dL (0.2-1.0) Aspartate Amino Transf (AST/SGOT) 13 U/L (15-37) Alanine Aminotransferase (ALT/SGPT) 10 U/L (14-59) Alkaline Phosphatase 116 U/L (46-116) Total Protein 5.4 g/dL (6.4-8.2) Albumin 1.6 g/dL (3.4-5.0) Albumin/Globulin Ratio 0.4 (1.0-1.7) Medications Active Scripts Medications Dose Route/Sig Max Daily Dose Days Date Category Ipratropium [place] 0.2 Mg/1 Ml Solution 1 Vial NEB Q4HRS PRN 10/06/18 Reported Imodium A-D (Loperamide HCl) 2 Mg Capsule 2 Mg PO Q12HR PRN 10/06/18 Reported Acetaminophen 500 Mg Tablet 2 Tab PO TID PRN PRN 10/06/18 Reported Cyclobenzaprine Hcl 5 Mg Tablet 1 Tab PO TID 12/14/14 Reported Lipitor (Atorvastatin Calcium) 10 Mg Tablet Unknown Dose PO HS 12/14/14 Reported Triamterene-Hctz 37.5-25 Mg Tb (Triamterene/Hydrochlorothiazid) 1 Each Tablet 1 Tab PO DAILY 06/01/14 Reported Accupril (Quinapril Hcl) 40 Mg Tablet 1 Tab PO DAILY 06/01/14 Reported Tramadol Hcl 50 Mg Tablet 2 Tab PO PRN Q6HRS 06/01/14 Reported Travatan Z (Travoprost) 5 Ml Drops 1 Drop EACHEYE QHS 06/01/14 Reported Zolpidem Tartrate 10 Mg Tablet 1 Tab PO QHS 06/01/14 Reported Metamucil Plus Calcium Capsule (Psyllium Husk/Ca Carbonate) 1 Each Capsule 2 Each PO HS 06/01/14 Reported Cymbalta (Duloxetine Hcl) 60 Mg Capsule.dr 1 Cap PO DAILY 06/01/14 Reported Estradiol 0.5 Mg Tablet 0.5 Mg PO 05/27/13 Reported Impression . IMPRESSION: 1. Left lung mass obstructing the left main stem bronchus. 2. Left upper lobe consolidation. 3. Subcarinal ipsilateral mediastinal lymphadenopathy. 4. Small left-sided effusion. 5. Chronic obstructive pulmonary disease. 6. Acute exacerbation of chronic obstructive pulmonary disease. 7. Postobstructive pneumonia. 8. Other comorbidities as listed above. Plan . REVIEWED R/B/A TO [facility] PT ACCEPTED WILL CONTINUE THE SAME FOR NOW REC TO FOLLOW HEVER FORREST MD Oct 08, 2018 11:32
--- NOTE | 2018-10-08 11:46 | NUR ---
SW following pt. PT/OT pending, ID following pt. SW will await for PT/OT recommendation to assess skilled needs. Will continue to follow.
[2018-10-08] MEDS ORDERED: IV RINGERS,LACTATED 1000ML 1,000 ML IV SCH (11:49)
--- NOTE | 2018-10-08 12:35 | PDOC ---
[employer] PROGRESS NOTE Chief Complaint Chief Complaint Leukocytosis Mass in lung HTN Hyperlipidemia Low back pain Osteoarthritis Tonsillectomy Hysterectomy History of Present Illness History of Present Illness 10/08/18 Pt seen/examined at bedside CT chest showed L lung mass and pt should get a bronchoscopy today to evaluate for primary lung cancer DW RN DW pt Vitals/I&O Vitals/I&O: Vital Signs Date Time Temp Pulse Resp B/P (MAP) Pulse Ox O2 Delivery O2 Flow Rate FiO2 10/08/18 12:24 98 Nasal Cannula 2.0 10/08/18 11:16 99.4 110 18 122/59 (80) 99.4 I & O 10/07/18 10/07/18 10/08/18 15:00 23:00 07:00 Intake Total 400 ml 600 ml 360 ml Output Total 200 ml Balance 400 ml 600 ml 160 ml Physical Exam General: Alert, Oriented X3, Cooperative, No acute distress Lungs: Clear Abdomen: Normal bowel sounds, Soft, No tenderness, No hepatosplenomegaly, No masses Extremities: No clubbing, No cyanosis, No edema, Normal pulses, No tenderness/swelling Skin: No rashes, No breakdown, No significant lesion Labs Labs: Laboratory Tests Test 10/08/18 04:40 White Blood Count 15.3 x10^3/uL (4.0-11.0) Red Blood Count 2.69 x10^6/uL (3.50-5.40) Hemoglobin 8.0 g/dL (12.0-15.5) Hematocrit 23.9 % (36.0-47.0) Mean Corpuscular Volume 89 fL (79-100) Mean Corpuscular Hemoglobin 30 pg (25-35) Mean Corpuscular Hemoglobin Concent 34 g/dL (31-37) Red Cell Distribution Width 16.5 % (11.5-14.5) Platelet Count 514 x10^3/uL (140-400) Neutrophils (%) (Auto) 75 % (31-73) Lymphocytes (%) (Auto) 19 % (24-48) Monocytes (%) (Auto) 5 % (0-9) Eosinophils (%) (Auto) 0 % (0-3) Basophils (%) (Auto) 0 % (0-3) Neutrophils # (Auto) 11.5 x10^3/uL (1.8-7.7) Lymphocytes # (Auto) 2.9 x10^3/uL (1.0-4.8) Monocytes # (Auto) 0.8 x10^3/uL (0.0-1.1) Eosinophils # (Auto) 0.1 x10^3/uL (0.0-0.7) Basophils # (Auto) 0.1 x10^3/uL (0.0-0.2) Sodium Level 139 mmol/L (136-145) Potassium Level 3.9 mmol/L (3.5-5.1) Chloride Level 105 mmol/L (98-107) Carbon Dioxide Level 27 mmol/L (21-32) Anion Gap 7 (6-14) Blood Urea Nitrogen 6 mg/dL (7-20) Creatinine 0.8 mg/dL (0.6-1.0) Estimated GFR (Cockcroft-Gault) 70.5 BUN/Creatinine Ratio 8 (6-20) Glucose Level 93 mg/dL (70-99) Calcium Level 8.2 mg/dL (8.5-10.1) Total Bilirubin 0.3 mg/dL (0.2-1.0) Aspartate Amino Transf (AST/SGOT) 13 U/L (15-37) Alanine Aminotransferase (ALT/SGPT) 10 U/L (14-59) Alkaline Phosphatase 116 U/L (46-116) Total Protein 5.4 g/dL (6.4-8.2) Albumin 1.6 g/dL (3.4-5.0) Albumin/Globulin Ratio 0.4 (1.0-1.7) Review of Systems Review of Systems: No CO pain No CO SOB Assessment and Plan Assessmemt and Plan Problems Medical Problems: (1) Leukocytosis Status: Acute (2) Mass in chest Status: Acute Assessment Leukocytosis Mass in lung HTN Hyperlipidemia Low back pain Osteoarthritis Tonsillectomy Hysterectomy Plan Await bronchoscopy results IV Zosyn IV fluids Home meds DVT prophylaxis Full code Hope to D/C tomorrow if stable Comment Review of Relevant I have reviewed the following items grace (where applicable) has been applied. Medications: Current Medications Medications (Trade) Dose Ordered Sig/Mark Route PRN Reason Start Time Stop Time Status Last Admin Dose Admin Vancomycin HCl 1.25 gm/Sodium Chloride 250 ml @ 167 mls/hr Q24H IV 10/07/18 18:00 8/15/19 10:41 DC 10/07/18 18:06 Lactobacillus Rhamnosus (Culturelle) 1 cap BID PO 10/07/18 21:00 10/07/18 21:07 URIEL VUONG III DO Oct 08, 2018 12:35
[2018-10-08] MEDS ORDERED: PROPOFOL 20 ML IV ONE (13:42)
[2018-10-08] MEDS ORDERED: LIDOCAINE 2% PF 5 ML VIAL. ONE (13:42)
--- NOTE | 2018-10-08 14:59 | PDOC4 ---
PROCEDURE Procedure PROCEDURE BRONCH ENDOBRONCHIAL LESION OBSTRUCTING LEFT MAINSTEM BX PERFORMED NO COMPLICATION HEVER FORREST MD Oct 08, 2018 14:59
[2018-10-08 15:50] VITALS: BP 132/61
[2018-10-08] MEDS: ACETAMINOPHEN/CODEINE 300/30MG TABLET. PO PRN (17:49)
[2018-10-08 19:52] VITALS: BP 117/62
[2018-10-08] MEDS: TEMAZEPAM 7.5 MG CAPSULE PO PRN (20:20)
[2018-10-08] MEDS: oxyCODONE/APAP 7.5/325 1 TAB TABLET PO PRN (20:20)
[2018-10-08] MEDS: ATORVASTATIN CALCIUM 10 MG TABLET. PO SCH (20:20)
[2018-10-08] MEDS: PSYLLIUM HUSK (SUGAR FREE) 1 PKT PACKET PO SCH (20:23)
[2018-10-08] MEDS: LATANOPROST 0.005% OPHTH SOLUTION 2.5ML BOTTLE. OU SCH (21:00)
[2018-10-08] MEDS: ZOLPIDEM 5 MG TABLET. PO SCH (21:00)
--- NOTE | 2018-10-08 23:34 | OP ---
DATE OF SURGERY: 10/08/2018 ATTENDING PHYSICIAN: Dr. Landeros. PROCEDURES: Bronchoscopy, with forceps biopsy. INDICATION: The patient presented with abnormal CT chest revealing occlusion of the left main stem bronchus on CT chest along with some postobstructive pneumonia, possibly lung mass, undergoing a diagnostic bronchoscopy. Risks, benefits, and alternatives reviewed with the patient. She consented. SEDATION: Please see Anesthesia's notes. DESCRIPTION: Timeout was performed prior to sedation. Vital signs and O2 saturations were maintained within normal limits throughout the procedure. The bronchoscope was passed through the left naris. The vocal cords were identified moving bilaterally without any dysfunction. The vocal cords were then anesthetized with a total of 5 mL of 4% lidocaine. The bronchoscope was passed through the vocal cords. The proximal trachea and the distal trachea were normal. The right segments and subsegments were visualized. There were no endobronchial lesions. Upon inspecting the left side, there was total occlusion of the left main stem bronchus with a fungating white endobronchial mass. Multiple forceps biopsies were performed. There was minimal amount of hemorrhage. Prior to terminating the procedure, I did instill epinephrine. Hemostasis was obtained prior to terminating the procedure. FINDINGS: 1. Normal vocal cords. 2. Endobronchial lesion within the left main stem bronchus. 3. Normal right segments and subsegments. PLAN: We will await the BAL results and forceps biopsy, suspect malignancy. HEVER FORREST MD DR: BENJAMIN/cory JOB#: [id number] / [id number]
[2018-10-08 23:47] VITALS: BP 106/58
[2018-10-09] MEDS: PIPERACILLIN/TAZOBACTAM 3.375 GM in IV NORMAL SALINE 50ML 50 ML IV SCH ×3 (01:15→12:04)
[2018-10-09 02:50] VITALS: BP 133/58
[2018-10-09] MEDS: oxyCODONE/APAP 7.5/325 1 TAB TABLET PO PRN ×2 (03:36→18:10)
[2018-10-09 04:49] LABS: BASO % 0 % (0-3); EOS # 0.1 x10^3/uL (0.0-0.7); EOS % 0 % (0-3); HEMATOCRIT 25.6 % (36.0-47.0); HEMOGLOBIN 8.3 g/dL (12.0-15.5); LYMPH % 23 % (24-48); MEAN CORPUSCULAR HEMOGLOBIN 29 pg (25-35); MEAN CORPUSCULAR HGB CONC 33 g/dL (31-37); MEAN CORPUSCULAR VOLUME 90 fL (79-100); MONO # 0.8 x10^3/uL (0.0-1.1); MONO % 6 % (0-9); NEUT # 9.2 x10^3/uL (1.8-7.7); NEUT % 70 % (31-73); PLATELET COUNT 553 x10^3/uL (140-400); RED BLOOD COUNT 2.85 x10^6/uL (3.50-5.40); RED CELL DISTRIBUTION WIDTH 16.2 % (11.5-14.5); WHITE BLOOD COUNT 13.2 x10^3/uL (4.0-11.0)
[2018-10-09 05:03] LABS: CALCIUM 8.7 mg/dL (8.5-10.1); CREATININE 0.8 mg/dL (0.6-1.0); GFR 70.5; POTASSIUM 3.9 mmol/L (3.5-5.1)
[2018-10-09 07:00] VITALS: BP 112/58
[2018-10-09] MEDS: IV NORMAL SALINE 1000ML BAG 1,000 ML IV SCH ×2 (08:40→15:00)
[2018-10-09] MEDS: LACTOBACILLUS RHAMNOSUS GG 1 CAPSULE. PO SCH ×2 (08:41→22:08)
[2018-10-09] MEDS: DULoxetine HCL 30 MG CAPSULE.DR PO SCH (08:41)
[2018-10-09] MEDS: CYCLOBENZAPRINE 10 MG TABLET. PO SCH ×3 (08:41→22:08)
[2018-10-09] MEDS: LISINOPRIL 20 MG TABLET PO SCH (08:45)
[2018-10-09] MEDS: TRIAMTERENE/HCTZ 37.5/25MG TABLET. PO SCH (08:45)
--- NOTE | 2018-10-09 08:51 | PDOC ---
SUBJECTIVE Subjective S: wants to go home to the [facility] O: Gen: NAD, on O2, resting on side of bed Resp: breathing comfortably on O2 Psych: pleasant mood and affect Labs: ferr 547, sat of 16%, TIBC low, Hb 8.3, wbc 13.2, plt 553 bronch: path pending from L mainstem endobronch lesion A/P: She is a 73-year-old female with left endobronchial lesion and lung consolidation being treated for pneumonia, concern for malignancy with heavy smoking in the past. Lung consolidation, elevated white count, sputum production, low-grade fever: improving on antibiotics Concern for lung cancer: bronch yesterday, we'll follow-up after path obtained Constipation: Colace and MiraLAX when necessary Prophylaxis: Would recommend Lovenox prophylaxis after procedures done if staying longer Anemia and thrombocytosis: suspect reactive, AOCI, ferr hi and TIBC not elev, no need for Fe at the moment Disposition: After continued clinical improvement, she wants to leave today (will need po Abx and O2 walk test) but we will f/u as an outpt after path obtained Thank you kindly and please don't hesitate to call for questions as needed. OBJECTIVE Vital Signs Vital Signs Date Time Temp Pulse Resp B/P (MAP) Pulse Ox O2 Delivery O2 Flow Rate FiO2 10/09/18 08:45 101 112/58 10/09/18 07:00 97.9 101 16 112/58 (76) 97 Nasal Cannula 2.0 97.9 10/09/18 04:48 Nasal Cannula 2.0 10/09/18 03:36 Nasal Cannula 2.0 10/09/18 02:50 98.5 98 133/58 (83) 98 Nasal Cannula 2.0 98.5 10/09/18 00:12 Nasal Cannula 2.0 10/08/18 23:47 98.2 77 16 106/58 (74) 96 Nasal Cannula 2.0 98.2 10/08/18 20:21 Nasal Cannula 2.0 10/08/18 20:21 Nasal Cannula 2.0 10/08/18 19:52 99.1 115 16 117/62 (80) 93 Nasal Cannula 2.0 99.1 10/08/18 19:40 Nasal Cannula 2.0 10/08/18 17:49 93 Nasal Cannula 2.0 10/08/18 17:49 93 Nasal Cannula 2.0 10/08/18 15:56 93 Nasal Cannula 2.0 10/08/18 15:50 98.6 115 18 132/61 (84) 95 Nasal Cannula 2.0 98.6 10/08/18 15:21 116 20 121/62 93 Nasal Cannula 2 10/08/18 15:07 119 18 118/60 93 Nasal Cannula 2 10/08/18 14:52 98.5 122 18 97/68 97 Nasal Cannula 10 98.5 10/08/18 12:38 98.6 91 22 91 98.6 10/08/18 12:36 Nasal Cannula 2.0 10/08/18 12:24 98 Nasal Cannula 2.0 10/08/18 11:16 99.4 110 18 122/59 (80) 98 Nasal Cannula 2.0 99.4 10/08/18 10:55 98 Nasal Cannula 2.0 10/08/18 09:49 101 113/58 I & O Intake and Output 10/09/18 07:00 Intake Total 950 ml Output Total 900 ml Balance 50 ml Intake Oral 450 ml IV Total 500 ml Output Urine Total 900 ml # Voids 3 # Bowel Movements 2 COMMENT Lab Laboratory Tests Test 10/09/18 04:00 White Blood Count 13.2 x10^3/uL (4.0-11.0) Red Blood Count 2.85 x10^6/uL (3.50-5.40) Hemoglobin 8.3 g/dL (12.0-15.5) Hematocrit 25.6 % (36.0-47.0) Mean Corpuscular Volume 90 fL (79-100) Mean Corpuscular Hemoglobin 29 pg (25-35) Mean Corpuscular Hemoglobin Concent 33 g/dL (31-37) Red Cell Distribution Width 16.2 % (11.5-14.5) Platelet Count 553 x10^3/uL (140-400) Neutrophils (%) (Auto) 70 % (31-73) Lymphocytes (%) (Auto) 23 % (24-48) Monocytes (%) (Auto) 6 % (0-9) Eosinophils (%) (Auto) 0 % (0-3) Basophils (%) (Auto) 0 % (0-3) Neutrophils # (Auto) 9.2 x10^3/uL (1.8-7.7) Lymphocytes # (Auto) 3.0 x10^3/uL (1.0-4.8) Monocytes # (Auto) 0.8 x10^3/uL (0.0-1.1) Eosinophils # (Auto) 0.1 x10^3/uL (0.0-0.7) Basophils # (Auto) 0.0 x10^3/uL (0.0-0.2) Sodium Level 139 mmol/L (136-145) Potassium Level 3.9 mmol/L (3.5-5.1) Chloride Level 105 mmol/L (98-107) Carbon Dioxide Level 26 mmol/L (21-32) Anion Gap 8 (6-14) Blood Urea Nitrogen 6 mg/dL (7-20) Creatinine 0.8 mg/dL (0.6-1.0) Estimated GFR (Cockcroft-Gault) 70.5 Glucose Level 86 mg/dL (70-99) Calcium Level 8.7 mg/dL (8.5-10.1) ELAINE DODSON MD Oct 09, 2018 08:51
--- NOTE | 2018-10-09 08:55 | PDOC ---
PULMONARY PROGRESS NOTES Subjective pt not soa, lots of pain in back Vitals Vital Signs Date Time Temp Pulse Resp B/P (MAP) Pulse Ox O2 Delivery O2 Flow Rate FiO2 10/09/18 08:45 101 112/58 10/09/18 07:00 97.9 16 97 Nasal Cannula 2.0 97.9 ROS: No Nausea, No Chest Pain, No Abdominal Pain, No Increase Cough Lungs: Crackles Cardiovascular: S1, S2 Abdomen: Soft, Non-tender Neuro Exam: Alert Extremities: No Edema Skin: Warm Labs Laboratory Tests Test 10/08/18 04:40 10/09/18 04:00 White Blood Count 15.3 x10^3/uL (4.0-11.0) 13.2 x10^3/uL (4.0-11.0) Red Blood Count 2.69 x10^6/uL (3.50-5.40) 2.85 x10^6/uL (3.50-5.40) Hemoglobin 8.0 g/dL (12.0-15.5) 8.3 g/dL (12.0-15.5) Hematocrit 23.9 % (36.0-47.0) 25.6 % (36.0-47.0) Mean Corpuscular Volume 89 fL (79-100) 90 fL (79-100) Mean Corpuscular Hemoglobin 30 pg (25-35) 29 pg (25-35) Mean Corpuscular Hemoglobin Concent 34 g/dL (31-37) 33 g/dL (31-37) Red Cell Distribution Width 16.5 % (11.5-14.5) 16.2 % (11.5-14.5) Platelet Count 514 x10^3/uL (140-400) 553 x10^3/uL (140-400) Neutrophils (%) (Auto) 75 % (31-73) 70 % (31-73) Lymphocytes (%) (Auto) 19 % (24-48) 23 % (24-48) Monocytes (%) (Auto) 5 % (0-9) 6 % (0-9) Eosinophils (%) (Auto) 0 % (0-3) 0 % (0-3) Basophils (%) (Auto) 0 % (0-3) 0 % (0-3) Neutrophils # (Auto) 11.5 x10^3/uL (1.8-7.7) 9.2 x10^3/uL (1.8-7.7) Lymphocytes # (Auto) 2.9 x10^3/uL (1.0-4.8) 3.0 x10^3/uL (1.0-4.8) Monocytes # (Auto) 0.8 x10^3/uL (0.0-1.1) 0.8 x10^3/uL (0.0-1.1) Eosinophils # (Auto) 0.1 x10^3/uL (0.0-0.7) 0.1 x10^3/uL (0.0-0.7) Basophils # (Auto) 0.1 x10^3/uL (0.0-0.2) 0.0 x10^3/uL (0.0-0.2) Sodium Level 139 mmol/L (136-145) 139 mmol/L (136-145) Potassium Level 3.9 mmol/L (3.5-5.1) 3.9 mmol/L (3.5-5.1) Chloride Level 105 mmol/L (98-107) 105 mmol/L (98-107) Carbon Dioxide Level 27 mmol/L (21-32) 26 mmol/L (21-32) Anion Gap 7 (6-14) 8 (6-14) Blood Urea Nitrogen 6 mg/dL (7-20) 6 mg/dL (7-20) Creatinine 0.8 mg/dL (0.6-1.0) 0.8 mg/dL (0.6-1.0) Estimated GFR (Cockcroft-Gault) 70.5 70.5 BUN/Creatinine Ratio 8 (6-20) Glucose Level 93 mg/dL (70-99) 86 mg/dL (70-99) Calcium Level 8.2 mg/dL (8.5-10.1) 8.7 mg/dL (8.5-10.1) Total Bilirubin 0.3 mg/dL (0.2-1.0) Aspartate Amino Transf (AST/SGOT) 13 U/L (15-37) Alanine Aminotransferase (ALT/SGPT) 10 U/L (14-59) Alkaline Phosphatase 116 U/L (46-116) Total Protein 5.4 g/dL (6.4-8.2) Albumin 1.6 g/dL (3.4-5.0) Albumin/Globulin Ratio 0.4 (1.0-1.7) Laboratory Tests Test 10/09/18 04:00 White Blood Count 13.2 x10^3/uL (4.0-11.0) Red Blood Count 2.85 x10^6/uL (3.50-5.40) Hemoglobin 8.3 g/dL (12.0-15.5) Hematocrit 25.6 % (36.0-47.0) Mean Corpuscular Volume 90 fL (79-100) Mean Corpuscular Hemoglobin 29 pg (25-35) Mean Corpuscular Hemoglobin Concent 33 g/dL (31-37) Red Cell Distribution Width 16.2 % (11.5-14.5) Platelet Count 553 x10^3/uL (140-400) Neutrophils (%) (Auto) 70 % (31-73) Lymphocytes (%) (Auto) 23 % (24-48) Monocytes (%) (Auto) 6 % (0-9) Eosinophils (%) (Auto) 0 % (0-3) Basophils (%) (Auto) 0 % (0-3) Neutrophils # (Auto) 9.2 x10^3/uL (1.8-7.7) Lymphocytes # (Auto) 3.0 x10^3/uL (1.0-4.8) Monocytes # (Auto) 0.8 x10^3/uL (0.0-1.1) Eosinophils # (Auto) 0.1 x10^3/uL (0.0-0.7) Basophils # (Auto) 0.0 x10^3/uL (0.0-0.2) Sodium Level 139 mmol/L (136-145) Potassium Level 3.9 mmol/L (3.5-5.1) Chloride Level 105 mmol/L (98-107) Carbon Dioxide Level 26 mmol/L (21-32) Anion Gap 8 (6-14) Blood Urea Nitrogen 6 mg/dL (7-20) Creatinine 0.8 mg/dL (0.6-1.0) Estimated GFR (Cockcroft-Gault) 70.5 Glucose Level 86 mg/dL (70-99) Calcium Level 8.7 mg/dL (8.5-10.1) Medications Active Scripts Medications Dose Route/Sig Max Daily Dose Days Date Category Ipratropium Cook 0.2 Mg/1 Ml Solution 1 Vial NEB Q4HRS PRN 10/06/18 Reported Imodium A-D (Loperamide HCl) 2 Mg Capsule 2 Mg PO Q12HR PRN 10/06/18 Reported Acetaminophen 500 Mg Tablet 2 Tab PO TID PRN PRN 10/06/18 Reported Cyclobenzaprine Hcl 5 Mg Tablet 1 Tab PO TID 12/14/14 Reported Lipitor (Atorvastatin Calcium) 10 Mg Tablet Unknown Dose PO HS 12/14/14 Reported Triamterene-Hctz 37.5-25 Mg Tb (Triamterene/Hydrochlorothiazid) 1 Each Tablet 1 Tab PO DAILY 06/01/14 Reported Accupril (Quinapril Hcl) 40 Mg Tablet 1 Tab PO DAILY 06/01/14 Reported Tramadol Hcl 50 Mg Tablet 2 Tab PO PRN Q6HRS 06/01/14 Reported Travatan Z (Travoprost) 5 Ml Drops 1 Drop EACHEYE QHS 06/01/14 Reported Zolpidem Tartrate 10 Mg Tablet 1 Tab PO QHS 06/01/14 Reported Metamucil Plus Calcium Capsule (Psyllium Husk/Ca Carbonate) 1 Each Capsule 2 Each PO HS 06/01/14 Reported Cymbalta (Duloxetine Hcl) 60 Mg Capsule. 1 Cap PO DAILY 06/01/14 Reported Estradiol 0.5 Mg Tablet 0.5 Mg PO 05/27/13 Reported Impression . IMPRESSION: 1. Left lung mass obstructing the left main stem bronchus. 2. Left upper lobe consolidation. 3. Subcarinal ipsilateral mediastinal lymphadenopathy. 4. Small left-sided effusion. 5. Chronic obstructive pulmonary disease. 6. Acute exacerbation of chronic obstructive pulmonary disease. 7. Postobstructive pneumonia. 8. Other comorbidities as listed above. 9. Sever Back pain Plan . RESULT PENIDING SPOKE WITH DR SHARMA AND YEVGENIY WILL D/C HOME FOLLOW UP WITH ME NEXT WEEK RX WRITTEN FOR PERCOCET IN PLACE OF DR VUONG PT TO RETURN TO [facility] HEVER FORREST MD Oct 09, 2018 08:55
[2018-10-09] MEDS: POLYETHYLENE GLYCOL 3350 17 GM PACKET. PO SCH (09:00)
[2018-10-09 11:00] VITALS: BP 112/67
[2018-10-09] MEDS ORDERED: traMADol 50 MG TABLET PO PRN (12:00)
--- NOTE | 2018-10-09 12:01 | NUR ---
SW following pt. PT /OT recommends home with assistance/AL/home health. Will continue to follow.
--- NOTE | 2018-10-09 12:35 | PDOC ---
[employer] PROGRESS NOTE Chief Complaint Chief Complaint Leukocytosis Mass in lung (3.7cm) HTN Hyperlipidemia Low back pain Osteoarthritis Tonsillectomy Hysterectomy History of Present Illness History of Present Illness 10/09/18 Pt seen/examined at bedside Awaiting path results from biopsy DW pt and sister Pt states she quit smoking July 23, 2018 Pt states she wants to go home today 10/08/18 Pt seen/examined at bedside CT chest showed L lung mass and pt should get a bronchoscopy today to evaluate for primary lung cancer DW RN DW pt Vitals/I&O Vitals/I&O: Vital Signs Date Time Temp Pulse Resp B/P (MAP) Pulse Ox O2 Delivery O2 Flow Rate FiO2 10/09/18 12:12 18 98 Nasal Cannula 10/09/18 11:00 98.5 111 112/67 (82) 2.0 98.5 I & O 0 10/08/18 10/08/18 10/09/18 14:59 22:59 06:59 Intake Total 500 ml 250 ml 200 ml Output Total 500 ml 400 ml Balance 0 ml 250 ml -200 ml Physical Exam General: Alert, Oriented X3, Cooperative, No acute distress Heart: Regular rate, Normal S1, Normal S2 Lungs: Crackles Abdomen: Normal bowel sounds, Soft, No tenderness, No hepatosplenomegaly, No masses Extremities: No clubbing, No cyanosis, No edema, Normal pulses, No tenderness/swelling Skin: No rashes, No breakdown, No significant lesion Labs Labs: Laboratory Tests Test 10/09/18 04:00 White Blood Count 13.2 x10^3/uL (4.0-11.0) Red Blood Count 2.85 x10^6/uL (3.50-5.40) Hemoglobin 8.3 g/dL (12.0-15.5) Hematocrit 25.6 % (36.0-47.0) Mean Corpuscular Volume 90 fL (79-100) Mean Corpuscular Hemoglobin 29 pg (25-35) Mean Corpuscular Hemoglobin Concent 33 g/dL (31-37) Red Cell Distribution Width 16.2 % (11.5-14.5) Platelet Count 553 x10^3/uL (140-400) Neutrophils (%) (Auto) 70 % (31-73) Lymphocytes (%) (Auto) 23 % (24-48) Monocytes (%) (Auto) 6 % (0-9) Eosinophils (%) (Auto) 0 % (0-3) Basophils (%) (Auto) 0 % (0-3) Neutrophils # (Auto) 9.2 x10^3/uL (1.8-7.7) Lymphocytes # (Auto) 3.0 x10^3/uL (1.0-4.8) Monocytes # (Auto) 0.8 x10^3/uL (0.0-1.1) Eosinophils # (Auto) 0.1 x10^3/uL (0.0-0.7) Basophils # (Auto) 0.0 x10^3/uL (0.0-0.2) Sodium Level 139 mmol/L (136-145) Potassium Level 3.9 mmol/L (3.5-5.1) Chloride Level 105 mmol/L (98-107) Carbon Dioxide Level 26 mmol/L (21-32) Anion Gap 8 (6-14) Blood Urea Nitrogen 6 mg/dL (7-20) Creatinine 0.8 mg/dL (0.6-1.0) Estimated GFR (Cockcroft-Gault) 70.5 Glucose Level 86 mg/dL (70-99) Calcium Level 8.7 mg/dL (8.5-10.1) Review of Systems Review of Systems: CO back pain CO being cold Assessment and Plan Assessmemt and Plan Problems Medical Problems: (1) Leukocytosis Status: Acute (2) Mass in chest Status: Acute Assessment Leukocytosis Mass in lung (3.7cm) HTN Hyperlipidemia Low back pain Osteoarthritis Tonsillectomy Hysterectomy Plan IV Zosyn IV fluids Tramadol PRN for pain O2 per NC Breathing treatments DVT prophylaxis Home meds PT/OT Comment Review of Relevant I have reviewed the following items grace (where applicable) has been applied. Medications: Current Medications Medications (Trade) Dose Ordered Sig/Mark Route PRN Reason Start Time Stop Time Status Last Admin Dose Admin Oxycodone/ Acetaminophen (Percocet 7.5/ 325) 1 tab PRN Q4HRS PRN PO PAIN 10/08/18 18:45 10/09/18 03:36 Tramadol HCl (Ultram) 100 mg PRN Q6HRS PRN PO PAIN 10/09/18 12:00 10/09/18 12:12 URIEL VUONG III DO Oct 09, 2018 12:35
--- NOTE | 2018-10-09 13:40 | PDOC ---
Infectious Disease Note Subjective Subjective pt is feeling good, wants to go home ROS ROS no n/v/d/sob/fever Vital Sign Vital Signs Vital Signs Date Time Temp Pulse Resp B/P (MAP) Pulse Ox O2 Delivery O2 Flow Rate FiO2 10/09/18 12:12 18 98 Nasal Cannula 10/09/18 11:00 98.5 111 112/67 (82) 2.0 98.5 Physical Exam PHYSICAL EXAM PHYSICAL EXAMINATION: GENERAL: Alert and oriented female, not in distress. VITAL SIGNS: Stable. HEENT: NAD. NECK: Supple, no JVP, no lymphadenopathy. LUNGS: Clear. HEART: S1, S2 regular. ABDOMEN: Benign. EXTREMITIES: No edema, cyanosis. SKIN: Unremarkable. NEUROLOGIC: Alert, awake and appropriate. No focal neurologic deficit. Labs Lab Laboratory Tests Test 10/09/18 04:00 White Blood Count 13.2 x10^3/uL (4.0-11.0) Red Blood Count 2.85 x10^6/uL (3.50-5.40) Hemoglobin 8.3 g/dL (12.0-15.5) Hematocrit 25.6 % (36.0-47.0) Mean Corpuscular Volume 90 fL (79-100) Mean Corpuscular Hemoglobin 29 pg (25-35) Mean Corpuscular Hemoglobin Concent 33 g/dL (31-37) Red Cell Distribution Width 16.2 % (11.5-14.5) Platelet Count 553 x10^3/uL (140-400) Neutrophils (%) (Auto) 70 % (31-73) Lymphocytes (%) (Auto) 23 % (24-48) Monocytes (%) (Auto) 6 % (0-9) Eosinophils (%) (Auto) 0 % (0-3) Basophils (%) (Auto) 0 % (0-3) Neutrophils # (Auto) 9.2 x10^3/uL (1.8-7.7) Lymphocytes # (Auto) 3.0 x10^3/uL (1.0-4.8) Monocytes # (Auto) 0.8 x10^3/uL (0.0-1.1) Eosinophils # (Auto) 0.1 x10^3/uL (0.0-0.7) Basophils # (Auto) 0.0 x10^3/uL (0.0-0.2) Sodium Level 139 mmol/L (136-145) Potassium Level 3.9 mmol/L (3.5-5.1) Chloride Level 105 mmol/L (98-107) Carbon Dioxide Level 26 mmol/L (21-32) Anion Gap 8 (6-14) Blood Urea Nitrogen 6 mg/dL (7-20) Creatinine 0.8 mg/dL (0.6-1.0) Estimated GFR (Cockcroft-Gault) 70.5 Glucose Level 86 mg/dL (70-99) Calcium Level 8.7 mg/dL (8.5-10.1) Micro Microbiology 10/06/18 Blood Culture - Preliminary, Resulted NO GROWTH AFTER 1 DAY Objective Assessment Post obstructive pneumonia s/p bronch and biopsy Low grade fever Leukocytosis Suspected lung tumor COPD HTN Plan Plan of Care change zosyn to augmentin f/u with Dr Flores weber to d/c from ID stand point MARYA HSARMA MD Oct 09, 2018 13:40
[2018-10-09 15:00] VITALS: BP 116/59
--- NOTE | 2018-10-09 20:10 | NUR ---
Discharge Note: [place] [facility] Discharge instructions and discharge home medications reviewed with patient and a copy given. All questions have been answered and understanding verbalized. Called [facility] facility, report given to Milagro GAMA at 1630. The following instructions and handouts were given: Prescriptions for Augmentin, percocet. Handout about sepsis. Follow up with PCP in a week Follow up with Dr. Tanner on Friday. Watch out for shortness of breath, fever, worsening of symptoms. Discontinued lines and drains: peripheral IV intact, patient tolerated removal, no complications noted. Patient will be discharged to the [facility] through express transport.
[2018-10-09] MEDS ORDERED: AMOXICILLIN/K CLAV 875/125MG TABLET. PO SCH (21:00)
[2018-10-09] MEDS: PSYLLIUM HUSK (SUGAR FREE) 1 PKT PACKET PO SCH (21:00)
[2018-10-09] MEDS: ZOLPIDEM 5 MG TABLET. PO SCH (21:00)
[2018-10-09] MEDS: LATANOPROST 0.005% OPHTH SOLUTION 2.5ML BOTTLE. OU SCH (21:00)
[2018-10-09] MEDS: ATORVASTATIN CALCIUM 10 MG TABLET. PO SCH (22:08)
--- NOTE | 2018-10-10 02:10 | DS ---
DATE OF DISCHARGE: 10/09/2018 ADMISSION DIAGNOSES: Leukocytosis and shortness of breath, hypoxia, new mass in the lung, suspect possible lung cancer. DISCHARGE DIAGNOSES: Lung mass (bronchoscopy was done with biopsy. Results are pending). HOSPITAL COURSE: The patient is a pleasant 73-year-old female who presented with leukocytosis and weakness, shortness of breath, was noted to have a new mass in her lung. She did have a history of smoking. She was admitted. We consulted Pulmonary. She went for bronch yesterday. She is doing well today. I saw her and examined her. Her heart tones are normal. Lungs are clear. Abdomen is soft. She wants to go home. I talked to Dr. Staton in the Department of Pathology. He states it is going to be a few days before biopsy is ready. I talked to Dr. Holm. He is okay with the patient going home. We plan to discharge and she is going to follow up closely next week. DISPOSITION: Home. ACTIVITY: As tolerated. DIET: Low sodium. MEDICATIONS: Please see the MRAD. TOTAL TIME: 34 minutes. URIEL VUONG DO DR: SHERRELL/cory JOB#: [id number] / [id number]
--- NOTE | 2018-10-12 16:07 | PATHOLOGY ---
[facility] Accession Number: [id number] . 01 Material submitted: . bronchus - BRONCH BIOPSY JASMEET. Modifiers: left, upper lobe . 01 Clinical history: . Lung mass . 02 Diagnosis: Bronchial biopsies, left upper lobe: - Mild acute and chronic inflammation. . (JPM:mml; 10/12/2018) [facility]/10/12/2018 . 02 Comment: Sections of the bronchial biopsy reveal segments of bronchial mucosa showing congestion, focal recent hemorrhage, and mild acute and chronic inflammation. There is no evidence of malignancy. . (JPM:mml; 10/12/2018) . 02 Electronically signed: . Ben Staton MD, Pathologist NPI- [id number] . 01 Gross description: . Received in formalin labeled "Aisha Iverson, JASMEET," are 3 segments of silva soft tissue measuring 0.5 x 0.3 x 0.2 cm in aggregate dimensions and measuring 0.2 cm each in maximum dimension. The specimen is submitted entirely in cassette A1. (TSD; 10/09/2018) TOB/TOB . 02 Pathologist provided ICD-10: J20.9, J42 . 02 CPT . 278539 Specimen Comment: A courtesy copy of this report has been sent to Specimen Comment: [phone], , , . Specimen Comment: Report sent to ,DR ALVARADO / DR GODINEZ Specimen Comment: DR CALABRESE Performed at: [address], [place], [place] [id number] MD Zain Lizama MD Phone: [phone] Performed at: 02 [facility] [address] [place], [place] [id number] MD Ben Staton MD Phone: [phone]
== END 2018-10-09 22:30 | DRG 871 ==
LOC: ER 13:34 → 6 SOUTH 16:43
PROVIDERS: ADMIT Internal Medicine; ATTEND Internal Medicine
PROC: 0BB88ZX Excision of Left Upper Lobe Bronchus, Via Natural or Artificial Opening Endoscopic, Diagnostic (ICD-10-PCS; principal; 2018-10-08 13:00)
DX: A41.9 Sepsis, unspecified organism (principal); J18.8 Other pneumonia, unspecified organism; J44.0 Chronic obstructive pulmonary disease with (acute) lower respiratory infection; J90 Pleural effusion, not elsewhere classified; J44.1 Chronic obstructive pulmonary disease with (acute) exacerbation; E78.00 Pure hypercholesterolemia, unspecified; M19.90 Unspecified osteoarthritis, unspecified site; I10 Essential (primary) hypertension; G47.00 Insomnia, unspecified; G89.29 Other chronic pain; F17.210 Nicotine dependence, cigarettes, uncomplicated; E78.5 Hyperlipidemia, unspecified; F32.9 Major depressive disorder, single episode, unspecified; K59.00 Constipation, unspecified; D64.9 Anemia, unspecified; D47.3 Essential (hemorrhagic) thrombocythemia; Z90.710 Acquired absence of both cervix and uterus; Z80.3 Family history of malignant neoplasm of breast; Z87.01 Personal history of pneumonia (recurrent); Q76.0 Spina bifida occulta
CPT/HCPCS: 31622; 36415; 71275; 80048; 80053; 81001; 82607; 82728; 83540; 83550; 83605; 84443; 84484; 85007; 85025; 85045; 85610; 85651; 85730; 87040; 87070; 87086; 87205; 88305; 94618; 94640; 96361; 96365; 96368; 96375; J0171; J2001; J2270; J2405; J2543; J2704; J3370; J7030; J7040; J7050; J7120; J7613; Q9967; 99285-25; G0378

== ENCOUNTER → 2018-10-22 | Outpatient (CLI) | payer MEDICARE ==
[2018-10-09 15:00] VITALS: BP 116/59
[~2018-10-22] MED LIST changes: +ACET500T68 PO; +ALBUTEROL SULFATE 2.5 MG/3 ML NEBU. NEB ONE; +IPRA0.2S5 NEB; +LOPE-101 PO
--- NOTE | 2018-10-29 14:52 | RESP ---
DATE OF SERVICE: 10/22/2018 FULL PULMONARY FUNCTION TESTS ATTENDING PHYSICIAN: Dr. Colby Tanner. The patient's FVC was 1.71, which is 58% predicted, FEV1 1.1, which is 51% predicted. The FEV1/FVC ratio was reduced. There was no response to bronchodilators. Lung volume showed increased total lung capacity and increased residual volume. Diffusion capacity was normal at 83% predicted. IMPRESSION: 1. Moderate obstructive airway disease. 2. No response to bronchodilators. 3. Lung volumes consistent with air trapping and hyperinflation. 4. Normal diffusion capacity. TESSA BIGGS MD DR: OCTAVIANO/cory JOB#: [id number] / [id number]
== END | disposition home or self-care (01) ==
LOC: PF 09:07
PROVIDERS: ATTEND Internal Medicine Pulmonary Disease
DX: J98.8 Other specified respiratory disorders (principal)
CPT/HCPCS: 94060; 94640; 94729; J7613

== ENCOUNTER → 2018-11-19 | Outpatient (CLI) | payer MEDICARE ==
[~2018-11-19] MED LIST changes: -ALBUTEROL SULFATE 2.5 MG/3 ML NEBU. NEB ONE
--- NOTE | 2018-11-20 15:50 | RAD ---
Examination: PET W CT SKULL TO MIDTHIGH History: Initial evaluation of lung mass. Comparison/Correlation: 10/06/2018 CTA of the chest, 07/24/2018 CT abdomen and pelvis with oral contrast FINDINGS: Net dose 14.1 mCi F-18 FDG was administered intravenously for purposes of PET/CT exam. Blood glucose level at the time of radiotracer administration was 120 mg/dL. Imaging was performed from the skull base to the proximal thighs. Hepatic reference uptake is SUV max of 2.6 . Uptake of radiotracer involving the visualized head and neck is unremarkable. Intense uptake with SUV maximum of 22 corresponding to the patient's known left superior hilar mass is evident. Region of photopenia within this mass is evident. Foci of intense uptake which appear to be separate from this mass but in close proximity to it within the left upper lobe atelectasis present are also evident with intense uptake of SUV max of 5.5 and may represent satellite nodules and masses. Moderate-sized left basilar effusion is present. Mild left basilar atelectasis present. Right lung field is clear. A lymph node along the superior margin of the main pulmonary artery is present measuring 0.8 cm diameter and has SUV max of 3.9. Other superior mediastinal lymph nodes are also present but do not have a significant degree of uptake. Subcarinal lymph node has SUV max of 22.7. It is not enlarged. Significant calcification involving coronary arteries is noted diffusely. Uptake is noted involving the left adrenal gland which is diffusely thickened and has a SUV max of 4. Uptake of radiotracer involving the pelvis is unremarkable. Lower lumbar spinal fusion noted. Cholecystectomy noted. Diverticulosis is present. Urinary bladder is unremarkable. Infrarenal abdominal aortic aneurysm measuring up to 2.6 cm in diameter is present. The suprarenal abdominal aorta measures up to 1.5 cm diameter. Distal right common iliac artery aneurysm of 2.2 cm diameter is present. Significant calcific involvement and narrowing of the proximal left common iliac artery is evident. Significant calcific involvement of the proximal right iliac artery also is evident. IMPRESSION: Left hilar mass with intense uptake compatible with active neoplastic disease. Surrounding smaller lesions which are present within the left upper lobe atelectasis present may represent satellite masses or nodules. Mildly intense uptake involving a lymph node superior to the main pulmonary artery is of concern for metastatic involvement. Uptake of the left adrenal gland diffusely is noted. It is diffusely thickened. Possibility of metastatic involvement is raised. Left basilar pleural effusion and atelectasis. Infrarenal abdominal aortic aneurysm. Distal right common iliac artery aneurysm. Significant calcification involvement of coronary and pelvic arterial vasculature. PQRS Compliance Statement: One or more of the following individualized dose reduction techniques were utilized for this examination: 1. Automated exposure control 2. Adjustment of the mA and/or kV according to patient size 3. Use of iterative reconstruction technique Electronically signed by: Michele Louis MD (11/20/2018 3:47 PM) [facility]
== END | disposition home or self-care (01) ==
LOC: PETSC 10:36
PROVIDERS: ATTEND Internal Medicine Pulmonary Disease
DX: I25.10 Atherosclerotic heart disease of native coronary artery without angina pectoris (principal); K57.90 Diverticulosis of intestine, part unspecified, without perforation or abscess without bleeding; I71.4 Abdominal aortic aneurysm, without rupture; I72.3 Aneurysm of iliac artery; R91.8 Other nonspecific abnormal finding of lung field; J98.11 Atelectasis; J90 Pleural effusion, not elsewhere classified; Z90.49 Acquired absence of other specified parts of digestive tract
CPT/HCPCS: 78815; A9552

== ENCOUNTER → 2018-12-10 | Day surgery (SDC) | payer MEDICARE ==
[~2018-12-10] MED LIST changes: +ALBUTEROL SULFATE 2.5 MG/3 ML NEBU. NEB PRN; +EPINEPHrine 1 MG/ML VIAL INJ PRN; +EPINEPHrine 1 MG/ML VIAL ONE; +IV RINGERS,LACTATED 1000ML 1,000 ML IV SCH; +LIDOCAINE 1% Multi-Dose 20 ML VIAL. INJ PRN; +LIDOCAINE 1% Multi-Dose 20 ML VIAL. ONE; +LIDOCAINE 2% PF 5 ML VIAL. ONE; +LIDOCAINE 2% VISCOUS 100 ML BOTTLE. MM PRN; +LIDOCAINE 2% VISCOUS 100 ML BOTTLE. ONE; +LIDOCAINE 4% TOPICAL 50 ML SOLUTION. MM PRN; +LIDOCAINE 4% TOPICAL 50 ML SOLUTION. ONE; +MAGN296S9 PO; +PROPOFOL 40 ML IV ONE; +SIMV40TA18 PO; -SIMV40TA3 PO; +ePHEDrine PF IN SALINE 50 MG/10 ML SYRINGE. IV ONE
[2018-12-10 11:27] VITALS: BP 91/53
--- NOTE | 2018-12-11 13:07 | PATHOLOGY ---
Note [facility] Accession Number: [id number] TESTS RESULT FLAG UNITS REF RANGE LAB Clinician Provided Cytology Information No. of containers..01 Other (Miscellaneous) Source: JASMEET BRONCH BRUSHING DIAGNOSIS: JASMEET BRONCH BRUSHING INCONCLUSIVE. ABUNDANT RED BLOOD CELLS ARE PRESENT. RARE ATYPICAL CELLS PRESENT AMONGST BENIGN AND REACTIVE BRONCHIAL EPITHELIAL CELLS, ACUTE AND CHRONIC INFLAMMATORY CELLS AND ABUNDANT RED BLOOD CELLS. PLEASE SEE ALSO THE LEFT UPPER LOBE LUNG BRONCHIAL BIOPSY ([id number]), THE LEFT UPPER LOBE / LEFT MAINSTEM PARHAM NEEDLE CYTOLOGY SPECIMEN ([id number]) AND THE CORRESPONDING BRUSH TIP RINSE ([id number]). CLINICAL AND RADIOGRAPHIC CORRELATION IS RECOMMENDED. THE CASE IS DISCUSSED WITH DR. FORREST ON 12-11-18 AT APPROXIMATELY 12:20 PM. Pathologist ICD10: 02 R91.8 Signed out by: Chaparrita Kearney MD, Pathologist NPI- [id number] Performed by: Shilpa Garcia Rn Cardiovascular (ASC) FLAG LEGEND: L-Low Normal,H-High Normal,LL-Alert Low,HH-Alert High <-Panic Low,>-Panic High,A-Abnormal,AA-Critical Abnormal Performed at: 01 [facility] [address] [place] [address] Zain Lizama MD, 02 [address] [facility] [address] [place] [address] Ben Staton MD, Specimen Comment: A courtesy copy of this report has been sent to Specimen Comment: [phone], . Specimen Comment: Report sent to / DR CURRY Specimen Comment: A duplicate report has been generated due to demographic updates. Performed at: 01 [facility] [address] [place] [address] [address], [place], [place] [id number] MD Zain Lizama MD Phone: [phone]
--- NOTE | 2018-12-11 13:07 | PATHOLOGY ---
Note [facility] Accession Number: [id number] TESTS RESULT FLAG UNITS REF RANGE LAB Clinician Provided Cytology Information No. of containers..01 Other (Miscellaneous) Source: [A] 01 PARHAM NEEDLE LMS DIAGNOSIS: [A] 02 PARHAM NEEDLE LMS POSITIVE FOR MALIGNANT CELLS. POORLY DIFFERENTIATED MALIGNANT CELLS ARE PRESENT. NON SMALL CELL CARCINOMA IS PRESENT. RARE GROUPS OF MALIGNANT CELLS ARE PRESENT AMONGST BENIGN AND REACTIVE BRONCHIAL EPITHELIAL CELLS AND ACUTE AND CHRONIC INFLAMMATORY CELLS. THE FINDINGS ARE CONSISTENT WITH POORLY DIFFERENTIATED NON-SMALL CELL CARCINOMA. PLEASE SEE ALSO THE LEFT UPPER LOBE LUNG BRONICHIAL BIOPSY ([id number]) AND THE LEFT UPPER LOBE LUNG BRONCHIAL BRUSHING / BRUSH RINSE ([id number] AND [id number]). THE CASE WAS DISCUSSED WITH DR. FORREST ON 12-11-18 AT 12:20 PM. Pathologist ICD10: 02 R91.8 Signed out by: 02 Chaparrita Kearney MD, Pathologist NPI- [id number] Performed by: Shilpa Garcia, Sales Agent [employer] ([facility]) Gross description: 01 30ML, COLORLESS, CLOUDY /LCS 02/24/1840 0000 Local FLAG LEGEND: L-Low Normal,H-High Normal,LL-Alert Low,HH-Alert High <-Panic Low,>-Panic High,A-Abnormal,AA-Critical Abnormal Performed at: [employer] [facility] [address] [place] [address] Zain Lizama MD, 02 [address] [facility] [address] [place] [address] Ben Staton MD, Specimen Comment: A courtesy copy of this report has been sent to Specimen Comment: [phone], . Specimen Comment: Report sent to / DR CURRY Specimen Comment: A duplicate report has been generated due to demographic updates. Performed at: 01 [facility] [address] [facility] [address], [place], [place] [address] MD Zain Lizama MD Phone: [phone]
--- NOTE | 2018-12-11 13:07 | PATHOLOGY ---
Note [facility] Accession Number: [id number] TESTS RESULT FLAG UNITS REF RANGE LAB Clinician Provided Cytology Information No. of containers..01 Other (Miscellaneous) Source: [A] 01 BRONCH BRUSH TIP DIAGNOSIS: [A] 02 BRONCH BRUSH TIP SUSPICIOUS FOR MALIGNANCY. ABUNDANT RED BLOOD CELLS ARE PRESENT. GROUPS OF ATYPICAL CELLS SUSPICIOUS FOR NON-SMALL CELL CARCINOMA ARE PRESENT AMONGST BENIGN AND REACTIVE BRONCHIAL EPITHELILAL CELLS, ACUTE AND CHRONIC INFLAMMATORY CELLS AND NUMEROUS RED BLOOD CELLS. PLEASE SEE ALSO THE LEFT UPPER LOBE LUNG BRONICHAL BIOPSY ([id number]), THE LEFT UPPER LOBE LUNG / LEFT MAINSTEM PARHAM NEEDLE CYTOLOGY SPECIMEN ([id number]) AND THE CORRESPONDING BRONCHIAL BRUSH SMEAR ([id number]). CLINICAL AND RADIOGRAPHIC CORRELATION IS RECOMMENDED. THE CASE IS DISCUSSED WITH DR. FORREST ON 12-11-18 AT APPROXIMATELY 12:20 PM. Pathologist ICD10: 02 R91.8 Signed out by: Chaparrita Kearney MD, Pathologist NPI- [id number] Performed by: Shilpa Garcia, Electricity Trader ([facility]) Gross description: 01 90ML, COLORLESS, CLEAR /LCS 02/24/1840 0000 Local FLAG LEGEND: L-Low Normal,H-High Normal,LL-Alert Low,HH-Alert High <-Panic Low,>-Panic High,A-Abnormal,AA-Critical Abnormal Performed at: [address] [facility] [place] [address] Zain Lizama MD, [address] [address] Ben Staton MD, Specimen Comment: A duplicate report has been generated due to demographic updates. Performed at: 01 [facility] [address] [facility] [address], [place], [place] [id number] MD Zain Lizama MD Phone: [phone]
--- NOTE | 2018-12-14 13:07 | PATHOLOGY ---
[facility] Accession Number: [id number] . 01 Material submitted: . lung - LEFT UPPER LOBE BX. Modifiers: left, upper . 01 Clinical history: . Lung nodule . 02 Diagnosis: "BBX JASMEET", bronchial biopsy: - INVASIVE POORLY-DIFFERENTIATED SQUAMOUS CELL CARCINOMA. (SEE COMMENT) . (CLW:mml; 12/11/2018) [facility] 12/14/2018 1202 Local . 02 Comment: Sections show fragments of bronchial wall with an invasive non-small cell carcinoma most consistent with poorly differentiated squamous cell carcinoma. Properly-controlled immunohistochemical stains are performed: . Block A1: TTF-1: tumor cells non-reactive; P63: tumor cells reactive; AE1/AE3: tumor cells reactive. . Please see also the cytology specimens ([id number], [id number], and [id number]). The case is co-reviewed with Dr. Ben Staton. The case is discussed preliminarily with Dr. Tanner on 12/11/2018 at 12:20 PM. . (CLW:mm; 12/11/2018) . 02 Electronically signed: . Chaparrita Kearney MD, Pathologist NPI- [id number] . 01 Gross description: . Received in formalin labeled "Aisha Iverson," and additionally labeled on the requisition as "BBX JASMEET," are multiple segments of silva soft tissue measuring 1.0 x 0.3 x 0.1 cm in aggregate dimensions. The specimen is filtered and entirely submitted in cassette A1. (TSD; 12/10/2018) TOB/TOB 12/10/2018 1946 Local . 02 Pathologist provided ICD-10: C34.12 . 02 CPT . 040863, A73097, [id number] Specimen Comment: A courtesy copy of this report has been sent to Specimen Comment: [phone], . Specimen Comment: Report sent to / DR CURRY Performed at: 01 [facility] [address] [id number] MD Zain Lizama MD Phone: [phone] Performed at: 02 [facility] [address] [id number] MD Christiano Schilling MD Phone: [phone]
== END ==
LOC: SURG 09:37
PROVIDERS: ATTEND Internal Medicine Pulmonary Disease
DX: R91.8 Other nonspecific abnormal finding of lung field (principal); C34.12 Malignant neoplasm of upper lobe, left bronchus or lung; I10 Essential (primary) hypertension; F32.9 Major depressive disorder, single episode, unspecified; Z87.891 Personal history of nicotine dependence
CPT/HCPCS: 31622; 88104; 88112; 88173; 88305; 88341; 88342; 94640; J0171; J2001; J2704; J7613

== ENCOUNTER → 2019-01-05 | Outpatient (CLI) | payer MEDICARE ==
[2018-12-10 11:27] VITALS: BP 91/53
[~2019-01-05] MED LIST changes: -ALBUTEROL SULFATE 2.5 MG/3 ML NEBU. NEB PRN; -EPINEPHrine 1 MG/ML VIAL INJ PRN; -EPINEPHrine 1 MG/ML VIAL ONE; +GADOTERATE 7.5 MMOL/15ML VIAL. IVP ONE; -IV RINGERS,LACTATED 1000ML 1,000 ML IV SCH; -LIDOCAINE 1% Multi-Dose 20 ML VIAL. INJ PRN; -LIDOCAINE 1% Multi-Dose 20 ML VIAL. ONE; -LIDOCAINE 2% PF 5 ML VIAL. ONE; -LIDOCAINE 2% VISCOUS 100 ML BOTTLE. MM PRN; -LIDOCAINE 2% VISCOUS 100 ML BOTTLE. ONE; -LIDOCAINE 4% TOPICAL 50 ML SOLUTION. MM PRN; -LIDOCAINE 4% TOPICAL 50 ML SOLUTION. ONE; -PROPOFOL 40 ML IV ONE; -ePHEDrine PF IN SALINE 50 MG/10 ML SYRINGE. IV ONE
--- NOTE | 2019-01-05 14:27 | RAD ---
MRI Brain with and without contrast History: Lung cancer, headaches Technique: Multiplanar, multi sequential pre and postcontrast MR imaging was performed of the brain. Comparison: None Findings: There is some motion degradation. There is no evidence of recent infarct or cytotoxic edema. Ventricular size is within normal limits. There is mild generalized supratentorial involutional change.There is no significant midline shift, intraaxial mass effect, or focal abnormal extra-axial fluid collection. There is very minimal T2 and FLAIR hyperintense signal of the supratentorial periventricular white matter. There is no nodular parenchymal or leptomeningeal enhancement. There is preservation of the major intracranial flow-voids at the skull base. The cerebellar tonsils are normal in location. There is no significant abnormality of the pineal gland or pituitary gland. Paranasal sinuses are overall aerated. The mastoid air cells are aerated. There is nonspecific heterogeneity of the marrow of the nonexpanded clivus. There has been lens surgery bilaterally. Impression: 1. There is no abnormal intracranial enhancement. 2. There is mild supratentorial involutional change. Very mild T2 and FLAIR hyperintense signal of the supratentorial parenchyma is probably due to chronic microvascular ischemic disease. Electronically signed by: Ricardo Colon MD (01/05/2019 2:24 PM) [facility]
== END ==
LOC: MRI 09:44
PROVIDERS: ATTEND Internal Medicine Hematology & Oncology
DX: C34.90 Malignant neoplasm of unspecified part of unspecified bronchus or lung (principal); R41.89 Other symptoms and signs involving cognitive functions and awareness; Z87.891 Personal history of nicotine dependence
CPT/HCPCS: 70553; A9575

== ENCOUNTER 2019-01-11 07:23 | Emergency (ER) | payer MEDICARE ==
[~2019-01-11] VITALS: Ht 162.6 cm; Wt 55.3 kg
[~2019-01-11 07:23] MED LIST changes: -GADOTERATE 7.5 MMOL/15ML VIAL. IVP ONE; -MAGN296S9 PO
[2019-01-11 07:30] VITALS: BP 120/68
--- NOTE | 2019-01-11 08:17 | PHYS DOC ---
Past Medical History Past Medical History: Arthritis, High Cholesterol, Hypertension, Other Additional Past Medical Histor: INSOMNIA, SPINA BIFIDA OCCULTA, OSTEOPENIA Past Surgical History: Hysterectomy, Tonsillectomy, Other Additional Past Surgical Histo: A&P REPAIR, LUMBAR LAMINECTOMY Alcohol Use: None Drug Use: None Adult General Chief Complaint Chief Complaint: CONSTIPATION HPI HPI Patient is a 73 year old with history of hypertension, dyslipidemia, lung cancer on tramadol who presents with complaining of constipation. Patient states she did not have any bowel movement for a while but does not remember for how long she didn't have a bowel movement because of marked dementia. Patient complaining of cramping pain in the rectal area feeling of having bowel movements. Patient denies nausea or vomiting, urinary symptoms, fever and chills, rectal bleeding. Review of Systems Review of Systems Constitutional: Denies fever or chills [] Eyes: Denies change in visual acuity, redness, or eye pain [] HENT: Denies nasal congestion or sore throat [] Respiratory: Denies cough or shortness of breath [] Cardiovascular: No additional information not addressed in HPI [] GI: Denies abdominal pain, nausea, vomiting, bloody stools or diarrhea, reports constipation [] : Denies dysuria or hematuria [] Musculoskeletal: Denies back pain or joint pain [] Integument: Denies rash or skin lesions [] Neurologic: Denies headache, focal weakness or sensory changes [] Endocrine: Denies polyuria or polydipsia [] All other systems were reviewed and found to be within normal limits, except as documented in this note. Current Medications Current Medications Current Medications Medications (Trade) Dose Ordered Sig/[facility] Start Time Stop Time Status Last Admin Dose Admin Sodium Monofluorophosphate (Fleet Adult) 133 ml 1X ONCE 01/11/19 09:30 01/11/19 09:31 DC 01/11/19 10:03 133 ML Allergies Allergies Allergies Coded Allergies Type Severity Reaction Last Updated Verified No Known Drug Allergies 12/10/18 No Physical Exam Physical Exam Constitutional: Well nourished, mild distress, non-toxic appearance. [] HENT: Normocephalic, atraumatic. Eyes: PERRLA, EOMI, conjunctiva normal, no discharge. [] Neck: Normal range of motion, no tenderness, supple, no stridor. [] Cardiovascular:Heart rate regular rhythm, no murmur [] Lungs & Thorax: Bilateral breath sounds clear to auscultation [] Abdomen: Bowel sounds normal, soft, no tenderness, no masses, no pulsatile masses. 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 Skin: Warm, dry, no erythema, no rash. [] Back: No tenderness, no CVA tenderness. [] Extremities: No tenderness, no cyanosis, no clubbing, ROM intact, no edema. [] Neurologic: Alert and oriented X 3, no focal deficits noted. [] Psychologic: Affect normal, judgement normal, mood normal. [] Current Patient Data Vital Signs Vital Signs Date Time Temp Pulse Resp B/P (MAP) Pulse Ox O2 Delivery O2 Flow Rate FiO2 01/11/19 07:30 98.9 109 18 120/68 (85) 94 Room Air 98.9 EKG EKG [] Radiology/Procedures Radiology/Procedures [] Course & Med Decision Making Course & Med Decision Making Pertinent Imaging studies reviewed. (See chart for details) Evaluation of patient in ER showed 73-year-old female patient with complaining of constipation. Patient had fecal impaction to move partially manually and then after Fleet Enema had a good bowel movement with mental for her constipation. I've spoken with the patient and/or caregivers. I've explained the patient's condition, diagnosis and treatment plan based on information available to me at this time. I've answered the patient's and/or caregivers questions and addressed any concerns. The patient and/or caregivers have a good understanding the patient's diagnosis, condition and treatment plan as can be expected at this point. Vital signs have been stabilized. The patient's condition is stable for discharge from the emergency department. The patient will pursue further outpatient evaluation with her primary care provider or other designated consulting physician as outlined in the discharge instructions. Patient and/or caregivers are agreeable to this plan of care and follow-up instructions have been explained in detail. The patient and/or caregivers have received these instructions in written format and expressed understanding of these discharge instructions. The patient and her caregivers are aware that if any significant change in condition or worsening of symptoms should prompt him to immediately return to this of the closest emergency department. If an emergent department is not readily available I would encourage him to call 911. Dennis Disclaimer Dennis Disclaimer This electronic medical record was generated, in whole or in part, using a voice recognition dictation system. Departure Departure Impression: Primary Impression: Fecal impaction in rectum Additional Impression: Constipation Disposition: 01 HOME, SELF-CARE (at 1026) Condition: IMPROVED Referrals: JULIUS CURRY MD (PCP) Patient Instructions: Constipation, Adult Additional Instructions: Drink plenty of liquids Follow-up with your primary care physician in 3-5 days Return to ER if not getting better Scripts Magnesium Citrate (MAGNESIUM CITRATE) 296 Ml Solution 296 ML PO ONCE, #296 ML Drink half a bottle every 12 hours as needed for constipation Prov: NORMA HOBSON MD 01/11/19 Problem Qualifiers Additional Impression: Constipation Constipation type: unspecified constipation type Qualified Codes: K59.00 - Constipation, unspecified NORMA HOBSON MD Jan 11, 2019 08:17
--- NOTE | 2019-01-11 09:05 | RAD ---
EXAM: CT ABDOMEN/PELVIS WITHOUT CONTRAST. HISTORY: Abdominal pain and constipation, lung cancer. TECHNIQUE: Computed tomography of the abdomen and pelvis was performed without intravenous contrast. COMPARISON: 07/24/2018. FINDINGS: Lung windows through the visualized portions of the bases reveal a left pleural effusion with atelectasis of the left lower lobe. There is a left hemithoracic volume loss, incompletely visualized. Coronary atherosclerotic calcifications are noted. Bone windows reveal no suspicious lesions. There is grade 1 anterolisthesis at L4-5, status post instrumented posterior fusion. The gallbladder is surgically absent. And liver, adrenal glands, pancreas and kidneys are unremarkable without contrast. There is a retroaortic left renal vein. There are no pathologically enlarged lymph nodes. There is diffuse aortoiliac atherosclerotic calcifications. Infrarenal abdominal aortic ectasia measures 2.7 cm. There is no aneurysmal dilatation. An aneurysm along the right common iliac artery distally measures 2.3 cm. See or stenosis cannot be assessed without contrast. Stool throughout the colon consistent with mild constipation. There is no small bowel obstruction. There is no evidence of appendicitis. The uterus is surgically absent. There are changes of pelvic floor relaxation. A small left inguinal hernia contains only fat. IMPRESSION: 1. Findings consistent with mild constipation. 2. Pelvic floor relaxation. Small left inguinal hernia containing only fat. 3. 2.3 cm right common iliac aneurysm. Infrarenal abdominal aortic ectasia without aneurysmal dilatation at 2.7 cm. 4. Left hemithoracic volume loss with a left pleural effusion, incompletely visualized. *One or more of the following individualized dose reduction techniques were utilized for this examination: 1. Automated exposure control. 2. Adjustment of the mA and/or kV according to patient size. 3. Use of iterative reconstruction technique. Electronically signed by: Bernice Lindo MD (01/11/2019 9:02 AM) [facility]
[2019-01-11] MEDS ORDERED: SODIUM PHOSPHATES 19/7GM 133 ML ENEMA. PR ONE (09:30)
[2019-01-11] MEDS ORDERED: MAGN296S9 PO (10:27)
== END 2019-01-11 11:03 | disposition home or self-care (01) ==
LOC: ER 07:23
DX: K56.41 Fecal impaction (principal); E78.00 Pure hypercholesterolemia, unspecified; I10 Essential (primary) hypertension; Z90.710 Acquired absence of both cervix and uterus; Z98.890 Other specified postprocedural states
CPT/HCPCS: 74176; 99284